=== PATIENT | female | born 1945 | race Caucasian/White ===

== ENCOUNTER 2016-06-05 18:33 | Observation (INO) ==
[2016-06-05] MEDS ORDERED: *HR* HYDROmorphone (PF) 1 MG/ML SYRINGE IVP PRN (22:10)
[2016-06-05] MEDS ORDERED: Acetaminophen 325 MG TABLET PO PRN (22:20)
[2016-06-05] MEDS ORDERED: Naloxone 0.4 MG/ML INJ IVP PRN (22:20)
[2016-06-05] MEDS ORDERED: Ondansetron 4 MG/2 ML VIAL IVP PRN (22:20)
--- NOTE | 2016-06-05 22:26 | Internal Med History&Physical ---
Date of Encounter: 06/05/16 Time of Encounter: 22:23 Assessment and Plan (1) Appendicitis Current visit: Yes Status: Acute Keep nothing by mouth, start Flagyl and ciprofloxacin IV Continue IV fluids with potassium supplementation a sodium is 125 and potassium is 3.2 Dr. Ely will see the patient on consult Dilaudid IV for pain Qualifiers: Appendicitis type: acute appendicitis Acute appendicitis type: with localized peritonitis Qualified Code(s): K35.3 - Acute appendicitis with localized peritonitis (2) Non-small cell carcinoma of left lung Current visit: Yes Status: Acute Followed by Dr. Olivo (3) A-fib Current visit: Yes Status: Acute Takes Coumadin at home Check INR Qualifiers: Atrial fibrillation type: chronic Qualified Code(s): I48.2 - Chronic atrial fibrillation (4) Pacemaker Current visit: Yes Status: Acute (5) Skin cancer Current visit: Yes Status: Acute Status post recent excision of left cheek, healing properly (6) CKD (chronic kidney disease) Current visit: No Status: Chronic Qualifiers: Chronic kidney disease stage: stage 3 (moderate) Qualified Code(s): N18.3 - Chronic kidney disease, stage 3 (moderate) (7) Cirrhosis Current visit: No Status: Chronic Qualifiers: Hepatic cirrhosis type: other cirrhosis Qualified Code(s): K74.69 - Other cirrhosis of liver (8) Hypokalemia Current visit: Yes Status: Acute Replete as needed (9) Hyponatremia Current visit: No Status: Chronic Monitor sodium Patient will be receiving Protonix iv for GI prophylaxis and sequential compression devices for DVT prophylaxis. Will be admitted as inpatient, expected to stay more than to mid thighs. Full code. Time spent on this admission 45 minutes. High risk due to comorbidities Internal Medicine - H&P: HPI Chief complaint: Right lower quadrant pain History of present illness: Ms. Brooks is a 70 year old female with a past medical history of recent diagnosis of lung cancer, COPD not oxygen dependent, CAD, atrial fibrillation on Coumadin, scleroses, pacemaker biventricular, splenic infarction/DVT of the splenic vein who was seen in [facility] for abdominal pain. The patient says that the pain started yesterday localized to the right lower quadrant. CT scan of the abdomen showed distended tubular structure of 13 mm at the tip of the cecum concerning for acute appendicitis. Dr. Ely was contacted from the surgical service who it requested admission to the hospitalist service as he is going to see the patient on consult. The patient rates the pain 8 out of 10 sharp. Sodium was 125 potassium 3.2 glucose 143 lipase 212. Patient has an allergy to morphine but was able to tolerate Dilaudid. INR has not been checked. Past Med Surg Social Fam HX - Past Medical History Medical history: atrial fibrillation (On Coumadin), CHF (Diastolic), COPD (Not oxygen dependent), hypertension, liver disease (Cirrhosis), myocardial infarction, renal disease (ckd3), other (Non-small cell carcinoma, CAD, digoxin toxicity, skin cancer status post resection/facial, PET scan with multiple mediastinal nodes, cirrhosis, gout, GERD, diastolic CHF, pulmonary hypertension , esophageal varices, GI bleed, ocular histoplasmosis, mitral stenosis) Psychiatric history: no psych history - Past Surgical History Surgical History: colectomy, pacemaker/AICD, other (Lung biopsy, aortic valve replacement/bioprosthetic, biventricular pacemaker, cholecystectomy, CABG) - Social History Smoking Status: Former smoker Smokeless Tobacco Status: No Alcohol use: occasionally Drug use: none - Additional Family History Additional family history: Father with pacemaker and CHF in mother with emphysema and pneumonia Internal Medicine - H&P: Meds Allopurinol [Zyloprim] 100 mg PO DAILY 02/04/15 [History] Ferrous Sulfate 325 mg PO DAILY 02/04/15 [History] TraMADol [Ultram] 50 mg PO QID PRN 02/04/15 [History] Warfarin [Coumadin] 5 mg PO QPM 02/04/15 [History] Zolpidem [Ambien] 10 mg PO HS PRN 02/04/15 [History] Albuterol Sulfate [Proair Hfa] 1 puff IH Q4H PRN 05/27/16 [History] Furosemide [Lasix] 80 mg PO BID 05/27/16 [History] Metolazone [Zaroxolyn] 2.5 mg PO 05/27/16 [History] Potassium Chloride [Klor-Con Sprinkle] 10 meq PO DAILY 05/27/16 [History] Omeprazole [PriLOSEC] 20 mg PO DAILY 06/03/16 [History] Spironolactone [Aldactone] 100 mg PO DAILY 06/03/16 [History] Allergies aspirin Allergy (Verified 05/27/16 17:16) Nausea calcium carbonate [From Bufferin] Allergy (Verified 05/27/16 17:16) Nausea magnesium [From Bufferin] Allergy (Verified 05/27/16 17:16) Nausea morphine Allergy (Verified 05/27/16 17:16) Hives Penicillins Allergy (Verified 05/27/16 17:16) Hives All Systems PM: A 10-system review of systems was performed and is negative for pertinent findings except as documented above in the HPI. Review of systems: Denies any nausea, no vomiting, no abdominal pain, no dysuria. Other systems out of the 10 reviewed were negative - Constitutional Vitals: Temp Pulse Resp BP Pulse Ox 98.6 F 60 15 130/65 100 06/05/16 20:40 06/05/16 20:40 06/05/16 20:40 06/05/16 20:40 06/05/16 20:40 General appearance: Present: A&O X 3 - Head Head exam: Present: atraumatic, normocephalic - Eye Eye exam: Present: PERRL, conjuntiva pink, sclera anicteric Pupils: Present: PERRL - Neck Neck exam general surgery: Present: supple, trachea midline. Absent: lymphadenopathy - Respiratory Respiratory exam: Present: CTAB. Absent: accessory muscle use, rales, rhonchi, wheezes - Cardiovascular Cardiovascular exam: Present: RRR, +S1, +S2. Absent: diastolic murmur, gallop, rubs, systolic murmur - GI/Abdominal GI/Abdominal exam: Present: distended, normal bowel sounds, soft, tenderness ( Right lower quadrant tenderness, negative rebound), no peritoneal signs. Absent : rebound - Extremities Exam Extremities exam: Present: warm, radial pulses palpable and symetrical. Absent : calf tenderness, cyanotic, pedal edema - Neurological Exam Neurological exam: Present: CN II-XII intact, oriented X3, no focal deficits. Absent: pronater drift, facial droop, speech deficit - Skin Skin exam: Present: dry. Absent: intact (Left facial cheek sutures status post excision of skin cancer) Internal Med - H&P Results - Labs Labs: Sodium 125, potassium 3.2 chloride 87 BUN 28 glucose 145 calcium 10.7 creatinine 0.94 CBC shows white blood cell count 9.2 hemoglobin 11.4 hematocrit 35.1 platelets 232
[2016-06-05] MEDS: MetroNIDAZOLE 500 MG/100 ML 500 MG/100 ML BAG IVPB SCH (22:48)
[2016-06-05 23:01] LABS: INR 1.6; Prothrombin Time 17.9 Seconds (9.4-12.1)
[2016-06-05] MEDS: Pantoprazole 40 MG VIAL IVP SCH (23:38)
[2016-06-06] MEDS: MetroNIDAZOLE 500 MG/100 ML 500 MG/100 ML BAG IVPB SCH ×4 (01:20→23:14)
[2016-06-06 03:41] LABS: Basophils % 0.2 %; Eosinophils % 0.1 %; Hematocrit 32.1 % (35.3-44.9); Hemoglobin 10.6 g/dL (11.5-15.4); Immature Granulocytes % 0.5 % (0-4); Lymphocytes # 0.8 K/mcL (0.6-4.6); Lymphocytes % 7.8 %; Mean Corpuscular Hemoglobin 30.8 pg (28.0-33.3); Mean Corpuscular Volume 93.3 fL (83.0-100.0); Mean Platelet Volume 9.1 fL (9.4-12.4); Monocytes # 0.7 K/mcL (0.0-1.3); Monocytes % 7.1 %; Neutrophils # 8.4 K/mcL (1.6-8.9); Platelet Count 191 K/mcL (140-400); Red Blood Count 3.44 M/mcL (3.82-4.97); Red Cell Distribution Width 14.8 % (11.5-14.5); Segmented Neutrophils % 84.3 %
[2016-06-06 03:55] LABS: BUN/Creatinine Ratio 27 (6-26); Blood Urea Nitrogen 26 mg/dL (7-20); Carbon Dioxide 26 mEq/L (19-29); Chloride 94 mEq/L (98-109); Glucose 127 mg/dL (70-99); Osmolality,Calculated 274 (280-300); Sodium 129 mEq/L (136-145); eGFR For African Americans > 60 (> 60); eGFR For Non-African Americans 57 (> 60)
[2016-06-06] MEDS: Pantoprazole 40 MG VIAL IVP SCH (08:50)
[2016-06-06] MEDS ORDERED: Lidocaine -MPF 4% 5 ML AMPUL ONE (12:38)
[2016-06-06] MEDS ORDERED: *HR* Rocuronium Bromide 50 MG/5 ML VIAL ONE (12:38)
[2016-06-06] MEDS ORDERED: Lidocaine -MPF 2% 2 ML VIAL ONE ×2 (12:38→12:39)
[2016-06-06] MEDS ORDERED: *HR* Succinylcholine 200 MG/10 ML VIAL IVP ONE (12:38)
[2016-06-06] MEDS ORDERED: *HR* Propofol 200 MG/20 ML VIAL IVP ONE (12:39)
[2016-06-06] MEDS ORDERED: *HR* Midazolam HCl 2 MG/2 ML VIAL ONE (12:39)
[2016-06-06] MEDS ORDERED: Neostigmine Methylsulfate 3 MG/3 ML SYRINGE ONE (12:39)
[2016-06-06] MEDS ORDERED: *HR* FentaNYL (PF) 100 MCG/2 ML VIAL ONE (12:39)
--- NOTE | 2016-06-06 12:39 | General Surgery Consult Note ---
Date of Encounter: 06/06/16 Time of Encounter: 12:37 Assessment and Plan (1) Appendicitis Current Visit: Yes Status: Acute After a 20 minute discussion she has opted for surgery rather than proceed with antibiotics. Her main goal is to resolve the right lower quadrant pain. I discussed the risks, benefits, and expected outcomes of surgery and she agrees to proceed. Qualifiers: Appendicitis type: acute appendicitis Acute appendicitis type: with localized peritonitis Qualified Code(s): K35.3 - Acute appendicitis with localized peritonitis History of Present Illness Consult date: 06/06/16 Reason for consult: abdominal pain History of present illness: This is a 70-year-old female that presents from an outlying facility with right lower quadrant abdominal pain. She underwent CT scanning and was identified to have an enlarged appendix with no periappendiceal stranding. After 24 hours antibiotics she reports she somewhat better but she is still quite tender in the right lower quadrant. She is requesting an operation in the form of diagnostic laparoscopy. Past Med Surg Social Fam HX - Past Medical History Medical history: atrial fibrillation (On Coumadin), CHF (Diastolic), COPD (Not oxygen dependent), hypertension, liver disease (Cirrhosis), myocardial infarction, renal disease (ckd3), other (Non-small cell carcinoma, CAD, digoxin toxicity, skin cancer status post resection/facial, PET scan with multiple mediastinal nodes, cirrhosis, gout, GERD, diastolic CHF, pulmonary hypertension , esophageal varices, GI bleed, ocular histoplasmosis, mitral stenosis) Psychiatric history: no psych history - Past Surgical History Surgical History: colectomy, pacemaker/AICD, other (Lung biopsy, aortic valve replacement/bioprosthetic, biventricular pacemaker, cholecystectomy, CABG) - Social History Smoking Status: Former smoker Smokeless Tobacco Status: No Alcohol use: occasionally Drug use: none Medications and Allergies Allopurinol [Zyloprim] 100 mg PO DAILY 02/04/15 [History] Ferrous Sulfate 325 mg PO DAILY 02/04/15 [History] TraMADol [Ultram] 50 mg PO QID PRN 02/04/15 [History] Warfarin [Coumadin] 5 mg PO QPM 02/04/15 [History] Zolpidem [Ambien] 10 mg PO HS PRN 02/04/15 [History] Albuterol Sulfate [Proair Hfa] 1 puff IH Q4H PRN 05/27/16 [History] Furosemide [Lasix] 80 mg PO BID 05/27/16 [History] Metolazone [Zaroxolyn] 2.5 mg PO 05/27/16 [History] Potassium Chloride [Klor-Con Sprinkle] 10 meq PO DAILY 05/27/16 [History] Omeprazole [PriLOSEC] 20 mg PO DAILY 06/03/16 [History] Spironolactone [Aldactone] 100 mg PO DAILY 06/03/16 [History] Allergies aspirin Allergy (Verified 05/27/16 17:16) Nausea calcium carbonate [From Bufferin] Allergy (Verified 05/27/16 17:16) Nausea magnesium [From Bufferin] Allergy (Verified 05/27/16 17:16) Nausea morphine Allergy (Verified 05/27/16 17:16) Hives Penicillins Allergy (Verified 05/27/16 17:16) Hives Review of Systems All systems PM: A 10-system review of systems was performed and is negative for pertinent findings except as documented above in the HPI. General Surgery Exam Initial Vital Signs Temp Pulse Resp BP Pulse Ox 98.6 F 60 15 130/65 100 06/05/16 20:40 06/05/16 20:40 06/05/16 20:40 06/05/16 20:40 06/05/16 20:40 - Eyes PERRL - Neck trachea midline - Respiratory normal respiratory effort - Cardiovascular Cardiovascular exam: Present: NR - Abdomen Abdomen general surgery: Present: tender Abdominal Tenderness: Present: RLQ - Integumentary Integumentary general surgery: Present: no abnormal pigmentation - Musculoskeletal Present: normal posture Exam Initial Vital Signs Temp Pulse Resp BP Pulse Ox 98.6 F 60 15 130/65 100 06/05/16 20:40 06/05/16 20:40 06/05/16 20:40 06/05/16 20:40 06/05/16 20:40 Results - Labs 06/06/16 02:59 06/06/16 02:59 Abnormal lab results RBC 3.44 M/mcL (3.82-4.97) L 06/06/16 02:59 Hgb 10.6 g/dL (11.5-15.4) L 06/06/16 02:59 Hct 32.1 % (35.3-44.9) L 06/06/16 02:59 RDW 14.8 % (11.5-14.5) H 06/06/16 02:59 MPV 9.1 fL (9.4-12.4) L 06/06/16 02:59 PT 17.9 Seconds (9.4-12.1) H 06/05/16 22:51 Sodium 129 mEq/L (136-145) L 06/06/16 02:59 Chloride 94 mEq/L (98-109) L 06/06/16 02:59 BUN 26 mg/dL (7-20) H 06/06/16 02:59 Est GFR (Non-Af Amer) 57 (> 60) L 06/06/16 02:59 BUN/Creatinine Ratio 27 (6-26) H 06/06/16 02:59 Glucose 127 mg/dL (70-99) H 06/06/16 02:59 POC Glucose 150 (58-89) H 06/06/16 12:10 Calculated Osmolality 274 (280-300) L 06/06/16 02:59 Diabetes panel 06/06/16 Range/Units 02:59 Sodium 129 L (136-145) mEq/L Potassium 4.0 (3.5-4.5) mEq/L Chloride 94 L (98-109) mEq/L Carbon Dioxide 26 (19-29) mEq/L BUN 26 H (7-20) mg/dL Creatinine 0.97 (0.57-1.11) mg/dL Glucose 127 H (70-99) mg/dL Calcium 10.0 (8.6-10.8) mg/dL Calcium panel 06/06/16 Range/Units 02:59 Calcium 10.0 (8.6-10.8) mg/dL Pituitary panel 06/06/16 Range/Units 02:59 Sodium 129 L (136-145) mEq/L Potassium 4.0 (3.5-4.5) mEq/L Chloride 94 L (98-109) mEq/L Carbon Dioxide 26 (19-29) mEq/L BUN 26 H (7-20) mg/dL Creatinine 0.97 (0.57-1.11) mg/dL Glucose 127 H (70-99) mg/dL Calcium 10.0 (8.6-10.8) mg/dL Adrenal panel 06/06/16 Range/Units 02:59 Sodium 129 L (136-145) mEq/L Potassium 4.0 (3.5-4.5) mEq/L Chloride 94 L (98-109) mEq/L Carbon Dioxide 26 (19-29) mEq/L BUN 26 H (7-20) mg/dL Creatinine 0.97 (0.57-1.11) mg/dL Glucose 127 H (70-99) mg/dL Calcium 10.0 (8.6-10.8) mg/dL All other labs normal. Consult Discharge Plan - Plan Referrals: Jose Jones DO [Primary Care Provider] -
[2016-06-06] MEDS ORDERED: Dexamethasone 4 MG/ML VIAL ONE (12:40)
[2016-06-06] MEDS ORDERED: Ondansetron 4 MG/2 ML VIAL ONE (12:40)
--- NOTE | 2016-06-06 13:07 | Anesthesia Evaluation PreOp ---
Date of Encounter: 06/06/16 Time of Encounter: 13:04 - Past History Planned Operation: Lap Appy Cardiac History: IN (??), CHF (Diastolic CHF - maintained on Metolazone, Spironolactone, Lasix), HTN, Arrhythmia (AFib anticoagulated on Coumadin), Cardiac Surgery (Aortic Valve replacement,), Pacemaker/ICD (Bi-V Pacemaker), Other (ECHO 02/05/2015 - LVEF 56%, mild concentric LVH, Severely dilated ROBERT, Moderate-Severe Aortic Stenosis - peak gradient 62mmHg, Severe TR, mMIld MR. Mild PulmHTN RVSP = 41-43.) Pulmonary History: Former smoker, COPD (maintained on ProAir), Other (Newly Dx Non-small cell Ca w/PET + mediastinal nodes, PulmHTN) CREDIT RISK OFFICER History: Other (Ocular Histoplasmosis, FacialSkin Ca s/p resection) Other Medical History: Hepatic (Cirrhosis), Renal (Stage 3 CKD), GERD ( maintained on Omeprazole. Hx of Esophageal Varices), Other (Skin Ca, Gout) Anesthesia History: No Prior Anesthetic Complications, Past Anesthesia (Aortic Valve replacement, Lung Bx, BiV-pacemaker, Colectomy, CABG, Samira) Alcohol Use: occasionally Drug use: none Medications and Allergies Allopurinol [Zyloprim] 100 mg PO DAILY 02/04/15 [History] Ferrous Sulfate 325 mg PO DAILY 02/04/15 [History] TraMADol [Ultram] 50 mg PO QID PRN 02/04/15 [History] Warfarin [Coumadin] 5 mg PO QPM 02/04/15 [History] Zolpidem [Ambien] 10 mg PO HS PRN 02/04/15 [History] Albuterol Sulfate [Proair Hfa] 1 puff IH Q4H PRN 05/27/16 [History] Furosemide [Lasix] 80 mg PO BID 05/27/16 [History] Metolazone [Zaroxolyn] 2.5 mg PO 05/27/16 [History] Potassium Chloride [Klor-Con Sprinkle] 10 meq PO DAILY 05/27/16 [History] Omeprazole [PriLOSEC] 20 mg PO DAILY 06/03/16 [History] Spironolactone [Aldactone] 100 mg PO DAILY 06/03/16 [History] Allergies aspirin Allergy (Verified 05/27/16 17:16) Nausea calcium carbonate [From Bufferin] Allergy (Verified 05/27/16 17:16) Nausea magnesium [From Bufferin] Allergy (Verified 05/27/16 17:16) Nausea morphine Allergy (Verified 05/27/16 17:16) Hives Penicillins Allergy (Verified 05/27/16 17:16) Hives - Meds/Allergy Pre-op Review Medications Reviewed: Yes Allergies Reviewed: Yes Beta Blockers on Current Med List: No Anesthesia Results - Labs 06/06/16 02:59 06/06/16 02:59 Laboratory Tests 05/29/16 06/05/16 06/06/16 09:30 22:51 12:10 PT 17.9 H INR 1.6 APTT 52.3 H POC Glucose 150 H - Imaging EKG: image reviewed Anesthesia Exam Vital Signs Temp Pulse Resp BP Pulse Ox 06/06/16 11:39 98.4 F 60 15 109/58 97 06/06/16 07:00 97.4 F L 60 15 115/65 98 06/06/16 03:20 98.4 F 62 14 123/56 98 06/06/16 00:58 99.5 F 60 14 144/55 99 06/05/16 20:40 98.6 F 60 15 130/65 100 Intake and Output 06/05/16 06/06/16 06/06/16 23:59 07:59 15:59 Intake Total 300 / 300 0 / 0 1005 / 1005 Output Total 500 / 500 350 / 350 400 / 400 Balance -200 / -200 -350 / -350 605 / 605 Intake: IV Fluids 300 / 300 1005 / 1005 KCl 10 MEQ In 0.9 % 1005 / 1005 Sodium Chloride 1,000 ML @ 125 mls/hr IVC .Q8H3M ALEJANDRO Rx#:[id number] Cipro 400 MG/200 ML 400 200 / 200 mg In 200 ml @ 200 mls/hr IVPB Q12HR ALEJANDRO Rx#: [id number] Flagyl 500 MG/100 ML 500 100 / 100 mg In 100 ml @ 100 mls/hr IVPB Q8HR ALEJANDRO Rx#: [id number] Oral 0 / 0 0 / 0 Output: Urine 500 / 500 350 / 350 400 / 400 Other: Meal NPO Weight 66.5 kg 66.5 kg Blood Glucose* 140 150 Patient Weight 06/06/16 23:59 Weight 66.5 kg Height: 5'2" Weight: 146# BMI = 27 NPO (# of Hours): MNoc - HEENT Pupil (Motor): Pupils equal, EOMI Mallampati: II Teeth: Edentulous Oral Opening: Greater than 3 - CREDIT RISK OFFICER LOC: Oriented CREDIT RISK OFFICER Motor: Normal RUE, Normal LUE, Normal RLE, Normal LLE, Normal Face CREDIT RISK OFFICER Sensory: Normal: RUE, LUE, RLE, LLE, Face - Cardiac Rhythm: Regular Murmur: Systolic JVD: No - Pulmonary Breath Sounds: bilateral Clear Respiratory Effort: Symmetrical Anesthesia Assess/Plan ASA Score: 4 (CHF, AFib, Pacer, Moderate-Severe Aortic Stenosis, Stage 3 CKD, Cirrhosis/Esophageal Varices, Skin Ca, Newly Dx Lung CA, COPD) Modified Homa Scale for Level of Consciousness: Cooperative, oriented, and tranquil Anesthetic Plan: General Monitoring Plan: Standard Monitors Recovery Plan: PACU Anes Supervising Prov Stmt: Pt seen/evaluated, R&B discussed, questions answered and consent obtained. Alberto Parmar MD
[2016-06-06] MEDS ORDERED: Ringers Solution, Lactated 1,000 ML IVC SCH ×2 (13:30→14:50)
[2016-06-06] MEDS ORDERED: *HR* Etomidate 40 MG/20 ML VIAL IVP ONE (13:33)
[2016-06-06] MEDS ORDERED: *HR* Phenylephrine 10 MG/ML VIAL ONE (13:46)
[2016-06-06] MEDS ORDERED: *HR* HYDROmorphone 2 MG/ML SYRINGE ONE (13:53)
--- NOTE | 2016-06-06 14:12 | Operative Note ---
Date of procedure: 06/06/16 Pre-op diagnosis: Right lower quadrant pain Post-op diagnosis: same Procedure: Laparoscopic appendectomy Anesthesia: ROSENDO Surgeon: Jean Claude Ely Estimated blood loss (cc): 50 Specimen: Appendix Condition: stable Disposition: same day Procedure in Detail: After informed consent, patient was taken to the operating room placed in supine position. After adequate sedation anesthesia the abdomen was prepped and draped. A 12 mm cannula was placed in the umbilicus. A 5 mm cannulas placed in suprapubic region and the left lower quadrant. Camera was inserted and the abdomen after a pneumoperitoneum. 2 Susana graspers were used to identify the base of the appendix. A appendiceal window was created. A GREGG endoscopic stapler was placed across the base. A vascular load was placed across the mesoappendix. Once the appendix was was placed in an Endobag and removed through the umbilicus. The right lower quadrant was suctioned dry no bleeding was identified. Remainder the pneumoperitoneum was evacuated. The umbilicus was closed with an 0 Vicryl suture in [id number] fashion. Skin was closed with 4-0 Vicryl suture and Dermabond.
[2016-06-06] MEDS ORDERED: *HR* HYDROmorphone (PF) 1 MG/ML SYRINGE ONE (14:34)
[2016-06-06] MEDS: *HR* HYDROmorphone (PF) 1 MG/ML SYRINGE IVP PRN ×4 (14:35→21:01)
[2016-06-06] MEDS ORDERED: *HR* Promethazine 25 MG/ML VIAL IVP PRN (14:36)
[2016-06-06] MEDS ORDERED: Ondansetron 4 MG/2 ML VIAL IVP PRN (14:50)
[2016-06-06] MEDS ORDERED: Naloxone 0.4 MG/ML INJ IVP PRN (14:50)
[2016-06-06] MEDS ORDERED: Acetaminophen 325 MG TABLET PO PRN (14:50)
--- NOTE | 2016-06-06 14:53 | Internal Med Progress Note ---
Date of Encounter: 06/06/16 Time of Encounter: 11:30 - Assessment and plan (1) Appendicitis Current Visit: Yes Status: Acute Assessment and plan: Patient complains of severe RLQ. She presented to [facility] ED and CT scan of the abdomen showed distended tubular structure of 13 mm at the tip of the cecum concerning for acute appendicitis. She was transferred to our hospital for surgery consultation. Continue IV fluids and IV antibiotics. Appreciate surgery input: plan for laparoscopy appendectomy today. Qualifiers: Appendicitis type: acute appendicitis Acute appendicitis type: with localized peritonitis Qualified Code(s): K35.3 - Acute appendicitis with localized peritonitis (2) Congestive heart failure Current Visit: No Status: Resolved Assessment and plan: chronic diastolic heart failure with bioprosthetic AV, moderate to severe and severe TR. not in exacerbation. 01/2015: 2D echocardiogram showed LVEF 65%, bioprosthetic AV, moderate to severe , moderate MS, severe TR, moderately dilated RV. stop IV fluids. Holding home dose of lasix, zaroxolyn and spironolactone before surgery. will resume in AM. Qualifiers: Congestive heart failure type: diastolic Congestive heart failure chronicity: chronic Qualified Code(s): I50.32 - Chronic diastolic (congestive ) heart failure (3) Hyponatremia Current Visit: No Status: Chronic Assessment and plan: chronic hyponatremia. multifactorial from valvular heart disease, diuretics and cirrhosis. close monitoring. no encephalopathy. (4) A-fib Current Visit: Yes Status: Acute Assessment and plan: heart rate is in the 50s. not on any medication at home. Qualifiers: Atrial fibrillation type: chronic Qualified Code(s): I48.2 - Chronic atrial fibrillation (5) Non-small cell carcinoma of left lung Current Visit: Yes Status: Acute (6) CKD (chronic kidney disease) Current Visit: No Status: Chronic Assessment and plan: CKD 3. at baseline. close monitoring. avoid nephrotoxic agents as possible. Qualifiers: Chronic kidney disease stage: stage 3 (moderate) Qualified Code(s): N18.3 - Chronic kidney disease, stage 3 (moderate) (7) Pacemaker Current Visit: Yes Status: Acute (8) Skin cancer Current Visit: No Status: Chronic Assessment and plan: recente excision of skin cancer at left cheek. it is healing adequately. (9) DVT (deep venous thrombosis) Current Visit: Yes Status: Acute Assessment and plan: history of splenic infarct/splenic DVT. on coumadin. INR not therapeutic. will resume after surgery. Qualifiers: DVT location: non-extremity vein Chronicity: chronic Qualified Code(s): I82.91 - Chronic embolism and thrombosis of unspecified vein - Subjective Interval history: patient reports pain in RLQ. - Constitutional Vitals: Temp Pulse Resp BP Pulse Ox 98.4 F 59 20 126/68 97 06/06/16 14:49 06/06/16 14:49 06/06/16 14:49 06/06/16 14:49 06/06/16 14:49 General appearance: Present: cooperative, A&O X 3, no acute distress, answers questions appropriately - Respiratory Respiratory exam: Present: CTAB - Cardiovascular Cardiovascular exam: Present: RRR - GI/Abdominal GI/Abdominal exam: Present: soft, tenderness (RLQ). Absent: distended - Extremities Exam Extremities exam: Absent: pedal edema - Back Exam Back exam: Absent: CVA tenderness (L), CVA tenderness (R) - Neurological Exam Neurological exam: Present: alert, oriented X3, no focal deficits, strengths equal and symetr throughout. Absent: facial droop, speech deficit - Skin Skin exam: Absent: rash Internal Medicine: Result - Labs CBC & Chem 7: 06/06/16 02:59 06/06/16 02:59 Labs: Short CBC 06/06/16 Range/Units 02:59 WBC 10.0 (4.3-11.1) K/mcL Hgb 10.6 L (11.5-15.4) g/dL Hct 32.1 L (35.3-44.9) % Plt Count 191 (140-400) K/mcL Neutrophils # 8.4 (1.6-8.9) K/mcL BMP 06/06/16 02:59 Sodium 129 L Potassium 4.0 Chloride 94 L Carbon Dioxide 26 BUN 26 H Creatinine 0.97 Glucose 127 H Calcium 10.0 - ABG Interpretation ABG results: PT/INR, D-dimer PT 17.9 Seconds (9.4-12.1) H 06/05/16 22:51 Consult Discharge Plan - Plan Referrals: Jose Jones DO [Primary Care Provider] -
--- NOTE | 2016-06-06 15:20 | Anesthesia Evaluation Post Op ---
Date of Encounter: 06/06/16 Time of Encounter: 15:19 - Vital Signs Vital Signs: Vital Signs/O2 Sat/Glucose, Most Current Temp Pulse Resp BP Pulse Ox 06/06/16 15:14 60 18 132/60 97 06/06/16 15:09 97.6 F 59 20 127/59 96 06/06/16 14:59 59 22 131/59 98 06/06/16 14:49 98.4 F 59 20 126/68 97 06/06/16 14:39 59 20 132/89 98 06/06/16 14:29 59 18 150/68 98 06/06/16 14:19 98.6 F 60 20 137/68 96 06/06/16 11:39 98.4 F 60 15 109/58 97 - Lungs Lungs: Clear Ascult./Percussion - Airway Airway: Non-obstructed - Cardiovascular Regular Rate, Baseline Rhythm - Mental Status Mental Status: Alert & Oriented, Answers Appropriately - Pain Pain Scale: 5 Pain Scale used: Numeric (1 - 10) - Nausea Vomiting Nausea Vomiting: Not Present - Hydration Hydration: Ice chips, Has not voided - Discharge PostOp Status: Discharge Patient to home Anes Supervising Prov Stmt: Pt seen/evaluated, VSS and pt has met criteria for discharge to floor. - MD Agata
[2016-06-07] MEDS: *HR* HYDROmorphone (PF) 1 MG/ML SYRINGE IVP PRN (00:39)
[2016-06-07 04:57] LABS: Hematocrit 29.9 % (35.3-44.9); Hemoglobin 9.9 g/dL (11.5-15.4); Immature Granulocytes % 0.7 % (0-4); Lymphocytes # 0.5 K/mcL (0.6-4.6); Mean Corpuscular HGB Conc 33.1 g/dL (31.6-35.5); Mean Corpuscular Hemoglobin 30.7 pg (28.0-33.3); Mean Corpuscular Volume 92.9 fL (83.0-100.0); Mean Platelet Volume 9.3 fL (9.4-12.4); Monocytes # 0.2 K/mcL (0.0-1.3); Monocytes % 4.6 %; Neutrophils # 3.8 K/mcL (1.6-8.9); Platelet Count 164 K/mcL (140-400); Red Blood Count 3.22 M/mcL (3.82-4.97); Red Cell Distribution Width 14.6 % (11.5-14.5); Segmented Neutrophils % 83.7 %
[2016-06-07 05:02] LABS: INR 1.4; Prothrombin Time 15.5 Seconds (9.4-12.1)
[2016-06-07 05:13] LABS: BUN/Creatinine Ratio 27 (6-26); Blood Urea Nitrogen 23 mg/dL (7-20); Calcium 10.2 mg/dL (8.6-10.8); Carbon Dioxide 25 mEq/L (19-29); Chloride 94 mEq/L (98-109); Glucose 142 mg/dL (70-99); Magnesium 1.6 mg/dL (1.6-2.6); Osmolality,Calculated 274 (280-300); Potassium 3.5 mEq/L (3.5-4.5); Sodium 129 mEq/L (136-145); eGFR For African Americans > 60 (> 60); eGFR For Non-African Americans > 60 (> 60)
[2016-06-07] MEDS: MetroNIDAZOLE 500 MG/100 ML 500 MG/100 ML BAG IVPB SCH (08:18)
[2016-06-07] MEDS ORDERED: Pantoprazole 40 MG VIAL IVP SCH (09:00)
[2016-06-07 11:08] VITALS: BP 108/58
[2016-06-07] MEDS ORDERED: *HR* OxyCODONE/APAP 5/325 TABLET PO PRN (14:36)
--- NOTE | 2016-06-07 14:37 | Discharge Summary ---
Date of Encounter: 06/07/16 Time of Encounter: 14:30 - Discharge Diagnosis (1) Appendicitis Priority: Primary Status: Resolved Qualifiers: Appendicitis type: acute appendicitis Acute appendicitis type: with localized peritonitis Qualified Code(s): K35.3 - Acute appendicitis with localized peritonitis - Discharge Medications Prescriptions: OxyCODONE/APAP 5/325 [Percocet 5/325 MG] 1 each PO Q6HR PRN #30 tablet PRN Reason: Pain Docusate [Colace] 100 mg PO BID #30 capsule Home Medications: Allopurinol [Zyloprim] 100 mg PO DAILY 02/04/15 [History] Ferrous Sulfate 325 mg PO DAILY 02/04/15 [History] TraMADol [Ultram] 50 mg PO QID PRN 02/04/15 [History] Warfarin [Coumadin] 5 mg PO QPM 02/04/15 [History] Zolpidem [Ambien] 10 mg PO HS PRN 02/04/15 [History] Albuterol Sulfate [Proair Hfa] 1 puff IH Q4H PRN 05/27/16 [History] Furosemide [Lasix] 80 mg PO BID 05/27/16 [History] Metolazone [Zaroxolyn] 2.5 mg PO 2XW MDD TUESDAY AND Tuesday05/27/16 [History] Potassium Chloride [Klor-Con Sprinkle] 10 meq PO DAILY 05/27/16 [History] Omeprazole [PriLOSEC] 20 mg PO DAILY 06/03/16 [History] Spironolactone [Aldactone] 100 mg PO DAILY 06/03/16 [History] Docusate [Colace] 100 mg PO BID #30 capsule 06/07/16 [Rx] OxyCODONE/APAP 5/325 [Percocet 5/325 MG] 1 each PO Q6HR PRN #30 tablet 06/07/16 [Rx] Allergies/Adverse Reactions: Allergies aspirin Allergy (Verified 05/27/16 17:16) Nausea calcium carbonate [From Bufferin] Allergy (Verified 05/27/16 17:16) Nausea magnesium [From Bufferin] Allergy (Verified 05/27/16 17:16) Nausea morphine Allergy (Verified 05/27/16 17:16) Hives Penicillins Allergy (Verified 05/27/16 17:16) Hives General Surgery Exam Initial Vital Signs Temp Pulse Resp BP Pulse Ox 98.6 F 60 15 130/65 100 06/05/16 20:40 06/05/16 20:40 06/05/16 20:40 06/05/16 20:40 06/05/16 20:40 - General physical appearance well developed, well nourished, no distress - Eyes normal ocular movement - ENT normal mucosa, atraumatic, normocephalic - Neck trachea midline - Respiratory normal respiratory effort, clear to auscultation - Cardiovascular Cardiovascular exam: Present: RRR, 15, 16 - Abdomen Abdomen general surgery: Present: bowel sounds present, soft, tender (expected post-operative tenderness) - Incision Incision: Present: clean and dry, intact - Integumentary Integumentary general surgery: Present: warm and dry - Neurologic Present: CN 2-12 grossly intact - Musculoskeletal Present: normal gait, normal posture - Psychiatric Psychiatric general surgery: Present: appropriate, oriented to person, oriented to place, oriented to time, speech is normal, memory intact Date of admission: 06/05/16 20:09 Primary care physician: Jose Jones Consults: 06/05/16 22:10 Consult to Surgery [CONS] Routine Consulting Provider: Jean Claude Ely Reason for Consult: appendicitis, called by Martin Call Completed: Yes Discharging clinician: Jean Claude Haney) Anticipated date of discharge: 06/07/16 - Patient Status Disposition: Home, Self-Care Condition: Good Functional capacity at discharge: independent ambulation Overall status at discharge: patient is progressing back to baseline - Discharge Instructions Follow Up With: Subha Haney CNP [Advanced Practice Nurse] - 06/21/16 10:00 am (surgery follow-up) Jose Jones DO [Primary Care Provider] - (1-2 weeks hospital follow-up) Additional Instructions: Surgical instructions: #1 May shower, no tub bath X 2 weeks #2 Wash incisions with soap and water and pat dry daily #3 No lifting/pushing/pulling greater than 15 lb. for a total o 2 weeks from the date of surgery #4 No driving until off narcotics for 24 hours and able to safely react in the car #5 May climb stairs - Diet and Activity Activity: other (See additional instructions above) Diet: advance to your usual diet - Hospital Course Hospital course: Ms. Todd is a 70 year old female presented to the hospital with abdominal pain and was found to have acute appendicitis. She was taken to the operating room for a laparoscopic appendectomy with Dr. Ely. On POD #1, she is tolerating liquids without nausea/vomiting. Vital signs are stable and she is afebrile. Pain is well controlled. She is voiding and ambulating without difficulty. We will begin discharge planning to home and plan for outpatient follow-up in the next 10-14 days. - Time Spent with Patient Total time spent providing and/or coordinating discharge services: Less than 30 minutes Labs on day of discharge: Labs from last 24 hours 06/07/16 06/07/16 06/07/16 10:56 04:32 04:32 WBC RBC Hgb Hct MCV MCH MCHC RDW Plt Count MPV Immature Gran % Seg Neutrophils % Lymphocytes % Monocytes % Eosinophils % Basophils % Neutrophils # Lymphocytes # Monocytes # Eosinophils # Basophils # PT 15.5 H INR 1.4 Sodium 129 L Potassium 3.5 Chloride 94 L Carbon Dioxide 25 BUN 23 H Creatinine 0.86 Est GFR ( Amer) > 60 Est GFR (Non-Af Amer) > 60 BUN/Creatinine Ratio 27 H Glucose 142 H POC Glucose 125 H Calculated Osmolality 274 L Calcium 10.2 Phosphorus 3.0 Magnesium 1.6 06/07/16 04:32 WBC 4.5 D RBC 3.22 L Hgb 9.9 L Hct 29.9 L MCV 92.9 MCH 30.7 MCHC 33.1 RDW 14.6 H Plt Count 164 MPV 9.3 L Immature Gran % 0.7 Seg Neutrophils % 83.7 Lymphocytes % 11.0 Monocytes % 4.6 Eosinophils % 0.0 Basophils % 0.0 Neutrophils # 3.8 Lymphocytes # 0.5 L Monocytes # 0.2 Eosinophils # 0.0 Basophils # 0.0 PT INR Sodium Potassium Chloride Carbon Dioxide BUN Creatinine Est GFR ( Amer) Est GFR (Non-Af Amer) BUN/Creatinine Ratio Glucose POC Glucose Calculated Osmolality Calcium Phosphorus Magnesium - Attending Attestation I examined this patient and my medical decision-making was reviewed with the SENIOR COMPLIANCE ANALYST/PA/Advanced Practice Nurse/Resident Physician. I agree with the documented findings, disposition and treatment plan as described except to the extent set forth below.
[2016-06-07] MEDS ORDERED: metroNIDAZOLE 500 MG TABLET PO SCH (15:00)
--- NOTE | 2016-06-07 15:37 | Internal Med Progress Note ---
Date of Encounter: 06/07/16 Time of Encounter: 13:00 - Assessment and plan (1) Appendicitis Current Visit: Yes Status: Resolved Assessment and plan: Patient complains of severe RLQ. She presented to [facility] ED and CT scan of the abdomen showed distended tubular structure of 13 mm at the tip of the cecum concerning for acute appendicitis. She was transferred to our hospital for surgery consultation. Appreciate surgery input: pt underwent laparoscopy appendectomy 06/06 without complications. Qualifiers: Appendicitis type: acute appendicitis Acute appendicitis type: with localized peritonitis Qualified Code(s): K35.3 - Acute appendicitis with localized peritonitis (2) Congestive heart failure Current Visit: No Status: Resolved Assessment and plan: chronic diastolic heart failure with bioprosthetic AV, moderate to severe and severe TR. not in exacerbation. 01/2015: 2D echocardiogram showed LVEF 65%, bioprosthetic AV, moderate to severe , moderate MS, severe TR, moderately dilated RV. compensated. resume home dose of lasix, zaroxolyn and spironolactone before surgery. Qualifiers: Congestive heart failure type: diastolic Congestive heart failure chronicity: chronic Qualified Code(s): I50.32 - Chronic diastolic (congestive ) heart failure (3) Hyponatremia Current Visit: No Status: Chronic Assessment and plan: chronic hyponatremia. multifactorial from valvular heart disease, diuretics and cirrhosis. close monitoring. no encephalopathy. (4) A-fib Current Visit: Yes Status: Acute Assessment and plan: HR is adequate. resume warfarin. Qualifiers: Atrial fibrillation type: chronic Qualified Code(s): I48.2 - Chronic atrial fibrillation (5) Non-small cell carcinoma of left lung Current Visit: Yes Status: Acute Assessment and plan: Patient would like to have a PET-CT scan before she has her Port placement. follow up in the oncology clinic. (6) CKD (chronic kidney disease) Current Visit: No Status: Chronic Assessment and plan: CKD 3. at baseline. close monitoring. avoid nephrotoxic agents as possible. (7) Pacemaker Current Visit: Yes Status: Acute (8) Skin cancer Current Visit: No Status: Chronic Assessment and plan: recente excision of skin cancer at left cheek. it is healing adequately. (9) DVT (deep venous thrombosis) Current Visit: Yes Status: Acute Assessment and plan: history of splenic infarct/splenic DVT. on coumadin. INR not therapeutic. resume coumadin. Qualifiers: DVT location: non-extremity vein Chronicity: chronic Qualified Code(s): I82.91 - Chronic embolism and thrombosis of unspecified vein - Subjective Interval history: patient reports her pain is controlled. no other complaints. - Constitutional Vitals: Temp Pulse Resp BP Pulse Ox 97.7 F 60 18 108/58 96 06/07/16 11:07 06/07/16 11:07 06/07/16 11:07 06/07/16 11:07 06/07/16 11:07 General appearance: Present: cooperative, A&O X 3, no acute distress, answers questions appropriately - Respiratory Respiratory exam: Present: CTAB - Cardiovascular Cardiovascular exam: Present: RRR - GI/Abdominal GI/Abdominal exam: Present: normal bowel sounds, soft, tenderness (mild diffuse tenderness. surgical wounds are intact) - Extremities Exam Extremities exam: Absent: pedal edema - Back Exam Back exam: Absent: CVA tenderness (L), CVA tenderness (R) - Neurological Exam Neurological exam: Present: alert, oriented X3, no focal deficits, strengths equal and symetr throughout. Absent: facial droop, speech deficit - Skin Skin exam: Absent: rash Internal Medicine: Result - Labs CBC & Chem 7: 06/07/16 04:32 06/07/16 04:32 Labs: Short CBC 06/07/16 Range/Units 04:32 WBC 4.5 D (4.3-11.1) K/mcL Hgb 9.9 L (11.5-15.4) g/dL Hct 29.9 L (35.3-44.9) % Plt Count 164 (140-400) K/mcL Neutrophils # 3.8 (1.6-8.9) K/mcL BMP 06/07/16 04:32 Sodium 129 L Potassium 3.5 Chloride 94 L Carbon Dioxide 25 BUN 23 H Creatinine 0.86 Glucose 142 H Calcium 10.2 - ABG Interpretation ABG results: PT/INR, D-dimer PT 15.5 Seconds (9.4-12.1) H 06/07/16 04:32 - VTE Documentation of Mechanical Device: Intermittent pneumatic compression device Consult Discharge Plan - Plan Instructions: Atrial Fibrillation (DC), Urinary Tract Infection in Women (DC) Additional Instructions: Surgical instructions: #1 May shower, no tub bath X 2 weeks #2 Wash incisions with soap and water and pat dry daily #3 No lifting/pushing/pulling greater than 15 lb. for a total o 2 weeks from the date of surgery #4 No driving until off narcotics for 24 hours and able to safely react in the car #5 May climb stairs Referrals: Subha Haney CNP [Advanced Practice Nurse] - 06/21/16 10:00 am (surgery follow-up) Jose Jones DO [Primary Care Provider] - (1-2 weeks hospital follow-up) Prescriptions: OxyCODONE/APAP 5/325 [Percocet 5/325 MG] 1 each PO Q6HR PRN #30 tablet PRN Reason: Pain Docusate [Colace] 100 mg PO BID #30 capsule
[2016-06-07] MEDS ORDERED: *HR* Warfarin 5 MG TABLET PO ONE (18:00)
[2016-06-07] MEDS ORDERED: Warfarin perPT PO PRN (18:00)
--- NOTE | 2016-06-08 06:19 | Electrocardiograph Report ---
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
== END 2016-06-07 16:10 | disposition home or self-care (01) ==
LOC: 3ANU
PROVIDERS: ADMIT Internal Medicine; ATTEND Internal Medicine

== ENCOUNTER 2016-08-12 19:37 | Inpatient (IN) ==
--- NOTE | 2016-08-12 22:19 | Emergency Department Note ---
Disposition Clinical Impression: Hyponatremia Anemia Qualifiers: Anemia type: unspecified type Qualified Code(s): D64.9 - Anemia, unspecified GI bleed Qualifiers: GI bleed type/associated pathology: unspecified gastrointestinal hemorrhage type Qualified Code(s): K92.2 - Gastrointestinal hemorrhage, unspecified Disposition: Admitted As Inpatient Condition: Good Referrals: Jose Jones DO [Primary Care Provider] - Forms: Work/School Release, ED Satisfaction Letter General Adult HPI - General Chief complaint: ED General Medical Stated complaint: "Port Check/Blood Levels/Ca Patient" Time Seen by Provider: 08/12/16 21:47 Source: patient, family Limitations: no limitations - History of Present Illness HPI Narrative: 70-year-old female history of lung cancer currently on chemotherapy who presents to the ER due to oncologist referral. Patient states that she had noticed some leaking from her port. They checked blood work and she was contacted by her oncology team to be evaluated due to labs drawn yesterday. She states she was seen at another facility but they did not do anything for her. She reports a history of anemia in the past requiring transfusion within the last 3 months. She states she has felt weak at home. She denies any change in stool, rectal bleeding, hematuria. She denies any chest pain or shortness of breath. She does report that she has felt weak. No other complaints. Pt Subjective Complaint: Have her port checked and blood draw Onset (ago): day(s) Radiation: non-radiation Pain Scale: 0 Improves with: nothing Worsens with: nothing Associated symptoms: Reports: weakness. Denies: chest pain, cough, fever/chills , nausea/vomiting, shortness of breath Treatments Prior to Arrival: none - Related Data Home Medications Medication Instructions Recorded Confirmed Allopurinol [Zyloprim] 100 mg PO DAILY 02/04/15 07/30/16 Ferrous Sulfate 325 mg PO DAILY 02/04/15 07/30/16 TraMADol [Ultram] 50 mg PO QID PRN 02/04/15 07/30/16 Warfarin [Coumadin] 5 mg PO QPM 02/04/15 07/30/16 Zolpidem [Ambien] 10 mg PO HS PRN 02/04/15 07/30/16 Albuterol Sulfate [Proair Hfa] 1 puff IH Q4H PRN 05/27/16 07/30/16 Furosemide [Lasix] 80 mg PO BID 05/27/16 07/30/16 metOLazone [Zaroxolyn] 2.5 mg PO 2XW MDD TUESDAY AND 05/27/16 07/30/16Tuesday Omeprazole [PriLOSEC] 20 mg PO DAILY 06/03/16 07/30/16 Spironolactone [Aldactone] 100 mg PO DAILY 06/03/16 07/30/16 Previous Rx's Medication Instructions Recorded Docusate [Colace] 100 mg PO BID #30 capsule 06/07/16 Loperamide [Imodium] 2 mg PO PRN PRN #60 capsule 07/07/16 Potassium Chloride [K-Tab ER] 20 meq PO DAILY #30 tablet.er 07/08/16 Megestrol Acetate [Megace] 400 mg PO DAILY #1 bottle 07/30/16 Ciprofloxacin HCl [Cipro] 250 mg PO BID #14 tab 08/06/16 Demeclocycline [Declomycin] 300 mg PO Q12HR #60 tablet 08/12/16 Allergies Allergy/AdvReac Type Severity Reaction Status Date / Time aspirin Allergy Nausea Verified 05/27/16 17:16 calcium carbonate Allergy Nausea Verified 05/27/16 17:16 [From Bufferin] Hydromorphone [From Dilaudid] Allergy Itching Verified 07/14/16 08:15 magnesium [From Bufferin] Allergy Nausea Verified 05/27/16 17:16 morphine Allergy Hives Verified 05/27/16 17:16 Penicillins Allergy Hives Verified 05/27/16 17:16 All systems ED: reviewed and negative except as stated. Constitutional: Denies: fever Cardiovascular: Denies: chest pain Respiratory: Denies: dyspnea Gastrointestinal: Denies: abdominal pain, nausea, vomiting, melena, hematochezia Genitourinary: Denies: hematuria Neurological: Reports: weakness Past Medical History - Past Medical History Attestation: Yes The following information was validated with the patient. Source: patient Medical history: Reports: atrial fibrillation, CHF, COPD, hypertension, liver disease, myocardial infarction, renal disease, other Surgical history: Reports: colectomy, pacemaker/AICD, other Psychiatric history: Reports: no psych history - Social History Smoking Status: Former smoker Smokeless Tobacco Status: No Alcohol use: Reports: occasionally Drug use: Reports: none Physical Exam - General Limitations: no limitations General appearance: alert, in no apparent distress - Head Head exam: atraumatic, normocephalic, normal inspection - Eye Eye exam: Present: normal appearance, EOMI - ENT ENT exam: normal exam - Neck Neck exam: Present: normal inspection - Chest Chest inspection: Present: normal inspection, symmetric chest wall rise - Respiratory Respiratory exam: Present: normal lung sounds bilaterally - Cardiovascular Cardiovascular exam: Present: regular rate, normal rhythm, normal heart sounds - Abdominal Exam Abdominal exam: Present: soft, Non-Tender. Absent: tenderness - Extremities Exam Extremities exam: Present: normal inspection, full ROM - Expanded Upper Extremity Exam Shoulder exam: Present: normal inspection, full ROM Arm exam: Present: normal inspection, full ROM Elbow exam: Present: normal inspection, full ROM Forearm/Wrist exam: Present: normal inspection, full ROM Hand exam: Present: normal inspection, full ROM - Expanded Lower Extremity Exam Hip/Pelvis exam: Present: normal inspection, full ROM Upper leg exam: Present: normal inspection, full ROM Knee exam: Present: normal inspection, full ROM Lower leg exam: Present: normal inspection, full ROM Ankle exam: Present: normal inspection, full ROM Foot/toe exam: Present: normal inspection, full ROM - Neurological Exam Neurological exam: Present: alert - Psychiatric Psychiatric exam: Present: normal affect, normal mood - Skin Skin exam: Present: warm, dry, intact, normal color Course Course Narrative: Patient seen and examined. Vital signs reviewed. We will check a CBC, coags and electrolytes. - Reevaluation(s) Reevaluation #1: Discussed results of labs with the patient. She is agreeable with being accepted to the hospital. Vital Signs Temperature 97.9 F 08/12/16 20:53 Pulse Rate 60 08/12/16 20:53 Respiratory Rate 18 08/12/16 20:53 Blood Pressure 115/69 08/12/16 20:53 O2 Sat by Pulse Oximetry 98 08/12/16 20:53 Temperature 97.9 F 08/12/16 20:53 Pulse Rate 60 08/12/16 20:53 Respiratory Rate 18 08/12/16 20:53 Blood Pressure 115/69 08/12/16 20:53 O2 Sat by Pulse Oximetry 98 08/12/16 20:53 Oxygen Delivery Oxygen Delivery Room Air Medical Decision Making - MDM Narrative Medical decision making narrative: 70-year-old female presents to the ER due to abnormal blood work. She was found to be anemic on her last labs. Here her hemoglobin is 8.8 and she has guaiac positive. She is on Coumadin currently for a Pig valve replacement. Her INR is within normal limits. She has felt weak at home with no other symptoms. We will admit her to the hospitalist service for serial H&H. - Lab Data Lab results reviewed: Yes I reviewed the patient's lab results. Result diagrams: 08/12/16 22:18 08/12/16 22:18 Lab Results 08/12/16 08/12/16 08/12/16 Range/Units 22:18 22:18 22:18 WBC 7.5 (4.3-11.1) K/mcL RBC 2.92 L (3.82-4.97) M/mcL Hgb 8.8 L (11.5-15.4) g/dL Hct 25.7 L (35.3-44.9) % MCV 88.0 (83.0-100.0) fL MCH 30.1 (28.0-33.3) pg MCHC 34.2 (31.6-35.5) g/dL RDW 16.9 H (11.5-14.5) % Plt Count 278 (140-400) K/mcL MPV 9.1 L (9.4-12.4) fL Immature Gran % 0.3 (0-4) % Seg Neutrophils % 75.7 % Lymphocytes % 12.6 % Monocytes % 10.4 % Eosinophils % 0.7 % Basophils % 0.3 % Neutrophils # 5.7 (1.6-8.9) K/mcL Lymphocytes # 1.0 (0.6-4.6) K/mcL Monocytes # 0.8 (0.0-1.3) K/mcL Eosinophils # 0.1 (0.0-0.6) K/mcL Basophils # 0.0 (0.0-0.2) K/mcL Immature Plt Fraction 2.0 (1.1-6.1) % PT 18.5 H (9.4-12.1) Seconds INR 1.7 Sodium 124 L (136-145) mEq/L Potassium 3.2 L (3.5-4.5) mEq/L Chloride 87 L (98-109) mEq/L Carbon Dioxide 26 (19-29) mEq/L BUN 22 H (7-20) mg/dL Creatinine 1.01 (0.57-1.11) mg/dL Est GFR ( Amer) > 60 (> 60) Est GFR (Non-Af Amer) 54 L (> 60) BUN/Creatinine Ratio 22 (6-26) Glucose 118 H (70-99) mg/dL Calculated Osmolality 262 L (280-300) Calcium 10.7 (8.6-10.8) mg/dL Stool Occult Blood (Negative) 08/12/16 Range/Units 22:35 WBC (4.3-11.1) K/mcL RBC (3.82-4.97) M/mcL Hgb (11.5-15.4) g/dL Hct (35.3-44.9) % MCV (83.0-100.0) fL MCH (28.0-33.3) pg MCHC (31.6-35.5) g/dL RDW (11.5-14.5) % Plt Count (140-400) K/mcL MPV (9.4-12.4) fL Immature Gran % (0-4) % Seg Neutrophils % % Lymphocytes % % Monocytes % % Eosinophils % % Basophils % % Neutrophils # (1.6-8.9) K/mcL Lymphocytes # (0.6-4.6) K/mcL Monocytes # (0.0-1.3) K/mcL Eosinophils # (0.0-0.6) K/mcL Basophils # (0.0-0.2) K/mcL Immature Plt Fraction (1.1-6.1) % PT (9.4-12.1) Seconds INR Sodium (136-145) mEq/L Potassium (3.5-4.5) mEq/L Chloride (98-109) mEq/L Carbon Dioxide (19-29) mEq/L BUN (7-20) mg/dL Creatinine (0.57-1.11) mg/dL Est GFR ( Amer) (> 60) Est GFR (Non-Af Amer) (> 60) BUN/Creatinine Ratio (6-26) Glucose (70-99) mg/dL Calculated Osmolality (280-300) Calcium (8.6-10.8) mg/dL Stool Occult Blood Positive A (Negative) S.Teresa - Deng Situation: Demographics, MOA Background: Presenting Complaint, Relevant PMH, Meds, & Allergies Assessment: Vital Signs, Course and respsone to treatment, Exam Concerns, Patient/Family Expectation, Pertinant Lab Results, Outstanding Labs Recommendation: Barrier(s) to disposition, Recommendation based on pending studies, treatments, or consults SVivi Report Given to: Dr. Ham Vilchis Repor Time: 22:55 Attestation Statement - Attestation Attestation: I examined this patient and my medical decision-making was reviewed with the CONTRACT ADMINISTRATOR/PA/Advanced Practice Nurse/Resident Physician. I agree with the documented findings, disposition and treatment plan as described except to the extent set forth below. Patient to ED stating she is here for a transfusion. Patient states she went to [facility] and they would not help her do anything. Review of the oncology note states they did not send her here for transfusion. Their note states she was sent here because she complained of bleeding at her port site. On examination she is in no acute distress. There is no bleeding from her port. Conjunctiva pink. Plan. Repeat labs show hemoglobin 8.8. Awaiting repeat sodium. The patient's port is not bleeding. Stool Hemoccult sent. Hemoccult-positive. Patient will be admitted. 30 minutes of critical care exclusive of separately billable procedures.
[2016-08-12 22:31] LABS: Basophils % 0.3 %; Eosinophils # 0.1 K/mcL (0.0-0.6); Eosinophils % 0.7 %; Hematocrit 25.7 % (35.3-44.9); Hemoglobin 8.8 g/dL (11.5-15.4); Immature Granulocytes % 0.3 % (0-4); Lymphocytes % 12.6 %; Mean Corpuscular HGB Conc 34.2 g/dL (31.6-35.5); Mean Corpuscular Hemoglobin 30.1 pg (28.0-33.3); Mean Platelet Volume 9.1 fL (9.4-12.4); Monocytes # 0.8 K/mcL (0.0-1.3); Monocytes % 10.4 %; Neutrophils # 5.7 K/mcL (1.6-8.9); Platelet Count 278 K/mcL (140-400); Red Blood Count 2.92 M/mcL (3.82-4.97); Red Cell Distribution Width 16.9 % (11.5-14.5); Segmented Neutrophils % 75.7 %
[2016-08-12 22:35] LABS: INR 1.7; Prothrombin Time 18.5 Seconds (9.4-12.1)
[2016-08-12 22:42] LABS: BUN/Creatinine Ratio 22 (6-26); Blood Urea Nitrogen 22 mg/dL (7-20); Calcium 10.7 mg/dL (8.6-10.8); Carbon Dioxide 26 mEq/L (19-29); Chloride 87 mEq/L (98-109); Glucose 118 mg/dL (70-99); Osmolality,Calculated 262 (280-300); Potassium 3.2 mEq/L (3.5-4.5); Sodium 124 mEq/L (136-145); eGFR For African Americans > 60 (> 60); eGFR For Non-African Americans 54 (> 60)
[2016-08-12] MEDS ORDERED: 0.9 % Sodium Chloride 1,000 ML IVC ONE (22:54)
[2016-08-13] MEDS ORDERED: Naloxone 0.4 MG/ML INJ IVP PRN (00:18)
[2016-08-13] MEDS ORDERED: Ondansetron 4 MG/2 ML VIAL IVP PRN (00:18)
[2016-08-13] MEDS ORDERED: Acetaminophen 325 MG TABLET PO PRN (00:18)
[2016-08-13] MEDS ORDERED: *HR* Dextrose 50 % in Water (Syg) 50 ML SYRINGE IVP PRN (00:27)
[2016-08-13] MEDS ORDERED: D5% in Water 1,000 ML IVC PRN (00:27)
[2016-08-13] MEDS ORDERED: Dextrose Gel 15 GM PO PRN ×2 (00:27)
[2016-08-13] MEDS ORDERED: 0.9 % Sodium Chloride 1,000 ML IVC SCH (00:30)
--- NOTE | 2016-08-13 00:56 | Internal Med History&Physical ---
Date of Encounter: 08/13/16 Time of Encounter: 00:15 Assessment and Plan (1) Anemia Current visit: Yes Status: Acute Acute on chronic - probably due to chemotherapy and due to occult GI bleed FOBT positive Monitor H&H, transfuse PRBC if needed Consult oncology Consult gastroenterology INR is 1.7, hold warfarin in view of anemia and GI bleed, pharmacy to dose warfarin Qualifiers: Anemia type: unspecified type Qualified Code(s): D64.9 - Anemia, unspecified (2) Hyponatremia Current visit: Yes Status: Chronic Chronic hyponatremia, likely at baseline continue home dose of demeclocycline (3) A-fib Current visit: No Status: Chronic Chronic atrial fibrillation, now rate controlled On warfarin for anticoagulation, INR is 1.7 will hold warfarin in view of anemia and GI bleed, resume once cleared by GI and oncology Pharmacy to dose warfarin Qualifiers: Atrial fibrillation type: chronic Qualified Code(s): I48.2 - Chronic atrial fibrillation (4) Congestive heart failure Current visit: No Status: Chronic Chronic diastolic heart failure with bioprosthetic aortic valve - not in exacerbation history of severe aortic stenosis and severe TR Echo done in 2014 LVEF 65%, bioprosthetic aortic valve, 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, moderate MS and severe TR Continue home meds of Lasix, Zaroxolyn and spironolactone Qualifiers: Congestive heart failure type: diastolic Congestive heart failure chronicity: chronic Qualified Code(s): I50.32 - Chronic diastolic (congestive ) heart failure (5) Non-small cell carcinoma of left lung Current visit: No Status: Chronic Diagnosed about 4 months ago, undergoing chemotherapy Right subclavian port present Consult oncology (6) Pacemaker Current visit: No Status: Chronic (7) CKD (chronic kidney disease) Current visit: No Status: Chronic CKD stage III, creatinine at baseline Qualifiers: Chronic kidney disease stage: stage 3 (moderate) Qualified Code(s): N18.3 - Chronic kidney disease, stage 3 (moderate) (8) DVT (deep venous thrombosis) Current visit: No Status: Acute History of splenic infarct/splenic DVT, on Coumadin INR is 1.7 Pharmacy to dose warfarin Qualifiers: DVT location: non-extremity vein Chronicity: chronic Qualified Code(s): I82.91 - Chronic embolism and thrombosis of unspecified vein Internal Medicine - H&P: HPI Chief complaint: anemia Admitted From: Emergency Dept History of present illness: Ms. Brooks is a 70 year old female with past medical history atrial fibrillation, CHF, COPD, hypertension, renal disease, pacemaker, lung cancer undergoing chemotherapy and chronic anemia. She presents to the ED after being advised by her oncologist. Patient had labs drawn about 2 days ago, and is found to have anemia. She was advised by oncology team to be evaluated. Patient does have a history of anemia requiring transfusion recently. Patient' s only complaint is some mild fatigue and generalized weakness. No change in stool, denies blood in stool no vomiting no abdominal pain no dizziness or headache. Denies chest pain or shortness of breath. No other associated symptoms or any other acute complaints. Patient does mention that her right subclavian port has been leaking. Initial workup in the ED revealed H&H of 8.8 and 25.7. INR is 1.7 and she is on Coumadin for atrial fibrillation and for mechanical heart valve. Patient does have chronic hyponatremia and takes demeclocycline daily. Her fecal Hemoccult is positive. Patient denies noticing any blood in stool. Patient will need a gastroenterology evaluation. Patient and her have been explained about her condition and planned care. They understood and agreed. No unanswered questions. Patient is being admitted for anemia and will need monitoring of her H&H. CODE STATUS full code Past Med Surg Social Fam HX - Past Medical History Medical history: atrial fibrillation, CHF, COPD, hypertension, liver disease, myocardial infarction, renal disease, other Psychiatric history: no psych history - Past Surgical History Surgical History: colectomy, pacemaker/AICD, other - Social History Smoking Status: Former smoker Smokeless Tobacco Status: No Alcohol use: occasionally Drug use: none - Family History Mother Living Status: Hx Family Cancer: Yes Father Living Status: Hx Family Cardiac Disorders: Yes Internal Medicine - H&P: Meds Allopurinol [Zyloprim] 100 mg PO DAILY 02/04/15 [History] Ferrous Sulfate 325 mg PO DAILY 02/04/15 [History] TraMADol [Ultram] 50 mg PO QID PRN 02/04/15 [History] Warfarin [Coumadin] 5 mg PO QPM 02/04/15 [History] Zolpidem [Ambien] 10 mg PO HS PRN 12/15/15 [History] Albuterol Sulfate [Proair Hfa] 1 puff IH Q4H PRN 05/27/16 [History] Furosemide [Lasix] 80 mg PO BID 05/27/16 [History] metOLazone [Zaroxolyn] 2.5 mg PO 2XW MDD TUESDAY AND Tuesday05/27/16 [History] Omeprazole [PriLOSEC] 20 mg PO DAILY 06/03/16 [History] Spironolactone [Aldactone] 100 mg PO DAILY 06/03/16 [History] Docusate [Colace] 100 mg PO BID #30 capsule 06/07/16 [Rx] Loperamide [Imodium] 2 mg PO PRN PRN #60 capsule 07/07/16 [Rx] Potassium Chloride [K-Tab ER] 20 meq PO DAILY #30 tablet.er 07/08/16 [Rx] Megestrol Acetate [Megace] 400 mg PO DAILY #1 bottle 07/30/16 [Rx] Ciprofloxacin HCl [Cipro] 250 mg PO BID #14 tab 08/06/16 [Rx] Demeclocycline [Declomycin] 300 mg PO Q12HR #60 tablet 08/12/16 [Rx] Allergies aspirin Allergy (Verified 05/27/16 17:16) Nausea calcium carbonate [From Bufferin] Allergy (Verified 05/27/16 17:16) Nausea Hydromorphone [From Dilaudid] Allergy (Verified 07/14/16 08:15) Itching magnesium [From Bufferin] Allergy (Verified 05/27/16 17:16) Nausea morphine Allergy (Verified 05/27/16 17:16) Hives Penicillins Allergy (Verified 05/27/16 17:16) Hives All Systems PM: A 10-system review of systems was performed and is negative for pertinent findings except as documented above in the HPI. - Constitutional Constitutional: as per HPI, fatigue, weakness - Cardiovascular Cardiovascular ROS IM: no chest pain, no diaphoresis, no dyspnea, no dyspnea on exertion, no lightheadedness - Respiratory Respiratory: no cough, no dyspnea, no dyspnea on exertion, no wheezing, no chest congestion - Gastrointestinal Gastrointestinal: no abdominal pain, no cramping, no diarrhea, no vomiting - Neurological Neurological ROS: no abnormal gait, no abnormal movements, no confusion, no dizziness, no focal weakness, no loss of vision - Constitutional Vitals: Temp Pulse Resp BP Pulse Ox 98.2 F 61 13 120/57 99 08/13/16 00:15 08/13/16 00:15 08/13/16 00:15 08/13/16 00:15 08/13/16 00:15 General appearance: Present: A&O X 3, no acute distress, underweight, answers questions appropriately - Head Head exam: Present: atraumatic - ENT ENT exam: Present: mucous membranes dry - Neck Neck exam general surgery: Present: supple - Respiratory Respiratory exam: Present: CTAB. Absent: rhonchi, wheezes, tachypnea - Cardiovascular Cardiovascular exam: Present: irregular rhythm, +S1, +S2, systolic murmur - GI/Abdominal GI/Abdominal exam: Present: soft. Absent: distended, firm, guarding, tenderness - Extremities Exam Extremities exam: Present: pedal edema, radial pulses palpable and symetrical. Absent: cyanotic - Neurological Exam Neurological exam: Present: alert, oriented X3, no focal deficits Internal Med - H&P Results - Labs CBC & Chem 7: 08/12/16 22:18 08/12/16 22:18
[2016-08-13] MEDS ORDERED: *HR* LORazepam 0.5 MG TABLET PO ONE (01:57)
[2016-08-13] MEDS: Chloraseptic Spray 177 ML BOTTLE MM PRN ×2 (02:18→21:38)
[2016-08-13 05:56] LABS: Basophils % 0.3 %; Eosinophils # 0.1 K/mcL (0.0-0.6); Eosinophils % 1.5 %; Hematocrit 22.4 % (35.3-44.9); Hemoglobin 7.5 g/dL (11.5-15.4); Immature Granulocytes % 0.5 % (0-4); Lymphocytes # 0.7 K/mcL (0.6-4.6); Lymphocytes % 11.7 %; Mean Corpuscular HGB Conc 33.5 g/dL (31.6-35.5); Mean Corpuscular Hemoglobin 30.2 pg (28.0-33.3); Mean Corpuscular Volume 90.3 fL (83.0-100.0); Mean Platelet Volume 9.2 fL (9.4-12.4); Monocytes # 0.7 K/mcL (0.0-1.3); Monocytes % 11.8 %; Neutrophils # 4.4 K/mcL (1.6-8.9); Platelet Count 222 K/mcL (140-400); Red Blood Count 2.48 M/mcL (3.82-4.97); Red Cell Distribution Width 16.8 % (11.5-14.5); Segmented Neutrophils % 74.2 %
[2016-08-13 05:59] LABS: INR 1.6; Prothrombin Time 17.7 Seconds (9.4-12.1)
[2016-08-13] MEDS ORDERED: Insulin LISPRO 300 UNITS/3 ML VIAL SQ SCH ×2 (06:00→21:00)
[2016-08-13 06:08] LABS: BUN/Creatinine Ratio 21 (6-26); Blood Urea Nitrogen 20 mg/dL (7-20); Calcium 9.7 mg/dL (8.6-10.8); Carbon Dioxide 26 mEq/L (19-29); Chloride 90 mEq/L (98-109); Glucose 116 mg/dL (70-99); Osmolality,Calculated 264 (280-300); Potassium 2.9 mEq/L (3.5-4.5); Sodium 125 mEq/L (136-145); eGFR For African Americans > 60 (> 60); eGFR For Non-African Americans 57 (> 60)
[2016-08-13 06:24] LABS: Bilirubin,Urine Negative (Negative); Blood,Urine Negative (Negative); Clarity,Urine Clear (Clear); Color,Urine Yellow (Yellow); Glucose,Urine (UA) Normal (Normal); Ketones,Urine Negative (Negative); Leukocyte Esterase,Urine Negative (Negative); Nitrite,Urine Negative (Negative); PH,Urine 6.5 pH Units (5.0-8.0); Protein,Urine Negative (Neg-Trace); Specific Gravity,Urine 1.013 (1.010-1.025); Urobilinogen,Urine Normal (Normal)
[2016-08-13] MEDS: Famotidine 20 MG/2 ML VIAL IVP SCH ×2 (06:35→17:39)
[2016-08-13] MEDS: Insulin LISPRO 300 UNITS/3 ML VIAL SQ SCH ×3 (08:40→18:22)
[2016-08-13 09:18] LABS: Albumin 3.3 g/dL (3.5-5.0); Bilirubin,Direct 0.4 mg/dL (0.0-0.5); Bilirubin,Indirect 0.4 mg/dL (0.0-1.2); Bilirubin,Total 0.8 mg/dL (0.2-1.2); Globulin 3.2 g/dL (2.4-3.5); Total Protein 6.5 g/dL (6.0-8.3)
[2016-08-13] MEDS: Megestrol Acetate 400 MG/10 ML UDC PO SCH (09:39)
[2016-08-13] MEDS: Furosemide 40 MG TABLET PO SCH ×2 (09:40→21:38)
--- NOTE | 2016-08-13 11:00 | Gastroenterology Consult Note ---
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 Complete HCC surveillance. Continue Lasix and Aldactone. Qualifiers: Hepatic cirrhosis type: other cirrhosis Qualified Code(s): K74.69 - Other cirrhosis of liver (2) Anemia Current Visit: Yes Status: Acute Assessment and plan: Continue to monitor CBC and transfuse PRBC as needed. We will complete EGD on Tuesday if patient is still admitted. If patient discharged over the weekend, we will will complete EGD as outpatient. Qualifiers: Anemia type: unspecified type Qualified Code(s): D64.9 - Anemia, unspecified (3) Non-small cell carcinoma of left lung Current Visit: No Status: Chronic Assessment and plan: Management per Oncology. - Time Spent With Patient Total time spent is greater than 50% in coordination of care (as documented) at patient's floor/unit and/or counseling patient: GI History of Present Illness - Data of Consult Patient: known to practice within the last 3 years Consult date: 08/13/16 Requesting Physician: Eva Rosas MD - Consult Narrative Reason for consult: Anemia History of present illness: Ms. Brooks is a 70 year old female with PMHx of Afib-on Coumadin, mechanical heart valve, CHF, cardiac induced cirrhosis, COPD, HTN, [place], lung cancer undergoing chemotherapy, chronic anemia. The patient had labs drawn 08/11 and found to be anemic with Hgb 7.9, and was sent to the ED by her oncology team. Pt complains of fatigue and weakness. She denies fever, chills, chest pain, SOB , abdominal pain, nausea, vomiting, diarrhea, melena, or hematochezia. On arrival to the ED Hgb 8.8 with INR 1.7 and FOBT positive. Procedures: Colonoscopy 04/21/2015 Dr. Abraham: Internal hemorrhoids, two tubular adenoma NSAIDs: None Anticoagulation: Coumadin Past Med Surg Social Fam HX - Past Medical History Medical history: atrial fibrillation, CHF, COPD, hypertension, liver disease, myocardial infarction, renal disease, other Psychiatric history: no psych history - Past Surgical History Surgical History: colectomy, pacemaker/AICD, other - Social History Smoking Status: Former smoker Smokeless Tobacco Status: No Alcohol use: occasionally Drug use: none - Family History Mother Living Status: Hx Family Cancer: Yes Father Living Status: Hx Family Cardiac Disorders: Yes - Gastrointestinal Gastrointestinal: Present: as per HPI - Constitutional Constitutional: as per HPI - EENT Eyes: as per HPI Ears: Present: as per HPI Nose, mouth and throat: Present: as per HPI - Cardiovascular Cardiovascular ROS: Present: as per HPI - Respiratory Respiratory IM: Present: as per HPI - Genitourinary Genitourinary: Absent: change in color, Urinary frequency - Neurological ROS Neurological GI: Present: as per HPI - Hematologic/Lymphatic Hematologic/Lymphatic pediatric: Present: as per HPI - Musculoskeletal Musculoskeletal ROS GI: Present: as per HPI - Integumentary Integumentary GI: Present: as per HPI - Psychiatric ROS Psychiatric GI: Present: as per HPI - Endocrine Endocrine IM: Present: as per HPI - Constitutional Vitals: Temp Pulse Resp BP Pulse Ox 98.0 F 68 17 114/67 99 08/13/16 08:32 08/13/16 08:32 08/13/16 08:32 08/13/16 08:32 08/13/16 08:32 General appearance: Present: cooperative, A&O X 3, no acute distress, answers questions appropriately - Head Head exam: Present: atraumatic, normocephalic - Eye Eye exam: Present: normal appearance, sclera anicteric - ENT ENT exam: Present: mucous membranes dry - Neck Neck exam general surgery: Present: normal inspection, trachea midline - Respiratory Respiratory exam: Present: CTAB. Absent: rales, rhonchi - Cardiovascular Cardiovascular exam: Present: RRR, +S1, +S2 - GI/Abdominal GI/Abdominal exam: Present: soft, no peritoneal signs. Absent: distended, firm , guarding, tenderness - Rectal Rectal exam: Present: deferred - Extremities Exam Extremities exam: Present: warm - Neurological Exam Neurological exam: Present: no focal deficits - Psychiatric Psychiatric exam: Present: normal affect, normal mood - Skin Skin exam: Present: dry, intact, normal color, warm Results - Labs CBC & Chem 7: 08/13/16 05:14 08/13/16 05:14 Labs: Last Result Calcium 9.7 mg/dL (8.6-10.8) 08/13/16 05:14 Stool Occult Blood Positive (Negative) A 08/12/16 22:35 Entire Visit Hgb 7.5 g/dL (11.5-15.4) L 08/13/16 05:14 Hct 22.4 % (35.3-44.9) L 08/13/16 05:14 PT 17.7 Seconds (9.4-12.1) H 08/13/16 05:14 Total Bilirubin 0.8 mg/dL (0.2-1.2) 08/13/16 08:45 AST 24 Units/L (5-34) 08/13/16 08:45 ALT 19 Units/L (0-55) 08/13/16 08:45 - ABG ABG results: PT/INR, D-dimer PT 17.7 Seconds (9.4-12.1) H 08/13/16 05:14 - Impressions Impressions Chest X-Ray 08/13/16 00:21 IMPRESSION: 1. Right-sided Port-A-Cath in proper position, without evidence of kink or fracture. 2. Stable mild cardiomegaly, with small bilateral pleural effusions. 3. Mild multifocal atelectasis within the mid and lower left lung zones. D/ / 08/13/2016 09:41:57 Leoncio Dumont MD / bcarter Interpreting Provider: Leoncio Dumont MD Consult Discharge Plan - Plan Referrals: Jose Jones DO [Primary Care Provider] - <Adrian Abraham - Last Filed: 08/13/16 12:06> Date of Encounter: 08/13/16 Time of Encounter: 11:45 - Time Spent With Patient Total time spent is greater than 50% in coordination of care (as documented) at patient's floor/unit and/or counseling patient: GI History of Present Illness - Data of Consult Requesting Physician: Eva Rosas MD - Consult Narrative History of present illness: Ms. Brooks is a 70 year old female - Constitutional Vitals: Temp Pulse Resp BP Pulse Ox 98.3 F 71 20 112/67 97 08/13/16 11:37 08/13/16 11:37 08/13/16 11:37 08/13/16 11:37 08/13/16 11:37 Results - Labs CBC & Chem 7: 08/13/16 05:14 08/13/16 05:14 Labs: Last Result Calcium 9.7 mg/dL (8.6-10.8) 08/13/16 05:14 Stool Occult Blood Positive (Negative) A 08/12/16 22:35 Entire Visit Hgb 7.5 g/dL (11.5-15.4) L 08/13/16 05:14 Hct 22.4 % (35.3-44.9) L 08/13/16 05:14 PT 17.7 Seconds (9.4-12.1) H 08/13/16 05:14 Total Bilirubin 0.8 mg/dL (0.2-1.2) 08/13/16 08:45 AST 24 Units/L (5-34) 08/13/16 08:45 ALT 19 Units/L (0-55) 08/13/16 08:45 - ABG ABG results: PT/INR, D-dimer PT 17.7 Seconds (9.4-12.1) H 08/13/16 05:14 - Impressions Impressions Chest X-Ray 08/13/16 00:21 IMPRESSION: 1. Right-sided Port-A-Cath in proper position, without evidence of kink or fracture. 2. Stable mild cardiomegaly, with small bilateral pleural effusions. 3. Mild multifocal atelectasis within the mid and lower left lung zones. D/ : / 08/13/2016 09:41:57 Leoncio Dumont MD / bcarter Interpreting Provider: Leoncio Dumont MD - Attending Attestation I examined this patient and my medical decision-making was reviewed with the FORGING PRESS OPERATOR/PA/Advanced Practice Nurse/Resident Physician. I agree with the documented findings, disposition and treatment plan as described except to the extent set forth below.
[2016-08-13 15:02] LABS: Hematocrit 23.4 % (35.3-44.9); Hemoglobin 7.6 g/dL (11.5-15.4)
[2016-08-13 15:24] LABS: Calcium 10.1 mg/dL (8.6-10.8); Potassium 3.5 mEq/L (3.5-4.5)
--- NOTE | 2016-08-13 18:42 | Internal Med Progress Note ---
Date of Encounter: 08/13/16 Time of Encounter: 18:39 - Assessment and plan (1) Anemia Current Visit: Yes Status: Acute Qualifiers: Anemia type: unspecified type Qualified Code(s): D64.9 - Anemia, unspecified (2) Hyponatremia Current Visit: Yes Status: Chronic (3) GI bleed Current Visit: Yes Status: Acute Qualifiers: GI bleed type/associated pathology: unspecified gastrointestinal hemorrhage type Qualified Code(s): K92.2 - Gastrointestinal hemorrhage, unspecified (4) Lung cancer Current Visit: No Status: Acute Qualifiers: Laterality: unspecified laterality Lung location: unspecified part of lung Qualified Code(s): C34.90 - Malignant neoplasm of unspecified part of unspecified bronchus or lung (5) A-fib Current Visit: No Status: Chronic Qualifiers: Atrial fibrillation type: chronic Qualified Code(s): I48.2 - Chronic atrial fibrillation (6) Hypokalemia Current Visit: No Status: Acute (7) DVT (deep venous thrombosis) Current Visit: No Status: Acute Qualifiers: DVT location: non-extremity vein Chronicity: chronic Qualified Code(s): I82.91 - Chronic embolism and thrombosis of unspecified vein (8) DVT prophylaxis Current Visit: No Status: Acute - Subjective Interval history: Ms. 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 Also according to history she has history of DVT but patient denies it. In any case she is on Coumadin though INR is only 1.7 but her Hemoccult test is positive.. She presents to the ED after being advised by her oncologist, to whom she complained that she has been having fatigue.. Patient had labs drawn about 2 days ago, and is found to have anemia. She was advised by oncology team to be evaluated. Patient is pretty asymptomatic at this point - Constitutional Vitals: Temp Pulse Resp BP Pulse Ox 97.7 F 61 18 108/69 96 08/13/16 15:10 08/13/16 15:10 08/13/16 15:10 08/13/16 15:10 08/13/16 15:10 General appearance: Present: A&O X 3, no acute distress, underweight, answers questions appropriately - Head Head exam: Present: atraumatic, normocephalic - Eye Eye exam: Present: PERRL, conjuntiva pink, sclera anicteric Pupils: Present: PERRL - Neck Neck exam general surgery: Present: supple, trachea midline. Absent: lymphadenopathy - Respiratory Respiratory exam: Present: CTAB. Absent: accessory muscle use, rales, rhonchi, wheezes - Cardiovascular Cardiovascular exam: Present: RRR, +S1, +S2. Absent: diastolic murmur, gallop, rubs, systolic murmur - GI/Abdominal GI/Abdominal exam: Present: normal bowel sounds, soft, no peritoneal signs. Absent: distended, tenderness - Extremities Exam Extremities exam: Present: warm, radial pulses palpable and symetrical. Absent : calf tenderness, cyanotic, pedal edema - Neurological Exam Neurological exam: Present: CN II-XII intact, oriented X3, no focal deficits. Absent: pronater drift, facial droop, speech deficit - Skin Skin exam: Present: dry, intact Internal Medicine: Result - Labs CBC & Chem 7: 08/13/16 14:30 08/13/16 14:30 Labs: Short CBC 08/13/16 08/13/16 Range/Units 05:14 14:30 WBC 5.9 (4.3-11.1) K/mcL Hgb 7.5 L 7.6 L (11.5-15.4) g/dL Hct 22.4 L 23.4 L (35.3-44.9) % Plt Count 222 (140-400) K/mcL Neutrophils # 4.4 (1.6-8.9) K/mcL BMP 08/13/16 08/13/16 05:14 14:30 Sodium 125 L 125 L Potassium 2.9 L 3.5 Chloride 90 L 91 L Carbon Dioxide 26 25 BUN 20 22 H Creatinine 0.97 1.12 H Glucose 116 H 127 H Calcium 9.7 10.1 Liver Function 08/13/16 Range/Units 08:45 Total Bilirubin 0.8 (0.2-1.2) mg/dL Direct Bilirubin 0.4 (0.0-0.5) mg/dL AST 24 (5-34) Units/L ALT 19 (0-55) Units/L Alkaline Phosphatase 180 H (38-126) Units/L Albumin 3.3 L (3.5-5.0) g/dL Urine 08/13/16 Range/Units 05:50 Urine Color Yellow (Yellow) Urine Clarity Clear (Clear) Urine pH 6.5 (5.0-8.0) pH Units Ur Specific [place] 1.013 (1.010-1.025) Urine Protein Negative (Neg-Trace) mg/dL Urine Glucose (UA) Normal (Normal) mg/dL - ABG Interpretation ABG results: PT/INR, D-dimer PT 17.7 Seconds (9.4-12.1) H 08/13/16 05:14 - Impressions Impressions Chest X-Ray 08/13/16 00:21 IMPRESSION: 1. Right-sided Port-A-Cath in proper position, without evidence of kink or fracture. 2. Stable mild cardiomegaly, with small bilateral pleural effusions. 3. Mild multifocal atelectasis within the mid and lower left lung zones. D/ / 08/13/2016 09:41:57 Leoncio Dumont MD / bandar Interpreting Provider: Leoncio Dumont MD Liver Ultrasound 08/13/16 17:00 IMPRESSION: Liver nodularity with cirrhosis but no focal disease. Status post cholecystectomy. No evidence of biliary disease. D/ / 08/13/2016 17:50:18 Betsy Bailey MD / bandar Interpreting Provider: Betsy Bailey MD Consult Discharge Plan - Plan Referrals: Jose Jones DO [Primary Care Provider] -
--- NOTE | 2016-08-13 19:29 | Oncology Inp Consult Note ---
Date of Encounter: 08/13/16 Time of Encounter: 19:28 - Data of Consult Patient: known to practice within the last 3 years Consult date: 08/13/16 Requesting Physician: Eva Rosas MD Primary Care Provider: Jose Jones - Consult Narrative Reason for consult: Lung cancer, hyponatremia. History of present illness: Ms. Brooks is a 70 year old female patient of the cancer center was [place] with [place] for ongoing management of recently diagnosed bilateral lung cancer. I have summarized patient's heme/onc background below based on most recent office report (07/30/16): Patient initially presented with acute respiratory symptoms and had a chest CT angiogram through the [facility] system which showed a 2 cm cavitary mass in the right upper lobe and a 1.5 cm solid mass in the left lower lobe. There is an additional concern about a 2.5 cm upper esophageal mass and evaluation with an esophagogram was recommended. She was evaluated by Dr. 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 Immunopositive for CK 5/6, P 63. Negative for TTF-1, Napsin-A. Mutation analysis: PD-L1 Lng Pembroliz IHC HIGH EXP >=50% 06/09/16 12:00 PD-L1 Tumor Prop Score 91-100% 06/09/16 12:00 ALK (D5F3) Ref Number [id number] 06/09/16 12:00 ALK (D5F3) Interpret NEGATIVE 06/09/16 12:00 EGFR Mutation Analysis NOT DETECTED 06/09/16 12:00 ROS1 Client Block ID [id number] 06/09/16 12:00 ROS1 Result (IHC) NEGATIVE 06/09/16 12:00 Block Number [id number] 06/09/16 12:00 PET/CT 05/13/16 showed: 1.6 cm left preauricular skin lesion hypermetabolic and suspicious for malignancy. Hypermetabolic 2.3 cm right apical noncalcified pulmonary nodule which is biopsy confirmed malignancy. FDG avid 1.6 cm left lower lobe nodule and a 0.8 cm right upper lobe nodule also suspicious for malignancy. Mild subcarinal and bilateral hilar uptake risk concern about malignancy. 2.8 cm nodule arising from the posterior aspect of the left thyroid inferiorly. Moderate cardiomegaly. Cirrhotic appearing liver. Noncontrast head CT 06/04/16 was negative for acute intracranial abnormality. She is unable to have a brain MRI due to implanted medical hardware. PFT 06/01/16 showed moderate obstructive ventilatory impairment. FEV1 67%. DLCO 43%. We reviewed her case in our multidisciplinary tumor conference and based on bilateral lung involvement, no role for local therapy at this time. She had a second opinion from on 07/01/16 and he was kind enough t discuss her case with me. Based on bilateral lung involvement, no role for surgery at this time. He has recommended to proceed with systemic therapy as I previously recommended. Treatment summary: 07/07/16: Started keytruda every 3 weeks. Plan is to treat to progression or intolerance. Most recent imagin06/30/16. CT soft tissue neck w con: No evidence of significant cervical lymphadenopathy. Mild thyroid goiter. CT/CT chest w con: Slight increase in size of a single bilateral upper lobe dominant mass. The smaller 9 mm right upper lobe nodule is unchanged. Subcarinal adenopathy is stable. 1.7 x 3.2 cm left thyroid nodule. CT/CT abd pelvis w iv no oral: No definite metastatic disease in abdomen or pelvis. Subtle injection of the fat at the root of mesentery, similar to prior. This is nonspecific. It may be due to the patient's cirrhosis. . Occasionally, it can be a incidental finding in patients who have had their gallbladder removed. CT/CT head/brain wo/w con: No intracranial mass identified. There is mild periventricular white matter disease, likely due to small-vessel ischemic change Chronic right maxillary sinus disease. Her last treatment was on 08/06/16. She is currently hospitalized for symptomatic anemia and severe hyponatremia. Oncology is consulted regarding underlying lung cancer. Patient seen and examined and bedside and chart reviewed for details of ongoing care by hospital team which is much appreciated. Hyponatremia is a long-standing problem predated her cancer diagnosis. 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 Etiology of her anemia is unexplained as she has had a significant decline in her hemoglobin from 11.8 on 07/30/16 to 8.8 on admission. There was concern about bleeding around her Qpybbg-[id number] site in the setting of ongoing anticoagulation for atrial fibrillation. Stool Hemoccult was positive on admission and she has been evaluated by Dr. Abraham who has recommended endoscopic evaluation given patient's underlying diagnosis of cirrhosis MELD 2, child Pittman class B. Endoscopy is planned non-urgently. She has not required a transfusion since admission and is doing quite well at time of evaluation. She is completely asymptomatic from her presenting problems. Anemia is being managed supportively. Her most recent anemia workup was unremarkable although she does have a positive SARI and elevated CCP that has been evaluated by rheumatology with no clear evidence of an underlying rheumatologic problem. Overall, patient appears to be doing fairly well and is in good spirits at time of evaluation. Rest of past medical, surgical, family, social history detailed below and verified with patient today. Review of systems: 12 point review of systems performed with patient and positive findings noted in history of present illness. All other systems are negative: Physical exam: Vital Signs Temp 97.6 F 08/13/16 19:15 Pulse 60 08/13/16 19:15 Resp 16 08/13/16 19:15 BP 111/69 08/13/16 19:15 Pulse Ox 100 08/13/16 19:15 Intake & Output 08/13/16 08/13/16 08/14/16 00:59 12:59 00:59 Intake Total 0 / 0 240 / 240 500 / 500 Output Total 0 / 0 350 / 350 650 / 650 Balance 0 / 0 -110 / -110 -150 / -150 Weight 62.414 kg 62.414 kg Intake: Oral 0 / 0 240 / 240 500 / 500 Output: Urine 0 / 0 350 / 350 650 / 650 Other: Meal Lunch Dinner Percent of Meal Consumed 0% 85% # Voids 1 Blood Glucose* 148 149 GENERAL: Alert and oriented, comfortable appearing. Mental Status: Affect appropriate for circumstances HEENT: Sclerae anicteric. No mucositis or thrush. No other oral or pharyngeal lesions or erythema. Skin: No rashes or petechiae. No evidence of skin malignancy Lymph nodes: No cervical, supraclavicular, axillary, or inguinal adenopathy. Lungs: Clear to auscultation bilaterally. Clear to percussion bilaterally. Cardiovascular: Regular rate and rhythm. No gallops, murmurs, or rubs. Abdomen: Soft, nontender; No organomegaly or masses palpable. Extremities: No edema. No calf swelling or tenderness. No joint deformity. Neurologic: Alert, normal gait; no focal weakness or sensory abnormalities. Results: Laboratory Last Values WBC 5.9 K/mcL (4.3-11.1) 08/13/16 05:14 RBC 2.48 M/mcL (3.82-4.97) L 08/13/16 05:14 Hgb 7.6 g/dL (11.5-15.4) L 08/13/16 14:30 Hct 23.4 % (35.3-44.9) L 08/13/16 14:30 MCV 90.3 fL (83.0-100.0) 08/13/16 05:14 MCH 30.2 pg (28.0-33.3) 08/13/16 05:14 MCHC 33.5 g/dL (31.6-35.5) 08/13/16 05:14 RDW 16.8 % (11.5-14.5) H 08/13/16 05:14 Plt Count 222 K/mcL (140-400) 08/13/16 05:14 MPV 9.2 fL (9.4-12.4) L 08/13/16 05:14 Immature Gran % 0.5 % (0-4) 08/13/16 05:14 Seg Neutrophils % 74.2 % 08/13/16 05:14 Lymphocytes % 11.7 % 08/13/16 05:14 Monocytes % 11.8 % 08/13/16 05:14 Eosinophils % 1.5 % 08/13/16 05:14 Basophils % 0.3 % 08/13/16 05:14 Neutrophils # 4.4 K/mcL (1.6-8.9) 08/13/16 05:14 Lymphocytes # 0.7 K/mcL (0.6-4.6) 08/13/16 05:14 Monocytes # 0.7 K/mcL (0.0-1.3) 08/13/16 05:14 Eosinophils # 0.1 K/mcL (0.0-0.6) 08/13/16 05:14 Basophils # 0.0 K/mcL (0.0-0.2) 08/13/16 05:14 Immature Plt Fraction 2.0 % (1.1-6.1) 08/12/16 22:18 PT 17.7 Seconds (9.4-12.1) H 08/13/16 05:14 INR 1.6 08/13/16 05:14 Sodium 125 mEq/L (136-145) L 08/13/16 14:30 Potassium 3.5 mEq/L (3.5-4.5) 08/13/16 14:30 Chloride 91 mEq/L (98-109) L 08/13/16 14:30 Carbon Dioxide 25 mEq/L (19-29) 08/13/16 14:30 BUN 22 mg/dL (7-20) H 08/13/16 14:30 Creatinine 1.12 mg/dL (0.57-1.11) H 08/13/16 14:30 Est GFR ( Amer) 58 (> 60) L 08/13/16 14:30 Est GFR (Non-Af Amer) 48 (> 60) L 08/13/16 14:30 BUN/Creatinine Ratio 20 (6-26) 08/13/16 14:30 Glucose 127 mg/dL (70-99) H 08/13/16 14:30 POC Glucose 149 (58-89) H 08/13/16 18:05 Calculated Osmolality 265 (280-300) L 08/13/16 14:30 Calcium 10.1 mg/dL (8.6-10.8) 08/13/16 14:30 Total Bilirubin 0.8 mg/dL (0.2-1.2) 08/13/16 08:45 Direct Bilirubin 0.4 mg/dL (0.0-0.5) 08/13/16 08:45 Indirect Bilirubin 0.4 mg/dL (0.0-1.2) 08/13/16 08:45 AST 24 Units/L (5-34) 08/13/16 08:45 ALT 19 Units/L (0-55) 08/13/16 08:45 Alkaline Phosphatase 180 Units/L (38-126) H 08/13/16 08:45 Serum Total Protein 6.5 g/dL (6.0-8.3) 08/13/16 08:45 Albumin 3.3 g/dL (3.5-5.0) L 08/13/16 08:45 Globulin 3.2 g/dL (2.4-3.5) 08/13/16 08:45 Albumin/Globulin Ratio 1.0 (1.1-2.2) L 08/13/16 08:45 Urine Color Yellow (Yellow) 08/13/16 05:50 Urine Clarity Clear (Clear) 08/13/16 05:50 Urine pH 6.5 pH Units (5.0-8.0) 08/13/16 05:50 Ur Specific [place] 1.013 (1.010-1.025) 08/13/16 05:50 Urine Protein Negative mg/dL (Neg-Trace) 08/13/16 05:50 Urine Glucose (UA) Normal mg/dL (Normal) 08/13/16 05:50 Urine Ketones Negative mg/dL (Negative) 08/13/16 05:50 Urine Blood Negative (Negative) 08/13/16 05:50 Urine Nitrite Negative (Negative) 08/13/16 05:50 Urine Bilirubin Negative (Negative) 08/13/16 05:50 Urine Urobilinogen Normal mg/dL (Normal) 08/13/16 05:50 Ur Leukocyte Esterase Negative (Negative) 08/13/16 05:50 Stool Occult Blood Positive (Negative) A 08/12/16 22:35 Blood Type A POSITIVE 08/12/16 23:27 Antibody Screen NEGATIVE 08/12/16 23:27 Radiographic studies: I personally reviewed and interpreted patient's most recent imaging studies dated 08/13/16. I discussed the findings with the patient today. Chest X-Ray 08/13/16 00:21 IMPRESSION: 1. Right-sided Port-A-Cath in proper position, without evidence of kink or fracture. 2. Stable mild cardiomegaly, with small bilateral pleural effusions. 3. Mild multifocal atelectasis within the mid and lower left lung zones. D/ / 08/13/2016 09:41:57 Leoncio Dumont MD / bcarter Interpreting Provider: Leoncio Dumont MD Liver Ultrasound 08/13/16 17:00 IMPRESSION: Liver nodularity with cirrhosis but no focal disease. Status post cholecystectomy. No evidence of biliary disease. D/ / 08/13/2016 17:50:18 Betsy Bailey MD / bandar Interpreting Provider: Betsy Bailey MD Impression/recommendations: Hyponatremia: Likely multifactorial in etiology. Sodium was as low as 119 on initial presentation. Sodium is steadily improving with hydration and she is completely asymptomatic from hyponatremia at this time. I suspect that there is an additional component of SIADH given pre-existing hyponatremia that predates lung cancer diagnosis. I agree with continuing demeclocycline as you are doing. Anemia: Etiology unclear. Chest x-ray did not show any evidence of ankle fracture of her Ounqpw-r-Rmbt and no obvious escalation for patient's noted bleeding around her [id number]-f-Xxgz site at home. Fortunately, no bleeding episodes since she has been in the hospital. Certainly not evident on my exam today. Stool Hemoccults positive is concerning for GI bleed given her diagnosis of cirrhosis. I agree with plan for endoscopy by GI. Anemia may also be due to chronic liver disease although unlikely to explain recent rapid decline in her hemoglobin. Given the rapid decline in her hemoglobin and no obvious estimation for her anemia, I recommend that we transfuse 2 units packed red cells since further decline in her hemoglobin from occult bleeding can result in symptomatic anemia. We will also recommend complete anemia workup including iron panel, ferritin, folate, B12, LDH, TSH, T4, direct [place] test, SARI, SPEP. Patient has an outpatient follow-up with oncology on 08/19/16 and if she is medically optimal for discharge, we will plan to see on an outpatient basis for continued monitoring. We'll follow the patient along side you during this hospitalization but please do not hesitate to call regarding interval hematologic questions as they arise. Thank you for your excellent ongoing care for allowing us to see her while in- house. Past Med Surg Social Fam HX - Past Medical History Medical history: atrial fibrillation, CHF, COPD, hypertension, liver disease, myocardial infarction, renal disease, other Psychiatric history: no psych history - Past Surgical History Surgical History: colectomy, pacemaker/AICD, other - Social History Smoking Status: Former smoker Smokeless Tobacco Status: No Alcohol use: occasionally Drug use: none - Family History Mother Living Status: Hx Family Cancer: Yes Father Living Status: Hx Family Cardiac Disorders: Yes Medications and Allergies Allopurinol [Zyloprim] 100 mg PO DAILY 02/04/15 [History] Ferrous Sulfate 325 mg PO DAILY 02/04/15 [History] TraMADol [Ultram] 50 mg PO Q6H 02/04/15 [History] Zolpidem [Ambien] 10 mg PO HS PRN 02/04/15 [History] Furosemide [Lasix] 80 mg PO BID 05/27/16 [History] metOLazone [Zaroxolyn] 2.5 mg PO TUFR 05/27/16 [History] Omeprazole [PriLOSEC] 20 mg PO DAILY 06/03/16 [History] Spironolactone [Aldactone] 100 mg PO DAILY 06/03/16 [History] Gabapentin [Neurontin] 300 mg PO TID 08/13/16 [History] LORazepam [Ativan] 0.5 mg PO Q6H PRN 08/13/16 [History] Ondansetron [Zofran] 8 mg PO Q8HR PRN 08/13/16 [History] Potassium Chloride [Klor-Con 10] 10 meq PO DAILY 08/13/16 [History] Prochlorperazine Maleate [Compazine] 10 mg PO Q6HR PRN 08/13/16 [History] Warfarin [Coumadin] 2.5 mg PO SUTUWETHSA 08/13/16 [History] Warfarin [Coumadin] 5 mg PO MOFR 08/13/16 [History] Allergies aspirin Allergy (Verified 08/13/16 09:59) Nausea morphine Allergy (Verified 08/13/16 09:59) Hives Penicillins Allergy (Verified 08/13/16 09:59) Hives Oncology - Exam - Constitutional Vitals: Temp Pulse Resp BP Pulse Ox 97.6 F 60 16 111/69 100 08/13/16 19:15 08/13/16 19:15 08/13/16 19:15 08/13/16 19:15 08/13/16 19:15 Oncology - Results - Labs Labs: Short CBC 08/13/16 08/13/16 Range/Units 05:14 14:30 WBC 5.9 (4.3-11.1) K/mcL Hgb 7.5 L 7.6 L (11.5-15.4) g/dL Hct 22.4 L 23.4 L (35.3-44.9) % Plt Count 222 (140-400) K/mcL Neutrophils # 4.4 (1.6-8.9) K/mcL BMP 08/13/16 08/13/16 05:14 14:30 Sodium 125 L 125 L Potassium 2.9 L 3.5 Chloride 90 L 91 L Carbon Dioxide 26 25 BUN 20 22 H Creatinine 0.97 1.12 H Glucose 116 H 127 H Calcium 9.7 10.1 Liver Function 08/13/16 Range/Units 08:45 Total Bilirubin 0.8 (0.2-1.2) mg/dL Direct Bilirubin 0.4 (0.0-0.5) mg/dL AST 24 (5-34) Units/L ALT 19 (0-55) Units/L Alkaline Phosphatase 180 H (38-126) Units/L Albumin 3.3 L (3.5-5.0) g/dL Urine 08/13/16 Range/Units 05:50 Urine Color Yellow (Yellow) Urine Clarity Clear (Clear) Urine pH 6.5 (5.0-8.0) pH Units Ur Specific [place] 1.013 (1.010-1.025) Urine Protein Negative (Neg-Trace) mg/dL Urine Glucose (UA) Normal (Normal) mg/dL Consult Discharge Plan - Plan Instructions: Heart Failure (DC) Referrals: Jose Jones DO [Primary Care Provider] -
[2016-08-13 21:54] LABS: Hematocrit 22.9 % (35.3-44.9); Hemoglobin 7.4 g/dL (11.5-15.4)
[2016-08-14 05:04] LABS: Hematocrit 22.1 % (35.3-44.9); Hemoglobin 7.3 g/dL (11.5-15.4); Mean Corpuscular Hemoglobin 29.9 pg (28.0-33.3); Mean Corpuscular Volume 90.6 fL (83.0-100.0); Mean Platelet Volume 8.4 fL (9.4-12.4); Platelet Count 208 K/mcL (140-400); Red Blood Count 2.44 M/mcL (3.82-4.97); Red Cell Distribution Width 16.7 % (11.5-14.5)
[2016-08-14 05:18] LABS: BUN/Creatinine Ratio 25 (6-26); Blood Urea Nitrogen 26 mg/dL (7-20); Calcium 9.9 mg/dL (8.6-10.8); Carbon Dioxide 25 mEq/L (19-29); Chloride 93 mEq/L (98-109); Glucose 100 mg/dL (70-99); Osmolality,Calculated 269 (280-300); Potassium 3.4 mEq/L (3.5-4.5); Sodium 127 mEq/L (136-145); eGFR For African Americans > 60 (> 60); eGFR For Non-African Americans 52 (> 60)
[2016-08-14] MEDS: Famotidine 20 MG/2 ML VIAL IVP SCH (05:44)
[2016-08-14] MEDS: Insulin LISPRO 300 UNITS/3 ML VIAL SQ SCH ×2 (07:38→12:13)
[2016-08-14] MEDS: Megestrol Acetate 400 MG/10 ML UDC PO SCH (08:37)
[2016-08-14] MEDS: Furosemide 40 MG TABLET PO SCH (08:37)
[2016-08-14] MEDS ORDERED: 0.9 % Sodium Chloride 250 ML ONE (11:31)
[2016-08-14] MEDS ORDERED: *HR* Promethazine 25 MG/ML VIAL IVP ONE (11:33)
[2016-08-14 15:40] VITALS: BP 113/54
[2016-08-14] MEDS ORDERED: Famotidine 20 MG/2 ML VIAL IVP SCH (18:00)
[2016-08-16] MEDS ORDERED: metOLazone 2.5 MG TABLET PO SCH (09:00)
--- NOTE | 2016-08-16 19:16 | Discharge Summary ---
Date of Encounter: 08/16/16 Time of Encounter: 19:14 - Discharge Diagnosis (1) Anemia Priority: Secondary Status: Acute Qualifiers: Anemia type: unspecified type Qualified Code(s): D64.9 - Anemia, unspecified (2) Hyponatremia Priority: Secondary Status: Chronic (3) GI bleed Priority: Primary Status: Acute Qualifiers: GI bleed type/associated pathology: unspecified gastrointestinal hemorrhage type Qualified Code(s): K92.2 - Gastrointestinal hemorrhage, unspecified (4) Lung cancer Priority: Secondary Status: Acute Qualifiers: Laterality: unspecified laterality Lung location: unspecified part of lung Qualified Code(s): C34.90 - Malignant neoplasm of unspecified part of unspecified bronchus or lung (5) A-fib Priority: Secondary Status: Chronic Qualifiers: Atrial fibrillation type: chronic Qualified Code(s): I48.2 - Chronic atrial fibrillation (6) Hypokalemia Priority: Secondary Status: Acute (7) DVT (deep venous thrombosis) Priority: Secondary Status: Acute Qualifiers: DVT location: non-extremity vein Chronicity: chronic Qualified Code(s): I82.91 - Chronic embolism and thrombosis of unspecified vein (8) DVT prophylaxis Priority: Secondary Status: Acute - Discharge Medications Home Medications: Allopurinol [Zyloprim] 100 mg PO DAILY 02/04/15 [History] Ferrous Sulfate 325 mg PO DAILY 02/04/15 [History] TraMADol [Ultram] 50 mg PO Q6H 02/04/15 [History] Zolpidem [Ambien] 10 mg PO HS PRN 02/04/15 [History] Furosemide [Lasix] 80 mg PO BID 05/27/16 [History] metOLazone [Zaroxolyn] 2.5 mg PO TUFR 05/27/16 [History] Omeprazole [PriLOSEC] 20 mg PO DAILY 06/03/16 [History] Spironolactone [Aldactone] 100 mg PO DAILY 06/03/16 [History] Gabapentin [Neurontin] 300 mg PO TID 08/13/16 [History] LORazepam [Ativan] 0.5 mg PO Q6H PRN 08/13/16 [History] Ondansetron [Zofran] 8 mg PO Q8HR PRN 08/13/16 [History] Potassium Chloride [Klor-Con 10] 10 meq PO DAILY 08/13/16 [History] Prochlorperazine Maleate [Compazine] 10 mg PO Q6HR PRN 08/13/16 [History] Warfarin [Coumadin] 2.5 mg PO SUTUWETHSA 08/13/16 [History] Warfarin [Coumadin] 5 mg PO MOFR 08/13/16 [History] Allergies/Adverse Reactions: Allergies aspirin Allergy (Verified 08/13/16 09:59) Nausea morphine Allergy (Verified 08/13/16 09:59) Hives Penicillins Allergy (Verified 08/13/16 09:59) Hives Date of admission: 08/13/16 00:19 Primary care physician: Jose Jones Consults: 08/13/16 00:25 Consult to Gastroenterology [CONS] Routine Consulting Provider: [facility] [place] Reason for Consult: hemoccult positive, anemia Call Completed: No Consult to Oncology [CONS] Routine Consulting Provider: [facility] [place] Reason for Consult: anemia, lung cancer Call Completed: No 08/13/16 00:55 Consult to Nutrition [CONS] Routine Comment: Consulting Provider: NUTRITION Reason for Dietary Consult: MST Score 08/13/16 08:07 Consult to Marketing Technology Specialist [CONS] Routine Reason for SW Consult: needs assistance information regarding prescription coverage and transportation Discharging clinician: Eva Rosas Anticipated date of discharge: 08/14/16 - Patient Status Disposition: Home, Self-Care Condition: Good Overall status at discharge: patient is progressing back to baseline - Discharge Instructions Instructions: Heart Failure (DC) Follow Up With: Jose Jones DO [Primary Care Provider] - - Diet and Activity Activity: increase activity as tolerated Diet: advance to your usual diet Interval History: Ms. 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 Also according to history she has history of DVT but patient denies it. In any case she is on Coumadin though INR is only 1.7 but her Hemoccult test is positive.. She presents to the ED after being advised by her oncologist, to whom she complained that she has been having fatigue.. Patient had labs drawn about 2 days ago, and is found to have anemia. She was advised by oncology team to be evaluated. Patient is pretty asymptomatic at this point. Oncology and [facility] have already seen the patient and patient will be discharged home. Hospital course: Ms. Brooks is a 70 year old female - Time Spent with Patient Total time spent providing and/or coordinating discharge services: Greater than 30 minutes - Constitutional Vitals: Temp Pulse Resp BP Pulse Ox 98.2 F 63 18 113/54 100 08/14/16 15:39 08/14/16 15:39 08/14/16 15:39 08/14/16 15:39 08/14/16 15:39 General appearance: Present: A&O X 3, no acute distress, underweight, answers questions appropriately
== END 2016-08-14 17:19 | disposition home or self-care (01) | DRG 378 ==
LOC: 3ANU 19:37 → EMEROO 19:37 → 3ANU 23:52
PROVIDERS: ADMIT Family Medicine; ATTEND Internal Medicine

== ENCOUNTER 2016-08-23 14:29 | Inpatient (IN) ==
--- NOTE | 2016-08-23 15:09 | Emergency Department Note ---
Disposition Clinical Impression: CHF exacerbation Qualifiers: Congestive heart failure type: unspecified congestive heart failure type Qualified Code(s): I50.9 - Heart failure, unspecified Disposition: Admitted As Inpatient Condition: Fair Referrals: NO,PCP [Non-Partnered Physician] - Time of Disposition: 17:42 SOB HPI - General Chief Complaint: ED Shortness of Breath/Dyspnea Stated Complaint: retaining fluids Time Seen by Provider: 08/23/16 14:39 Source: patient, family Mode of arrival: wheelchair Limitations: no limitations Nursing Notes Reviewed: Yes Vital Signs Reviewed: Yes - History of Present Illness Patient is a 70-year-old female presents bilateral lower extremity swelling with shortness of breath. Her past medical history includes COPD, CHF, [place], renal disease, A. 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 Over the past 3-4 days patient has no cervical bilateral leg swelling has been worsening. She states the leg swelling improves with elevation. She denies any fevers or chills, no chest pain, no back pain, and she has a chronic dry cough that is nonproductive, denies abdominal pain. Pt Subjective Complaint: shortness of breath Onset (ago): day(s) (3-4 days) Severity: moderate Consistency/Duration: constant Improves with: oxygen, rest, upright position, other Known history of: congestive heart failure Associated symptoms: Reports: cough, orthopnea. Denies: chest pain, fever, polydipsia, parasthesias, palpitations, hemoptysis, diaphoresis, nausea/vomiting , syncope, abdominal pain Treatment prior to arrival: diuretics Cough present: Yes Cough Description: Non-Productive Cough Frequency: Intermittent Sputum production: Yes Sputum Amount: Scant Sputum Color: Clear - Related Data Home oxygen amount: none Home Medications Medication Instructions Recorded Confirmed Allopurinol [Zyloprim] 100 mg PO DAILY 02/04/15 08/19/16 Ferrous Sulfate 325 mg PO DAILY 02/04/15 08/19/16 TraMADol [Ultram] 50 mg PO Q6H 02/04/15 08/19/16 Zolpidem [Ambien] 10 mg PO HS PRN 02/04/15 08/19/16 Furosemide [Lasix] 80 mg PO BID 05/27/16 08/19/16 metOLazone [Zaroxolyn] 2.5 mg PO TUFR 05/27/16 08/19/16 Omeprazole [PriLOSEC] 20 mg PO DAILY 06/03/16 08/19/16 Spironolactone [Aldactone] 100 mg PO DAILY 06/03/16 08/19/16 Gabapentin [Neurontin] 300 mg PO TID 08/13/16 08/19/16 LORazepam [Ativan] 0.5 mg PO Q6H PRN 08/13/16 08/19/16 Ondansetron [Zofran] 8 mg PO Q8HR PRN 08/13/16 08/19/16 Potassium Chloride [Klor-Con 10] 10 meq PO DAILY 08/13/16 08/19/16 Prochlorperazine Maleate 10 mg PO Q6HR PRN 08/13/16 08/19/16 [Compazine] Warfarin [Coumadin] 2.5 mg PO SUTUWETHSA 08/13/16 08/19/16 Warfarin [Coumadin] 5 mg PO MOFR 08/13/16 08/19/16 Megestrol Acetate [Megace] 10 ml PO DAILY 08/19/16 08/19/16 Previous Rx's Medication Instructions Recorded Demeclocycline [Declomycin] 300 mg PO Q12HR #60 tablet 08/19/16 Allergies Allergy/AdvReac Type Severity Reaction Status Date / Time aspirin Allergy Nausea Verified 08/23/16 14:34 morphine Allergy Hives Verified 08/23/16 14:34 Penicillins Allergy Hives Verified 08/23/16 14:34 All systems ED: reviewed and negative except as stated. Constitutional: Denies: fever, chills Cardiovascular: Reports: as per HPI Respiratory: Reports: as per HPI Gastrointestinal: Denies: abdominal pain, nausea, vomiting Musculoskeletal: Denies: back pain Neurological: Denies: weakness, numbness, paresthesias Past Medical History - Past Medical History Attestation: Yes The following information was validated with the patient. Source: old records reviewed Medical history: Reports: atrial fibrillation, cancer, CHF, COPD, hypertension, liver disease, myocardial infarction, renal disease, other Surgical history: Reports: colectomy, pacemaker/AICD, other Psychiatric history: Reports: anxiety - Social History Smoking Status: Former smoker Smokeless Tobacco Status: No Alcohol use: Reports: occasionally Drug use: Reports: none Physical Exam - General Limitations: no limitations General appearance: alert, in no apparent distress - Head Head exam: atraumatic, normocephalic - Eye Eye exam: Present: normal appearance - Neck Neck exam: Present: normal inspection, trachea midline. Absent: lymphadenopathy - Chest Chest inspection: Present: normal inspection, symmetric chest wall rise, other ( Patient has a port in her right upper chest no erythema or signs of infection.) - Respiratory Respiratory exam: Present: other (Course breath sounds throughout). Absent: wheezes, stridor - Cardiovascular Cardiovascular exam: Present: regular rate, normal rhythm, normal heart sounds. Absent: systolic murmur, diastolic murmur - Expanded Cardiovascular Exam Peripheral pulses: 1+: dorsalis pedis (R), dorsalis pedis (L) - Abdominal Exam Abdominal exam: Present: soft, Non-Tender, normal bowel sounds - Extremities Exam Extremities exam: Present: full ROM, tenderness, pedal edema, other (Patient has 2+ pitting edema of bilateral lower extremities.). Absent: calf tenderness - Neurological Exam Neurological exam: Present: alert - Psychiatric Psychiatric exam: Present: normal affect, normal mood - Skin Skin exam: Present: warm, intact Course Course Narrative: 70-year-old with CHF exacerbation and lung cancer, we will get a short dyspnea workup and IV diuresis. Her EKG shows no ischemic changes. - Reevaluation(s) Reevaluation #1: I reevaluated the patient and watched and observed as she was trying to ambulate , she noted about 3 or 4 steps and she was significantly dyspneic, and then spoke with the patient, she had exertional dyspnea and dyspnea midsentence, barely talk, after IV diuretics, she seems somewhat better, but still does not feel safe at home and does not have home oxygen. For this reason we will pursue admission to the hospitalist service. Troponin negative EKG within normal limits. Time: 17:43 Vital Signs Temperature 98.1 F 08/23/16 14:31 Pulse Rate 83 08/23/16 14:31 Respiratory Rate 22 08/23/16 14:31 Blood Pressure 116/67 08/23/16 14:31 O2 Sat by Pulse Oximetry 96 08/23/16 14:31 Temperature 98.1 F 08/23/16 14:33 Pulse Rate 83 08/23/16 14:33 Respiratory Rate 22 08/23/16 14:33 Blood Pressure 116/67 08/23/16 14:33 O2 Sat by Pulse Oximetry 97 08/23/16 15:51 Oxygen Delivery Oxygen Delivery Room Air Shortness of Breath/Dyspnea - MDM Narrative Medical decision making narrative: 70-year-old female with shortness of breath, exertional dyspnea increased after diuretics have been changed, we will admit to hospital service for acute CHF exacerbation - Differential Diagnosis Likely: congestive heart failure, pneumonia - Medical Records Medical records reviewed: Yes I reviewed the patient's medical records. - Lab Data Lab results reviewed: Yes I reviewed the patient's lab results. Result diagrams: 08/23/16 15:44 08/23/16 15:44 Lab Results 08/23/16 08/23/16 08/23/16 Range/Units 15:44 15:44 15:44 WBC 4.3 (4.3-11.1) K/mcL RBC 2.77 L (3.82-4.97) M/mcL Hgb 8.2 L (11.5-15.4) g/dL Hct 25.8 L (35.3-44.9) % MCV 93.1 (83.0-100.0) fL MCH 29.6 (28.0-33.3) pg MCHC 31.8 (31.6-35.5) g/dL RDW 17.7 H (11.5-14.5) % Plt Count 202 (140-400) K/mcL MPV 9.1 L (9.4-12.4) fL Immature Gran % 0.7 (0-4) % Seg Neutrophils % 76.2 % Lymphocytes % 14.0 % Monocytes % 6.5 % Eosinophils % 2.1 % Basophils % 0.5 % Neutrophils # 3.3 (1.6-8.9) K/mcL Lymphocytes # 0.6 (0.6-4.6) K/mcL Monocytes # 0.3 (0.0-1.3) K/mcL Eosinophils # 0.1 (0.0-0.6) K/mcL Basophils # 0.0 (0.0-0.2) K/mcL Sodium 128 L (136-145) mEq/L Potassium 3.8 (3.5-4.5) mEq/L Chloride 98 (98-109) mEq/L Carbon Dioxide 22 (19-29) mEq/L BUN 22 H (7-20) mg/dL Creatinine 0.95 (0.57-1.11) mg/dL Est GFR ( Amer) > 60 (> 60) Est GFR (Non-Af Amer) 58 L (> 60) BUN/Creatinine Ratio 23 (6-26) Glucose 96 (70-99) mg/dL Calculated Osmolality 269 L (280-300) Lactic Acid 0.9 (0.5-2.2) mmol/L Calcium 10.2 (8.6-10.8) mg/dL Troponin I (0-0.03) ng/mL B-Natriuretic Peptide (0-100) pg/mL 08/23/16 08/23/16 Range/Units 15:44 15:44 WBC (4.3-11.1) K/mcL RBC (3.82-4.97) M/mcL Hgb (11.5-15.4) g/dL Hct (35.3-44.9) % MCV (83.0-100.0) fL MCH (28.0-33.3) pg MCHC (31.6-35.5) g/dL RDW (11.5-14.5) % Plt Count (140-400) K/mcL MPV (9.4-12.4) fL Immature Gran % (0-4) % Seg Neutrophils % % Lymphocytes % % Monocytes % % Eosinophils % % Basophils % % Neutrophils # (1.6-8.9) K/mcL Lymphocytes # (0.6-4.6) K/mcL Monocytes # (0.0-1.3) K/mcL Eosinophils # (0.0-0.6) K/mcL Basophils # (0.0-0.2) K/mcL Sodium (136-145) mEq/L Potassium (3.5-4.5) mEq/L Chloride (98-109) mEq/L Carbon Dioxide (19-29) mEq/L BUN (7-20) mg/dL Creatinine (0.57-1.11) mg/dL Est GFR ( Amer) (> 60) Est GFR (Non-Af Amer) (> 60) BUN/Creatinine Ratio (6-26) Glucose (70-99) mg/dL Calculated Osmolality (280-300) Lactic Acid (0.5-2.2) mmol/L Calcium (8.6-10.8) mg/dL Troponin I 0.02 (0-0.03) ng/mL B-Natriuretic Peptide 278 H (0-100) pg/mL - Radiology Data Radiology results reviewed: Yes I reviewed the patient's radiology results. Chest X-Ray 08/23/16 15:18 IMPRESSION: 1. Cardiomegaly, without evidence of failure. 2. Mild left basilar atelectasis, improved from prior radiographs. D/ / Leoncio Castro MD / Leoncio Castro MD Interpreting Provider: Leoncio Castro MD - EKG Data EKG attestation: Yes I reviewed and interpreted this EKG. Rate: Reports: normal Rhythm: Reports: other (Ventricular pacemaker T-wave inversions in lead V2) T wave inversions noted in: Reports: v2 Interpretation: Reports: no acute changes, nonspecific ST-T wave changes ( Compared to previous EKG on 06/06 2016) - Core Measures AMI Core Measures Followed: No Attestation Statement - Attestation Attestation: I examined this patient and my medical decision-making was reviewed with the TINSEL MACHINE OPERATOR/PA/Advanced Practice Nurse/Resident Physician. I agree with the documented findings, disposition and treatment plan as described except to the extent set forth below.
[2016-08-23] MEDS ORDERED: Furosemide 40 MG/4 ML VIAL IVP ONE (15:21)
[2016-08-23 15:49] LABS: Basophils % 0.5 %; Eosinophils # 0.1 K/mcL (0.0-0.6); Eosinophils % 2.1 %; Hematocrit 25.8 % (35.3-44.9); Hemoglobin 8.2 g/dL (11.5-15.4); Immature Granulocytes % 0.7 % (0-4); Lymphocytes # 0.6 K/mcL (0.6-4.6); Mean Corpuscular HGB Conc 31.8 g/dL (31.6-35.5); Mean Corpuscular Hemoglobin 29.6 pg (28.0-33.3); Mean Corpuscular Volume 93.1 fL (83.0-100.0); Mean Platelet Volume 9.1 fL (9.4-12.4); Monocytes # 0.3 K/mcL (0.0-1.3); Monocytes % 6.5 %; Neutrophils # 3.3 K/mcL (1.6-8.9); Platelet Count 202 K/mcL (140-400); Red Blood Count 2.77 M/mcL (3.82-4.97); Red Cell Distribution Width 17.7 % (11.5-14.5); Segmented Neutrophils % 76.2 %
[2016-08-23 16:07] LABS: BUN/Creatinine Ratio 23 (6-26); Blood Urea Nitrogen 22 mg/dL (7-20); Calcium 10.2 mg/dL (8.6-10.8); Carbon Dioxide 22 mEq/L (19-29); Chloride 98 mEq/L (98-109); Glucose 96 mg/dL (70-99); Osmolality,Calculated 269 (280-300); Potassium 3.8 mEq/L (3.5-4.5); Sodium 128 mEq/L (136-145); eGFR For African Americans > 60 (> 60); eGFR For Non-African Americans 58 (> 60)
[2016-08-23 17:48] LABS: Bilirubin,Urine Negative (Negative); Blood,Urine Negative (Negative); Clarity,Urine Clear (Clear); Color,Urine Yellow (Yellow); Glucose,Urine (UA) Normal (Normal); Ketones,Urine Negative (Negative); Leukocyte Esterase,Urine Negative (Negative); Nitrite,Urine Negative (Negative); PH,Urine 6.5 pH Units (5.0-8.0); Protein,Urine Negative (Neg-Trace); Specific Gravity,Urine 1.011 (1.010-1.025); Urobilinogen,Urine Normal (Normal)
[2016-08-23] MEDS ORDERED: Naloxone 0.4 MG/ML INJ IVP PRN (18:45)
[2016-08-23] MEDS ORDERED: *HR* LORazepam 0.5 MG TABLET PO PRN (19:04)
[2016-08-23 19:22] LABS: INR 1.7; Prothrombin Time 18.1 Seconds (9.4-12.1)
--- NOTE | 2016-08-23 19:25 | Internal Med History&Physical ---
Date of Encounter: 08/23/16 Time of Encounter: 19:09 Assessment and Plan (1) CHF exacerbation Current visit: Yes Status: Acute 1 patient has been experiencing increasing shortness of breath or extremity and abdominal swelling as well as weight gain. She had recent changes in her diuretic. BNP was 278. We will continue with IV Lasix twice a day as well as spironolactone. 2 we will obtain a cardiac echo-last echo was completed and January 2016 EF of 60% she has a bile prosthetic AV valve with moderate to severe aortic stenosis 3 monitor intake and output daily weights 4 low sodium diet Qualifiers: Congestive heart failure type: unspecified congestive heart failure type Qualified Code(s): I50.9 - Heart failure, unspecified (2) Anemia Current visit: No Status: Acute 1 presently hemoglobin is 8.2 it was 9.1 on 08/16/2016 , she was seen GI and is to have the EGD as outpatient. She is on Coumadin at this time. We will check INR and continue with Coumadin will continue to monitor CBC 2 continue with iron supplements Qualifiers: Anemia type: unspecified type Qualified Code(s): D64.9 - Anemia, unspecified (3) CKD (chronic kidney disease) Current visit: No Status: Chronic 1 presently creatinine 0.95 which appears to be stable we will continue to monitor creatinine 2 monitor intake and output daily weights 3 avoid nephrotoxins Qualifiers: Chronic kidney disease stage: stage 3 (moderate) Qualified Code(s): N18.3 - Chronic kidney disease, stage 3 (moderate) (4) Hyponatremia Current visit: No Status: Chronic 1. To be chronic sodium today is 128 which is the highest it has been. There are no neurological symptoms We will continue to monitor sodium (5) Non-small cell carcinoma of left lung Current visit: No Status: Chronic 1 patient is receiving chemotherapy with oncology as outpatient. We will continue with outpatient treatment and consult oncology as needed (6) A-fib Current visit: No Status: Chronic 1 patient has history of chronic atrial fibrillation due to valvular disease she is moderate to severe aortic stenosis. She does have a pacemaker placed. She is on Coumadin at this time presently she is rate controlled ventricular paced. We will continue with Coumadin monitoring INR pharmacy to dose Qualifiers: Atrial fibrillation type: chronic Qualified Code(s): I48.2 - Chronic atrial fibrillation (7) DVT prophylaxis Current visit: No Status: Acute 1 patient is on Coumadin Internal Medicine - H&P: HPI Chief complaint: SOB, lower extremity swelling Admitted From: Emergency Dept Plans for Post Hospital Care: Home History of present illness: Ms. Brooks is a 70 year old female past medical history of COPD CHF due to valvular disease and atrial fibrillation CK D stage II squamous cell carcinoma of the lung bilaterally atrial fibrillation with pacemaker chronic anemia chronic hyponatremia cirrhosis of the liver with varices, GI bleed. Patient has had recent admission to this facility/ related to anemia, CHF exacerbation and she was discharged on the . She states that she followed up with her oncologist on Tuesday and we will discontinue one of her diuretics. Since that time she has been experiencing lower extremity edema as well abdominal swelling, exertional dyspnea, she is not on any supplemental oxygen at home. She denies any chest pain nausea vomiting or diarrhea fevers or chills cough. She presented to the ER with the above complaints according to ER records lab work did reveal some anemia which is chronic for this patient hemoglobin 8.2 as well as hypernatremia again this is chronic for this patient on 28 lactate 0.9 troponin 0.02 BNP was 278 which is the highest she has been. Chest x-ray did reveal cardiomegaly with mild bibasilar atelectasis. She was observed ambulating and noted to have significant dyspnea she was given IV Lasix with little improvement. She has been admitted for further workup and evaluation. Presently the patient does not appear to be in respiratory distress however it is noted she does experience some conversational dyspnea. She denies any chest pain she does admit to some anxiety. Her lung sounds are clear heart sounds are regular S1-S2 with no rubs or clicks gallops systolic murmur noted 3/6. Abdomen is soft and distended patient does admit to some weight gain she states that she was 133 last week and this week she is 146. She does have +2 pitting edema bilaterally up to her knees. Presently she is hemodynamically stable she is V paced on the monitor. I reveiwed this case with DR Mas who agrees with plan. Past Med Surg Social Fam HX - Past Medical History Medical history: atrial fibrillation, cancer, CHF, COPD, hypertension, liver disease, myocardial infarction, renal disease, other Psychiatric history: anxiety - Past Surgical History Surgical History: colectomy, pacemaker/AICD, other - Social History Smoking Status: Former smoker Smokeless Tobacco Status: No Alcohol use: occasionally Drug use: none - Family History Mother Living Status: Hx Family Cancer: Yes Father Living Status: Hx Family Cardiac Disorders: Yes Internal Medicine - H&P: Meds Allopurinol [Zyloprim] 100 mg PO DAILY 02/04/15 [History] Ferrous Sulfate 325 mg PO DAILY 02/04/15 [History] TraMADol [Ultram] 50 mg PO Q6H 02/04/15 [History] Zolpidem [Ambien] 10 mg PO HS PRN 02/04/15 [History] Furosemide [Lasix] 80 mg PO BID 05/27/16 [History] metOLazone [Zaroxolyn] 2.5 mg PO TUFR 05/27/16 [History] Omeprazole [PriLOSEC] 20 mg PO DAILY 06/03/16 [History] Spironolactone [Aldactone] 100 mg PO DAILY 06/03/16 [History] Gabapentin [Neurontin] 300 mg PO TID 08/13/16 [History] LORazepam [Ativan] 0.5 mg PO Q6H PRN 08/13/16 [History] Ondansetron [Zofran] 8 mg PO Q8HR PRN 08/13/16 [History] Potassium Chloride [Klor-Con 10] 10 meq PO DAILY 08/13/16 [History] Prochlorperazine Maleate [Compazine] 10 mg PO Q6HR PRN 08/13/16 [History] Megestrol Acetate [Megace] 10 ml PO DAILY 08/19/16 [History] Warfarin [Coumadin] 4 mg PO 1800 08/23/16 [History] Allergies aspirin Allergy (Verified 08/23/16 14:34) Nausea morphine Allergy (Verified 08/23/16 14:34) Hives Penicillins Allergy (Verified 08/23/16 14:34) Hives All Systems PM: A 10-system review of systems was performed and is negative for pertinent findings except as documented above in the HPI. - Constitutional Constitutional: weight gain, no chills, no fever(s), no night sweats - EENT Eyes: no change in vision, no discharge, no pain, no photophobia Nose, mouth and throat: dry mouth, no dysphagia, no nasal discharge, no neck pain, no sore throat - Cardiovascular Cardiovascular ROS IM: dyspnea, dyspnea on exertion, edema, no chest pain, no diaphoresis, no lightheadedness, no palpitations, no syncope - Respiratory Respiratory: cough, dyspnea, dyspnea on exertion - Gastrointestinal Gastrointestinal: bloating, no abdominal pain, no diarrhea, no hematemesis, no hematochezia, no melena, no nausea, no vomiting - Genitourinary Genitourinary: no change in urinary stream, no dysuria, no flank pain, no hematuria - Musculoskeletal Musculoskeletal ROS IM: no numbness, no tingling - Neurological Neurological ROS: no confusion, no convulsions, no focal weakness, no numbness, no tingling, no tremor(s) - Hematologic/Lymphatic Hematologic/Lymphatic: no easy bruising - Constitutional Vitals: Temp Pulse Resp BP Pulse Ox 98.1 F 60 18 122/58 96 08/23/16 14:33 08/23/16 17:41 08/23/16 18:34 08/23/16 18:34 08/23/16 17:41 General appearance: Present: A&O X 3, answers questions appropriately - Head Head exam: Present: atraumatic, normocephalic - Eye Eye exam: Present: PERRL, conjuntiva pink, sclera anicteric Pupils: Present: PERRL - Neck Neck exam general surgery: Present: supple, trachea midline. Absent: lymphadenopathy - Respiratory Respiratory exam: Present: CTAB. Absent: accessory muscle use, rales, rhonchi, wheezes - Cardiovascular Cardiovascular exam: Present: RRR, +S1, +S2, systolic murmur. Absent: diastolic murmur, gallop, rubs - GI/Abdominal GI/Abdominal exam: Present: distended, normal bowel sounds, soft, no peritoneal signs. Absent: tenderness - Extremities Exam Extremities exam: Present: pedal edema, warm, radial pulses palpable and symetrical. Absent: calf tenderness, cyanotic - Neurological Exam Neurological exam: Present: CN II-XII intact, oriented X3, no focal deficits. Absent: pronater drift, facial droop, speech deficit - Skin Skin exam: Present: dry, intact Internal Med - H&P Results - Labs CBC & Chem 7: 08/23/16 15:44 08/23/16 15:44 - EKG Data EKG comments: 08/23/16 19:31 V paced - Diagnostic Studies Venous US Additional comments: Chest X-Ray 08/23/16 15:18 IMPRESSION: 1. Cardiomegaly, without evidence of failure. 2. Mild left basilar atelectasis, improved from prior radiographs. D/ / Leoncio Castro MD / Leoncio Castro MD Interpreting Provider: Leoncio Castro MD
[2016-08-23] MEDS ORDERED: *HR* Warfarin 4 MG TABLET PO SCH (20:45)
[2016-08-23] MEDS: Furosemide 40 MG/4 ML VIAL IVP SCH (21:01)
[2016-08-23] MEDS: traMADol 50 MG TABLET PO SCH (21:01)
[2016-08-23] MEDS: Gabapentin 300 MG CAPSULE PO SCH (21:02)
[2016-08-24] MEDS: traMADol 50 MG TABLET PO SCH ×4 (01:44→21:38)
[2016-08-24 05:39] LABS: Basophils % 0.3 %; Eosinophils # 0.1 K/mcL (0.0-0.6); Eosinophils % 3.3 %; Hematocrit 23.9 % (35.3-44.9); Hemoglobin 7.6 g/dL (11.5-15.4); Immature Granulocytes % 0.3 % (0-4); Lymphocytes # 0.7 K/mcL (0.6-4.6); Lymphocytes % 16.6 %; Mean Corpuscular HGB Conc 31.8 g/dL (31.6-35.5); Mean Corpuscular Hemoglobin 29.8 pg (28.0-33.3); Mean Corpuscular Volume 93.7 fL (83.0-100.0); Mean Platelet Volume 9.1 fL (9.4-12.4); Monocytes # 0.4 K/mcL (0.0-1.3); Monocytes % 9.6 %; Neutrophils # 2.8 K/mcL (1.6-8.9); Platelet Count 181 K/mcL (140-400); Red Blood Count 2.55 M/mcL (3.82-4.97); Segmented Neutrophils % 69.9 %
[2016-08-24 05:47] LABS: INR 1.7; Prothrombin Time 18.1 Seconds (9.4-12.1)
[2016-08-24 05:50] LABS: BUN/Creatinine Ratio 24 (6-26); Blood Urea Nitrogen 22 mg/dL (7-20); Calcium 9.8 mg/dL (8.6-10.8); Carbon Dioxide 25 mEq/L (19-29); Chloride 96 mEq/L (98-109); Glucose 78 mg/dL (70-99); Osmolality,Calculated 266 (280-300); Potassium 3.6 mEq/L (3.5-4.5); Sodium 127 mEq/L (136-145); eGFR For African Americans > 60 (> 60); eGFR For Non-African Americans > 60 (> 60)
[2016-08-24] MEDS ORDERED: metOLazone 2.5 MG TABLET PO SCH (09:00)
[2016-08-24] MEDS: Megestrol Acetate 400 MG/10 ML UDC PO SCH (09:42)
[2016-08-24] MEDS: Furosemide 40 MG/4 ML VIAL IVP SCH ×2 (09:42→21:38)
[2016-08-24] MEDS: Gabapentin 300 MG CAPSULE PO SCH ×3 (09:42→21:38)
--- NOTE | 2016-08-24 10:35 | Internal Med Progress Note ---
<Shantell Edwards - Last Filed: 08/24/16 15:17> Date of Encounter: 08/24/16 Time of Encounter: 10:35 - Assessment and plan (1) CHF exacerbation Current Visit: Yes Status: Acute Assessment and plan: Patients' shortness of breath has improved. Patient has prosthetic AV and moderate to severe aortic stenosis from valvuar disease. Echocardiogram results revealed no change in ejection fraction of 60% and prosthetic aortic stenosis s simlar to the report from January 2016. Monitor intake and out daily and follow low-sodium diet. Qualifiers: Congestive heart failure type: unspecified congestive heart failure type Qualified Code(s): I50.9 - Heart failure, unspecified (2) Anemia Current Visit: No Status: Acute Assessment and plan: Presently hemoglobin is 7.6 it was 9.1 on 08/16/2016. GI will be consulted in the morning. Coumadin has been stopped and she is NPO. Folate supplements have been given. Qualifiers: Anemia type: unspecified type Qualified Code(s): D64.9 - Anemia, unspecified (3) CKD (chronic kidney disease) Current Visit: No Status: Chronic Assessment and plan: Creatinine is 0.92 and stable. We will continue to monitor. Qualifiers: Chronic kidney disease stage: stage 3 (moderate) Qualified Code(s): N18.3 - Chronic kidney disease, stage 3 (moderate) (4) Hyponatremia Current Visit: No Status: Chronic Assessment and plan: Sodium is 127 , we will continue to monitor. Treating with Lasix, spironolactone , metolazone. (5) Non-small cell carcinoma of left lung Current Visit: No Status: Chronic Assessment and plan: Patient is receiving chemotherapy with oncology outpatient. (6) A-fib Current Visit: No Status: Chronic Assessment and plan: Patient has pacemaker. Qualifiers: Atrial fibrillation type: chronic Qualified Code(s): I48.2 - Chronic atrial fibrillation - Subjective Interval history: Sitting comfortably up in bed. Has good appetite, eating breakfast. Denies shortness of breath, chest pain, light headedness. Admitted legs are tender due to edema. - Constitutional Vitals: Temp Pulse Resp BP Pulse Ox 98.3 F 60 16 107/61 95 08/24/16 07:38 08/24/16 07:38 08/24/16 07:38 08/24/16 07:38 08/24/16 07:38 General appearance: Present: A&O X 3, pleasant, no acute distress, answers questions appropriately - Head Head exam: Present: atraumatic, normocephalic - Eye Eye exam: Present: conjuntiva pink, sclera anicteric - Neck Neck exam general surgery: Present: supple, trachea midline. Absent: lymphadenopathy - Respiratory Respiratory exam: Absent: accessory muscle use, rhonchi, stridor, wheezes Additional comments: course breath sounds throughout B/L, decreased breath sounds - Cardiovascular Cardiovascular exam: Present: irregular rhythm. Absent: clicks, gallop - GI/Abdominal GI/Abdominal exam: Present: normal bowel sounds, soft. Absent: distended, tenderness - Extremities Exam Extremities exam: Present: calf tenderness, pedal edema, tenderness, warm, radial pulses palpable and symetrical. Absent: cyanotic - Neurological Exam Neurological exam: Present: oriented X3, no focal deficits. Absent: speech deficit - Skin Skin exam: Present: dry, intact Internal Medicine: Result - Labs CBC & Chem 7: 08/24/16 05:15 08/24/16 05:15 Labs: Short CBC 08/24/16 Range/Units 05:15 WBC 4.0 L (4.3-11.1) K/mcL Hgb 7.6 L (11.5-15.4) g/dL Hct 23.9 L (35.3-44.9) % Plt Count 181 (140-400) K/mcL Neutrophils # 2.8 (1.6-8.9) K/mcL BMP 08/24/16 05:15 Sodium 127 L Potassium 3.6 Chloride 96 L Carbon Dioxide 25 BUN 22 H Creatinine 0.92 Glucose 78 Calcium 9.8 Cardiac Enzymes 08/23/16 08/24/16 Range/Units 23:55 05:15 Troponin I 0.02 0.02 (0-0.03) ng/mL - ABG Interpretation ABG results: PT/INR, D-dimer PT 18.1 Seconds (9.4-12.1) H 08/24/16 05:15 Consult Discharge Plan - Plan Referrals: Jose Jones DO [Primary Care Provider] - <Chivo Jung - Last Filed: 08/24/16 16:26> Date of Encounter: 08/24/16 - Constitutional Vitals: Temp Pulse Resp BP Pulse Ox 97.8 F 71 16 108/71 95 08/24/16 15:38 08/24/16 15:38 08/24/16 15:38 08/24/16 15:38 08/24/16 15:38 Internal Medicine: Result - Labs CBC & Chem 7: 08/24/16 05:15 08/24/16 05:15 Labs: Short CBC 08/24/16 Range/Units 05:15 WBC 4.0 L (4.3-11.1) K/mcL Hgb 7.6 L (11.5-15.4) g/dL Hct 23.9 L (35.3-44.9) % Plt Count 181 (140-400) K/mcL Neutrophils # 2.8 (1.6-8.9) K/mcL BMP 08/24/16 05:15 Sodium 127 L Potassium 3.6 Chloride 96 L Carbon Dioxide 25 BUN 22 H Creatinine 0.92 Glucose 78 Calcium 9.8 Cardiac Enzymes 08/23/16 08/24/16 Range/Units 23:55 05:15 Troponin I 0.02 0.02 (0-0.03) ng/mL - ABG Interpretation ABG results: PT/INR, D-dimer PT 18.1 Seconds (9.4-12.1) H 08/24/16 05:15 - Attending Attestation I examined this patient and my medical decision-making was reviewed with the Resident Physician, Dr Edwards. I agree with the documented findings, disposition and treatment plan as described except to the extent set forth below. On exam the patient is no acute distress, awake, alert oriented. Heart exam reveals regular S1-S2. No murmurs. Plan: Stop warfarin due to concern for GI bleed. Nothing by mouth past midnight. Consult gastroenterology in the morning. Monitor hemoglobin and hematocrit.
[2016-08-24] MEDS ORDERED: Warfarin perPT PO PRN (18:00)
[2016-08-25] MEDS: traMADol 50 MG TABLET PO SCH ×2 (01:09→08:39)
[2016-08-25 04:46] LABS: Basophils % 0.6 %; Eosinophils # 0.1 K/mcL (0.0-0.6); Eosinophils % 2.7 %; Hematocrit 25.7 % (35.3-44.9); Hemoglobin 8.2 g/dL (11.5-15.4); Immature Granulocytes % 0.4 % (0-4); Lymphocytes # 0.8 K/mcL (0.6-4.6); Lymphocytes % 14.8 %; Mean Corpuscular HGB Conc 31.9 g/dL (31.6-35.5); Mean Corpuscular Hemoglobin 29.9 pg (28.0-33.3); Mean Corpuscular Volume 93.8 fL (83.0-100.0); Mean Platelet Volume 9.3 fL (9.4-12.4); Monocytes # 0.5 K/mcL (0.0-1.3); Monocytes % 9.8 %; Neutrophils # 3.8 K/mcL (1.6-8.9); Platelet Count 220 K/mcL (140-400); Red Blood Count 2.74 M/mcL (3.82-4.97); Red Cell Distribution Width 17.6 % (11.5-14.5); Segmented Neutrophils % 71.7 %
[2016-08-25 04:51] LABS: INR 1.7; Prothrombin Time 18.7 Seconds (9.4-12.1)
[2016-08-25 04:59] LABS: Albumin 3.2 g/dL (3.5-5.0); Albumin/Globulin Ratio 0.9 (1.1-2.2); Bilirubin,Total 0.5 mg/dL (0.2-1.2); Calcium 10.4 mg/dL (8.6-10.8); Globulin 3.6 g/dL (2.4-3.5); Potassium 3.8 mEq/L (3.5-4.5); Total Protein 6.8 g/dL (6.0-8.3)
[2016-08-25] MEDS: Megestrol Acetate 400 MG/10 ML UDC PO SCH (08:33)
[2016-08-25] MEDS: Gabapentin 300 MG CAPSULE PO SCH ×3 (08:39→22:21)
[2016-08-25] MEDS: Furosemide 40 MG/4 ML VIAL IVP SCH ×2 (08:42→22:22)
[2016-08-25] MEDS ORDERED: traMADol 50 MG TABLET PO PRN (09:39)
--- NOTE | 2016-08-25 10:10 | Internal Med Progress Note ---
<Shantell Edwards - Last Filed: 08/25/16 13:25> Date of Encounter: 08/25/16 Time of Encounter: 10:08 - Assessment and plan (1) CHF exacerbation Current Visit: Yes Status: Acute Assessment and plan: Patients' shortness of breath has improved. Patient has prosthetic AV and moderate to severe aortic stenosis from valvuar disease. Echocardiogram results revealed no change in ejection fraction of 60% and prosthetic aortic stenosis is simlar to the report from January 2016. Monitor intake and out daily and follow low-sodium diet. Qualifiers: Congestive heart failure type: unspecified congestive heart failure type Qualified Code(s): I50.9 - Heart failure, unspecified (2) Anemia Current Visit: No Status: Acute Assessment and plan: Presently hemoglobin is 7.6 it was 9.1 on 08/16/2016. Going to consult GI. Coumadin has been stopped and she is NPO. Folate supplements have been given. GI consulted and they don't think an EGD or colonoscopy is necessary due to patient's history chronic anemia, chronic renal disease, non- small cell carcinoma. Also no evidence of bleeding with melena, hematochezia, and hematemesis. They believe the risk of injury due to procedure out ways benefits. They suggested we can contact the patient's hem/onc physician if we would like. Reticulocyte count was also suggested. Qualifiers: Anemia type: unspecified type Qualified Code(s): D64.9 - Anemia, unspecified (3) CKD (chronic kidney disease) Current Visit: No Status: Chronic Assessment and plan: Creatinine is 1.2 and was 0.92 yesterday. We will continue to monitor. Possibly decrease lasix. Qualifiers: Chronic kidney disease stage: stage 3 (moderate) Qualified Code(s): N18.3 - Chronic kidney disease, stage 3 (moderate) (4) Hyponatremia Current Visit: No Status: Chronic Assessment and plan: Sodium is 130, improving. We will continue to monitor. Treating with Lasix, spironolactone, metolazone. (5) Non-small cell carcinoma of left lung Current Visit: No Status: Chronic Assessment and plan: Patient is receiving chemotherapy with oncology outpatient. (6) A-fib Current Visit: No Status: Chronic Assessment and plan: Patient has pacemaker. Warfarin stopped due to GI consult for possible EGD today. Qualifiers: Atrial fibrillation type: chronic Qualified Code(s): I48.2 - Chronic atrial fibrillation - Subjective Interval history: Sitting comfortably up in bed. NPO but hungry. Denies shortness of breath, chest pain, light headedness, abdominal pain. Admitted legs are tender due to edema. - Constitutional Vitals: Temp Pulse Resp BP Pulse Ox 98.4 F 60 14 110/66 94 08/25/16 06:41 08/25/16 06:41 08/25/16 06:41 08/25/16 06:41 08/25/16 06:41 General appearance: Present: A&O X 3, pleasant, no acute distress, answers questions appropriately - Head Head exam: Present: atraumatic - Eye Eye exam: Present: normal appearance, conjuntiva pink. Absent: scleral icterus - Respiratory Respiratory exam: Present: CTAB. Absent: accessory muscle use, chest wall tenderness, respiratory distress, wheezes - Cardiovascular Cardiovascular exam: Present: gallop, irregular rhythm. Absent: rubs - GI/Abdominal GI/Abdominal exam: Present: normal bowel sounds, soft. Absent: guarding, tenderness - Extremities Exam Extremities exam: Present: pedal edema, tenderness, warm, radial pulses palpable and symetrical. Absent: mottling - Neurological Exam Neurological exam: Present: alert. Absent: facial droop, speech deficit - Skin Skin exam: Present: dry, intact Internal Medicine: Result - Labs CBC & Chem 7: 08/25/16 04:30 08/25/16 04:30 Labs: Short CBC 08/25/16 Range/Units 04:30 WBC 5.2 (4.3-11.1) K/mcL Hgb 8.2 L (11.5-15.4) g/dL Hct 25.7 L (35.3-44.9) % Plt Count 220 (140-400) K/mcL Neutrophils # 3.8 (1.6-8.9) K/mcL BMP 08/25/16 04:30 Sodium 130 L Potassium 3.8 Chloride 94 L Carbon Dioxide 26 BUN 36 H D Creatinine 1.20 H Glucose 95 Calcium 10.4 Liver Function 08/25/16 Range/Units 04:30 Total Bilirubin 0.5 (0.2-1.2) mg/dL AST 22 (5-34) Units/L ALT 20 (0-55) Units/L Alkaline Phosphatase 234 H (38-126) Units/L Albumin 3.2 L (3.5-5.0) g/dL - ABG Interpretation ABG results: PT/INR, D-dimer PT 18.7 Seconds (9.4-12.1) H 08/25/16 04:30 Consult Discharge Plan - Plan Referrals: Jose Jones DO [Primary Care Provider] - 08/31/16 11:30 am (please follow up as schedule..) <Chivo Jung - Last Filed: 08/25/16 18:11> Date of Encounter: 08/25/16 - Assessment and plan (1) Acute on chronic diastolic heart failure Current Visit: Yes Status: Acute Assessment and plan: Echo EF 60%, unchanged from last year. Prosthetic aortic valve with the degree of stenosis also unchanged from last year. We will treat her with judicious IV diuresis. Strict I's and O's. Daily weights. - Constitutional Vitals: Temp Pulse Resp BP Pulse Ox 97.8 F 60 18 104/58 95 08/25/16 15:05 08/25/16 15:05 08/25/16 15:05 08/25/16 15:05 08/25/16 15:05 Internal Medicine: Result - Labs CBC & Chem 7: 08/25/16 04:30 08/25/16 04:30 Labs: Short CBC 08/25/16 Range/Units 04:30 WBC 5.2 (4.3-11.1) K/mcL Hgb 8.2 L (11.5-15.4) g/dL Hct 25.7 L (35.3-44.9) % Plt Count 220 (140-400) K/mcL Neutrophils # 3.8 (1.6-8.9) K/mcL BMP 08/25/16 04:30 Sodium 130 L Potassium 3.8 Chloride 94 L Carbon Dioxide 26 BUN 36 H D Creatinine 1.20 H Glucose 95 Calcium 10.4 Liver Function 08/25/16 Range/Units 04:30 Total Bilirubin 0.5 (0.2-1.2) mg/dL AST 22 (5-34) Units/L ALT 20 (0-55) Units/L Alkaline Phosphatase 234 H (38-126) Units/L Albumin 3.2 L (3.5-5.0) g/dL - ABG Interpretation ABG results: PT/INR, D-dimer PT 18.7 Seconds (9.4-12.1) H 08/25/16 04:30 - Attending Attestation I examined this patient and my medical decision-making was reviewed with the Resident Physician, Dr Edwards. I agree with the documented findings, disposition and treatment plan as described except to the extent set forth below. On exam the patient is in no acute distress. Heart exam reveals regular S1 and S2 with a 4/6 systolic murmur audible all over the precordium. Lungs are clear. Lower extremity exam reveals 3+ pitting edema bilaterally. Plan: Diuresis with IV Lasix. Monitor hemoglobin and hematocrit and kidney function daily. Outpatient follow-up for anemia.
--- NOTE | 2016-08-25 13:02 | Electrocardiograph Report ---
[place] [address] Test Date: 2016-08-23 Pat Name: Isabel Brooks Department: 102 Room: 2A Gender: F [employer]: [place] : 1945 Requested By: Joel Stearns Order Number: [id number] Reading MD: Alessandro Cunningham MD Measurements Intervals Holly Rate: 60 P: UT: 0 QRS: -38 QRSD: 139 T: 53 QT: 484 QTc: 484 Interpretive Statements ELECTRONIC VENTRICULAR PACEMAKER ABNORMAL RHYTHM ECG Electronically Signed On 08-25-2016 13:01:19 EDT by Alessandro Cunningham MD
[2016-08-25 20:11] LABS: Immature Reticulocyte % 24.6 % (11.0-38.0); Retculocyte # 0.19 M/mcL (0.05-0.10); Reticulocyte % 6.7 % (1.6-2.8)
[2016-08-26 05:15] LABS: INR 1.5; Prothrombin Time 16.8 Seconds (9.4-12.1)
[2016-08-26 05:16] LABS: Basophils % 0.5 %; Eosinophils # 0.1 K/mcL (0.0-0.6); Eosinophils % 2.1 %; Hematocrit 27.5 % (35.3-44.9); Hemoglobin 8.8 g/dL (11.5-15.4); Immature Granulocytes % 0.4 % (0-4); Lymphocytes # 0.9 K/mcL (0.6-4.6); Lymphocytes % 15.8 %; Mean Corpuscular Hemoglobin 29.7 pg (28.0-33.3); Mean Corpuscular Volume 92.9 fL (83.0-100.0); Mean Platelet Volume 9.1 fL (9.4-12.4); Monocytes # 0.6 K/mcL (0.0-1.3); Monocytes % 10.1 %; Platelet Count 236 K/mcL (140-400); Red Blood Count 2.96 M/mcL (3.82-4.97); Red Cell Distribution Width 17.6 % (11.5-14.5); Segmented Neutrophils % 71.1 %
[2016-08-26 05:25] LABS: Albumin 3.2 g/dL (3.5-5.0); Albumin/Globulin Ratio 0.9 (1.1-2.2); Bilirubin,Total 0.6 mg/dL (0.2-1.2); Calcium 10.9 mg/dL (8.6-10.8); Globulin 3.7 g/dL (2.4-3.5); Potassium 3.9 mEq/L (3.5-4.5); Total Protein 6.9 g/dL (6.0-8.3)
[2016-08-26] MEDS: Gabapentin 300 MG CAPSULE PO SCH ×2 (09:18→14:54)
[2016-08-26] MEDS: Megestrol Acetate 400 MG/10 ML UDC PO SCH (09:19)
--- NOTE | 2016-08-26 13:26 | Internal Med Progress Note ---
Date of Encounter: 08/26/16 - Assessment and plan (1) CHF exacerbation Current Visit: Yes Status: Acute Qualifiers: Congestive heart failure type: unspecified congestive heart failure type Qualified Code(s): I50.9 - Heart failure, unspecified (2) Anemia Current Visit: No Status: Acute Qualifiers: Anemia type: unspecified type Qualified Code(s): D64.9 - Anemia, unspecified (3) CKD (chronic kidney disease) Current Visit: No Status: Chronic Qualifiers: Chronic kidney disease stage: stage 3 (moderate) Qualified Code(s): N18.3 - Chronic kidney disease, stage 3 (moderate) (4) Hyponatremia Current Visit: No Status: Chronic (5) Non-small cell carcinoma of left lung Current Visit: No Status: Chronic (6) A-fib Current Visit: No Status: Chronic Qualifiers: Atrial fibrillation type: chronic Qualified Code(s): I48.2 - Chronic atrial fibrillation - Subjective Interval history: Sitting comfortably up in bed. NPO but hungry. Denies shortness of breath, chest pain, light headedness, abdominal pain. Admitted legs are tender due to edema. - Constitutional Vitals: Temp Pulse Resp BP Pulse Ox 97.4 F L 60 18 118/66 98 08/26/16 11:16 08/26/16 11:16 08/26/16 11:16 08/26/16 11:16 08/26/16 11:16 General appearance: Present: A&O X 3, pleasant, no acute distress, answers questions appropriately Internal Medicine: Result - Labs CBC & Chem 7: 08/26/16 04:58 08/26/16 04:58 Labs: Short CBC 08/26/16 Range/Units 04:58 WBC 5.6 (4.3-11.1) K/mcL Hgb 8.8 L (11.5-15.4) g/dL Hct 27.5 L (35.3-44.9) % Plt Count 236 (140-400) K/mcL Neutrophils # 4.0 (1.6-8.9) K/mcL BMP 08/26/16 04:58 Sodium 130 L Potassium 3.9 Chloride 93 L Carbon Dioxide 28 BUN 35 H Creatinine 1.18 H Glucose 91 Calcium 10.9 H Liver Function 08/26/16 Range/Units 04:58 Total Bilirubin 0.6 (0.2-1.2) mg/dL AST 25 (5-34) Units/L ALT 16 (0-55) Units/L Alkaline Phosphatase 244 H (38-126) Units/L Albumin 3.2 L (3.5-5.0) g/dL - ABG Interpretation ABG results: PT/INR, D-dimer PT 16.8 Seconds (9.4-12.1) H 08/26/16 04:58 Consult Discharge Plan - Plan Referrals: Jose Jones DO [Primary Care Provider] - 08/31/16 11:30 am (please follow up as schedule..)
[2016-08-26 15:55] VITALS: BP 107/46
--- NOTE | 2016-08-26 16:05 | Discharge Summary ---
Addendum entered and electronically signed by Shantell Edwards DO 08/26/16 17:08: During discharge the patient was instructed to continue to schedule her outpatient colonoscopy. She was told she could contact her physician that had originally instructed her to get the procedure. She stated she would and that she understood. Original Note: <Shantell Edwards - Last Filed: 08/26/16 16:54> Date of Encounter: 08/26/16 Time of Encounter: 16:02 - Discharge Diagnosis (1) CHF exacerbation Priority: Primary Status: Acute Comments: Patients' shortness of breath has improved and is on room air. Patient has prosthetic AV and moderate to severe aortic stenosis from valvuar disease. Echocardiogram results revealed no change in ejection fraction of 60% and prosthetic aortic stenosis is simlar to the report from January 2016. Monitor intake and out daily and follow low-sodium diet. Qualifiers: Congestive heart failure type: unspecified congestive heart failure type Qualified Code(s): I50.9 - Heart failure, unspecified (2) Anemia Priority: Secondary Status: Acute Comments: Presently hemoglobin is 8.8.Folate supplements have been given. GI was consulted and they don't think an EGD or colonoscopy is necessary due to patient's history chronic anemia, chronic renal disease, non- small cell carcinoma. Also no evidence of bleeding with melena, hematochezia, and hematemesis. They believe the risk of injury due to procedure out ways benefits. Qualifiers: Anemia type: unspecified type Qualified Code(s): D64.9 - Anemia, unspecified (3) CKD (chronic kidney disease) Priority: Secondary Status: Chronic Comments: Creatinine has improved, today is 1.18. Lasix was stopped. Qualifiers: Chronic kidney disease stage: stage 3 (moderate) Qualified Code(s): N18.3 - Chronic kidney disease, stage 3 (moderate) (4) Hyponatremia Priority: Secondary Status: Chronic Comments: Sodium is 130, improving. We will continue to monitor. Treating with spironolactone and metolazone. (5) Non-small cell carcinoma of left lung Priority: Secondary Status: Chronic Comments: Patient is receiving chemotherapy with oncology outpatient. (6) A-fib Priority: Secondary Status: Chronic Comments: Patient has pacemaker. Qualifiers: Atrial fibrillation type: chronic Qualified Code(s): I48.2 - Chronic atrial fibrillation (7) DVT prophylaxis Priority: Secondary Status: Acute Comments: compression stockings. - Discharge Medications Home Medications: Allopurinol [Zyloprim] 100 mg PO DAILY 02/04/15 [History] Ferrous Sulfate 325 mg PO DAILY 02/04/15 [History] TraMADol [Ultram] 50 mg PO Q6H 02/04/15 [History] Zolpidem [Ambien] 10 mg PO HS PRN 02/04/15 [History] Furosemide [Lasix] 80 mg PO BID 05/27/16 [History] metOLazone [Zaroxolyn] 2.5 mg PO TUFR 05/27/16 [History] Omeprazole [PriLOSEC] 20 mg PO DAILY 06/03/16 [History] Spironolactone [Aldactone] 100 mg PO DAILY 06/03/16 [History] Gabapentin [Neurontin] 300 mg PO TID 08/13/16 [History] LORazepam [Ativan] 0.5 mg PO Q6H PRN 08/13/16 [History] Ondansetron [Zofran] 8 mg PO Q8HR PRN 08/13/16 [History] Potassium Chloride [Klor-Con 10] 10 meq PO DAILY 08/13/16 [History] Prochlorperazine Maleate [Compazine] 10 mg PO Q6HR PRN 08/13/16 [History] Megestrol Acetate [Megace] 10 ml PO DAILY 08/19/16 [History] Allergies/Adverse Reactions: Allergies aspirin Allergy (Verified 08/23/16 14:34) Nausea morphine Allergy (Verified 08/23/16 14:34) Hives Penicillins Allergy (Verified 08/23/16 14:34) Hives Procedures/tests Complete & Pending: Procedures Performed prior 72 hours Category Date Time Status EV echocardiogram Routine Y 08/24/16 18:55 Completed Date of admission: 08/23/16 18:45 Primary care physician: Jose Jones Consults: 08/24/16 16:31 Consult to Gastroenterology [CONS] Routine Consulting Provider: Gastroenterology [facility] Reason for Consult: Patient is anemic and has a Hgb of 7.6 and it was 9.1 on 08/17/2015. She was supposed to see Dr. Rowell as out patient but was admitted prior to apt. Call Completed: No 08/26/16 15:06 Consult to [employer] [facility] [CONS] Routine Reason for SW Consult: possible home health - Patient Status Disposition: Home, Self-Care Condition: Good Functional capacity at discharge: independent ambulation - Discharge Instructions Instructions: Heart Failure (DC) Follow Up With: Jose Jones DO [Primary Care Provider] - 08/31/16 11:30 am (please follow up as schedule..) Forms: ED Satisfaction Letter - Diet and Activity Diet: advance to your usual diet Interval History: 70y/o female presented to the hospital with dyspnea and lower extremity. Labs revealed anemia Hgb 8.2 but is now 8.8, which is chronic for her. Chest x-ray did reveal cardiomegaly with mild bibasilar atelectasis. She was admitted for further evaluation. Echocardiogram results revealed no change in ejection fraction of 60% and prosthetic aortic stenosis is simlar to the report from January 2016. Her sodium was monitored and treated with Lasix, spironolactone, metolazone. She was given iron ferrrous sulfate and folate supplements for the anemia. GI was consulted and did not recommend an EGD or colonoscopy is necessary due to patient's history chronic anemia, chronic renal disease, non- small cell carcinoma. Also no evidence of bleeding with melena, hematochezia, and hematemesis. They believe the risk of injury due to procedure out ways benefits. Hemoglobin, sodium, and breathing continued to improve. She stated no dyspnea however did still have some edema in her legs. She was instructed to keep legs elevated at home. She is to follow up with PCP to get started back on Coumadin and come back if she worsens. She was interested in home health so social work was consulted. Hospital course: Ms. Brooks is a 70 year old female - Time Spent with Patient Total time spent providing and/or coordinating discharge services: - Constitutional Vitals: Temp Pulse Resp BP Pulse Ox 97.9 F 60 18 107/46 96 08/26/16 15:52 08/26/16 15:52 08/26/16 15:52 08/26/16 15:52 08/26/16 15:52 General appearance: Present: A&O X 3, pleasant, no acute distress, answers questions appropriately - Head Head exam: Present: atraumatic, normal inspection - Eye Eye exam: Present: normal appearance, conjuntiva pink. Absent: scleral icterus - Respiratory Respiratory exam: Present: CTAB. Absent: accessory muscle use, rales, respiratory distress, stridor, wheezes - Cardiovascular Cardiovascular exam: Present: +S1, +S2, systolic murmur - GI/Abdominal GI/Abdominal exam: Present: normal bowel sounds. Absent: guarding, tenderness, no peritoneal signs - Extremities Exam Extremities exam: Present: pedal edema, tenderness, radial pulses palpable and symetrical - Skin Skin exam: Present: dry, intact, warm <[email or web address] - Last Filed: 08/26/16 20:31> Date of Encounter: 08/26/16 - Discharge Diagnosis (1) Acute on chronic diastolic heart failure Status: Acute Procedures/tests Complete & Pending: Procedures Performed prior 72 hours Category Date Time Status EV echocardiogram Routine Y 08/24/16 18:55 Completed Date of admission: 08/23/16 18:45 Primary care physician: Jose Jones Consults: 08/24/16 16:31 Consult to Gastroenterology [CONS] Routine Consulting Provider: Gastroenterology [facility] Reason for Consult: Patient is anemic and has a Hgb of 7.6 and it was 9.1 on 08/17/2015. She was supposed to see Dr. Rowell as out patient but was admitted prior to apt. Call Completed: No 08/26/16 15:06 Consult to [employer]per [CONS] Routine Reason for SW Consult: possible home health - Patient Status Functional capacity at discharge: independent ambulation - Diet and Activity Diet: advance to your usual diet Hospital course: Ms. Brooks is a 70 year old female - Time Spent with Patient Total time spent providing and/or coordinating discharge services: - Constitutional Vitals: Temp Pulse Resp BP Pulse Ox 97.9 F 60 18 107/46 96 08/26/16 15:52 08/26/16 15:52 08/26/16 15:52 08/26/16 15:52 08/26/16 15:52 - Attending Attestation I examined this patient and my medical decision-making was reviewed with the Resident Physician, Dr Edwards. I agree with the documented findings, disposition and treatment plan as described except to the extent set forth below. Patient was admitted for treatment of CHF. She received IV Lasix. She had a good response. Her creatinine is 1.18. She was also found to be anemic. Her Coumadin was stopped. She has much higher risk of severe GI bleed secondary to Coumadin then risk of stroke due to A. fib. At this time until a full [employer] workup is completed we recommend against resuming anticoagulant.
== END 2016-08-26 19:01 | disposition home or self-care (01) | DRG 291 ==
LOC: 2ANU 14:29 → EMEROO 14:29 → SUATTDRO 18:45 → 2ANU 19:14
PROVIDERS: ADMIT Nurse Practitioner Family; ATTEND Internal Medicine

== ENCOUNTER 2017-03-15 10:03 | Inpatient (IN) ==
[2017-03-15 10:43] LABS: Basophils % 0.3 %; Eosinophils # 0.1 K/mcL (0.0-0.6); Eosinophils % 1.5 %; Hematocrit 37.8 % (35.3-44.9); Immature Granulocytes % 0.3 % (0-4); Immature Platelets 1.7 % (1.1-6.1); Lymphocytes # 0.9 K/mcL (0.6-4.6); Mean Corpuscular HGB Conc 34.4 g/dL (31.6-35.5); Mean Corpuscular Hemoglobin 30.5 pg (28.0-33.3); Mean Corpuscular Volume 88.7 fL (83.0-100.0); Mean Platelet Volume 9.2 fL (9.4-12.4); Monocytes # 0.7 K/mcL (0.0-1.3); Monocytes % 11.3 %; Neutrophils # 4.8 K/mcL (1.6-8.9); Platelet Count 276 K/mcL (140-400); Red Blood Count 4.26 M/mcL (3.82-4.97); Red Cell Distribution Width 13.7 % (11.5-14.5); Segmented Neutrophils % 73.6 %
[2017-03-15 11:00] LABS: Alanine Aminotransferase 14 Units/L (7-52); Albumin 4.2 g/dL (3.5-5.7); Albumin/Globulin Ratio 1.2 (1.1-2.2); Alkaline Phosphatase 264 Units/L (34-104); Aspartate Amino Transferase 26 Units/L (13-39); BUN/Creatinine Ratio 32 (6-26); Bilirubin,Direct 0.2 mg/dL (0.0-0.2); Bilirubin,Indirect 0.5 mg/dL (0.0-1.2); Bilirubin,Total 0.7 mg/dL (0.3-1.0); Blood Urea Nitrogen 34 mg/dL (8-23); Calcium 10.9 mg/dL (8.6-10.3); Carbon Dioxide 28 mEq/L (23-29); Chloride 84 mEq/L (98-107); Globulin 3.6 g/dL (2.4-3.5); Glucose 132 mg/dL (70-105); Osmolality,Calculated 263 (280-300); Potassium 3.5 mEq/L (3.5-5.1); Sodium 122 mEq/L (136-145); Total Protein 7.8 g/dL (6.4-8.9); eGFR For African Americans > 60 (> 60); eGFR For Non-African Americans 52 (> 60)
[2017-03-15 12:00] LABS: Bilirubin,Urine Negative (Negative); Blood,Urine Small (Negative); Clarity,Urine Cloudy (Clear); Color,Urine Yellow (Yellow); Glucose,Urine (UA) Normal (Normal); Ketones,Urine Negative (Negative); Leukocyte Esterase,Urine Large (Negative); Nitrite,Urine Positive (Negative); PH,Urine 6.5 pH Units (5.0-8.0); Protein,Urine Negative (Neg-Trace); Specific Gravity,Urine 1.008 (1.010-1.025); Urobilinogen,Urine Normal (Normal)
[2017-03-15 12:02] LABS: Bacteria,Urine Many per hpf (None-Few); Hyaline Casts,Urine None Seen per lpf (None-Few); RBC,Urine 0-3 per hpf (0-3); Squamous Epithelial Cell,Urine Many per lpf (None-Few); WBC,Urine TNTC per hpf (0-3)
--- NOTE | 2017-03-15 13:24 | Emergency Department Note ---
Disposition Clinical Impression: Hyponatremia UTI (urinary tract infection) Qualifiers: Urinary tract infection type: acute cystitis Hematuria presence: with hematuria Qualified Code(s): N30.01 - Acute cystitis with hematuria Disposition: Admitted As Inpatient Condition: Fair Time of Disposition: 13:51 Recheck wound or abnormal lab - General Chief Complaint: ED Recheck/Abnormal Lab/Rx Stated Complaint: Low Sodium Time Seen by Provider: 03/15/17 12:51 Source: patient Mode of arrival: ambulatory Limitations: no limitations Nursing Notes Reviewed: Yes Vital Signs Reviewed: Yes - History of Present Illness HPI Narrative: 71-year-old female presenting to the emergency department for an abnormal lab. She was called by her doctor yesterday to come to the emergency room as her sodium was low. They said it was 119. Patient said she did not come yesterday as she was unable to get a ride to the hospital. She came today. Patient says she has been weak and not feeling well for the last 1 week. She did have a fall approximately 3 days ago was that she remembers the event did not hit her head or did not lose consciousness she said it was all due to feeling weak. She had no other symptoms or any other complaints. Patient does have history of lung cancer is currently getting treatment. She is treatment once every 3 weeks. She has a port that they access. Patient otherwise is not having any complaints including no headaches, blurry vision, neck pain, back pain, chest pain, shortness of breath, abdominal pain, change in bowel movement, pain with urination, pain or tingling in the arms or legs or any changes in weight. - Related Data Home Medications Medication Instructions Recorded Confirmed Allopurinol [Zyloprim] 100 mg PO DAILY 02/04/15 03/15/17 Zolpidem [Ambien] 10 mg PO HS PRN 02/04/15 03/15/17 Omeprazole [PriLOSEC] 20 mg PO DAILY 06/03/16 03/15/17 Spironolactone [Aldactone] 100 mg PO DAILY 06/03/16 03/15/17 metOLazone [Zaroxolyn] 1 tab PO TUTH 03/15/17 03/15/17 Previous Rx's Medication Instructions Recorded Potassium Chloride [Klor-Con 20 meq PO BID #120 capsule.er 11/22/16 Sprinkle] Bumetanide 4 mg PO BID #120 tablet 03/04/17 Allergies Allergy/AdvReac Type Severity Reaction Status Date / Time aspirin Allergy Nausea Verified 03/15/17 10:08 morphine Allergy Hives Verified 03/15/17 10:08 Penicillins Allergy Hives Verified 03/15/17 10:08 ibuprofen [From Motrin] AdvReac Vomiting Verified 03/15/17 10:08 Review of Systems: 10 point review of systems done and negative unless otherwise stated in history of present illness. All systems ED: reviewed and negative except as stated. Review of Systems: As Per HPI Past Medical History - Past Medical History Attestation: Yes The following information was validated with the patient. Medical history: Reports: atrial fibrillation, cancer, CHF, COPD, hypertension, liver disease, myocardial infarction, renal disease, valvular heart disease Surgical history: Reports: colectomy, pacemaker/AICD, other Psychiatric history: Reports: anxiety - Social History Smoking Status: Former smoker Smokeless Tobacco Status: No Alcohol use: Reports: occasionally Drug use: Reports: none Physical Exam - General Limitations: no limitations General appearance: alert, in no apparent distress - Head Head exam: atraumatic, normocephalic, normal inspection - Eye Eye exam: Present: normal appearance, PERRL, EOMI - ENT ENT exam: normal exam, normal oropharynx, mucous membranes moist - Neck Neck exam: Present: normal inspection, full ROM, trachea midline - Chest Chest inspection: Present: normal inspection, symmetric chest wall rise - Respiratory Respiratory exam: Present: normal lung sounds bilaterally - Cardiovascular Cardiovascular exam: Present: regular rate, normal rhythm, normal heart sounds - Abdominal Exam Abdominal exam: Present: soft, Non-Tender. Absent: tenderness, distention, guarding, rebound, rigidity - Extremities Exam Extremities exam: Present: normal inspection, full ROM. Absent: tenderness, pedal edema - Expanded Lower Extremity Exam Neurovascular/Tendon exam: Present: normal capillary refill. Absent: pulse deficit, motor deficit, sensory deficit, tendon deficit - Back Exam Back exam: Present: normal inspection, full ROM. Absent: tenderness - Neurological Exam Neurological exam: Present: alert, oriented X3, CN II-XII intact. Absent: motor sensory deficit - Skin Skin exam: Present: warm, dry, intact, normal color Course Course Narrative: 71-year-old female presents the emergency department complaining of hyponatremia. Repeat labs here including CBC, BMP as well as urinalysis due to patient having weakness. No recent falls there is no need for any CT scans. Patient's okay with this plan. Most likely disposition will be admission to follows sodium. Vital Signs Temperature 98.0 F 03/15/17 10:04 Pulse Rate 69 03/15/17 10:04 Respiratory Rate 18 03/15/17 10:04 Blood Pressure 118/72 03/15/17 10:04 O2 Sat by Pulse Oximetry 91 03/15/17 10:04 Temperature 98.0 F 03/15/17 10:04 Pulse Rate 59 03/15/17 14:49 Respiratory Rate 16 03/15/17 14:49 Blood Pressure 127/70 03/15/17 14:49 O2 Sat by Pulse Oximetry 97 03/15/17 14:49 Oxygen Delivery Oxygen Delivery Room Air Recheck wound or abnormal lab - MDM Narrative Medical decision making narrative: 71-year-old female presents to the to the emergency department complaining of generalized weakness and also for an abnormal lab abnormality. She had a low sodium of 119 yesterday. We repeated it today and was 122 service at 3. from yesterday. All other labs came back normal. She did have a UTI is positive for nitrites and positive for bacteria with leukocyte esterase. Previous cultures showed Klebsiella and Escherichia coli susceptible to Rocephin so will start Rocephin here in the emergency Department. We will get blood cultures prior to starting this. Those are pending. EKG had no acute changes. She does have a trip to a paced rhythm which is normal for her. Patient's having no other complaints other than this generalized weakness. We will fluid restrict her and admit her to the hospitalist service to follow her sodium. Patient is okay with this plan. Spoke with the hospitalist Dr. Quinonez who agreed to admit the patient to their service. Patient is admitted in stable condition. - Medical Records Medical records reviewed: Yes I reviewed the patient's medical records. - Lab Data Lab results reviewed: Yes I reviewed the patient's lab results. Result diagrams: 03/15/17 10:26 03/15/17 10:26 Lab Results 03/15/17 03/15/17 03/15/17 Range/Units 10:26 10:26 10:26 WBC 6.6 (4.3-11.1) K/mcL RBC 4.26 (3.82-4.97) M/mcL Hgb 13.0 (11.5-15.4) g/dL Hct 37.8 (35.3-44.9) % MCV 88.7 (83.0-100.0) fL MCH 30.5 (28.0-33.3) pg MCHC 34.4 (31.6-35.5) g/dL RDW 13.7 (11.5-14.5) % Plt Count 276 (140-400) K/mcL MPV 9.2 L (9.4-12.4) fL Immature Gran % 0.3 (0-4) % Seg Neutrophils % 73.6 % Lymphocytes % 13.0 % Monocytes % 11.3 % Eosinophils % 1.5 % Basophils % 0.3 % Neutrophils # 4.8 (1.6-8.9) K/mcL Lymphocytes # 0.9 (0.6-4.6) K/mcL Monocytes # 0.7 (0.0-1.3) K/mcL Eosinophils # 0.1 (0.0-0.6) K/mcL Basophils # 0.0 (0.0-0.2) K/mcL Immature Plt Fraction 1.7 (1.1-6.1) % Sodium 122 L (136-145) mEq/L Potassium 3.5 (3.5-5.1) mEq/L Chloride 84 L (98-107) mEq/L Carbon Dioxide 28 (23-29) mEq/L BUN 34 H (8-23) mg/dL Creatinine 1.05 (0.60-1.20) mg/dL Est GFR ( Amer) > 60 (> 60) Est GFR (Non-Af Amer) 52 L (> 60) BUN/Creatinine Ratio 32 H (6-26) Glucose 132 H (70-105) mg/dL Calculated Osmolality 263 L (280-300) Calcium 10.9 H (8.6-10.3) mg/dL Total Bilirubin 0.7 (0.3-1.0) mg/dL Direct Bilirubin 0.2 (0.0-0.2) mg/dL Indirect Bilirubin 0.5 (0.0-1.2) mg/dL AST 26 (13-39) Units/L ALT 14 (7-52) Units/L Alkaline Phosphatase 264 H (34-104) Units/L Troponin I < 0.03 (< 0.04) ng/mL Serum Total Protein 7.8 (6.4-8.9) g/dL Albumin 4.2 (3.5-5.7) g/dL Globulin 3.6 H (2.4-3.5) g/dL Albumin/Globulin Ratio 1.2 (1.1-2.2) Urine Color (Yellow) Urine Clarity (Clear) Urine pH (5.0-8.0) pH Units Ur Specific [place] (1.010-1.025) Urine Protein (Neg-Trace) mg/dL Urine Glucose (UA) (Normal) mg/dL Urine Ketones (Negative) mg/dL Urine Blood (Negative) Urine Nitrite (Negative) Urine Bilirubin (Negative) Urine Urobilinogen (Normal) mg/dL Ur Leukocyte Esterase (Negative) Urine Microscopic RBC (0-3) per hpf Urine Microscopic WBC (0-3) per hpf Ur Squamous Epith Cells (None-Few) per lpf Urine Bacteria (None-Few) per hpf Hyaline Casts (None-Few) per lpf Ur Culture Indicated? (NO) 03/15/17 Range/Units 11:17 WBC (4.3-11.1) K/mcL RBC (3.82-4.97) M/mcL Hgb (11.5-15.4) g/dL Hct (35.3-44.9) % MCV (83.0-100.0) fL MCH (28.0-33.3) pg MCHC (31.6-35.5) g/dL RDW (11.5-14.5) % Plt Count (140-400) K/mcL MPV (9.4-12.4) fL Immature Gran % (0-4) % Seg Neutrophils % % Lymphocytes % % Monocytes % % Eosinophils % % Basophils % % Neutrophils # (1.6-8.9) K/mcL Lymphocytes # (0.6-4.6) K/mcL Monocytes # (0.0-1.3) K/mcL Eosinophils # (0.0-0.6) K/mcL Basophils # (0.0-0.2) K/mcL Immature Plt Fraction (1.1-6.1) % Sodium (136-145) mEq/L Potassium (3.5-5.1) mEq/L Chloride (98-107) mEq/L Carbon Dioxide (23-29) mEq/L BUN (8-23) mg/dL Creatinine (0.60-1.20) mg/dL Est GFR ( Amer) (> 60) Est GFR (Non-Af Amer) (> 60) BUN/Creatinine Ratio (6-26) Glucose (70-105) mg/dL Calculated Osmolality (280-300) Calcium (8.6-10.3) mg/dL Total Bilirubin (0.3-1.0) mg/dL Direct Bilirubin (0.0-0.2) mg/dL Indirect Bilirubin (0.0-1.2) mg/dL AST (13-39) Units/L ALT (7-52) Units/L Alkaline Phosphatase (34-104) Units/L Troponin I (< 0.04) ng/mL Serum Total Protein (6.4-8.9) g/dL Albumin (3.5-5.7) g/dL Globulin (2.4-3.5) g/dL Albumin/Globulin Ratio (1.1-2.2) Urine Color Yellow (Yellow) Urine Clarity Cloudy A (Clear) Urine pH 6.5 (5.0-8.0) pH Units Ur Specific [place] 1.008 L (1.010-1.025) Urine Protein Negative (Neg-Trace) mg/dL Urine Glucose (UA) Normal (Normal) mg/dL Urine Ketones Negative (Negative) mg/dL Urine Blood Small H (Negative) Urine Nitrite Positive A (Negative) Urine Bilirubin Negative (Negative) Urine Urobilinogen Normal (Normal) mg/dL Ur Leukocyte Esterase Large H (Negative) Urine Microscopic RBC 0-3 (0-3) per hpf Urine Microscopic WBC TNTC H (0-3) per hpf Ur Squamous Epith Cells Many H (None-Few) per lpf Urine Bacteria Many H (None-Few) per hpf Hyaline Casts None Seen (None-Few) per lpf Ur Culture Indicated? NO. (NO) - EKG Data EKG attestation: Yes I reviewed and interpreted this EKG. EKG results narrative: EKG done at 1017 review myself and attending shows ventricularly paced rhythm and rate is 63 QRS 168, QTC 470 5R axis no acute ST changes, no acute T-wave abnormalities no signs of ischemia. No signs of hypertrophy or heart strain or heart block. No signs of WPW Brugada syndrome. There is no old EKG to compare with at this time. Attestation Statement - Attestation Attestation: Patient has hyponatremia. Suspected lung cancer as etiology. We will start normal saline. We will start at a low corrected rate to avoid overcorrection. Additionally patient will be admitted for inpatient management. Suspect dehydration. Patient be admitted for further evaluation.
[2017-03-15] MEDS ORDERED: cefTRIAXone 1,000 MG in Water for inj. (sterile) 10 ML IVP ONE (13:50)
[2017-03-15] MEDS ORDERED: Naloxone 0.4 MG/ML INJ IVP PRN (14:15)
--- NOTE | 2017-03-15 14:20 | Internal Med History&Physical ---
Date of Encounter: 03/15/17 Time of Encounter: 14:19 Assessment and Plan (1) Hyponatremia Current visit: Yes Status: Acute Acute on chronic Multifactorial Baseline is 127. 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, liver cirrhosis and possibly exacerbated by use of diuretics Continue diuretics, fluid restriction diet Monitor Na q6h till back to baseline around 127-128 Non-emergent nephrology evaluation if no improvement (2) A-fib Current visit: Yes Status: Chronic Chronc, Rate controlled, paced, on Warfarin Per patient and pharmacy , she is on 3mg-6mg daily, check INR Continue home meds Pharmacy to dose Warfarin based on PT Qualifiers: Atrial fibrillation type: chronic Qualified Code(s): I48.2 - Chronic atrial fibrillation (3) Congestive heart failure Current visit: Yes Status: Chronic ECHO 08/2016: LVEF 60%, normal LV chamber size and function. Mild concentric left ventricular hypertrophy, indeterminate diastolic function, atypical septal motion consistent with paced rhythm, mild to moderately dilated right ventricle with normal function, severely dilated left and right atrium. Bio-prosthetic aortic valve appears well seated. The leaflets are moderately thickened and calcified. Mild valvular aortic regurgitation. Prosthetic aortic stenosis. Severe TR/Pulm HTN No pedal edema, chest is CTAB Ascites is from cirrhosis and mild on exam Continue home doses of diuretics Qualifiers: Congestive heart failure type: diastolic Congestive heart failure chronicity: chronic Qualified Code(s): I50.32 - Chronic diastolic (congestive ) heart failure (4) CKD (chronic kidney disease) Current visit: Yes Status: Chronic Chem is stable and at baseline Qualifiers: Chronic kidney disease stage: stage 3 (moderate) Qualified Code(s): N18.3 - Chronic kidney disease, stage 3 (moderate) (5) Cirrhosis Current visit: Yes Status: Chronic Alcoholic cirrhosis, with ascites, no indication for tap at this time Continue diuresis Decompensated, with hx of esophageal varices Follow up with GI as out-patient for routine surveillance Qualifiers: Hepatic cirrhosis type: alcoholic cirrhosis Ascites presence: with ascites Qualified Code(s): K70.31 - Alcoholic cirrhosis of liver with ascites (6) UTI (urinary tract infection) Current visit: Yes Status: Suspected Suspected Asymptomatic Urine specimen is not optimal Received Cef in ER, hold off on antibiotics for now Send urine culture Qualifiers: Urinary tract infection type: acute cystitis Hematuria presence: without hematuria Qualified Code(s): N30.00 - Acute cystitis without hematuria Internal Medicine - H&P: HPI Chief complaint: My doctor asked me to come Admitted From: Home Plans for Post Hospital Care: Home History of present illness: 71 F with PMH of Metastatic Lung CA on chemo, tobacco abuse, CHF, COPD, coronary artery disease, COPD, Hypertension. 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 She also reports having feeling weaker and malaise for the past 3 weeks. She is on diuretics for her cirrhosis. She denies abdominal, chest or respiratory symptoms. She reported history of fall in the past month without any sequelae. She had no symptoms, no change in bowel or urinary habits Workup in the ER revealed a sodium of 122, her baseline is around 127. Her CBC stable urinalysis is dirty positive LE and nitrite with numerous squamous cells. , contaminated. No imaging done. Past Med Surg Social Fam HX - Past Medical History Medical history: atrial fibrillation, cancer, CHF, COPD, hypertension, liver disease, myocardial infarction, renal disease, valvular heart disease Psychiatric history: anxiety - Past Surgical History Surgical History: colectomy, pacemaker/AICD, other - Social History Smoking Status: Former smoker Smokeless Tobacco Status: No Alcohol use: occasionally Drug use: none - Family History Mother Living Status: Hx Family Cancer: Yes Father Living Status: Hx Family Cardiac Disorders: Yes Internal Medicine - H&P: Meds Allopurinol [Zyloprim] 100 mg PO DAILY 02/04/15 [History] Zolpidem [Ambien] 10 mg PO HS PRN 02/04/15 [History] Omeprazole [PriLOSEC] 20 mg PO DAILY 06/03/16 [History] Spironolactone [Aldactone] 100 mg PO DAILY 06/03/16 [History] Potassium Chloride [Klor-Con Sprinkle] 20 meq PO BID #120 capsule.er 11/22/16 [ Rx] Bumetanide 4 mg PO BID #120 tablet 03/04/17 [Rx] metOLazone [Zaroxolyn] 1 tab PO TUTH 03/15/17 [History] 3 Allergy/AdvReac Type Severity Reaction Status Date / Time aspirin Allergy Nausea Verified 03/15/17 10:08 morphine Allergy Hives Verified 03/15/17 10:08 Penicillins Allergy Hives Verified 03/15/17 10:08 ibuprofen [From Motrin] AdvReac Vomiting Verified 03/15/17 10:08 All Systems PM: A 10-system review of systems was performed and is negative for pertinent findings except as documented above in the HPI. - Constitutional Constitutional: falls, lethargy, malaise - EENT Eyes: no change in vision, no discharge, no pain, no photophobia Ears: no ear discharge, no ear pain, no tinnitus Nose, mouth and throat: no dysphagia, no nasal discharge, no neck pain, no sore throat - Cardiovascular Cardiovascular ROS IM: no chest pain, no diaphoresis, no dyspnea, no lightheadedness, no palpitations, no syncope - Respiratory Respiratory: no cough, no dyspnea, no wheezing, no excessive phlegm production - Gastrointestinal Gastrointestinal: as per HPI - Genitourinary Genitourinary: as per HPI - Musculoskeletal Musculoskeletal ROS IM: no numbness, no tingling - Neurological Neurological ROS: no confusion, no convulsions, no focal weakness, no numbness, no tingling, no tremor(s) - Hematologic/Lymphatic Hematologic/Lymphatic: no easy bruising - Constitutional Vitals: Temp Pulse Resp BP Pulse Ox 98.0 F 59 14 113/69 96 03/15/17 10:04 03/15/17 13:12 03/15/17 13:12 03/15/17 13:12 03/15/17 13:13 Physical exam Vitals are stable, HR bradycardic, chronic, saturating 98% on room air. General: Alert and oriented, not in any form of distress HEENT: Sclera anicteric. No mucositis or thrush. No other oral lesions or erythema. Skin: No rashes or petechiae. Lungs: Clear to auscultation and percussion bilaterally. Left PCM/ICD pocket is clean. Right port with clean dressing, no surrounding erythema Cardiovascular: Regular rate and rhythm. No gallops, murmurs, or rubs. Abdomen: Soft, non-tender; no organomegaly or masses palpable. Distended from ascites and associated hernia Extremities: No edema. No calf swelling or tenderness. No joint deformity. Neurologic: Alert, cranial nerves II-XII intact; normal gait; no focal weakness or sensory abnormalities. Internal Med - H&P Results - Labs CBC & Chem 7: 03/15/17 10:26 03/15/17 10:26 Labs: Short CBC 03/15/17 Range/Units 10:26 WBC 6.6 (4.3-11.1) K/mcL Hgb 13.0 (11.5-15.4) g/dL Hct 37.8 (35.3-44.9) % Plt Count 276 (140-400) K/mcL Neutrophils # 4.8 (1.6-8.9) K/mcL BMP 03/15/17 10:26 Sodium 122 L Potassium 3.5 Chloride 84 L Carbon Dioxide 28 BUN 34 H Creatinine 1.05 Glucose 132 H Calcium 10.9 H Cardiac Enzymes 03/15/17 Range/Units 10:26 Troponin I < 0.03 (< 0.04) ng/mL Liver Function 03/15/17 Range/Units 10:26 Total Bilirubin 0.7 (0.3-1.0) mg/dL Direct Bilirubin 0.2 (0.0-0.2) mg/dL AST 26 (13-39) Units/L ALT 14 (7-52) Units/L Alkaline Phosphatase 264 H (34-104) Units/L Albumin 4.2 (3.5-5.7) g/dL Urine 03/15/17 Range/Units 11:17 Urine Color Yellow (Yellow) Urine Clarity Cloudy A (Clear) Urine pH 6.5 (5.0-8.0) pH Units Ur Specific [place] 1.008 L (1.010-1.025) Urine Protein Negative (Neg-Trace) mg/dL Urine Glucose (UA) Normal (Normal) mg/dL
[2017-03-15] MEDS ORDERED: Dextrose Gel 15 GM/37.5 ML TUBE PO PRN ×2 (15:05)
[2017-03-15] MEDS ORDERED: D5% in Water 1,000 ML IVC PRN (15:05)
[2017-03-15] MEDS ORDERED: *HR* Dextrose 50 % in Water (Syg) 50 ML SYRINGE IVP PRN (15:05)
[2017-03-15 15:35] LABS: INR 4.2
[2017-03-15 15:42] LABS: Prothrombin Time 46.9 Seconds (9.4-12.1)
[2017-03-15] MEDS: Bumetanide 1 MG TABLET PO SCH (16:24)
[2017-03-15] MEDS ORDERED: Warfarin perPT PO PRN (18:00)
[2017-03-15] MEDS: Insulin LISPRO 300 UNITS/3 ML VIAL SQ SCH ×2 (18:45→20:25)
[2017-03-15 21:23] LABS: Potassium 3.4 mEq/L (3.5-5.1)
[2017-03-16 02:14] LABS: Hematocrit 37.7 % (35.3-44.9); Hemoglobin 12.9 g/dL (11.5-15.4); Mean Corpuscular HGB Conc 34.2 g/dL (31.6-35.5); Mean Corpuscular Hemoglobin 30.4 pg (28.0-33.3); Mean Corpuscular Volume 88.9 fL (83.0-100.0); Mean Platelet Volume 9.1 fL (9.4-12.4); Platelet Count 238 K/mcL (140-400); Red Blood Count 4.24 M/mcL (3.82-4.97); Red Cell Distribution Width 13.5 % (11.5-14.5)
[2017-03-16 02:19] LABS: INR 4.1
[2017-03-16 02:24] LABS: Prothrombin Time 45.1 Seconds (9.4-12.1)
[2017-03-16 04:07] LABS: Calcium 10.8 mg/dL (8.6-10.3); Potassium 3.6 mEq/L (3.5-5.1)
[2017-03-16] MEDS: Insulin LISPRO 300 UNITS/3 ML VIAL SQ SCH ×4 (09:40→22:30)
[2017-03-16] MEDS: Bumetanide 1 MG TABLET PO SCH (09:52)
[2017-03-16 10:20] LABS: Calcium 10.7 mg/dL (8.6-10.3); Potassium 3.3 mEq/L (3.5-5.1)
[2017-03-16] MEDS: traMADol 50 MG TABLET PO PRN ×2 (13:15→21:31)
[2017-03-16] MEDS: 0.9 % Sodium Chloride 1,000 ML IVC SCH (13:15)
--- NOTE | 2017-03-16 14:18 | Nephrology Consult Note ---
Date of Encounter: 03/16/17 Time of Encounter: 14:17 Assessment and Plan (1) Hyponatremia Current Visit: Yes Status: Acute Na level 119 --> 122 --> 124 --> 122 hold home diuretics Bumex 4mg BID, Metolazone, and Spironolactone 100mg daily . Patient denies taking taking sodium chloride tablets. Hyponatremia likely secondary to hypovolemic hyponatremia from over diuresis/ Metolazone use Continue IV NS hydration Closely monitor, avoid over correction in 24hrs (2) Hypokalemia Current Visit: Yes Status: Acute Patient reports taking potassium supplements and Spironolcatone at home Supplement potassium Continue to monitor (3) Hypochloremia Current Visit: Yes Status: Acute Patient denies taking taking sodium chloride tablets. Continue IV NS and monitoring (4) CKD (chronic kidney disease), stage III Current Visit: Yes Status: Acute Avoid nephrotoxins Continue to monitor (5) UTI (urinary tract infection) Current Visit: Yes Status: Suspected Management pre primary team Avoid nephrotoxins Qualifiers: Urinary tract infection type: acute cystitis Hematuria presence: without hematuria Qualified Code(s): N30.00 - Acute cystitis without hematuria (6) Congestive heart failure Current Visit: Yes Status: Chronic Hold home diuretics Management per primary team Qualifiers: Congestive heart failure type: diastolic Congestive heart failure chronicity: chronic Qualified Code(s): I50.32 - Chronic diastolic (congestive ) heart failure (7) Cirrhosis Current Visit: Yes Status: Chronic Management per primary team Qualifiers: Hepatic cirrhosis type: alcoholic cirrhosis Ascites presence: with ascites Qualified Code(s): K70.31 - Alcoholic cirrhosis of liver with ascites (8) Non-small cell carcinoma of left lung Current Visit: No Status: Chronic Management per primary team History of Present Illness - Reason for Consult Consult date: 03/16/17 hyponatremia Requesting physician: Johan Quinonez - Chief Complaint My doctor asked me to come - History of Present Illness Ms. Brooks is a 71 F with PMH of Cirrhosis, metastatic lung cancer on chemo, CHF, and chronic anemia who presented to the ER due to a sodium level of 119 on outpatient labs. She reports weakness, malaise for the past 4 weeks, and reports taking Bumex 4mg BID, Metolazone, and Spironolactone 100mg daily diuretics. Patient reports drinking increased fluids secondary to constipation. She admits to taking potassium supplements but has not been taking sodium chloride tablets. Workup in the ER revealed a sodium of 122, her baseline is around 127. She denies fever, chills, CP, SOB, abd pain, N/V/D, dysuria, urinary frequency, seizures, or confusion. Past Med Surg Social Fam HX - Past Medical History Medical history: atrial fibrillation, cancer, CHF, COPD, hypertension, liver disease, myocardial infarction, renal disease, valvular heart disease Psychiatric history: anxiety - Past Surgical History Surgical History: colectomy, pacemaker/AICD, other - Social History Smoking Status: Former smoker Smokeless Tobacco Status: No Alcohol use: occasionally Drug use: none - Family History Mother Living Status: Hx Family Cancer: Yes Father Living Status: Hx Family Cardiac Disorders: Yes Medications and Allergies Allopurinol [Zyloprim] 100 mg PO DAILY 02/04/15 [History] Zolpidem [Ambien] 10 mg PO HS PRN 02/04/15 [History] Omeprazole [PriLOSEC] 20 mg PO DAILY 06/03/16 [History] Spironolactone [Aldactone] 100 mg PO DAILY 06/03/16 [History] Potassium Chloride [Klor-Con Sprinkle] 20 meq PO BID #120 capsule.er 11/22/16 [ Rx] Bumetanide 4 mg PO BID #120 tablet 03/04/17 [Rx] Tramadol HCl [Ultram] 50 mg PO QID PRN 03/15/17 [History] metOLazone [Zaroxolyn] 1 tab PO TUTH 03/15/17 [History] 3 Allergy/AdvReac Type Severity Reaction Status Date / Time aspirin Allergy Nausea Verified 03/15/17 10:08 morphine Allergy Hives Verified 03/15/17 10:08 Penicillins Allergy Hives Verified 03/15/17 10:08 ibuprofen [From Motrin] AdvReac Vomiting Verified 03/15/17 10:08 Review of Systems Constitutional: fatigue, lethargy, weakness, no chills, no fever(s) Nose, mouth and throat: no dizziness, no headache(s), no sore throat Cardiovascular: irregular heart rhythm, no dyspnea, no edema, no lightheadedness , no palpitations Respiratory: no cough, no dyspnea, no chest congestion Gastrointestinal: constipation, nausea, no abdominal pain, no diarrhea, no vomiting Genitourinary Female: no dysuria, no urinary frequency Musculoskeletal: no numbness, no tingling Integumentary: no new lesions, no skin ulcer Neurological: weakness, no confusion, no convulsions, no numbness, no paresthesias, no tingling Endocrine: no palpitations, no polydipsia, no polyuria Exam - Vital Signs Vital signs: Initial Vital Signs Temp Pulse Resp BP Pulse Ox 98.0 F 69 18 118/72 91 03/15/17 10:04 03/15/17 10:04 03/15/17 10:04 03/15/17 10:04 03/15/17 10:04 Vital Signs - Last 8 Hours Temp Pulse Resp BP Pulse Ox 03/16/17 11:11 97.6 F 60 16 114/62 93 03/16/17 07:41 97.4 F L 65 16 116/70 89 Intake and Output 03/15/17 03/16/17 03/16/17 23:59 07:59 15:59 Output Total 400 / 400 Balance -400 / -400 Output: Urine 400 / 400 Other: # Voids 1 Weight 61.292 kg Blood Glucose* 135 120 124 Patient Weight 03/16/17 23:59 Weight 61.292 kg - General Appearance General appearance: well-developed, well-nourished, appears started age EENT: ATNC, PERRL, mucous membranes dry Neck: no JVD, supple Respiratory: clear Cardiology: no edema, irregular rhythm Additional Comments: 2/6 ONEIL Gastrointestinal: normoactive bowel sounds, tenderness (diffuse), no guarding, no organomegaly Integumentary: no rash, warm and dry Additional Comments: poor skin turgor Neurologic: no focal deficit, alert and oriented x3 Musculoskeletal: no deformities, no erythema Psychiatric: mood/affect appropriate, cooperative Results - Lab Results 03/16/17 02:00 03/16/17 09:45 Most recent lab results Calcium 10.7 mg/dL (8.6-10.3) H 03/16/17 09:45 Consult Discharge Plan - Plan Referrals: Jose Jones DO [Primary Care Provider] - 03/24/17 2:00 pm (Please follow up as schedule...)
--- NOTE | 2017-03-16 17:08 | Internal Med Progress Note ---
Date of Encounter: 03/16/17 Time of Encounter: 11:00 - Assessment and plan (1) Hyponatremia Current Visit: Yes Status: Acute Assessment and plan: Acute on chronic, baseline Na around 128, now 122; has remained at 122 since admission; has been on fluid restriction and diuretics, however appears dry and dehydrated with anorexia and nausea; will hold diuretics for now and start gentle IV hydration; continue to monitor Na; d/w Nephrology, agree with management; no indication for hypertonic saline at this time; (2) Aortic valve replaced Current Visit: Yes Status: Chronic (3) CKD (chronic kidney disease), stage III Current Visit: Yes Status: Chronic Assessment and plan: serum creatinine noted to be slightly worse than baseline; continue to hold diuretics and IV hydration, as above; monitor creatinine closely; (4) Lung cancer Current Visit: Yes Status: Chronic Assessment and plan: currently on chemotherapy; follows with Oncology; Qualifiers: Laterality: unspecified laterality Lung location: unspecified part of lung Qualified Code(s): C34.90 - Malignant neoplasm of unspecified part of unspecified bronchus or lung (5) A-fib Current Visit: Yes Status: Chronic Assessment and plan: rate-controlled; continue anticoagulation with Coumadin; INR supratherapeutic. Qualifiers: Atrial fibrillation type: chronic Qualified Code(s): I48.2 - Chronic atrial fibrillation (6) Pacemaker Current Visit: Yes Status: Chronic (7) Congestive heart failure Current Visit: Yes Status: Chronic Qualifiers: Congestive heart failure type: diastolic Congestive heart failure chronicity: chronic Qualified Code(s): I50.32 - Chronic diastolic (congestive ) heart failure (8) Cirrhosis Current Visit: Yes Status: Chronic Qualifiers: Hepatic cirrhosis type: alcoholic cirrhosis Ascites presence: with ascites Qualified Code(s): K70.31 - Alcoholic cirrhosis of liver with ascites - Subjective Interval history: Reports nausea and poor appetite, not related to chemotherapy; states she tolerates it well; no diarrhea, vomiting, abdominal pain; also has some weakness and fatigue; - Constitutional Vitals: Temp Pulse Resp BP Pulse Ox 97.3 F L 60 16 116/66 94 03/16/17 15:59 03/16/17 15:59 03/16/17 15:59 03/16/17 15:59 03/16/17 15:59 General appearance: Present: A&O X 3, answers questions appropriately - Respiratory Respiratory exam: Present: CTAB. Absent: accessory muscle use, rales, rhonchi, wheezes - Cardiovascular Cardiovascular exam: Present: RRR, +S1, +S2. Absent: diastolic murmur, gallop, rubs, systolic murmur - GI/Abdominal GI/Abdominal exam: Present: normal bowel sounds, soft, no peritoneal signs. Absent: distended, tenderness - Extremities Exam Extremities exam: Present: warm, radial pulses palpable and symmetrical. Absent : calf tenderness, cyanotic, pedal edema - Neurological Exam Neurological exam: Present: CN II-XII intact, oriented X3, no focal deficits. Absent: pronater drift, facial droop, speech deficit Internal Medicine: Result - Labs CBC & Chem 7: 03/16/17 02:00 03/17/17 04:00 - ABG Interpretation ABG results: PT/INR, D-dimer PT 45.1 Seconds (9.4-12.1) H* 03/16/17 02:00 Consult Discharge Plan - Plan Referrals: Jose Jones DO [Primary Care Provider] - 03/24/17 2:00 pm (Please follow up as schedule...)
[2017-03-16] MEDS: Ondansetron 4 MG/2 ML VIAL IVP PRN (17:49)
[2017-03-17 05:20] LABS: INR 3.1; Prothrombin Time 34.6 Seconds (9.4-12.1)
[2017-03-17 05:46] LABS: Uric Acid 10.2 mg/dL (2.3-7.6)
[2017-03-17 06:04] LABS: Calcium 10.2 mg/dL (8.6-10.3); Magnesium 1.6 mg/dL (1.6-2.6); Phosphorous 2.7 mg/dL (2.7-4.5); Potassium 4.3 mEq/L (3.5-5.1)
[2017-03-17] MEDS: 0.9 % Sodium Chloride 1,000 ML IVC SCH ×2 (06:06→23:30)
--- NOTE | 2017-03-17 07:07 | Nephrology Progress Note ---
Date of Encounter: 03/17/17 Time of Encounter: 07:07 - Assessment and Plan (1) Hyponatremia Current Visit: Yes Status: Acute Na level 119 --> 122 --> 124 --> 122 --> 123 Goal PNa correction is 6-8mEq in the first 24hr. She appeared dry on exam. Continue gentle IV NS hydration Hold home diuretics Bumex 4mg BID, Metolazone, and Spironolactone 100mg daily Start sodium chloride tablets 1g TID Hyponatremia likely secondary to hypovolemic hyponatremia from over diuresis/ Metolazone use Closely monitor, avoid over correction in 24hrs (2) Hypokalemia Current Visit: Yes Status: Acute Patient reports taking potassium supplements and Spironolcatone at home Supplement potassium Continue to monitor (3) Hypochloremia Current Visit: Yes Status: Acute Improving Start sodium chloride tablets 1g TID Continue IV NS and monitoring (4) Hypomagnesemia Current Visit: Yes Status: Acute Supplement Mag Continue to monitor (5) Hypophosphatemia Current Visit: Yes Status: Acute Supplement Phos Continue to monitor (6) CKD (chronic kidney disease), stage III Current Visit: Yes Status: Acute Avoid nephrotoxins Continue to monitor (7) UTI (urinary tract infection) Current Visit: Yes Status: Suspected Management pre primary team Avoid nephrotoxins Qualifiers: Urinary tract infection type: acute cystitis Hematuria presence: without hematuria Qualified Code(s): N30.00 - Acute cystitis without hematuria (8) Congestive heart failure Current Visit: Yes Status: Chronic Patient appears dry on exam Hold home diuretics Management per primary team Qualifiers: Congestive heart failure type: diastolic Congestive heart failure chronicity: chronic Qualified Code(s): I50.32 - Chronic diastolic (congestive ) heart failure (9) Cirrhosis Current Visit: Yes Status: Chronic Management per primary team Qualifiers: Hepatic cirrhosis type: alcoholic cirrhosis Ascites presence: with ascites Qualified Code(s): K70.31 - Alcoholic cirrhosis of liver with ascites (10) Non-small cell carcinoma of left lung Current Visit: No Status: Chronic Management per primary team Subjective Principal diagnosis: Hyponatremia Interval history: Patient seen and examined today after eating breakfast. She reports improved appetite and denies nausea today. Patient remains on IVF and denies any CP, SOB , confusion, seizures, or new complaints. Objective - Vital Signs Vital signs: Vital Signs Temp Pulse Resp BP Pulse Ox 03/17/17 06:46 98.2 F 60 17 114/70 92 03/17/17 04:59 97.5 F L 60 18 108/66 93 03/16/17 23:27 97.5 F L 60 16 104/66 91 03/16/17 21:47 97.5 F L 61 18 129/72 96 03/16/17 15:59 97.3 F L 60 16 116/66 94 Intake and Output 03/16/17 03/16/17 03/17/17 15:59 23:59 07:59 Intake Total 1000 / 1000 Output Total 400 / 400 1000 / 1000 300 / 300 Balance -400 / -400 -1000 / -1000 700 / 700 Intake: IV Fluids 1000 / 1000 0.9 % Sodium Chloride 1,000 ML 1000 / 1000 @ 60 mls/hr IVC .[id number] [facility] Rx #:[id number] Output: Urine 400 / 400 1000 / 1000 300 / 300 Other: Weight 62.414 kg Blood Glucose* 118 134 Patient Weight 03/17/17 23:59 Weight 62.414 kg - General Appearance General appearance: Present: well-developed, well-nourished, appears started age EENT: Present: ATNC, PERRL, mucous membranes dry Neck: Present: no JVD, supple Respiratory: Present: clear Cardiology: Present: no edema, irregular rhythm Additional Comments: 2/6 ONEIL Gastrointestinal: Present: normoactive bowel sounds, no tenderness, no guarding , no organomegaly Integumentary: Present: no rash, warm and dry Neurologic: Present: no focal deficit, alert and oriented x3 Musculoskeletal: Present: no deformities, no erythema Psychiatric: Present: mood/affect appropriate, cooperative - Lab 03/16/17 02:00 03/17/17 04:00 Most recent lab results Calcium 10.2 mg/dL (8.6-10.3) 03/17/17 04:00 Phosphorus 2.7 mg/dL (2.7-4.5) 03/17/17 04:00 Magnesium 1.6 mg/dL (1.6-2.6) 03/17/17 04:00 - Allied health notes Allied health notes reviewed: nursing Consult Discharge Plan - Plan Referrals: Jose Jones DO [Primary Care Provider] - 03/24/17 2:00 pm (Please follow up as schedule...)
[2017-03-17] MEDS ORDERED: metOLazone 2.5 MG TABLET PO SCH (07:30)
[2017-03-17] MEDS: traMADol 50 MG TABLET PO PRN ×2 (08:03→17:32)
[2017-03-17] MEDS: Ondansetron 4 MG/2 ML VIAL IVP PRN ×2 (08:04→17:32)
[2017-03-17] MEDS: Insulin LISPRO 300 UNITS/3 ML VIAL SQ SCH ×4 (08:04→20:30)
--- NOTE | 2017-03-17 08:42 | Electrocardiograph Report ---
[facility] Test Date: 2017-03-15 Pat Name: Isabel Brooks Department: 102 Room: 2A37 Gender: F Bioanalyst: : 1945 Requested By: Kael Guy Order Number: [id number] Reading MD: Max Cifuentes MD Measurements Intervals [place] Rate: 63 P: [place]: 0 QRS: -80 QRSD: 168 T: 112 QT: 468 QTc: 475 Interpretive Statements ELECTRONIC VENTRICULAR PACEMAKER ABNORMAL RHYTHM ECG Electronically Signed On 03-17-2017 8:40:46 EST by Max Cifuentes MD
[2017-03-17] MEDS ORDERED: Magnesium Sulfate 2 GM in D5% in Water 100 ML IVPB ONE (09:07)
[2017-03-17] MEDS ORDERED: *HR* Warfarin 3 MG TABLET PO ONE (18:00)
--- NOTE | 2017-03-17 18:38 | Internal Med Progress Note ---
Date of Encounter: 03/17/17 Time of Encounter: 12:30 - Assessment and plan (1) Hyponatremia Current Visit: Yes Status: Acute Assessment and plan: Acute on chronic, baseline Na around 128. Serum sodium minimally improved to 123 today. Nephrology on board, appreciate recommendations. Hypercalcemia improving, noted to have elevated uric acid levels. Patient has been started on sodium chloride tablets. Serum creatinine noted to be improving. Continue gentle IV hydration, hold diuretics, continue to monitor Na; (2) Aortic valve replaced Current Visit: Yes Status: Chronic Assessment and plan: Continue anticoagulation with Coumadin. (3) CKD (chronic kidney disease), stage III Current Visit: Yes Status: Chronic Assessment and plan: serum creatinine noted to be improving back to baseline; continue to hold diuretics and IV hydration, as above; monitor creatinine closely; (4) Lung cancer Current Visit: Yes Status: Chronic Assessment and plan: currently on chemotherapy; follows with Oncology; Qualifiers: Laterality: unspecified laterality Lung location: unspecified part of lung Qualified Code(s): C34.90 - Malignant neoplasm of unspecified part of unspecified bronchus or lung (5) A-fib Current Visit: Yes Status: Chronic Assessment and plan: rate-controlled; continue anticoagulation with Coumadin; INR supratherapeutic. Qualifiers: Atrial fibrillation type: chronic Qualified Code(s): I48.2 - Chronic atrial fibrillation (6) Pacemaker Current Visit: Yes Status: Chronic (7) Congestive heart failure Current Visit: Yes Status: Chronic Qualifiers: Congestive heart failure type: diastolic Congestive heart failure chronicity: chronic Qualified Code(s): I50.32 - Chronic diastolic (congestive ) heart failure (8) Cirrhosis Current Visit: Yes Status: Chronic Qualifiers: Hepatic cirrhosis type: alcoholic cirrhosis Ascites presence: with ascites Qualified Code(s): K70.31 - Alcoholic cirrhosis of liver with ascites - Subjective Interval history: Reports feeling better. Improving weakness. Continues to have nausea and poor appetite. No vomiting, diarrhea, chest or abdominal pain. - Constitutional Vitals: Temp Pulse Resp BP Pulse Ox 98.2 F 62 17 110/53 95 03/17/17 16:20 03/17/17 16:20 03/17/17 16:20 03/17/17 16:20 03/17/17 16:20 General appearance: Present: A&O X 3, answers questions appropriately - Respiratory Respiratory exam: Present: CTAB. Absent: accessory muscle use, rales, rhonchi, wheezes - Cardiovascular Cardiovascular exam: Present: RRR, +S1, +S2. Absent: diastolic murmur, gallop, rubs, systolic murmur - GI/Abdominal GI/Abdominal exam: Present: normal bowel sounds, soft, no peritoneal signs. Absent: distended, tenderness - Extremities Exam Extremities exam: Present: full ROM, warm, radial pulses palpable and symmetrical. Absent: calf tenderness, cyanotic, pedal edema - Neurological Exam Neurological exam: Present: CN II-XII intact, oriented X3, no focal deficits. Absent: pronater drift, facial droop, speech deficit Internal Medicine: Result - Labs CBC & Chem 7: 03/16/17 02:00 03/19/17 03:27 Labs: BMP 03/17/17 04:00 Sodium 123 L Potassium 4.3 D Chloride 89 L Carbon Dioxide 26 BUN 37 H Creatinine 1.13 Glucose 127 H Calcium 10.2 - ABG Interpretation ABG results: PT/INR, D-dimer PT 34.6 Seconds (9.4-12.1) H 03/17/17 04:00 Consult Discharge Plan - Plan Referrals: Jose Jones DO [Primary Care Provider] - 03/24/17 2:00 pm (Please follow up as schedule...)
[2017-03-18 05:00] LABS: BUN/Creatinine Ratio 25 (6-26); Blood Urea Nitrogen 25 mg/dL (8-23); Calcium 9.7 mg/dL (8.6-10.3); Carbon Dioxide 27 mEq/L (23-29); Chloride 94 mEq/L (98-107); Glucose 113 mg/dL (70-105); Magnesium 1.8 mg/dL (1.6-2.6); Osmolality,Calculated 263 (280-300); Potassium 4.9 mEq/L (3.5-5.1); Sodium 124 mEq/L (136-145); eGFR For African Americans > 60 (> 60); eGFR For Non-African Americans 54 (> 60)
[2017-03-18 05:11] LABS: INR 2.7; Prothrombin Time 29.8 Seconds (9.4-12.1)
--- NOTE | 2017-03-18 06:58 | Nephrology Progress Note ---
<Jostin Cancino - Last Filed: 03/18/17 11:52> Date of Encounter: 03/18/17 Time of Encounter: 06:58 - Assessment and Plan (1) Hyponatremia Current Visit: Yes Status: Acute Na level 119 --> 122 --> 124 --> 122 --> 123 --> 124 Hyponatremia likely secondary to hypovolemic hyponatremia from over diuresis/ Metolazone use Continue gentle IV NS hydration Hold home diuretics Bumex 4mg BID, Metolazone, and Spironolactone 100mg daily Continue sodium chloride tablets 1g TID Goal PNa correction is 6-8mEq in the first 24hr. Closely monitor, avoid over correction in 24hrs Continue regular diet Urine osmolarity pendng (2) Hypokalemia Current Visit: Yes Status: Acute Patient reports taking potassium supplements and Spironolcatone at home Supplement potassium Continue to monitor (3) Hypochloremia Current Visit: Yes Status: Acute Improving Continue sodium chloride tablets 1g TID Continue IV NS and monitoring (4) Hypomagnesemia Current Visit: Yes Status: Acute Supplement Mag Continue to monitor (5) Hypophosphatemia Current Visit: Yes Status: Acute Supplement Phos Continue to monitor (6) CKD (chronic kidney disease), stage III Current Visit: Yes Status: Chronic Avoid nephrotoxins Continue to monitor (7) UTI (urinary tract infection) Current Visit: Yes Status: Suspected Management pre primary team Avoid nephrotoxins Qualifiers: Urinary tract infection type: acute cystitis Hematuria presence: without hematuria Qualified Code(s): N30.00 - Acute cystitis without hematuria (8) Congestive heart failure Current Visit: Yes Status: Chronic Patient appears dry on exam Hold home diuretics Management per primary team Qualifiers: Congestive heart failure type: diastolic Congestive heart failure chronicity: chronic Qualified Code(s): I50.32 - Chronic diastolic (congestive ) heart failure (9) Cirrhosis Current Visit: Yes Status: Chronic Management per primary team Qualifiers: Hepatic cirrhosis type: alcoholic cirrhosis Ascites presence: with ascites Qualified Code(s): K70.31 - Alcoholic cirrhosis of liver with ascites (10) Non-small cell carcinoma of left lung Current Visit: No Status: Chronic Management per primary team Subjective Principal diagnosis: Hyponatremia Interval history: Patient seen and examined today after eating breakfast. She reports good appetite and denies nausea. Patient remains on IVF and denies any CP, SOB, confusion, seizures, or new complaints. Objective - Vital Signs Vital signs: Vital Signs Temp Pulse Resp BP Pulse Ox 03/18/17 04:05 97.3 F L 60 18 117/69 94 03/18/17 00:53 98.1 F 58 16 102/61 93 03/17/17 20:02 97.6 F 64 18 108/65 95 03/17/17 16:20 98.2 F 62 17 110/53 95 03/17/17 11:40 98.0 F 66 17 122/74 93 Intake and Output 03/17/17 03/17/17 03/18/17 15:59 23:59 07:59 Intake Total 240 / 240 1000 / 1000 Output Total 300 / 300 Balance 240 / 240 700 / 700 Intake: IV Fluids 1000 / 1000 0.9 % Sodium Chloride 1,000 ML 1000 / 1000 @ 60 mls/hr IVC .[id number] [facility] Rx #:[id number] Oral 240 / 240 Output: Urine 300 / 300 Other: Meal Lunch Percent of Meal Consumed 5% Weight 64.41 kg Blood Glucose* 116 157 Patient Weight 03/18/17 23:59 Weight 64.41 kg - General Appearance General appearance: Present: well-developed, well-nourished, appears started age EENT: Present: ATNC, PERRL, mucous membranes moist Neck: Present: no JVD, supple Respiratory: Present: clear Cardiology: Present: no edema, irregular rhythm, normal S1, normal S2 Additional Comments: 2/6 ONEIL Gastrointestinal: Present: normoactive bowel sounds, no tenderness, no guarding , no organomegaly Integumentary: Present: no rash, warm and dry Neurologic: Present: no focal deficit, alert and oriented x3 Musculoskeletal: Present: no deformities, no erythema, no cyanosis Psychiatric: Present: mood/affect appropriate, cooperative - Lab 03/16/17 02:00 03/18/17 04:20 Most recent lab results Calcium 9.7 mg/dL (8.6-10.3) 03/18/17 04:20 Phosphorus 2.7 mg/dL (2.7-4.5) 03/17/17 04:00 Magnesium 1.8 mg/dL (1.6-2.6) 03/18/17 04:20 Consult Discharge Plan - Plan Referrals: Jose Jones DO [Primary Care Provider] - 03/24/17 2:00 pm (Please follow up as schedule...) <Faraz Acunacedrick Short - Last Filed: 03/20/17 11:49> Date of Encounter: 03/18/17 - Assessment and Plan (1) Hyponatremia Current Visit: Yes Status: Acute Objective - Vital Signs Vital signs: Vital Signs Temp Pulse Resp BP Pulse Ox 03/20/17 11:28 97.7 F 59 16 116/74 95 03/20/17 07:30 98.1 F 64 16 132/77 92 03/20/17 04:28 98.5 F 60 16 126/63 90 03/19/17 23:28 98.7 F 60 14 97/54 92 03/19/17 20:09 98.1 F 64 14 119/55 95 03/19/17 16:02 97.8 F 60 16 118/70 93 03/19/17 13:11 60 16 122/66 96 Intake and Output 03/19/17 03/20/17 03/20/17 23:59 07:59 15:59 Intake Total 500 / 500 220 / 220 Output Total 600 / 600 400 / 400 100 / 100 Balance -100 / -100 -400 / -400 120 / 120 Intake: Oral 500 / 500 220 / 220 Output: Urine 600 / 600 400 / 400 100 / 100 Other: Meal Dinner Breakfast Percent of Meal Consumed 60% 75% Stool Size Small Stool Consistency soft Stool Characteristics Normal for Patient Stool Color Brown Weight 66.2 kg Blood Glucose* 166 88 95 Patient Weight 03/20/17 23:59 Weight 66.2 kg - Lab 03/16/17 02:00 03/20/17 04:43 Most recent lab results Calcium 9.5 mg/dL (8.6-10.3) 03/20/17 04:43 Phosphorus 2.7 mg/dL (2.7-4.5) 03/17/17 04:00 Magnesium 1.7 mg/dL (1.6-2.6) 03/19/17 03:27 Urine Creatinine 44 mg/dL 03/18/17 17:57 Urine Sodium 47.5 mEq/L 03/18/17 17:57 - Attending Attestation I examined this patient and my medical decision-making was reviewed with the Resident Physician. I agree with the documented findings, disposition and treatment plan as described except to the extent set forth below. Pt seen and examined with hyponatremia likely due to diuretics. Agree with holding diuretics. Sodium improving slowly now at 124. Continue IVF with NS for now Will check urine osmolality as well
[2017-03-18] MEDS: Insulin LISPRO 300 UNITS/3 ML VIAL SQ SCH ×4 (08:16→22:15)
[2017-03-18] MEDS: 0.9 % Sodium Chloride 1,000 ML IVC SCH (13:52)
[2017-03-18] MEDS: Ondansetron 4 MG/2 ML VIAL IVP PRN (16:27)
--- NOTE | 2017-03-18 17:51 | Internal Med Progress Note ---
Date of Encounter: 03/18/17 Time of Encounter: 12:30 - Assessment and plan (1) Hyponatremia Current Visit: Yes Status: Acute Assessment and plan: Acute on chronic, baseline Na around 128. Serum sodium minimally improved to 124 today. Nephrology on board, appreciate recommendations. continue sodium chloride tablets. Serum creatinine noted to be improving. Continue gentle IV hydration, hold diuretics, continue to monitor Na; PT/OT pending; (2) Aortic valve replaced Current Visit: Yes Status: Chronic Assessment and plan: Continue anticoagulation with Coumadin. INR therapeutic; (3) CKD (chronic kidney disease), stage III Current Visit: Yes Status: Chronic (4) Lung cancer Current Visit: Yes Status: Chronic Qualifiers: Laterality: unspecified laterality Lung location: unspecified part of lung Qualified Code(s): C34.90 - Malignant neoplasm of unspecified part of unspecified bronchus or lung (5) A-fib Current Visit: Yes Status: Chronic Assessment and plan: rate-controlled; continue anticoagulation with Coumadin; INR therapeutic. Qualifiers: Atrial fibrillation type: chronic Qualified Code(s): I48.2 - Chronic atrial fibrillation (6) Pacemaker Current Visit: Yes Status: Chronic (7) Congestive heart failure Current Visit: Yes Status: Chronic Qualifiers: Congestive heart failure type: diastolic Congestive heart failure chronicity: chronic Qualified Code(s): I50.32 - Chronic diastolic (congestive ) heart failure (8) Cirrhosis Current Visit: Yes Status: Chronic Qualifiers: Hepatic cirrhosis type: alcoholic cirrhosis Ascites presence: with ascites Qualified Code(s): K70.31 - Alcoholic cirrhosis of liver with ascites - Subjective Interval history: Reports feeling well; does not like salt tablets but agreeable to continue for now; improving appetite, seen by [facility]. No vomiting, fever/chills, dyspnea; - Constitutional Vitals: Temp Pulse Resp BP Pulse Ox 97.1 F L 60 17 102/54 96 03/18/17 15:47 03/18/17 15:47 03/18/17 15:47 03/18/17 15:47 03/18/17 15:47 General appearance: Present: A&O X 3, answers questions appropriately - Respiratory Respiratory exam: Present: CTAB. Absent: accessory muscle use, rales, rhonchi, wheezes - Cardiovascular Cardiovascular exam: Present: RRR, +S1, +S2. Absent: diastolic murmur, gallop, rubs, systolic murmur - GI/Abdominal GI/Abdominal exam: Present: normal bowel sounds, soft, no peritoneal signs. Absent: distended, tenderness - Extremities Exam Extremities exam: Present: full ROM, warm, radial pulses palpable and symmetrical. Absent: calf tenderness, cyanotic, pedal edema - Neurological Exam Neurological exam: Present: CN II-XII intact, oriented X3, no focal deficits. Absent: pronater drift, facial droop, speech deficit Internal Medicine: Result - Labs CBC & Chem 7: 03/16/17 02:00 03/19/17 03:27 Labs: BMP 03/18/17 04:20 Sodium 124 L Potassium 4.9 Chloride 94 L Carbon Dioxide 27 BUN 25 H Creatinine 1.00 Glucose 113 H Calcium 9.7 - ABG Interpretation ABG results: PT/INR, D-dimer PT 29.8 Seconds (9.4-12.1) H 03/18/17 04:20 Consult Discharge Plan - Plan Referrals: Jose Jones DO [Primary Care Provider] - 03/24/17 2:00 pm (Please follow up as schedule...)
[2017-03-18] MEDS ORDERED: *HR* Warfarin 3 MG TABLET PO ONE (18:00)
[2017-03-18 19:09] LABS: Sodium, Urine 47.5 mEq/L
[2017-03-19 03:49] LABS: INR 2.7; Prothrombin Time 29.8 Seconds (9.4-12.1)
[2017-03-19 05:35] LABS: BUN/Creatinine Ratio 21 (6-26); Blood Urea Nitrogen 18 mg/dL (8-23); Calcium 9.4 mg/dL (8.6-10.3); Carbon Dioxide 25 mEq/L (23-29); Chloride 97 mEq/L (98-107); Glucose 95 mg/dL (70-105); Magnesium 1.7 mg/dL (1.6-2.6); Osmolality,Calculated 264 (280-300); Potassium 4.8 mEq/L (3.5-5.1); Sodium 126 mEq/L (136-145); eGFR For African Americans > 60 (> 60); eGFR For Non-African Americans > 60 (> 60)
[2017-03-19] MEDS: 0.9 % Sodium Chloride 1,000 ML IVC SCH (06:24)
[2017-03-19] MEDS: Insulin LISPRO 300 UNITS/3 ML VIAL SQ SCH ×4 (08:42→20:39)
--- NOTE | 2017-03-19 10:27 | Nephrology Progress Note ---
Date of Encounter: 03/19/17 Time of Encounter: 10:30 - Assessment and Plan (1) Hyponatremia Current Visit: Yes Status: Acute Sodium improving at 126. Baseline appears to be around 128-132 Continue salt tabs can stop IVF Liberalize sodium in diet for now (2) Congestive heart failure Current Visit: Yes Status: Chronic Given CHF history, can stop IVF now Strict I/Os still advised Qualifiers: Congestive heart failure type: diastolic Congestive heart failure chronicity: chronic Qualified Code(s): I50.32 - Chronic diastolic (congestive ) heart failure (3) Non-small cell carcinoma of left lung Current Visit: No Status: Chronic Subjective Principal diagnosis: Hyponatremia Interval history: Pt seen and examined with no new complaints Objective - Vital Signs Vital signs: Vital Signs Temp Pulse Resp BP Pulse Ox 03/19/17 08:02 98.2 F 66 16 114/58 90 03/19/17 04:38 97.8 F 63 16 125/71 93 03/19/17 00:08 98.7 F 60 17 112/59 91 03/18/17 20:59 97.8 F 63 16 127/66 92 03/18/17 15:47 97.1 F L 60 17 102/54 96 03/18/17 11:14 97.4 F L 59 16 144/77 94 Intake and Output 03/18/17 03/19/17 03/19/17 23:59 07:59 15:59 Intake Total 1000 / 1000 120 / 120 Output Total 400 / 400 700 / 700 400 / 400 Balance -400 / -400 300 / 300 -280 / -280 Intake: IV Fluids 1000 / 1000 0.9 % Sodium Chloride 1,000 ML 1000 / 1000 @ 60 mls/hr IVC .[id number] [facility] Rx #:[id number] Oral 120 / 120 Output: Urine 400 / 400 700 / 700 400 / 400 Other: Meal Breakfast Percent of Meal Consumed 75% # Voids 1 Weight 66.395 kg Blood Glucose* 144 131 Patient Weight 03/19/17 23:59 Weight 66.395 kg - General Appearance Exam: NAD EENT: Present: ATNC, mucous membranes moist Neck: Present: no JVD, supple Respiratory: Present: clear (ant bilat) Cardiology: Present: no edema, normal S1, normal S2 Gastrointestinal: Present: no tenderness, no guarding Integumentary: Present: warm and dry Neurologic: Present: no focal deficit Musculoskeletal: Present: no deformities Psychiatric: Present: mood/affect appropriate - Lab 03/16/17 02:00 03/20/17 04:43 Most recent lab results Calcium 9.4 mg/dL (8.6-10.3) 03/19/17 03:27 Phosphorus 2.7 mg/dL (2.7-4.5) 03/17/17 04:00 Magnesium 1.7 mg/dL (1.6-2.6) 03/19/17 03:27 Urine Creatinine 44 mg/dL 03/18/17 17:57 Urine Sodium 47.5 mEq/L 03/18/17 17:57 Consult Discharge Plan - Plan Referrals: Jose Jones DO [Primary Care Provider] - 03/24/17 2:00 pm (Please follow up as schedule...)
[2017-03-19] MEDS: Megestrol Acetate 400 MG/10 ML UDC PO SCH (13:52)
--- NOTE | 2017-03-19 17:06 | Internal Med Progress Note ---
Date of Encounter: 03/19/17 Time of Encounter: 11:10 - Assessment and plan (1) Hyponatremia Status: Acute Assessment and plan: Acute on chronic, baseline Na around 128. Serum sodium minimally improved to 126 today. Nephrology on board, appreciate recommendations. Hold IV hydration and continue sodium chloride tablets. Serum creatinine noted to be improving. Continue to hold diuretics, continue to monitor Na; PT/OT evaluation noted, recommend home health services; (2) Aortic valve replaced Status: Chronic Assessment and plan: Continue anticoagulation with Coumadin. INR therapeutic; (3) CKD (chronic kidney disease), stage III Status: Chronic Assessment and plan: serum creatinine noted to be improving back to baseline; continue to hold diuretics, as above; monitor creatinine closely; (4) Lung cancer Status: Chronic Assessment and plan: currently on chemotherapy; follows with Oncology; Qualifiers: Laterality: unspecified laterality Lung location: unspecified part of lung Qualified Code(s): C34.90 - Malignant neoplasm of unspecified part of unspecified bronchus or lung (5) A-fib Status: Chronic Assessment and plan: rate-controlled; continue anticoagulation with Coumadin; INR therapeutic. Qualifiers: Atrial fibrillation type: chronic Qualified Code(s): I48.2 - Chronic atrial fibrillation (6) Pacemaker Status: Chronic (7) Congestive heart failure Status: Chronic Qualifiers: Congestive heart failure type: diastolic Congestive heart failure chronicity: chronic Qualified Code(s): I50.32 - Chronic diastolic (congestive ) heart failure (8) Cirrhosis Status: Chronic Qualifiers: Hepatic cirrhosis type: alcoholic cirrhosis Ascites presence: with ascites Qualified Code(s): K70.31 - Alcoholic cirrhosis of liver with ascites - Subjective Interval history: Reports feeling well; no new complaints, poor appetite due to not liking hospital food. No nausea, vomiting, abdominal pain. Developing slight ankle swelling. - Constitutional Vitals: Temp Pulse Resp BP Pulse Ox 97.8 F 60 16 118/70 93 03/19/17 16:02 03/19/17 16:02 03/19/17 16:02 03/19/17 16:02 03/19/17 16:02 General appearance: Present: A&O X 3, answers questions appropriately - Respiratory Respiratory exam: Present: CTAB. Absent: accessory muscle use, rales, rhonchi, wheezes - Cardiovascular Cardiovascular exam: Present: RRR, +S1, +S2. Absent: diastolic murmur, gallop, rubs, systolic murmur - GI/Abdominal GI/Abdominal exam: Present: normal bowel sounds, soft, no peritoneal signs. Absent: distended, tenderness - Extremities Exam Extremities exam: Present: full ROM, pedal edema (Mild bilateral ankle edema), warm, radial pulses palpable and symmetrical. Absent: calf tenderness, cyanotic Internal Medicine: Result - Labs CBC & Chem 7: 03/16/17 02:00 03/20/17 04:43 Labs: BMP 03/19/17 03:27 Sodium 126 L Potassium 4.8 Chloride 97 L Carbon Dioxide 25 BUN 18 Creatinine 0.85 Glucose 95 Calcium 9.4 - ABG Interpretation ABG results: PT/INR, D-dimer PT 29.8 Seconds (9.4-12.1) H 03/19/17 03:27 Consult Discharge Plan - Plan Additional Instructions: F/up with in 2-3 weeks Referrals: Jose Jones DO [Primary Care Provider] - 03/24/17 2:00 pm (Please follow up as schedule...) Prescriptions: Megestrol Acetate [Megace] 400 mg PO DAILY 30 Days udc Sodium Chloride 1 gm PO BID #30 tablet Warfarin [Coumadin] 3 mg PO 4XW #10 tablet Warfarin [Coumadin] 4 mg PO 3XW #10 tablet
[2017-03-19] MEDS ORDERED: *HR* Warfarin 3 MG TABLET PO ONE (18:00)
[2017-03-19] MEDS: traMADol 50 MG TABLET PO PRN (19:46)
[2017-03-20 05:06] LABS: INR 2.6; Prothrombin Time 28.7 Seconds (9.4-12.1)
[2017-03-20 05:33] LABS: BUN/Creatinine Ratio 21 (6-26); Blood Urea Nitrogen 15 mg/dL (8-23); Calcium 9.5 mg/dL (8.6-10.3); Carbon Dioxide 25 mEq/L (23-29); Chloride 98 mEq/L (98-107); Glucose 90 mg/dL (70-105); Osmolality,Calculated 262 (280-300); Potassium 4.5 mEq/L (3.5-5.1); Sodium 126 mEq/L (136-145); eGFR For African Americans > 60 (> 60); eGFR For Non-African Americans > 60 (> 60)
[2017-03-20] MEDS: Insulin LISPRO 300 UNITS/3 ML VIAL SQ SCH ×2 (07:36→12:11)
[2017-03-20] MEDS: Megestrol Acetate 400 MG/10 ML UDC PO SCH (08:36)
[2017-03-20 11:44] VITALS: BP 116/74
--- NOTE | 2017-03-20 11:50 | Nephrology Progress Note ---
Date of Encounter: 03/20/17 Time of Encounter: 11:50 - Assessment and Plan (1) Hyponatremia Status: Acute Sodium stable at 126. Baseline appears to be around 128-132 Continue salt tabs can stop IVF Liberalize sodium in diet for now (2) Non-small cell carcinoma of left lung Status: Chronic (3) Congestive heart failure Status: Chronic Stable, off IVF Strict I/Os still advised Qualifiers: Qualified Code(s): I50.32 - Chronic diastolic (congestive) heart failure Subjective Principal diagnosis: Hyponatremia Interval history: Pt seen and examined with no new complaints Objective - Vital Signs Vital signs: Vital Signs Temp Pulse Resp BP Pulse Ox 03/20/17 11:28 97.7 F 59 16 116/74 95 03/20/17 07:30 98.1 F 64 16 132/77 92 03/20/17 04:28 98.5 F 60 16 126/63 90 03/19/17 23:28 98.7 F 60 14 97/54 92 03/19/17 20:09 98.1 F 64 14 119/55 95 03/19/17 16:02 97.8 F 60 16 118/70 93 03/19/17 13:11 60 16 122/66 96 Intake and Output 03/19/17 03/20/17 03/20/17 23:59 07:59 15:59 Intake Total 500 / 500 220 / 220 Output Total 600 / 600 400 / 400 100 / 100 Balance -100 / -100 -400 / -400 120 / 120 Intake: Oral 500 / 500 220 / 220 Output: Urine 600 / 600 400 / 400 100 / 100 Other: Meal Dinner Breakfast Percent of Meal Consumed 60% 75% Stool Size Small Stool Consistency soft Stool Characteristics Normal for Patient Stool Color Brown Weight 66.2 kg Blood Glucose* 166 88 95 Patient Weight 03/20/17 23:59 Weight 66.2 kg - General Appearance General appearance: Present: well-developed, well-nourished EENT: Present: mucous membranes moist Neck: Present: no JVD, supple Respiratory: Present: clear Cardiology: Present: no edema, normal S1, normal S2 Gastrointestinal: Present: no tenderness, no guarding Integumentary: Present: warm and dry Neurologic: Present: no focal deficit Musculoskeletal: Present: no deformities Psychiatric: Present: mood/affect appropriate - Lab 03/16/17 02:00 03/20/17 04:43 Most recent lab results Calcium 9.5 mg/dL (8.6-10.3) 03/20/17 04:43 Phosphorus 2.7 mg/dL (2.7-4.5) 03/17/17 04:00 Magnesium 1.7 mg/dL (1.6-2.6) 03/19/17 03:27 Urine Creatinine 44 mg/dL 03/18/17 17:57 Urine Sodium 47.5 mEq/L 03/18/17 17:57 Consult Discharge Plan - Plan Additional Instructions: F/up with in 2-3 weeks Referrals: Jose Jones DO [Primary Care Provider] - 03/24/17 2:00 pm (Please follow up as schedule...) Prescriptions: Megestrol Acetate [Megace] 400 mg PO DAILY 30 Days udc Sodium Chloride 1 gm PO BID #30 tablet Warfarin [Coumadin] 3 mg PO 4XW #10 tablet
--- NOTE | 2017-03-20 12:07 | Discharge Summary ---
Date of Encounter: 03/20/17 Time of Encounter: 12:00 - Discharge Diagnosis (1) Hyponatremia Priority: Primary Status: Acute (2) Aortic valve replaced Priority: Secondary Status: Chronic (3) CKD (chronic kidney disease), stage III Priority: Secondary Status: Chronic (4) Lung cancer Priority: Secondary Status: Chronic Qualifiers: Laterality: unspecified laterality Lung location: unspecified part of lung Qualified Code(s): C34.90 - Malignant neoplasm of unspecified part of unspecified bronchus or lung (5) A-fib Priority: Secondary Status: Chronic Qualifiers: Atrial fibrillation type: chronic Qualified Code(s): I48.2 - Chronic atrial fibrillation (6) Pacemaker Priority: Secondary Status: Chronic (7) Congestive heart failure Priority: Secondary Status: Chronic Qualifiers: Congestive heart failure type: diastolic Congestive heart failure chronicity: chronic Qualified Code(s): I50.32 - Chronic diastolic (congestive ) heart failure (8) Cirrhosis Priority: Secondary Status: Chronic Qualifiers: Hepatic cirrhosis type: alcoholic cirrhosis Ascites presence: with ascites Qualified Code(s): K70.31 - Alcoholic cirrhosis of liver with ascites - Discharge Medications Prescriptions: Megestrol Acetate [Megace] 400 mg PO DAILY 30 Days udc Sodium Chloride 1 gm PO BID #30 tablet Warfarin [Coumadin] 3 mg PO 4XW #10 tablet Warfarin [Coumadin] 4 mg PO 3XW #10 tablet Home Medications: Allopurinol [Zyloprim] 100 mg PO DAILY 02/04/15 [History] Zolpidem [Ambien] 10 mg PO HS PRN 02/04/15 [History] Omeprazole [PriLOSEC] 20 mg PO DAILY 06/03/16 [History] Spironolactone [Aldactone] 100 mg PO DAILY 06/03/16 [History] Tramadol HCl [Ultram] 50 mg PO QID PRN 03/15/17 [History] Bumetanide 2 mg PO BID #60 tablet 03/20/17 [Rx] Megestrol Acetate [Megace] 400 mg PO DAILY 30 Days udc 03/20/17 [Rx] Sodium Chloride 1 gm PO BID #30 tablet 03/20/17 [Rx] Warfarin [Coumadin] 3 mg PO 4XW #10 tablet 03/20/17 [Rx] Warfarin [Coumadin] 4 mg PO 3XW #10 tablet 03/20/17 [Rx] Allergies/Adverse Reactions: 3 Allergy/AdvReac Type Severity Reaction Status Date / Time aspirin Allergy Nausea Verified 03/15/17 10:08 morphine Allergy Hives Verified 03/15/17 10:08 Penicillins Allergy Hives Verified 03/15/17 10:08 ibuprofen [From Motrin] AdvReac Vomiting Verified 03/15/17 10:08 Date of admission: 03/16/17 11:32 Primary care physician: Jose Jones Consults: 03/16/17 12:14 Consult to Nephrology [CONS] Routine Consulting Provider: Kidney Dayana/RUBIN/RAMYA/SHENG Reason for Consult: Hyponatremia- acute on chronic Call Completed: Yes 03/17/17 18:06 Consult to Occupational Therapy [CONS] Routine Comment: Evaluate, develop and implement POC Reason for Consult: Hyponatremia, generalized weakness Consult to Physical Therapy [CONS] Routine Comment: Evaluate, develop and implement POC Reason for Consult: Hyponatremia, generalized weakness 03/18/17 13:25 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 Discharging clinician: Desi Gonzalez Anticipated date of discharge: 03/20/17 - Patient Status Disposition: Home Health Service Condition: Fair Functional capacity at discharge: independent ambulation Overall status at discharge: patient is progressing back to baseline - Ambulatory Orders Ambulatory Orders: Basic Metabolic Panel [CHEM] Time Frame: 1 Week, Facility: [facility], Location: Lab - Discharge Instructions Follow Up With: Jose Jnoes DO [Primary Care Provider] - 03/24/17 2:00 pm (Please follow up as schedule...) Additional Instructions: F/up with in 2-3 weeks - Diet and Activity Activity: as per physical therapy Diet: low fat, low cholesterol, low salt diet, other (renal diet) Hospital course: Ms. Brooks is a 71 year old female with the above medical problems, who was admitted with generLized weakness and nausea and poor appetite. She was asked to present to ER by her Pre Billing Specialist due to low sodium on routine labs. She was noted to have hyponatremia with serum Na 122. 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 But she was noted to be dehydrated and dry, and started on gentle IV hydration and diuretics were held- she was noted to be on thiazides, loop and Metolazone. Nephrology was consulted and agreed with this management and also added sodium chloride tablets. She improved slowly and her current serum Na is 126, with a baseline around 128. Weakness and nausea improved. SHe was evaluated by PT/OT and recommended [facility], referral has been completed. After d/w Nephrology, she is deemed stable for discharge on salt tablets and thiazide diuretic is being held and dose of loop diuretic is being decreased at this time. - Time Spent with Patient Total time spent providing and/or coordinating discharge services: Greater than 30 minutes (45 min) - Constitutional Vitals: Temp Pulse Resp BP Pulse Ox 97.7 F 59 16 116/74 95 03/20/17 11:28 03/20/17 11:28 03/20/17 11:28 03/20/17 11:28 03/20/17 11:28 General appearance: Present: A&O X 3, answers questions appropriately - Cardiovascular Cardiovascular exam: Present: RRR, +S1, +S2 (mechanical valve). Absent: diastolic murmur, gallop, rubs, systolic murmur
--- NOTE | 2017-03-20 12:18 | Physician Discharge Referral ---
Home Health/Hosp Referral Info Transfer to: Home Health Attending Provider: Desi Gonzalez Provider in Charge Post Discharge: PCP - Diagnosis (1) Hyponatremia Priority: Primary Status: Acute (2) Aortic valve replaced Priority: Secondary Status: Chronic (3) CKD (chronic kidney disease), stage III Priority: Secondary Status: Chronic (4) Lung cancer Priority: Secondary Status: Chronic (5) A-fib Priority: Secondary Status: Chronic (6) Pacemaker Priority: Secondary Status: Chronic (7) Congestive heart failure Priority: Secondary Status: Chronic (8) Cirrhosis Priority: Secondary Status: Chronic - Respiratory Orders Smoking Cessation: Smoking cessation has been advised. For more information, call the [place] Tobacco Quit Line at 8-414-KQMY-NOW. - Diet/Nutrition Diet/Nutrition Orders: Renal, Cardiac - Activity Activity Orders: Ambulate - Services Needed Following services are medically necessary services: Nursing, Physical Therapy, Occupational Therapy - Transfer Medications Prescriptions: Megestrol Acetate [Megace] 400 mg PO DAILY 30 Days udc Sodium Chloride 1 gm PO BID #30 tablet Warfarin [Coumadin] 3 mg PO 4XW #10 tablet Warfarin [Coumadin] 4 mg PO 3XW #10 tablet Home Medications: Allopurinol [Zyloprim] 100 mg PO DAILY 02/04/15 [History] Zolpidem [Ambien] 10 mg PO HS PRN 02/04/15 [History] Omeprazole [PriLOSEC] 20 mg PO DAILY 06/03/16 [History] Spironolactone [Aldactone] 100 mg PO DAILY 06/03/16 [History] Tramadol HCl [Ultram] 50 mg PO QID PRN 03/15/17 [History] Bumetanide 2 mg PO BID #60 tablet 03/20/17 [Rx] Megestrol Acetate [Megace] 400 mg PO DAILY 30 Days udc 03/20/17 [Rx] Sodium Chloride 1 gm PO BID #30 tablet 03/20/17 [Rx] Warfarin [Coumadin] 3 mg PO 4XW #10 tablet 03/20/17 [Rx] Warfarin [Coumadin] 4 mg PO 3XW #10 tablet 03/20/17 [Rx] Allergies/Adverse Reactions: 3 Allergy/AdvReac Type Severity Reaction Status Date / Time aspirin Allergy Nausea Verified 03/15/17 10:08 morphine Allergy Hives Verified 01/23/18 10:08 Penicillins Allergy Hives Verified 03/15/17 10:08 ibuprofen [From Motrin] AdvReac Vomiting Verified 03/15/17 10:08 Certification: Further, I certify that my clinical findings support that this patient is homebound (i.e. absences from home require considerable and taxing effort and are for medical reasons or bahai services or infrequently or short duration when for other reasons) because: Homebound Reason: Patient requires assistance of a person or device to safely leave home, Leaving home requires considerable and taxing effort due to condition Attestation: My signature below is to certify that this patient is under my care and that I, or nurse practitioner, or a physician's child nutrition assistant working with me, has a face-to -face encounter with this patient.
[2017-03-20] MEDS ORDERED: *HR* Warfarin 3 MG TABLET PO ONE (18:00)
== END 2017-03-20 14:33 | disposition home health service (06) | DRG 644 ==
LOC: EMEROO 10:03 → 2ANU 10:03 → SUATTDRO 14:48 → 2ANU 16:04
PROVIDERS: ADMIT Internal Medicine; ATTEND Internal Medicine

== ENCOUNTER 2017-04-21 09:45 | Inpatient (IN) ==
[2017-04-21] MEDS ORDERED: 0.9 % Sodium Chloride 1,000 ML IVC SCH (11:15)
[2017-04-21] MEDS ORDERED: Ondansetron 4 MG/2 ML VIAL IVP PRN (11:19)
[2017-04-21] MEDS ORDERED: *HR* Heparin 5,000 UNIT/ML VIAL IVP PRN ×2 (11:27)
[2017-04-21] MEDS ORDERED: *HR* Heparin 5,000 UNIT/ML VIAL IVP ONE (11:27)
[2017-04-21] MEDS ORDERED: traMADol 50 MG TABLET PO PRN (11:28)
[2017-04-21] MEDS ORDERED: Acetaminophen 325 MG TABLET PO PRN (11:29)
[2017-04-21] MEDS ORDERED: Heparin 25,000 UNIT/500 ML D5W 25,000 UNIT/500 ML BAG IVC SCH (11:30)
--- NOTE | 2017-04-21 11:35 | General Surg History&Physical ---
Date of Encounter: 04/21/17 Time of Encounter: 11:35 Assessment and Plan (1) Incisional hernia Current Visit: Yes Status: Acute The assessment and plan as outlined above was discussed with the patient and/or family members who expressed understanding and agreement. All questions were answered. She is scheduled for robotic incisional hernia repair on 04/22/2017. Risks and benefits have been reviewed with patient and she is agreeable to proceed. Patient has been admitted for heparin bridging before and after procedure. She has seen her electronic technologist (Dr. Ann) for pre-op cardiovascular exam on was noted to have a moderate risk for the procedure in that she is unable to achieve greater than 4 METS of activity, as detailed above, sever mitral stenosis, ASHD s/p CABG, AF, ICD/PPM. She has remote history of the left heart cath demonstrated mild ASHD and a history of CHF related to her valvular disease. A preoperative stress test was considered by her electronic technologist and it is noted to unlikely alter the risk and would be relatively contraindicated given her aortic stenosis. Clinical Research Physician further recommended bridging with Lovenox or heparin. 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 Cardiology has been consult it follow along given her significant cardiovascular history. Qualifiers: Obstruction and gangrene presence: without obstruction or gangrene Qualified Code(s): K43.2 - Incisional hernia without obstruction or gangrene; K43.91 - Incisional hernia, without obstruction or gangrene (2) Permanent atrial fibrillation Current Visit: Yes Status: Acute The assessment and plan as outlined above was discussed with the patient and/or family members who expressed understanding and agreement. All questions were answered. s/p AVN ablation. (3) Hx of atrioventricular node ablation Current Visit: Yes Status: Acute The assessment and plan as outlined above was discussed with the patient and/or family members who expressed understanding and agreement. All questions were answered. (4) S/P aortic valve replacement with bioprosthetic valve Current Visit: Yes Status: Acute The assessment and plan as outlined above was discussed with the patient and/or family members who expressed understanding and agreement. All questions were answered. (5) Aortic stenosis, moderate Current Visit: Yes Status: Acute The assessment and plan as outlined above was discussed with the patient and/or family members who expressed understanding and agreement. All questions were answered. (6) Valvular heart disease Current Visit: Yes Status: Acute The assessment and plan as outlined above was discussed with the patient and/or family members who expressed understanding and agreement. All questions were answered. (7) ASHD (arteriosclerotic heart disease) Current Visit: Yes Status: Acute The assessment and plan as outlined above was discussed with the patient and/or family members who expressed understanding and agreement. All questions were answered. (8) CKD (chronic kidney disease), stage III Current Visit: No Status: Chronic The assessment and plan as outlined above was discussed with the patient and/or family members who expressed understanding and agreement. All questions were answered. (9) Aortic valve replaced Current Visit: No Status: Chronic The assessment and plan as outlined above was discussed with the patient and/or family members who expressed understanding and agreement. All questions were answered. (10) A-fib Current Visit: No Status: Chronic The assessment and plan as outlined above was discussed with the patient and/or family members who expressed understanding and agreement. All questions were answered. Qualifiers: Atrial fibrillation type: chronic Qualified Code(s): I48.2 - Chronic atrial fibrillation (11) correction current use of anticoagulant Current Visit: No Status: Chronic The assessment and plan as outlined above was discussed with the patient and/or family members who expressed understanding and agreement. All questions were answered. History of Present Illness Chief complaint: Hernia, blood thinners HPI: Ms. Brooks is a 71 year old female who presents for elective incisional hernia repair and bridging with heparin for chronic Coumadin use. She is scheduled to undergo a robotic incisional hernia repair on 04/22/[address] Ely. She has an extensive past medical history per [facility], but pertinent PMH includes chronic anticoagulation, incisional hernia, borderline severe prosthetic aortic stenosis, [place] moderate mitral stenosis, severe tricuspid regurgitation, pulmonary hypertension, atrial fibrillation and chronic anticoagulation. She reports a 1 year history of an umbilical bulge that is worse with coughing is painful with coughing, and continues to increase in size. She has seen her electronic technologist (Dr. Ann) for pre-op cardiovascular exam on was noted to have a moderate risk for the procedure in that she is unable to achieve greater than 4 METS of activity, as detailed above, sever mitral stenosis, ASHD s/p CABG, AF, ICD/PPM. She has remote history of the left heart cath demonstrated mild ASHD and a history of CHF related to her valvular disease. A preoperative stress test was considered by her electronic technologist and it is noted to unlikely alter the risk and would be relatively contraindicated given her aortic stenosis. Clinical Research Physician further recommended bridging with Lovenox or heparin. 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 Presently she reports SOB that is slightly outside her norm and associated with activity. She denies headache, dizziness, chest pain or palpitations, lower extremity swelling, or generalized weakness. She endorses a midline bulge and discomfort associated with coughing. She denies fever or chills. Past Med Surg Social Fam HX - Past Medical History Source: patient, old records reviewed Medical history: atrial fibrillation, cancer (Right lung), cirrhosis, CHF (2/2 valvular disease), COPD, coronary artery disease (ASHD per recent [facility]), GI bleed (With esophageal varices), hyperlipidemia, hypertension, liver disease, myocardial infarction, renal disease, valvular heart disease (Moderate mitral stenosis, severe tricuspid regurgitation, pulmonary hypertension, bioprosthetic aortic valve with subsequent prosthetic valve stenosis), other (Pulmonary hypertension) Psychiatric history: anxiety - Past Surgical History Surgical History: appendectomy, cholecystectomy, colectomy, coronary bypass ( CABG) (2001), heart valve replacement (Bio prosthetic aortic valve), pacemaker/ AICD (2013), other (Port placement 2017. Colonoscopy 2014, EGD 2014) - Social History Smoking Status: Former smoker Packs per day: 43 year pack history Smokeless Tobacco Status: No Alcohol use: occasionally Drug use: none Occupational status: unemployed Current living situation: Home - Independent Activity Level: Independent ambulation Recent Out of Country Travel Within the Last 8 Weeks: No Exposure or Possible Exposure to Illness During Travel: No - Family History Mother Living Status: Hx Family Cancer: Yes Father Living Status: Hx Family Cardiac Disorders: Yes Medications and Allergies Zolpidem [Ambien] 10 mg PO HS PRN 02/04/15 [History] Omeprazole [PriLOSEC] 20 mg PO DAILY PRN 06/03/16 [History] Tramadol HCl [Ultram] 50 mg PO QID PRN 03/15/17 [History] Megestrol Acetate [Megace] 400 mg PO DAILY 30 Days udc 03/20/17 [Rx] Sodium Chloride 1 gm PO BID #30 tablet 03/20/17 [Rx] Warfarin [Coumadin] 3 mg PO 4XW #10 tablet 03/20/17 [Rx] Warfarin [Coumadin] 6 mg PO 3XW 03/25/17 [History] Bumetanide 2 mg PO BID 04/15/17 [History] 3 Allergy/AdvReac Type Severity Reaction Status Date / Time aspirin Allergy Nausea Verified 03/15/17 10:08 morphine Allergy Hives Verified 03/15/17 10:08 Penicillins Allergy Hives Verified 03/15/17 10:08 ibuprofen [From Motrin] AdvReac Vomiting Verified 03/15/17 10:08 Review of Systems All systems PM: reviewed and no additional remarkable complaints except as stated All systems PM: The remainder of the systems were reviewed and are negative General Surgery Exam Initial Vital Signs Temp Pulse Resp BP Pulse Ox 97.9 F 61 16 111/66 94 04/21/17 10:44 04/21/17 10:44 04/21/17 10:44 04/21/17 10:44 04/21/17 10:44 - General physical appearance no distress, no pain - ENT normal mucosa, atraumatic, normocephalic - Neck trachea midline, other (Paige dissension consistent with COPD) - Respiratory other (Decreased and tight) - Cardiovascular Cardiovascular exam: Present: RRR, murmurs (Diminished S2) - Abdomen Abdomen general surgery: Present: bowel sounds present, soft Hernia: Present: umbilical - Integumentary Integumentary general surgery: Present: warm and dry, no abnormal pigmentation - Neurologic Present: CN 2-12 grossly intact, normal coordination, normal sensation - Musculoskeletal Present: normal gait, normal posture - Psychiatric Psychiatric general surgery: Present: A&Ox3, appropriate, oriented to person, oriented to place, oriented to time, speech is normal, memory intact Results - Labs 04/21/17 12:20 04/21/17 12:20 All other labs normal.
[2017-04-21] MEDS ORDERED: Bumetanide 1 MG/4 ML VIAL IVP SCH (11:45)
[2017-04-21 12:38] LABS: Basophils % 0.7 %; Eosinophils % 0.7 %; Hematocrit 30.9 % (35.3-44.9); Hemoglobin 9.8 g/dL (11.5-15.4); Immature Granulocytes % 0.2 % (0-4); Lymphocytes # 0.8 K/mcL (0.6-4.6); Lymphocytes % 14.9 %; Mean Corpuscular HGB Conc 31.7 g/dL (31.6-35.5); Mean Corpuscular Hemoglobin 27.4 pg (28.0-33.3); Mean Corpuscular Volume 86.3 fL (83.0-100.0); Mean Platelet Volume 9.2 fL (9.4-12.4); Monocytes # 0.5 K/mcL (0.0-1.3); Monocytes % 9.1 %; Neutrophils # 4.2 K/mcL (1.6-8.9); Platelet Count 174 K/mcL (140-400); Red Blood Count 3.58 M/mcL (3.82-4.97); Red Cell Distribution Width 15.4 % (11.5-14.5); Segmented Neutrophils % 74.4 %
[2017-04-21 12:45] LABS: INR 1.5; Prothrombin Time 16.3 Seconds (9.4-12.1)
[2017-04-21] MEDS: Pantoprazole 40 MG VIAL IVP SCH (12:45)
[2017-04-21 12:48] LABS: Activated Partial Thrombo Time 34.7 Seconds (26.0-36.0)
[2017-04-21] MEDS: 0.9 % Sodium Chloride 1,000 ML IVC SCH ×2 (12:57→22:45)
[2017-04-21 13:03] LABS: BUN/Creatinine Ratio 15 (6-26); Blood Urea Nitrogen 12 mg/dL (8-23); Calcium 10.3 mg/dL (8.6-10.3); Carbon Dioxide 29 mEq/L (23-29); Chloride 95 mEq/L (98-107); Glucose 117 mg/dL (70-105); Osmolality,Calculated 275 (280-300); Potassium 2.7 mEq/L (3.5-5.1); Sodium 132 mEq/L (136-145); eGFR For African Americans > 60 (> 60); eGFR For Non-African Americans > 60 (> 60)
[2017-04-21] MEDS ORDERED: CeFAZolin Premix DUPLEX 2,000 MG/50 ML BAG IVPB SCH ×2 (16:00)
[2017-04-21] MEDS: Ipratropium/Albuterol Neb 3 ML IH SCH ×4 (16:12→23:58)
[2017-04-21] MEDS: Azithromycin 500 MG in D5% in Water 250 ML IVPB SCH (16:14)
--- NOTE | 2017-04-21 21:07 | Anesthesia Evaluation PreOp ---
Date of Encounter: 04/21/17 Time of Encounter: 21:05 - Past History Planned Operation: Robotic Laparoscopic Incisional Hernia Repair Cardiac History: ID, CHF, Arrhythmia (H/O A-Fib), Cardiac Surgery (S/P AVR in 2001---08/24/2016 Echo, prosthetic aortic stenosis with mean gradient 36 mmHg, moderate mitral stenosis with mean gradient 8 mmHg, severe TR and SD, mild AR, LVEF 60%), Pacemaker/ICD (medtronic pacemaker) Pulmonary History: Former smoker (quit in 2001, smoked for 40 years), COPD, Other (H/O lung CA S/P chemo) [employer] MANAGER History: Denies Any Significant HX Other Medical History: Hepatic (cirrhosis), Renal (stge 3 CKD) Anesthesia History: No Prior Anesthetic Complications, Past Anesthesia Alcohol Use: occasionally Drug use: none Medications and Allergies Zolpidem [Ambien] 10 mg PO HS PRN 02/04/15 [History] Omeprazole [PriLOSEC] 20 mg PO DAILY PRN 06/03/16 [History] Tramadol HCl [Ultram] 50 mg PO QID PRN 03/15/17 [History] Megestrol Acetate [Megace] 400 mg PO DAILY 30 Days udc 03/20/17 [Rx] Sodium Chloride 1 gm PO BID #30 tablet 03/20/17 [Rx] Warfarin [Coumadin] 3 mg PO 4XW #10 tablet 03/20/17 [Rx] Warfarin [Coumadin] 6 mg PO 3XW 03/25/17 [History] Bumetanide 2 mg PO BID 04/15/17 [History] 3 Allergy/AdvReac Type Severity Reaction Status Date / Time aspirin Allergy Nausea Verified 03/15/17 10:08 morphine Allergy Hives Verified 03/15/17 10:08 Penicillins Allergy Hives Verified 03/15/17 10:08 ibuprofen [From Motrin] AdvReac Vomiting Verified 03/15/17 10:08 - Meds/Allergy Pre-op Review Medications Reviewed: Yes Allergies Reviewed: Yes Beta Blockers on Current Med List: No Anesthesia Results - Labs 04/21/17 12:20 04/21/17 12:20 - Imaging EKG: report reviewed (03/15/2017 ELECTRONIC VENTRICULAR PACEMAKER) Additional studies: 08/24/2016 Echo Impressions: LVEF 60%. Normal LV chamber size and function. Mild concentric left ventricular hypertrophy. Indeterminate diastolic function. Atypical septal motion consistent with paced rhythm. Mild to moderately dilated right ventricle with normal function. Severely dilated left atrium. Severely dilated right atrium. Bioprosthetic aortic valve appears well seated. The leaflets are moderately thickened and calcified. Mild valvular aortic regurgitation. Prosthetic aortic stenosis. Mean gradient 36 mmHg, which is similar to prior report from 02/05/2015. Moderately thickened and calcified mitral valve leaflets. Moderate mitral stenosis. Mean gradient 8 mmHg (HR60), which is similar to prior report from 02/05/2015. Severe tricuspid regurgitation. Severe pulmonary hypertension. Estimated RVSP is 63-73 mmHg, including an estimated RA pressure of 10-20 mmHg. 12/31/2013 Echo Impressions: LVEF 60%. Mild concentric left ventricular hypertrophy. Indeterminate diastolic function. Mildly dilated right ventricle with normal systolic function. Severely biatrial enlargement. Bioprosthetic aortic valve replacement noted. It is moderately calcified with reduced mobility. Significant prosthetic aortic stenosis is suggested by a peak velocity greater than 4.0 m/s and mean gradient > 35 mmHg. Mild valvular aortic regurgitation. Moderately thickened and calcified mitral valve leaflets (rheumatic appearing) with reduced excursion. Mild mitral regurgitation. Transvalvular gradients not well obtained, but visually appears to be at least moderate mitral stenosis. Mild tricuspid regurgitation. Mild-moderate pulmonary hypertension. Estimated RVSP is 44-49 mmHg. Mild pulmonic regurgitation. A device lead was visualized in the right atrium and right ventricle. Anesthesia Exam Vital Signs/O2 Sat, Most Current Temp Pulse Resp BP Pulse Ox 98.6 F 59 16 105/58 95 04/21/17 19:00 04/21/17 19:00 04/21/17 19:00 04/21/17 19:00 04/21/17 19:00 Height: 5'4''/1.63 m Weight: 146 lbs/66.5 kg NPO (# of Hours): 8 Pain Scale: 0 Pain Scale Used: Numeric (1 - 10) - HEENT Pupil (Motor): EOMI Mallampati: II Teeth: Edentulous Oral Opening: Greater than 3 - E [employer] MANAGER LOC: Oriented [employer] MANAGER Motor: Normal RUE, Normal LUE, Normal RLE, Normal LLE, Normal Face [employer] MANAGER Sensory: Normal: RUE, LUE, RLE, LLE, Face - Cardiac Rhythm: Regular Murmur: Systolic - Pulmonary Breath Sounds: bilateral Clear Respiratory Effort: Symmetrical Anesthesia Assess/Plan ASA Score: 4 (Patient understands that she is at increased risk for perioperative complications including myocardial infarct, arrhythmias, CVA, post op vent support/ICU stay, and . Patient wishes to proceed.) Modified [place] Scale for Level of Consciousness: Cooperative, oriented, and tranquil Anesthetic Plan: General Monitoring Plan: Standard Monitors, A-Line Recovery Plan: PACU
[2017-04-21 22:22] LABS: Activated Partial Thrombo Time 126.6 Seconds (26.0-36.0)
[2017-04-21 22:26] LABS: Heparin anti-factor XA UFH 0.42 IU/mL (0.30-0.70)
[2017-04-22] MEDS: Ipratropium/Albuterol Neb 3 ML IH SCH ×6 (03:26→23:03)
[2017-04-22 04:28] LABS: Hemoglobin 8.8 g/dL (11.5-15.4); Mean Corpuscular HGB Conc 31.4 g/dL (31.6-35.5); Mean Corpuscular Hemoglobin 27.2 pg (28.0-33.3); Mean Corpuscular Volume 86.4 fL (83.0-100.0); Mean Platelet Volume 9.3 fL (9.4-12.4); Platelet Count 167 K/mcL (140-400); Red Blood Count 3.24 M/mcL (3.82-4.97); Red Cell Distribution Width 15.7 % (11.5-14.5)
[2017-04-22 04:47] LABS: BUN/Creatinine Ratio 16 (6-26); Blood Urea Nitrogen 14 mg/dL (8-23); Calcium 9.6 mg/dL (8.6-10.3); Carbon Dioxide 27 mEq/L (23-29); Chloride 97 mEq/L (98-107); Glucose 123 mg/dL (70-105); Osmolality,Calculated 276 (280-300); Potassium 2.6 mEq/L (3.5-5.1); Sodium 132 mEq/L (136-145); eGFR For African Americans > 60 (> 60); eGFR For Non-African Americans > 60 (> 60)
[2017-04-22] MEDS ORDERED: Potassium Chloride 40 MEQ, Lidocaine 1% 2 ML in D5% in Water 500 ML IVPB ONE (07:36)
[2017-04-22] MEDS: Pantoprazole 40 MG VIAL IVP SCH (09:04)
[2017-04-22] MEDS: Azithromycin 500 MG in D5% in Water 250 ML IVPB SCH (09:04)
[2017-04-22] MEDS: Ringers Solution, Lactated 1,000 ML IVC SCH (09:05)
[2017-04-22] MEDS ORDERED: Lidocaine -MPF 2% 2 ML VIAL ONE ×2 (09:34→10:35)
[2017-04-22] MEDS ORDERED: Ondansetron 4 MG/2 ML VIAL ONE (09:34)
[2017-04-22] MEDS ORDERED: Dexamethasone 4 MG/ML VIAL ONE ×2 (09:34→12:17)
[2017-04-22] MEDS ORDERED: *HR* Rocuronium Bromide 50 MG/5 ML VIAL ONE (09:34)
[2017-04-22] MEDS ORDERED: *HR* Propofol 200 MG/20 ML VIAL IVP ONE (09:35)
[2017-04-22] MEDS ORDERED: *HR* FentaNYL (PF) 100 MCG/2 ML VIAL ONE ×2 (09:35→11:49)
[2017-04-22] MEDS ORDERED: *HR* Phenylephrine 10 MG/ML VIAL ONE (09:39)
[2017-04-22] MEDS ORDERED: Heparin 1,000 UNITS/500 mL 500 ML ONE (10:01)
--- NOTE | 2017-04-22 10:12 | Cardiology Consult Note ---
<Rl Johnson - Last Filed: 04/22/17 10:02> Date of Encounter: 04/22/17 Time of Encounter: 10:02 Assessment and Plan (1) Permanent atrial fibrillation Current Visit: Yes Status: Acute Known permanent afib. Telemetry shows ventricular pacing with underlying afib. Avg HR 62 bpm over last 12 hours. Appears to be well rate controlled. INR 1.5 yesterday. Heparin IV bridge zuly-operatively. Goal INR 2.0-3.0. Recommend pharmacy to dose coumadin after surgery. Please call with concerns. (2) S/P aortic valve replacement with bioprosthetic valve Current Visit: Yes Status: Acute S/p bioprosthertic aortic valve replacement with known borderline severe prosthetic aortic stenosis. Follows with [facility] for monitoring. Caution with IV fluid. No fluid overload on exam today. Appears euvolemic. Last TTE-08/24/16: LVEF 60%, mild LVH, mild-moderately dilated RV with normal function, severely dilated LA, severely dilated RA, bioprosthetic aortic valve is well seated, prosthetic AV stenosis with mean gradient of 36 mmHg (similar to prior report), mild AR, moderate MS, severe TR, RVSP 63-73 mmHg. (3) Valvular heart disease Current Visit: Yes Status: Acute Known multivalvular heart disease. Caution with IV fluids. Currently euvolemic. Discussion w patient/family: The assessment and plan as outlined above was discussed with the patient and/or family members who expressed understanding and agreement. All questions were answered. Thank you for involving us in the care of your patient. Please call with any questions. History of Present Illness Consult date: 04/22/17 Requesting physician: Jean Claude Ely Consult reason: multiple cardiac co-morbidities. Chief complaint: abd pain History of present illness: Ms. Brooks is a 71 year old female who presents for elective hernia repair with Dr. Ely. She has a past medical history significant for VHD s/p bioprosthetic aortic valve replacement with borderline severe prosthetic aortic stenosis and moderate MR. She also has a history of afib on coumadin, ppm, chronic anemia, GI bleed, splenic infarct, cirrhosis, COPD, and lung cancer on keytruda injections. Bridging Coumadin with heparin was recommended due to history of afib with moderate MR. Cardiology consulted due to known cardiac disease and management zuly-operatively. 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 Ann, prior to scheduling surgery for a perioperative cardiovascular risk assessment. She was deemed moderate to high risk for moderate risk procedure. Today she denies chest pain or SOB. Notes dry cough overnight due to the "dry air." She is laying flat without any distress. Denies BLE edema or weight gain. Denies palpitations. C/o abdominal pain related to her hernia. Surgery is planned for today. Previous testing: [facility] 03/2011: LM nl. LAD proximal 20% stenosis. CX proximal 20% stenosis. RCA mid 20% stenosis. TTE 12/31/13: LVEF 60%, mild cLVH, mildly dilated RV with normal function, severe biatrial enlargement, bioprosthetic aortic valve is moderately calcified with significant stenosis (peak velocity > 4. m/s, mean gradient > 35 mmHg, mild AR, thickened/calcified MV with at least moderate MS, mild MR, mild TR, RVSP 44-49 mmHg. TTE at [facility] from 08/06/14: LVEF normal, borderline dilated RV, severely dilated LA, moderate-severely dilated RA, bioprosthetic AV with peak gradient 51 mmHg and mean gradient 33 mmHg, TUSHAR 0.735 cm2, mild MS, moderate MR RVSP 53 mmHg. TTE 02/05/15: LVEF 65%, mild LVH, moderately dilated RV with normal function, severely dilated LA, severely dilated RA, bioprosthetic aortic valve with moderately thickened/calcified leaflets with reduced excursion, moderate-severe (peak gradient 62 mmHg, mean gradient 34 mmHg), mild AR, moderately thickened /calcified MV leaflets with reduced excursion, moderate MS, mild MR, severe TR, RVSP 41-43. TTE 08/24/16: LVEF 60%, mild LVH, mild-moderately dilated RV with normal function , severely dilated LA, severely dilated RA, bioprosthetic aortic valve is well seated, prosthetic AV stenosis with mean gradient of 36 mmHg (similar to prior report), mild AR, moderate MS, severe TR, RVSP 63-73 mmHg. Past Med Surg Social Fam HX - Past Medical History Attestation: Yes The following information was validated with the patient. Medical history: atrial fibrillation, cancer (Right lung), cirrhosis, CHF (2/2 valvular disease), COPD, coronary artery disease (ASHD per recent [facility]), GI bleed (With esophageal varices), hyperlipidemia, hypertension, liver disease, myocardial infarction, renal disease, valvular heart disease (Moderate mitral stenosis, severe tricuspid regurgitation, pulmonary hypertension, bioprosthetic aortic valve with subsequent prosthetic valve stenosis), other (Pulmonary hypertension) Psychiatric history: anxiety - Past Surgical History Surgical History: appendectomy, cholecystectomy, colectomy, coronary bypass ( CABG) (2001), heart valve replacement (Bio prosthetic aortic valve), pacemaker/ AICD (2013), other (Port placement 2017. Colonoscopy 2014, EGD 2014) - Social History Smoking Status: Former smoker Packs per day: 43 year pack history Smokeless Tobacco Status: No Alcohol use: occasionally Drug use: none - Family History Mother Living Status: Hx Family Cancer: Yes Father Living Status: Hx Family Cardiac Disorders: Yes Medications and Allergies Zolpidem [Ambien] 10 mg PO HS PRN 02/04/15 [History] Omeprazole [PriLOSEC] 20 mg PO DAILY PRN 06/03/16 [History] Tramadol HCl [Ultram] 50 mg PO QID PRN 03/15/17 [History] Megestrol Acetate [Megace] 400 mg PO DAILY 30 Days udc 03/20/17 [Rx] Sodium Chloride 1 gm PO BID #30 tablet 03/20/17 [Rx] Bumetanide 2 mg PO BID 04/15/17 [History] Pembrolizumab [Keytruda] 100 mg IV Q3W 04/22/17 [History] Spironolactone [Aldactone] 100 mg PO DAILY 04/22/17 [History] Warfarin [Coumadin] 3 mg PO SUMOTUTHSA 04/22/17 [History] Warfarin [Coumadin] 6 mg PO WEFR 04/22/17 [History] metOLazone [Zaroxolyn] 2.5 mg PO QWEEK 04/22/17 [History] 3 Allergy/AdvReac Type Severity Reaction Status Date / Time morphine Allergy Hives Verified 03/15/17 10:08 Penicillins Allergy Hives Verified 03/15/17 10:08 aspirin AdvReac Nausea Verified 04/22/17 07:30 ibuprofen [From Motrin] AdvReac Vomiting Verified 03/15/17 10:08 All Systems Review: The remainder of the systems were reviewed and are negative Physical Examination Vital Signs Temp Pulse Resp BP Pulse Ox 04/22/17 05:00 97.6 F 64 17 117/60 96 04/21/17 23:58 18 91 04/21/17 22:45 97.3 F L 65 17 114/55 93 04/21/17 20:40 16 94 04/21/17 19:00 98.6 F 59 16 105/58 95 04/21/17 16:23 24 98 04/21/17 15:15 97.6 F 62 18 128/72 95 04/21/17 10:44 97.9 F 61 16 111/66 94 Intake and Output 04/21/17 04/22/17 04/22/17 23:59 07:59 15:59 Intake Total 1665 / 1665 118 / 118 0 / 0 Output Total 700 / 700 200 / 200 Balance 965 / 965 -82 / -82 0 / 0 Intake: IV Fluids 1425 / 1425 118 / 118 0.9 % Sodium Chloride 1,000 ML 1000 / 1000 @ 30 mls/hr IVC .Q24H [facility] Rx#: [id number] Heparin 25,000 UNIT/500 ML D5W 175 / 175 118 / 118 25,000 unit In 500 ml @ 14 UNIT /KG/HR 18.62 mls/hr IVC .Q24H [facility] Rx#:[id number] Zithromax 500 mg In Dextrose 5% 250 / 250 250 ML @ 252 mls/hr IVPB DAILY [facility] Rx#:[id number] Oral 240 / 240 0 / 0 Output: Urine 700 / 700 200 / 200 Other: Meal Dinner NPO Percent of Meal Consumed 50% 0% Stool Size Moderate Stool Consistency formed Stool Characteristics Normal for Patient Stool Color Brown # Voids 1 # Bowel Movements 1 Weight 66.5 kg Blood Glucose* 134 Patient Weight 04/22/17 23:59 Weight 66.5 kg General: Conversant, No Apparent Distress HEENT: Atraumatic, Normocephaly, Mucus Membranes Moist Neck: No JVD, Normal carotid pulses Cardiac: Reg Rate and Rhythm, Normal S1 and S2, No Murmur Lungs: Other (Respirations easy. Patient laying flat. Dry cough noted. Faint expiratory wheezes noted LML. ) Neuro: Alert and responsive, No focal deficits noted Abdomen: Soft, Non-Tender Skin: No rashes noted on visualized skin Musculoskeletal: No Chest Wall Tenderness Extremities: No Clubbing, No Cyanosis, No Edema, Normal Pulses Results 04/22/17 04:10 04/22/17 04:10 Lab Results 04/21/17 04/21/17 04/21/17 12:20 12:20 12:20 WBC 5.6 Hgb 9.8 L Hct 30.9 L Plt Count 174 INR 1.5 APTT 34.7 Sodium 132 L Potassium 2.7 L Chloride 95 L Carbon Dioxide 29 BUN 12 Creatinine 0.78 Glucose 117 H Calcium 10.3 04/21/17 04/22/17 04/22/17 18:14 04:10 04:10 WBC 4.3 Hgb 8.8 L Hct 28.0 L Plt Count 167 INR APTT 126.6 H* D Sodium 132 L Potassium 2.6 L Chloride 97 L Carbon Dioxide 27 BUN 14 Creatinine 0.87 Glucose 123 H Calcium 9.6 04/22/17 06:30 WBC Hgb Hct Plt Count INR APTT 48.6 H D Sodium Potassium Chloride Carbon Dioxide BUN Creatinine Glucose Calcium - Imaging and Cardiology Echo: report reviewed Consult Discharge Plan - Plan Referrals: Mag Chandra, GERMAN [Advanced Practice Nurse] - 05/06/17 10:20 am Jose Jones DO [Primary Care Provider] - <Edith Mccartney - Last Filed: 04/23/17 18:37> Date of Encounter: 04/23/17 - Attending Attestation 71 [address] of [address] Ann presents for hernia repair deemed moderate to high risk for cardiac events. Patient with h/o Afib and bioprosthetic AV, Moderate MS and pul HTN. Doing well after surgery denies any chest pain , orthopnea or PND. Patient to continue bridging protocol outlines prior to surgery as per recommendations. No further recommendations TTE 08/24/16: LVEF 60%, mild LVH, mild-moderately dilated RV with normal function , severely dilated LA, severely dilated RA, bioprosthetic aortic valve is well seated, prosthetic AV stenosis with mean gradient of 36 mmHg (similar to prior report), mild AR, moderate MS, severe TR, RVSP 63-73 mmHg. Assessment and Plan Discussion w patient/family: The assessment and plan as outlined above was discussed with the patient and/or family members who expressed understanding and agreement. All questions were answered. Thank you for involving us in the care of your patient. Please call with any questions. History of Present Illness History of present illness: Ms. Brooks is a 71 year old female All Systems Review: The remainder of the systems were reviewed and are negative Physical Examination Vital Signs, Last 4 Hours Temp Pulse Resp BP Pulse Ox 04/23/17 15:11 97.9 F 60 14 127/63 91 Results 04/23/17 04:00 04/23/17 04:00 Lab Results 04/23/17 04/23/17 04/23/17 04:00 04:00 08:27 WBC 6.9 Hgb 9.6 L Hct 30.2 L Plt Count 182 APTT 33.1 Sodium 128 L Potassium 3.8 D Chloride 94 L Carbon Dioxide 26 BUN 16 Creatinine 0.87 Glucose 147 H Calcium 9.8 04/23/17 17:42 WBC Hgb Hct Plt Count APTT 57.4 H D Sodium Potassium Chloride Carbon Dioxide BUN Creatinine Glucose Calcium
[2017-04-22] MEDS ORDERED: *HR* Midazolam HCl 2 MG/2 ML VIAL ONE (10:31)
[2017-04-22] MEDS ORDERED: Naloxone 0.4 MG/ML INJ IVP PRN ×2 (11:38→14:09)
[2017-04-22] MEDS ORDERED: *HR* OxyCODONE/APAP 5/325 TABLET PO PRN ×2 (11:38→14:09)
[2017-04-22] MEDS ORDERED: Ondansetron 4 MG/2 ML VIAL IVP ONE (11:38)
[2017-04-22] MEDS ORDERED: Albuterol 2.5 MG/3 ML NEBULIZER IH ONE (11:38)
[2017-04-22] MEDS ORDERED: *HR* OxyCODONE Immed Rel 5 MG TABLET PO PRN (11:38)
[2017-04-22] MEDS ORDERED: Ringers Solution, Lactated 1,000 ML IVC SCH (11:45)
[2017-04-22] MEDS ORDERED: Neostigmine Methylsulfate 3 MG/3 ML SYRINGE ONE ×2 (12:22→12:53)
[2017-04-22] MEDS: *HR* Meperidine 25 MG/ML SYRINGE IVP PRN ×2 (13:20→13:35)
[2017-04-22] MEDS ORDERED: traMADol 50 MG TABLET PO PRN (14:09)
[2017-04-22] MEDS ORDERED: Ondansetron 4 MG/2 ML VIAL IVP PRN (14:09)
[2017-04-22 14:30] LABS: Hematocrit 30.1 % (35.3-44.9); Hemoglobin 9.5 g/dL (11.5-15.4); Mean Corpuscular HGB Conc 31.6 g/dL (31.6-35.5); Mean Corpuscular Hemoglobin 27.4 pg (28.0-33.3); Mean Corpuscular Volume 86.7 fL (83.0-100.0); Mean Platelet Volume 9.8 fL (9.4-12.4); Platelet Count 179 K/mcL (140-400); Red Blood Count 3.47 M/mcL (3.82-4.97); Red Cell Distribution Width 15.9 % (11.5-14.5)
[2017-04-22] MEDS: *HR* OxyCODONE/APAP 10/325 TABLET PO PRN ×3 (14:31→23:18)
[2017-04-22] MEDS: 0.9 % Sodium Chloride 1,000 ML IVC SCH (14:31)
[2017-04-22 14:36] LABS: INR 1.4; Prothrombin Time 15.3 Seconds (9.4-12.1)
[2017-04-22 14:39] LABS: Activated Partial Thrombo Time 31.5 Seconds (26.0-36.0)
--- NOTE | 2017-04-22 15:59 | Operative Note ---
Date of procedure: 04/22/17 Pre-op diagnosis: Incisonal Hernia Post-op diagnosis: same Procedure: Robotic incisional hernia repair with 12cm mesh Anesthesia: ROSENDO Surgeon: Jean Claude Ely Was there an health assistant present: No Estimated blood loss (cc): 5 Specimen: 0 Condition: stable Disposition: same day Procedure in Detail: After informed consent, the patient was taken the operating room placed in supine position. After adequate sedation and anesthesia the patient's abdomen was prepped and draped. A proper timeout was performed. A 12 mm incision was made on the patient's left abdomen at the level of the umbilicus in the posterior axillary line. Two 8 mm cannulas were placed in the left upper quadrant and left lower quadrant. Once in place, a caduet grasper and robotic scissors were used to reduce the incarcerated tissue from the midline hernia. A 12 cm symbotex mesh was loaded into the abdomen. The robot was docked over the patient's right hip. The robotic arms were connected to the port sites. A robotic grasper and needle cdl a driver was inserted. The defect measured approximately 3 cm in size. The defect was closed with a V lock suture in running fashion. Once closed, the mesh was then situated over the defect and it was sewn to the abdominal wall with an 0 ethibond suture in running fashion. Once completed, the needles were retrieved. The abdomen was deflated and the port sites were removed the 12 mm cannula site was closed with an 0 Vicryl suture in [id number] fashion. The skin was closed with 4-0 Vicryl suture. Dermabond was placed. One half percent Marcaine 30 mL's were placed in the incision sites. The patient tolerated the procedure well. All instrument counts and needle counts were correct at the end of the case.
[2017-04-22] MEDS ORDERED: *HR* Warfarin 3 MG TABLET PO SCH (18:00)
[2017-04-22] MEDS: Bumetanide 1 MG TABLET PO SCH ×2 (21:39→23:18)
[2017-04-23] MEDS: Ipratropium/Albuterol Neb 3 ML IH SCH ×6 (03:54→23:46)
[2017-04-23] MEDS: *HR* OxyCODONE/APAP 10/325 TABLET PO PRN ×3 (05:26→21:35)
[2017-04-23 06:12] LABS: Basophils % 0.1 %; Hematocrit 30.2 % (35.3-44.9); Hemoglobin 9.6 g/dL (11.5-15.4); Immature Granulocytes % 0.6 % (0-4); Lymphocytes # 0.4 K/mcL (0.6-4.6); Lymphocytes % 6.3 %; Mean Corpuscular HGB Conc 31.8 g/dL (31.6-35.5); Mean Corpuscular Hemoglobin 27.5 pg (28.0-33.3); Mean Corpuscular Volume 86.5 fL (83.0-100.0); Mean Platelet Volume 9.6 fL (9.4-12.4); Monocytes # 0.3 K/mcL (0.0-1.3); Monocytes % 3.8 %; Neutrophils # 6.2 K/mcL (1.6-8.9); Platelet Count 182 K/mcL (140-400); Red Blood Count 3.49 M/mcL (3.82-4.97); Red Cell Distribution Width 15.8 % (11.5-14.5); Segmented Neutrophils % 89.2 %
[2017-04-23 06:31] LABS: BUN/Creatinine Ratio 18 (6-26); Blood Urea Nitrogen 16 mg/dL (8-23); Calcium 9.8 mg/dL (8.6-10.3); Carbon Dioxide 26 mEq/L (23-29); Chloride 94 mEq/L (98-107); Glucose 147 mg/dL (70-105); Osmolality,Calculated 270 (280-300); Potassium 3.8 mEq/L (3.5-5.1); Sodium 128 mEq/L (136-145); eGFR For African Americans > 60 (> 60); eGFR For Non-African Americans > 60 (> 60)
[2017-04-23] MEDS: Megestrol Acetate 400 MG/10 ML UDC PO SCH ×2 (10:23→10:29)
[2017-04-23] MEDS: Bumetanide 1 MG TABLET PO SCH ×2 (10:23→21:07)
[2017-04-23] MEDS: Heparin 25,000 UNIT/500 ML D5W 25,000 UNIT/500 ML BAG IVC SCH (11:42)
--- NOTE | 2017-04-23 11:46 | General Surgery Progress Note ---
<Samia Edwards - Last Filed: 04/23/17 11:43> Date of Encounter: 04/23/17 Time of Encounter: 11:43 - Assessment and Plan (1) Incisional hernia Current Visit: Yes Status: Acute 71-year-old female with extensive cardiac past medical history POD #1 from a robotic incisional hernia repair. -Abdominal exam distended with positive bowel sounds, however, no gas or bowel movement. -Keep patient on clear liquid diet. If nausea or vomiting develops, will make nothing by mouth and consider an NG tube. -Encourage walking with assistance 3 times a day. -Cardiology following. They recommend bridging with heparin. Heparin drip restarted this morning. Coumadin restarted yesterday evening. -We will continue to monitor clinically and for return of bowel function. Qualifiers: Obstruction and gangrene presence: without obstruction or gangrene Qualified Code(s): K43.2 - Incisional hernia without obstruction or gangrene; K43.91 - Incisional hernia, without obstruction or gangrene (2) Permanent atrial fibrillation Current Visit: Yes Status: Acute status post AVN ablation. (3) S/P aortic valve replacement with bioprosthetic valve Current Visit: Yes Status: Acute (4) Valvular heart disease Current Visit: Yes Status: Acute (5) CKD (chronic kidney disease) Current Visit: No Status: Chronic Qualifiers: Chronic kidney disease stage: stage 3 (moderate) Qualified Code(s): N18.3 - Chronic kidney disease, stage 3 (moderate) (6) DVT prophylaxis Current Visit: Yes Status: Acute Currently on a heparin drip. -Protonix daily for GI prophylaxis. Subjective Patient reports: no new complaints, still having pain, pain is less, tolerating liquids well, voiding w/o difficulty, no flatus, no bowel movement, afebrile Objective Vital Signs - Last 8 Hours Temp Pulse Resp BP Pulse Ox 04/23/17 10:28 97.5 F L 60 14 102/64 93 04/23/17 06:49 97.3 F L 62 14 110/66 94 04/23/17 03:54 18 92 Intake and Output 04/22/17 04/23/17 04/23/17 23:59 07:59 15:59 Intake Total 1000 / 1000 943 / 943 Output Total 250 / 250 200 / 200 0 / 0 Balance 750 / 750 -200 / -200 943 / 943 Intake: IV Fluids 1000 / 1000 583 / 583 0.9 % Sodium Chloride 1,000 ML 583 / 583 @ 30 mls/hr IVC .Q24H [facility] Rx#: [id number] Oral 360 / 360 Output: Urine 250 / 250 200 / 200 0 / 0 Other: Meal Clear # Voids 1 Weight 66.769 kg Patient Weight 04/23/17 23:59 Weight 66.769 kg - General physical appearance well developed, well nourished, no distress, moderate pain - Eyes normal ocular movement - Respiratory normal expansion, normal respiratory effort, other (Diminished air movement at the bilateral bases.) - Cardiovascular Cardiovascular exam: Present: RRR, no murmurs/rubs/gallops - Abdomen Abdomen: Present: bowel sounds present, soft, tympanic, distended. Absent: guarding, rebound, rigid Abdominal Tenderness: diffusely Hernia: none - Incision Incision: Present: clean and dry, intact - Integumentary no rash, no growths - Neurologic CN 2-12 grossly intact, normal coordination - Musculoskeletal normal posture - Psychiatric oriented to time, oriented to person, oriented to place, speech is normal, memory intact - Labs 04/23/17 04:00 04/23/17 04:00 Diabetes panel 04/23/17 Range/Units 04:00 Sodium 128 L (136-145) mEq/L Potassium 3.8 D (3.5-5.1) mEq/L Chloride 94 L (98-107) mEq/L Carbon Dioxide 26 (23-29) mEq/L BUN 16 (8-23) mg/dL Creatinine 0.87 (0.60-1.20) mg/dL Glucose 147 H (70-105) mg/dL Calcium 9.8 (8.6-10.3) mg/dL Calcium panel 04/23/17 Range/Units 04:00 Calcium 9.8 (8.6-10.3) mg/dL Pituitary panel 04/23/17 Range/Units 04:00 Sodium 128 L (136-145) mEq/L Potassium 3.8 D (3.5-5.1) mEq/L Chloride 94 L (98-107) mEq/L Carbon Dioxide 26 (23-29) mEq/L BUN 16 (8-23) mg/dL Creatinine 0.87 (0.60-1.20) mg/dL Glucose 147 H (70-105) mg/dL Calcium 9.8 (8.6-10.3) mg/dL Adrenal panel 04/23/17 Range/Units 04:00 Sodium 128 L (136-145) mEq/L Potassium 3.8 D (3.5-5.1) mEq/L Chloride 94 L (98-107) mEq/L Carbon Dioxide 26 (23-29) mEq/L BUN 16 (8-23) mg/dL Creatinine 0.87 (0.60-1.20) mg/dL Glucose 147 H (70-105) mg/dL Calcium 9.8 (8.6-10.3) mg/dL - VTE Documentation of Mechanical Device: Intermittent pneumatic compression device Consult Discharge Plan - Plan Referrals: Mag Chandra CNP [Advanced Practice Nurse] - 05/06/17 10:20 am Jose Jones DO [Primary Care Provider] - <Rk Garcia - Last Filed: 04/23/17 13:23> Date of Encounter: 04/23/17 Objective Vital Signs - Last 8 Hours Temp Pulse Resp BP Pulse Ox 04/23/17 10:28 97.5 F L 60 14 102/64 93 04/23/17 06:49 97.3 F L 62 14 110/66 94 Intake and Output 04/22/17 04/23/17 04/23/17 23:59 07:59 15:59 Intake Total 1000 / 1000 943 / 943 Output Total 250 / 250 200 / 200 0 / 0 Balance 750 / 750 -200 / -200 943 / 943 Intake: IV Fluids 1000 / 1000 583 / 583 0.9 % Sodium Chloride 1,000 ML 583 / 583 @ 30 mls/hr IVC .Q24H [facility] Rx#: [id number] Oral 360 / 360 Output: Urine 250 / 250 200 / 200 0 / 0 Other: Meal Clear # Voids 1 Weight 66.769 kg Patient Weight 04/23/17 23:59 Weight 66.769 kg - Labs 04/23/17 04:00 04/23/17 04:00 Diabetes panel 04/23/17 Range/Units 04:00 Sodium 128 L (136-145) mEq/L Potassium 3.8 D (3.5-5.1) mEq/L Chloride 94 L (98-107) mEq/L Carbon Dioxide 26 (23-29) mEq/L BUN 16 (8-23) mg/dL Creatinine 0.87 (0.60-1.20) mg/dL Glucose 147 H (70-105) mg/dL Calcium 9.8 (8.6-10.3) mg/dL Calcium panel 04/23/17 Range/Units 04:00 Calcium 9.8 (8.6-10.3) mg/dL Pituitary panel 04/23/17 Range/Units 04:00 Sodium 128 L (136-145) mEq/L Potassium 3.8 D (3.5-5.1) mEq/L Chloride 94 L (98-107) mEq/L Carbon Dioxide 26 (23-29) mEq/L BUN 16 (8-23) mg/dL Creatinine 0.87 (0.60-1.20) mg/dL Glucose 147 H (70-105) mg/dL Calcium 9.8 (8.6-10.3) mg/dL Adrenal panel 04/23/17 Range/Units 04:00 Sodium 128 L (136-145) mEq/L Potassium 3.8 D (3.5-5.1) mEq/L Chloride 94 L (98-107) mEq/L Carbon Dioxide 26 (23-29) mEq/L BUN 16 (8-23) mg/dL Creatinine 0.87 (0.60-1.20) mg/dL Glucose 147 H (70-105) mg/dL Calcium 9.8 (8.6-10.3) mg/dL - Attending Attestation I have personally seen and examined the patient. I have reviewed pertinent labs , imaging, progress notes, including this one. I agree with the above assessment and plan and wish to include the following... 71F with significant cardiac history POD#1 s.p robotic ventral hernia repair; patient states pain is controlled; she is tolerating liquids; abdomen is distended, even by patient's standards; concern she may be developing an ileus; will not advance diet; discussed with patient about the need to ambulate and get OOBTC; also discussed with nurse; will insert NG tube if she vomits;
[2017-04-23] MEDS: *HR* Warfarin 3 MG TABLET PO SCH (17:37)
[2017-04-23] MEDS: 0.9 % Sodium Chloride 1,000 ML IVC SCH (23:34)
[2017-04-24] MEDS: Ipratropium/Albuterol Neb 3 ML IH SCH ×5 (04:38→20:16)
[2017-04-24] MEDS: Megestrol Acetate 400 MG/10 ML UDC PO SCH ×2 (08:33→08:43)
[2017-04-24] MEDS: Bumetanide 1 MG TABLET PO SCH (08:33)
[2017-04-24 13:01] LABS: INR 1.6; Prothrombin Time 17.7 Seconds (9.4-12.1)
--- NOTE | 2017-04-24 13:17 | General Surgery Progress Note ---
<Samia Edwards Leanne - Last Filed: 04/24/17 13:15> Date of Encounter: 04/24/17 Time of Encounter: 10:20 - Assessment and Plan (1) Incisional hernia Current Visit: Yes Status: Acute 71-year-old female with extensive cardiac past medical history POD #2 from a robotic incisional hernia repair. -Abdominal exam distended with positive bowel sounds, however, no gas or bowel movement. -Keep patient on clear liquid diet. If nausea or vomiting develops, will make nothing by mouth and consider an NG tube. -Encourage walking with assistance 3 times a day. -Repletion of electrolytes (potassium greater than 3.8, mag greater than 1.9, and phos greater than 3.0). -Patient currently on a heparin drip. Oral Coumadin restarted yesterday. -We will continue to monitor clinically and for return of bowel function. Qualifiers: Obstruction and gangrene presence: without obstruction or gangrene Qualified Code(s): K43.2 - Incisional hernia without obstruction or gangrene; K43.91 - Incisional hernia, without obstruction or gangrene (2) Permanent atrial fibrillation Current Visit: Yes Status: Acute status post AVN ablation. (3) S/P aortic valve replacement with bioprosthetic valve Current Visit: Yes Status: Acute (4) Valvular heart disease Current Visit: Yes Status: Acute (5) CKD (chronic kidney disease) Current Visit: No Status: Chronic Qualifiers: Chronic kidney disease stage: stage 3 (moderate) Qualified Code(s): N18.3 - Chronic kidney disease, stage 3 (moderate) (6) DVT prophylaxis Current Visit: Yes Status: Acute Currently on a heparin drip. -Protonix daily for GI prophylaxis. Subjective Patient reports: no new complaints, feels better, pain is less, tolerating liquids well, no flatus, no bowel movement, afebrile (Patient hungry, however, no flatus or bowel movement. Positive bowel sounds, however, abdomen is distended.) Objective Vital Signs - Last 8 Hours Temp Pulse Resp BP Pulse Ox 04/24/17 11:29 18 97 04/24/17 11:22 97.8 F 60 18 143/78 94 04/24/17 07:03 97.6 F 60 15 100/58 96 Intake and Output 0304/24/17 04/24/17 23:59 07:59 15:59 Intake Total 997 / 997 100 / 100 403 / 403 Output Total 600 / 600 550 / 550 800 / 800 Balance 397 / 397 -450 / -450 -397 / -397 Intake: IV Fluids 517 / 517 403 / 403 0.9 % Sodium Chloride 1,000 ML 417 / 417 143 / 143 @ 30 mls/hr IVC .Q24H [facility] Rx#: [id number] Heparin 25,000 UNIT/500 ML D5W 100 / 100 260 / 260 25,000 unit In 500 ml @ 14 UNIT /KG/HR 18.62 mls/hr IVC .Q24H [facility] Rx#:[id number] Oral 480 / 480 100 / 100 Output: Urine 600 / 600 550 / 550 800 / 800 Other: Meal Dinner # Bowel Movements 0 Weight 66.633 kg Patient Weight 04/24/17 23:59 Weight 66.633 kg - General physical appearance well developed, no distress, moderate pain (Mild), chronically ill (Diffuse bruising) - Eyes normal ocular movement - Respiratory normal expansion, normal respiratory effort, clear to auscultation - Cardiovascular Cardiovascular exam: Present: RRR, murmurs - Abdomen Abdomen: Present: bowel sounds present, soft, distended, tender. Absent: guarding, rebound, rigid Abdominal Tenderness: diffusely (Mild) Hernia: none - Incision Incision: Present: clean and dry, intact - Integumentary no rash - Neurologic CN 2-12 grossly intact, normal coordination - Musculoskeletal normal gait, normal posture - Psychiatric oriented to time, oriented to person, oriented to place, speech is normal, memory intact - Labs 04/23/17 04:00 04/23/17 04:00 - VTE Documentation of Mechanical Device: Intermittent pneumatic compression device Consult Discharge Plan - Plan Referrals: Mag Chandra, GERMAN [Advanced Practice Nurse] - 05/06/17 10:20 am Jose Jones DO [Primary Care Provider] - <Rk Garcia - Last Filed: 04/24/17 14:29> Date of Encounter: 04/24/17 Objective Vital Signs - Last 8 Hours Temp Pulse Resp BP Pulse Ox 04/24/17 11:29 18 97 04/24/17 11:22 97.8 F 60 18 143/78 94 04/24/17 07:03 97.6 F 60 15 100/58 96 Intake and Output 04/23/17 04/24/17 04/24/17 23:59 07:59 15:59 Intake Total 997 / 997 100 / 100 643 / 643 Output Total 600 / 600 550 / 550 1100 / 1100 Balance 397 / 397 -450 / -450 -457 / -457 Intake: IV Fluids 517 / 517 403 / 403 0.9 % Sodium Chloride 1,000 ML 417 / 417 143 / 143 @ 30 mls/hr IVC .Q24H [facility] Rx#: [id number] Heparin 25,000 UNIT/500 ML D5W 100 / 100 260 / 260 25,000 unit In 500 ml @ 14 UNIT /KG/HR 18.62 mls/hr IVC .Q24H [facility] Rx#:[id number] Oral 480 / 480 100 / 100 240 / 240 Output: Urine 600 / 600 550 / 550 1100 / 1100 Other: Meal Dinner Clear # Bowel Movements 0 Weight 66.633 kg Patient Weight 04/24/17 23:59 Weight 66.633 kg - Labs 04/24/17 13:49 04/23/17 04:00 - Attending Attestation I have personally seen and examined the patient. I have reviewed pertinent labs , imaging, progress notes, including this one. I agree with the above assessment and plan and wish to include the following... 71F POD#2 s/p robotic ventral hernia repair; pain improved; tolerating liquids; abd soft, appropriately tender, still distended; awaiting return of bowel function; cont on CLD;
[2017-04-24 13:25] LABS: Activated Partial Thrombo Time 235.2 Seconds (26.0-36.0)
[2017-04-24 13:29] LABS: Heparin anti-factor XA UFH 0.43 IU/mL (0.30-0.70)
[2017-04-24 14:07] LABS: Basophils % 0.2 %; Eosinophils % 0.3 %; Hemoglobin 9.4 g/dL (11.5-15.4); Immature Granulocytes % 0.3 % (0-4); Lymphocytes # 0.8 K/mcL (0.6-4.6); Lymphocytes % 12.4 %; Mean Corpuscular HGB Conc 31.3 g/dL (31.6-35.5); Mean Corpuscular Hemoglobin 27.6 pg (28.0-33.3); Mean Platelet Volume 9.6 fL (9.4-12.4); Monocytes # 0.6 K/mcL (0.0-1.3); Monocytes % 8.6 %; Neutrophils # 5.1 K/mcL (1.6-8.9); Platelet Count 201 K/mcL (140-400); Red Blood Count 3.41 M/mcL (3.82-4.97); Red Cell Distribution Width 15.9 % (11.5-14.5); Segmented Neutrophils % 78.2 %
[2017-04-24 15:29] LABS: BUN/Creatinine Ratio 22 (6-26); Blood Urea Nitrogen 23 mg/dL (8-23); Calcium 9.8 mg/dL (8.6-10.3); Carbon Dioxide 25 mEq/L (23-29); Chloride 95 mEq/L (98-107); Glucose 135 mg/dL (70-105); Magnesium 1.7 mg/dL (1.6-2.6); Osmolality,Calculated 272 (280-300); Phosphorous 2.6 mg/dL (2.7-4.5); Potassium 2.9 mEq/L (3.5-5.1); Sodium 128 mEq/L (136-145); eGFR For African Americans > 60 (> 60); eGFR For Non-African Americans 52 (> 60)
[2017-04-24] MEDS: *HR* OxyCODONE/APAP 10/325 TABLET PO PRN (16:22)
[2017-04-24] MEDS ORDERED: Potassium Chloride 40 MEQ, Lidocaine 1% 2 ML in D5% in Water 500 ML IVPB ONE (16:36)
[2017-04-24] MEDS: *HR* Warfarin 3 MG TABLET PO SCH (17:25)
[2017-04-24] MEDS: Heparin 25,000 UNIT/500 ML D5W 25,000 UNIT/500 ML BAG IVC SCH (17:27)
[2017-04-24 21:26] LABS: Activated Partial Thrombo Time 140.2 Seconds (26.0-36.0)
[2017-04-24 21:57] LABS: Heparin anti-factor XA UFH 0.33 IU/mL (0.30-0.70)
[2017-04-25] MEDS: Ipratropium/Albuterol Neb 3 ML IH SCH ×7 (00:04→23:22)
[2017-04-25 05:33] LABS: Basophils % 0.3 %; Eosinophils # 0.1 K/mcL (0.0-0.6); Eosinophils % 1.2 %; Hematocrit 30.4 % (35.3-44.9); Hemoglobin 9.3 g/dL (11.5-15.4); Immature Granulocytes % 0.1 % (0-4); Lymphocytes # 0.8 K/mcL (0.6-4.6); Lymphocytes % 12.4 %; Mean Corpuscular HGB Conc 30.6 g/dL (31.6-35.5); Mean Corpuscular Hemoglobin 26.9 pg (28.0-33.3); Mean Corpuscular Volume 87.9 fL (83.0-100.0); Monocytes # 0.7 K/mcL (0.0-1.3); Neutrophils # 5.1 K/mcL (1.6-8.9); Platelet Count 205 K/mcL (140-400); Red Blood Count 3.46 M/mcL (3.82-4.97); Red Cell Distribution Width 16.1 % (11.5-14.5)
[2017-04-25 05:43] LABS: BUN/Creatinine Ratio 20 (6-26); Blood Urea Nitrogen 20 mg/dL (8-23); Calcium 9.6 mg/dL (8.6-10.3); Carbon Dioxide 24 mEq/L (23-29); Chloride 98 mEq/L (98-107); Glucose 120 mg/dL (70-105); Osmolality,Calculated 276 (280-300); Potassium 3.5 mEq/L (3.5-5.1); Sodium 131 mEq/L (136-145); eGFR For African Americans > 60 (> 60); eGFR For Non-African Americans 55 (> 60)
[2017-04-25 05:44] LABS: Magnesium 1.6 mg/dL (1.6-2.6); Phosphorous 2.6 mg/dL (2.7-4.5)
[2017-04-25] MEDS: Bumetanide 1 MG TABLET PO SCH ×3 (08:32→20:47)
[2017-04-25] MEDS: *HR* OxyCODONE/APAP 10/325 TABLET PO PRN ×2 (08:32→17:05)
[2017-04-25] MEDS: Megestrol Acetate 400 MG/10 ML UDC PO SCH ×2 (08:33→08:37)
--- NOTE | 2017-04-25 10:32 | General Surgery Progress Note ---
Date of Encounter: 04/25/17 Time of Encounter: 10:15 - Assessment and Plan (1) Incisional hernia Current Visit: Yes Status: Acute POD #3 Robotic incisional hernia repair with 12cm mesh with Dr. Ely Continue clear liquids while awaiting return of bowel function IV fluids Supportive care and pain control GI/DVT prophylaxis Ambulate hallways TID with assistance Add reglan AAS- mild colonic dilation Qualifiers: Obstruction and gangrene presence: without obstruction or gangrene Qualified Code(s): K43.2 - Incisional hernia without obstruction or gangrene; K43.91 - Incisional hernia, without obstruction or gangrene (2) Ileus, postoperative Current Visit: Yes Status: Acute Continue clear liquids for now Await return of bowel function Start reglan 10mg IV every 6 hours for the next 48 hours [address] hallways TID with assistance (3) Permanent atrial fibrillation Current Visit: Yes Status: Chronic Heparin gtt Coumadin restarted 04/23/17 Check INR today (4) S/P aortic valve replacement with bioprosthetic valve Current Visit: Yes Status: Chronic Continue heparin gtt Coumadin restarted 04/23/17 Check INR today (5) Valvular heart disease Current Visit: Yes Status: Chronic (6) CKD (chronic kidney disease) Current Visit: No Status: Chronic Stable Cr- 0.99 Avoid nephrotoxic medications Qualifiers: Chronic kidney disease stage: stage 3 (moderate) Qualified Code(s): N18.3 - Chronic kidney disease, stage 3 (moderate) Subjective Patient reports: no new complaints, feels better, still having pain, pain is less, tolerating liquids well, voiding w/o difficulty, flatus (last evening X 1 , none today), no bowel movement, afebrile, other (Bloated and belching; complaint of lower extremity edema) Objective Vital Signs - Last 8 Hours Temp Pulse Resp BP Pulse Ox 04/25/17 08:10 98.3 F 60 16 155/79 98 04/25/17 03:19 97.6 F 60 14 144/75 96 Intake and Output 04/24/17 04/25/17 04/25/17 23:59 07:59 15:59 Intake Total 726 / 726 120 / 120 Output Total 700 / 700 100 / 100 405 / 405 Balance -405 / -405 Intake: IV Fluids 126 / 126 Heparin 25,000 UNIT/500 ML D5W 126 / 126 25,000 unit In 500 ml @ 14 UNIT /KG/HR 18.62 mls/hr IVC .Q24H [facility] Rx#:[id number] Oral 600 / 600 120 / 120 Output: Urine 700 / 700 100 / 100 405 / 405 Other: Meal Dinner # Bowel Movements 0 Weight 66.587 kg Patient Weight 04/25/17 23:59 Weight 66.587 kg - General physical appearance well developed, well nourished, no distress - Eyes normal ocular movement - ENT normal mucosa, atraumatic, normocephalic - Neck Neck exam: trachea midline - Respiratory normal respiratory effort, clear to auscultation, other (diminished bibasilar bases) - Cardiovascular Cardiovascular exam: Present: irregular rhythm - Abdomen Abdomen: Present: soft, distended, tender (expected tenderness) - Incision Incision: Present: clean and dry, intact - Neurologic CN 2-12 grossly intact - Psychiatric oriented to time, oriented to person, oriented to place, speech is normal, memory intact - Labs 04/25/17 05:00 04/25/17 05:00 Diabetes panel 04/24/17 04/25/17 Range/Units 13:33 05:00 Sodium 128 L 131 L (136-145) mEq/L Potassium 2.9 L 3.5 (3.5-5.1) mEq/L Chloride 95 L 98 (98-107) mEq/L Carbon Dioxide 25 24 (23-29) mEq/L BUN 23 20 (8-23) mg/dL Creatinine 1.05 0.99 (0.60-1.20) mg/dL Glucose 135 H 120 H (70-105) mg/dL Calcium 9.8 9.6 (8.6-10.3) mg/dL Calcium panel 04/24/17 04/25/17 04/25/17 Range/Units 13:33 05:00 05:00 Calcium 9.8 9.6 (8.6-10.3) mg/dL Phosphorus 2.6 L 2.6 L (2.7-4.5) mg/dL Pituitary panel 04/24/17 04/25/17 Range/Units 13:33 05:00 Sodium 128 L 131 L (136-145) mEq/L Potassium 2.9 L 3.5 (3.5-5.1) mEq/L Chloride 95 L 98 (98-107) mEq/L Carbon Dioxide 25 24 (23-29) mEq/L BUN 23 20 (8-23) mg/dL Creatinine 1.05 0.99 (0.60-1.20) mg/dL Glucose 135 H 120 H (70-105) mg/dL Calcium 9.8 9.6 (8.6-10.3) mg/dL Adrenal panel 04/24/17 04/25/17 Range/Units 13:33 05:00 Sodium 128 L 131 L (136-145) mEq/L Potassium 2.9 L 3.5 (3.5-5.1) mEq/L Chloride 95 L 98 (98-107) mEq/L Carbon Dioxide 25 24 (23-29) mEq/L BUN 23 20 (8-23) mg/dL Creatinine 1.05 0.99 (0.60-1.20) mg/dL Glucose 135 H 120 H (70-105) mg/dL Calcium 9.8 9.6 (8.6-10.3) mg/dL - VTE Documentation of Mechanical Device: Intermittent pneumatic compression device Consult Discharge Plan - Plan Referrals: Mag Chandra CNP [Advanced Practice Nurse] - 05/06/17 10:20 am Jose Jones DO [Primary Care Provider] - - Attending Attestation For this encounter, I have reviewed the E MERCHANT or PA documentation, treatment plan, and medical decision making; and I have had face to face time with this patient.
[2017-04-25] MEDS: Metoclopramide 10 MG/2 ML VIAL IVP SCH ×2 (12:14→18:47)
[2017-04-25 13:10] LABS: INR 1.9; Prothrombin Time 20.2 Seconds (9.4-12.1)
[2017-04-25 13:27] LABS: Activated Partial Thrombo Time 155.2 Seconds (26.0-36.0)
--- NOTE | 2017-04-25 14:08 | Event Note ---
Date of Encounter: 04/25/17 Time of Encounter: 13:45 Bedside RN, Jasmyne, reports APTT of 155 and that per protocol she has stopped heparin gtt for 1 hour. Continue hep gtt when appropriate per protocol. Also noted INR of 1.9 with resumption of warfarin.
[2017-04-25 14:20] LABS: Heparin anti-factor XA UFH 0.29 IU/mL (0.30-0.70)
[2017-04-25] MEDS: *HR* Warfarin 3 MG TABLET PO SCH (18:47)
[2017-04-25] MEDS: Heparin 25,000 UNIT/500 ML D5W 25,000 UNIT/500 ML BAG IVC SCH (19:46)
[2017-04-25] MEDS: Ringers Solution, Lactated 1,000 ML IVC SCH (19:46)
[2017-04-25] MEDS: 0.9 % Sodium Chloride 1,000 ML IVC SCH (19:47)
[2017-04-25 21:43] LABS: Activated Partial Thrombo Time > 360.0 Seconds (26.0-36.0)
[2017-04-25 21:53] LABS: Heparin anti-factor XA UFH 0.44 IU/mL (0.30-0.70)
[2017-04-26] MEDS: Metoclopramide 10 MG/2 ML VIAL IVP SCH ×5 (00:30→23:25)
[2017-04-26] MEDS: Ipratropium/Albuterol Neb 3 ML IH SCH ×5 (04:14→19:25)
[2017-04-26 05:15] LABS: Basophils % 0.5 %; Eosinophils # 0.1 K/mcL (0.0-0.6); Eosinophils % 3.1 %; Hematocrit 29.5 % (35.3-44.9); Hemoglobin 9.1 g/dL (11.5-15.4); Immature Granulocytes % 0.2 % (0-4); Lymphocytes # 0.6 K/mcL (0.6-4.6); Lymphocytes % 15.1 %; Mean Corpuscular HGB Conc 30.8 g/dL (31.6-35.5); Mean Corpuscular Hemoglobin 26.9 pg (28.0-33.3); Mean Corpuscular Volume 87.3 fL (83.0-100.0); Monocytes # 0.5 K/mcL (0.0-1.3); Monocytes % 10.8 %; Nucleated Red Blood Cells 0.9 /100 WBC (0); Platelet Count 183 K/mcL (140-400); Red Blood Count 3.38 M/mcL (3.82-4.97); Red Cell Distribution Width 15.9 % (11.5-14.5); Segmented Neutrophils % 70.3 %
[2017-04-26 05:17] LABS: INR 2.2; Prothrombin Time 24.2 Seconds (9.4-12.1)
[2017-04-26 05:29] LABS: BUN/Creatinine Ratio 18 (6-26); Blood Urea Nitrogen 16 mg/dL (8-23); Calcium 9.5 mg/dL (8.6-10.3); Carbon Dioxide 26 mEq/L (23-29); Chloride 98 mEq/L (98-107); Glucose 109 mg/dL (70-105); Osmolality,Calculated 274 (280-300); Potassium 3.4 mEq/L (3.5-5.1); Sodium 131 mEq/L (136-145); eGFR For African Americans > 60 (> 60); eGFR For Non-African Americans > 60 (> 60)
[2017-04-26 05:55] LABS: Activated Partial Thrombo Time 138.8 Seconds (26.0-36.0)
[2017-04-26 06:04] LABS: Heparin anti-factor XA UFH 0.15 IU/mL (0.30-0.70)
[2017-04-26] MEDS ORDERED: 0.9 % Sodium Chloride 500 ML ONE (06:41)
[2017-04-26] MEDS ORDERED: Potassium Chloride 20 MEQ, Lidocaine 1% 2 ML in D5% in Water 250 ML IVPB ONE (07:58)
[2017-04-26] MEDS: Bumetanide 1 MG TABLET PO SCH ×2 (08:17→21:50)
[2017-04-26] MEDS: Megestrol Acetate 400 MG/10 ML UDC PO SCH (08:17)
[2017-04-26] MEDS: *HR* OxyCODONE/APAP 10/325 TABLET PO PRN ×3 (08:34→23:25)
--- NOTE | 2017-04-26 10:32 | General Surgery Progress Note ---
Date of Encounter: 04/26/17 Time of Encounter: 10:29 - Assessment and Plan (1) Incisional hernia Current Visit: Yes Status: Acute 71-year-old female with extensive cardiac past medical history POD #4 from a robotic incisional hernia repair. Abdominal exam distended with positive bowel sounds and flatus. Acute abdominal series on 04/25/17 mild distension of colon. Will advance diet to full liquid diet. Encourage walking with assistance 3 times a day. Reglan Heparin drip D/C'd. On coumadin. Therapeutic INR. Supportive care and pain control. We will continue to monitor clinically and for return of bowel function. Qualifiers: Obstruction and gangrene presence: without obstruction or gangrene Qualified Code(s): K43.2 - Incisional hernia without obstruction or gangrene; K43.91 - Incisional hernia, without obstruction or gangrene (2) Ileus, postoperative Current Visit: Yes Status: Acute Will advance to FLD Continue 48 hour course of reglan Ambulation in hallways TID with assistance (3) Postoperative hematoma Current Visit: Yes Status: Acute Erythema and edema in LLQ. Nonblanching Stable Qualifiers: Surgical complication system/body Area: subcutaneous tissue Procedure type : non-dermatologic Qualified Code(s): L76.32 - Postprocedural hematoma of skin and subcutaneous tissue following other procedure (4) Permanent atrial fibrillation Current Visit: Yes Status: Chronic status post AVN ablation. (5) S/P aortic valve replacement with bioprosthetic valve Current Visit: Yes Status: Chronic (6) Valvular heart disease Current Visit: Yes Status: Chronic (7) CKD (chronic kidney disease) Current Visit: No Status: Chronic avoid nephrotoxic medications. Qualifiers: Chronic kidney disease stage: stage 3 (moderate) Qualified Code(s): N18.3 - Chronic kidney disease, stage 3 (moderate) (8) DVT prophylaxis Current Visit: Yes Status: Acute INR 2.2- On coumadin. Protonix daily for GI prophylaxis. Subjective Patient reports: no new complaints, feels better, pain is less, tolerating liquids well, voiding w/o difficulty, flatus, no bowel movement, afebrile Objective Vital Signs - Last 8 Hours Temp Pulse Resp BP Pulse Ox 04/26/17 08:12 96 04/26/17 07:43 97.4 F L 60 16 139/84 96 04/26/17 03:31 98.0 F 60 15 151/79 92 Intake and Output 04/25/17 04/26/17 04/26/17 23:59 07:59 15:59 Intake Total 677.2 / 677.2 53.9 / 53.9 240 / 240 Output Total 350 / 350 900 / 900 Balance 327.2 / 327.2 -846.1 / -846.1 240 / 240 Intake: IV Fluids 77.2 / 77.2 53.9 / 53.9 Heparin 25,000 UNIT/500 ML D5W 77.2 / 77.2 53.9 / 53.9 25,000 unit In 500 ml @ 14 UNIT /KG/HR 18.62 mls/hr IVC .Q24H [facility] Rx#:[id number] Oral 600 / 600 0 / 0 240 / 240 Output: Urine 350 / 350 900 / 900 Other: Meal Clear # Voids 1 Weight 72.393 kg Patient Weight 04/26/17 23:59 Weight 72.393 kg - General physical appearance well developed, no pain, chronically ill - Eyes normal ocular movement - ENT normal mucosa, normocephalic - Respiratory normal expansion, normal respiratory effort, clear to auscultation - Cardiovascular Cardiovascular exam: Present: RRR, no murmurs/rubs/gallops - Abdomen Abdomen: Present: bowel sounds present, distended. Absent: guarding, rebound, rigid - Incision Incision: Present: clean and dry, intact (Patient with LLQ edema and erythema without blanching. No warmth, induration or fluctuance. ) - Neurologic CN 2-12 grossly intact, normal coordination - Psychiatric oriented to time, oriented to person, oriented to place, speech is normal, memory intact - Labs 04/26/17 04:50 04/26/17 04:50 Diabetes panel 04/26/17 Range/Units 04:50 Sodium 131 L (136-145) mEq/L Potassium 3.4 L (3.5-5.1) mEq/L Chloride 98 (98-107) mEq/L Carbon Dioxide 26 (23-29) mEq/L BUN 16 (8-23) mg/dL Creatinine 0.90 (0.60-1.20) mg/dL Glucose 109 H (70-105) mg/dL Calcium 9.5 (8.6-10.3) mg/dL Calcium panel 04/26/17 Range/Units 04:50 Calcium 9.5 (8.6-10.3) mg/dL Pituitary panel 04/26/17 Range/Units 04:50 Sodium 131 L (136-145) mEq/L Potassium 3.4 L (3.5-5.1) mEq/L Chloride 98 (98-107) mEq/L Carbon Dioxide 26 (23-29) mEq/L BUN 16 (8-23) mg/dL Creatinine 0.90 (0.60-1.20) mg/dL Glucose 109 H (70-105) mg/dL Calcium 9.5 (8.6-10.3) mg/dL Adrenal panel 04/26/17 Range/Units 04:50 Sodium 131 L (136-145) mEq/L Potassium 3.4 L (3.5-5.1) mEq/L Chloride 98 (98-107) mEq/L Carbon Dioxide 26 (23-29) mEq/L BUN 16 (8-23) mg/dL Creatinine 0.90 (0.60-1.20) mg/dL Glucose 109 H (70-105) mg/dL Calcium 9.5 (8.6-10.3) mg/dL - VTE Documentation of Mechanical Device: Intermittent pneumatic compression device Consult Discharge Plan - Plan Referrals: Mag Chandra CNP [Advanced Practice Nurse] - 05/06/17 10:20 am Jose Jones DO [Primary Care Provider] -
[2017-04-26] MEDS: *HR* Warfarin 3 MG TABLET PO SCH (17:35)
[2017-04-27] MEDS: Ipratropium/Albuterol Neb 3 ML IH SCH ×7 (00:02→23:20)
[2017-04-27 05:36] LABS: INR 2.4; Prothrombin Time 26.3 Seconds (9.4-12.1)
[2017-04-27 05:55] LABS: BUN/Creatinine Ratio 16 (6-26); Blood Urea Nitrogen 14 mg/dL (8-23); Calcium 9.9 mg/dL (8.6-10.3); Carbon Dioxide 26 mEq/L (23-29); Chloride 96 mEq/L (98-107); Glucose 107 mg/dL (70-105); Osmolality,Calculated 271 (280-300); Potassium 3.7 mEq/L (3.5-5.1); Sodium 130 mEq/L (136-145); eGFR For African Americans > 60 (> 60); eGFR For Non-African Americans > 60 (> 60)
[2017-04-27] MEDS: Metoclopramide 10 MG/2 ML VIAL IVP SCH ×2 (06:27→11:46)
[2017-04-27] MEDS: Bumetanide 1 MG TABLET PO SCH ×2 (08:46→20:19)
[2017-04-27] MEDS: Megestrol Acetate 400 MG/10 ML UDC PO SCH (08:47)
[2017-04-27] MEDS: *HR* OxyCODONE/APAP 10/325 TABLET PO PRN (10:16)
--- NOTE | 2017-04-27 11:54 | General Surgery Progress Note ---
Date of Encounter: 04/27/17 Time of Encounter: 11:30 - Assessment and Plan (1) Incisional hernia Current Visit: Yes Status: Acute POD #5 Robotic incisional hernia repair with 12cm mesh with Dr. Ely Advance to soft diet Supportive care and pain control GI/DVT prophylaxis Ambulate hallways TID with assistance Consult PT for recommendations for discharge (rehab vs. home health) Qualifiers: Obstruction and gangrene presence: without obstruction or gangrene Qualified Code(s): K43.2 - Incisional hernia without obstruction or gangrene; K43.91 - Incisional hernia, without obstruction or gangrene (2) Ileus, postoperative Current Visit: Yes Status: Resolved Resolved Advance to soft diet Ambulate hallways TID with assistance (3) Permanent atrial fibrillation Current Visit: Yes Status: Chronic Coumadin restarted 04/23/17 INR- 2.4 Coumadin dose decreased to 1.5mg this evening (4) S/P aortic valve replacement with bioprosthetic valve Current Visit: Yes Status: Chronic Coumadin restarted 04/23/17 INR- 2.4 Coumadin dose decreased to 1.5mg this evening (5) Valvular heart disease Current Visit: Yes Status: Chronic (6) CKD (chronic kidney disease) Current Visit: No Status: Chronic Stable Cr- 0.85 Avoid nephrotoxic medications Qualifiers: Chronic kidney disease stage: stage 3 (moderate) Qualified Code(s): N18.3 - Chronic kidney disease, stage 3 (moderate) (7) Physical deconditioning Current Visit: Yes Status: Acute Physical therapy consult for recommendations Ready for discharge from a surgical standpoint- rehab vs. home health Subjective Patient reports: no new complaints, feels better, still having pain, pain is less, tolerating liquids well (full liquids), voiding w/o difficulty, flatus, no bowel movement, afebrile Objective Vital Signs - Last 8 Hours Temp Pulse Resp BP Pulse Ox 04/27/17 11:24 16 123/77 93 04/27/17 10:52 93 04/27/17 10:39 98.2 F 63 15 114/61 91 04/27/17 07:19 97.6 F 60 15 123/77 96 04/27/17 04:25 98.2 F 62 14 138/66 93 Intake and Output 04/26/17 04/27/17 04/27/17 23:59 07:59 15:59 Intake Total 240 / 240 120 / 120 480 / 480 Output Total 700 / 700 1050 / 1050 950 / 950 Balance -460 / -460 -930 / -930 -470 / -470 Intake: Oral 240 / 240 120 / 120 480 / 480 Output: Urine 700 / 700 1050 / 1050 950 / 950 Other: Meal Breakfast Percent of Meal Consumed 75% # Voids 1 - General physical appearance well developed, well nourished, no distress - Eyes normal ocular movement - ENT normal mucosa, atraumatic, normocephalic - Neck Neck exam: trachea midline - Respiratory normal respiratory effort, clear to auscultation - Cardiovascular Cardiovascular exam: Present: irregular rhythm, murmurs - Abdomen Abdomen: Present: bowel sounds present, soft, tender (expected post-operative tenderness), wound (left flank hematoma stable) - Incision Incision: Present: clean and dry, intact - Neurologic CN 2-12 grossly intact - Musculoskeletal other (generalized weakness) - Psychiatric oriented to time, oriented to person, oriented to place, speech is normal, memory intact - Labs 04/26/17 04:50 04/27/17 05:21 Diabetes panel 04/27/17 Range/Units 05:21 Sodium 130 L (136-145) mEq/L Potassium 3.7 (3.5-5.1) mEq/L Chloride 96 L (98-107) mEq/L Carbon Dioxide 26 (23-29) mEq/L BUN 14 (8-23) mg/dL Creatinine 0.85 (0.60-1.20) mg/dL Glucose 107 H (70-105) mg/dL Calcium 9.9 (8.6-10.3) mg/dL Calcium panel 04/27/17 Range/Units 05:21 Calcium 9.9 (8.6-10.3) mg/dL Pituitary panel 04/27/17 Range/Units 05:21 Sodium 130 L (136-145) mEq/L Potassium 3.7 (3.5-5.1) mEq/L Chloride 96 L (98-107) mEq/L Carbon Dioxide 26 (23-29) mEq/L BUN 14 (8-23) mg/dL Creatinine 0.85 (0.60-1.20) mg/dL Glucose 107 H (70-105) mg/dL Calcium 9.9 (8.6-10.3) mg/dL Adrenal panel 04/27/17 Range/Units 05:21 Sodium 130 L (136-145) mEq/L Potassium 3.7 (3.5-5.1) mEq/L Chloride 96 L (98-107) mEq/L Carbon Dioxide 26 (23-29) mEq/L BUN 14 (8-23) mg/dL Creatinine 0.85 (0.60-1.20) mg/dL Glucose 107 H (70-105) mg/dL Calcium 9.9 (8.6-10.3) mg/dL - VTE Documentation of Mechanical Device: Graduated compression elastic hosiery Consult Discharge Plan - Plan Referrals: Mag Chandra CNP [Advanced Practice Nurse] - 05/06/17 10:20 am Jose Jones DO [Primary Care Provider] - - Attending Attestation For this encounter, I have reviewed the ENGINE HOSTLER or PA documentation, treatment plan, and medical decision making; and I have had face to face time with this patient.
[2017-04-27] MEDS ORDERED: *HR* HYDROcodone/Acet 5/325 mg TABLET PO PRN (14:51)
[2017-04-27] MEDS ORDERED: *HR* HYDROcodone/Acet 10/325 mg TABLET PO PRN (14:52)
[2017-04-27] MEDS ORDERED: *HR* OxyCODONE/APAP 5/325 TABLET PO PRN (14:57)
[2017-04-27] MEDS ORDERED: *HR* OxyCODONE/APAP 10/325 TABLET PO PRN (14:57)
--- NOTE | 2017-04-27 15:01 | Discharge Summary ---
<Subha Haney - Last Filed: 04/27/17 15:34> Orders not resulted at time of discharge: Pending orders 04/28/17 04:00 PT/INR [Prothrombin Time INR] [COAG] AM 0400 Date of Encounter: 04/27/17 Time of Encounter: 15:00 - Discharge Diagnosis (1) Incisional hernia Priority: Primary Status: Resolved Qualifiers: Obstruction and gangrene presence: without obstruction or gangrene Qualified Code(s): K43.2 - Incisional hernia without obstruction or gangrene; K43.91 - Incisional hernia, without obstruction or gangrene (2) Ileus, postoperative Priority: Secondary Status: Resolved (3) Permanent atrial fibrillation Priority: Secondary Status: Chronic (4) S/P aortic valve replacement with bioprosthetic valve Priority: Secondary Status: Chronic (5) Valvular heart disease Priority: Secondary Status: Chronic (6) CKD (chronic kidney disease) Priority: Secondary Status: Chronic Qualifiers: Chronic kidney disease stage: stage 3 (moderate) Qualified Code(s): N18.3 - Chronic kidney disease, stage 3 (moderate) (7) Physical deconditioning Priority: Secondary Status: Acute General Surgery Exam Initial Vital Signs Temp Pulse Resp BP Pulse Ox 97.9 F 61 16 111/66 94 04/21/17 10:44 04/21/17 10:44 04/21/17 10:44 04/21/17 10:44 04/21/17 10:44 - Hospital Course Hospital course: Ms. Brooks is a 71 year old female with a history of an incisional hernia. She was admitted to the hospital due to her significant history of valvular heart disease and atrial fibrillation. She was given a heparin bridge in preparation for surgery. A cardiology consult was complete for risk stratification prior to surgery. The patient is status post a robotic-assisted incisional hernia repair with Dr. Ely. She did experience a postoperative ileus and was treated with conservative measures. She was bridged with heparin postoperatively. Doppler when the patient's INR was over 2. Her postoperative ileus was treated with Reglan and bowel rest. With return of bowel function, the patient was started on a clear liquid diet which she tolerated without difficulty. She has slowly been advanced and is currently tolerating a soft diet. Her vital signs are stable and she is afebrile. Her postoperative pain is well-controlled. She is voiding and ambulating without difficulty. Physical therapy was consulted for recommendations for needs at discharge. They have recommended home health care for therapy and strengthening. The patient did qualify for home oxygen and we have made arrangements for her to be discharged to home with supplemental oxygen. We will begin discharge planning to home in the next 24-48 hours. The patient will follow-up in the office in the next 7-10 days. - Time Spent with Patient Total time spent providing and/or coordinating discharge services: Less than 30 minutes - Discharge Medications Prescriptions: OxyCODONE/APAP 5/325 [Percocet 5/325 MG] 1 each PO Q4HR PRN 7 Days #28 tablet PRN Reason: Moderate Pain Docusate [Colace] 100 mg PO BID #30 capsule Home Medications: Zolpidem [Ambien] 10 mg PO HS PRN 02/04/15 [History] Omeprazole [PriLOSEC] 20 mg PO DAILY PRN 06/03/16 [History] Tramadol HCl [Ultram] 50 mg PO QID PRN 03/15/17 [History] Megestrol Acetate [Megace] 400 mg PO DAILY 30 Days udc 03/20/17 [Rx] Sodium Chloride 1 gm PO BID #30 tablet 03/20/17 [Rx] Bumetanide 2 mg PO BID 04/15/17 [History] Pembrolizumab [Keytruda] 100 mg IV Q3W 04/22/17 [History] Spironolactone [Aldactone] 100 mg PO DAILY 04/22/17 [History] Warfarin [Coumadin] 3 mg PO SUMOTUTHSA 04/22/17 [History] Warfarin [Coumadin] 6 mg PO WEFR 04/22/17 [History] metOLazone [Zaroxolyn] 2.5 mg PO QWEEK 04/22/17 [History] Docusate [Colace] 100 mg PO BID #30 capsule 04/27/17 [Rx] OxyCODONE/APAP 5/325 [Percocet 5/325 MG] 1 each PO Q4HR PRN 7 Days #28 tablet [Rx] Allergies/Adverse Reactions: 3 Allergy/AdvReac Type Severity Reaction Status Date / Time morphine Allergy Hives Verified 03/15/17 10:08 Penicillins Allergy Hives Verified 03/15/17 10:08 aspirin AdvReac Nausea Verified 04/22/17 07:30 ibuprofen [From Motrin] AdvReac Vomiting Verified 03/15/17 10:08 Date of admission: 04/23/17 20:06 Primary care physician: Jose Jones Consults: 04/21/17 14:24 Consult to Cardiology [CONS] Routine Comment: Consulting Provider: Card[facility] [place] Reason for Consult: Cardiac comorbidity management; fluid status management Time Notified: 14:25 Call Completed: Yes 04/27/17 11:49 Consult to Physical Therapy [CONS] Stat Comment: Evaluate, develop and implement POC Reason for Consult: Assess for discharge recommendations; patient ready for discharge today (rehab vs. home health) Discharging clinician: Jean Claude Ely ([facility]) Anticipated date of discharge: 04/28/17 Labs on day of discharge: Labs from last 24 hours 04/27/17 04/27/17 05:21 05:21 PT 26.3 H INR 2.4 Sodium 130 L Potassium 3.7 Chloride 96 L Carbon Dioxide 26 BUN 14 Creatinine 0.85 Est GFR ( Amer) > 60 Est GFR (Non-Af Amer) > 60 BUN/Creatinine Ratio 16 Glucose 107 H Calculated Osmolality 271 L Calcium 9.9 - Impressions ITS Impressions Chest/Abdomen X-ray 04/25/17 09:01 IMPRESSION: Mild bibasilar atelectasis with small bilateral effusions. Mild distention of the colon which may represent ileus. No gross obstruction. D/ / 04/25/2017 10:02:19 Radha Shaw MD / [facility] Interpreting Provider: Radha Shaw MD - Patient Status Disposition: Home Health Service Condition: Good Functional capacity at discharge: uses cane/walker Overall status at discharge: patient is progressing back to baseline - Discharge Instructions Follow Up With: Coumadin,Clinic [Other] - 05/02/17 11:15 am Mag Chandra CNP [Advanced Practice Nurse] - 05/06/17 10:20 am Jose Jones DO [Primary Care Provider] - Additional Instructions: #1 may shower, no tub bath for 2 weeks #2 wash incisions with soap and water and pat dry daily #3 no lifting, pushing, pulling more than 15 pounds for the next 6 weeks #4 no driving until off narcotics for 24 hours and able to safely react in the car #5 may climb stairs PT/OT to evaluate and treat Supplemental oxygen 2L via nasal cannula continuous - Diet and Activity Activity: other (See additional instructions above) Diet: advance to your usual diet - Attending Attestation For this encounter, I have reviewed the COMPOSITE LAYUP WORKER or PA documentation, treatment plan, and medical decision making; and I have had face to face time with this patient. <Mag Chandra - Last Filed: 04/28/17 10:43> Date of Encounter: 04/28/17 Time of Encounter: 10:42 - Discharge Diagnosis (1) Incisional hernia Priority: Primary Status: Resolved Qualifiers: Obstruction and gangrene presence: without obstruction or gangrene Qualified Code(s): K43.2 - Incisional hernia without obstruction or gangrene; K43.91 - Incisional hernia, without obstruction or gangrene (2) Permanent atrial fibrillation Priority: Secondary Status: Chronic (3) Hx of atrioventricular node ablation Priority: Secondary Status: Acute (4) S/P aortic valve replacement with bioprosthetic valve Priority: Secondary Status: Chronic (5) Aortic stenosis, moderate Priority: Secondary Status: Acute (6) Valvular heart disease Priority: Secondary Status: Chronic (7) ASHD (arteriosclerotic heart disease) Priority: Secondary Status: Acute (8) CKD (chronic kidney disease), stage III Priority: Secondary Status: Chronic (9) Aortic valve replaced Priority: Secondary Status: Chronic (10) A-fib Priority: Secondary Status: Chronic Qualifiers: Atrial fibrillation type: chronic Qualified Code(s): I48.2 - Chronic atrial fibrillation (11) FDC current use of anticoagulant Priority: Secondary Status: Chronic General Surgery Exam Initial Vital Signs Temp Pulse Resp BP Pulse Ox 97.9 F 61 16 111/66 94 04/21/17 10:44 04/21/17 10:44 04/21/17 10:44 04/21/17 10:44 04/21/17 10:44 - General physical appearance well nourished, no distress - Eyes normal ocular movement - ENT normal mucosa, normocephalic, CN 2-12 grossly intact - Neck no venous distension - Respiratory other (Decreased but clear) - Cardiovascular Cardiovascular exam: Present: irregular rhythm - Abdomen Abdomen general surgery: Present: bowel sounds present, soft, tender (Expected postoperative tenderness), wound (Left flank hematoma) - Incision Incision: Present: clean and dry, intact - Integumentary Integumentary general surgery: Present: warm and dry, other (Multiple areas of ecchymosis noted) - Neurologic Present: CN 2-12 grossly intact, normal coordination, normal sensation - Musculoskeletal Present: normal gait, normal posture - Psychiatric Psychiatric general surgery: Present: A&Ox3, appropriate, oriented to person, oriented to place, oriented to time, speech is normal, memory intact - Hospital Course Hospital course: Ms. Brooks is a 71 year old female - Time Spent with Patient Total time spent providing and/or coordinating discharge services: Greater than 30 minutes (Coordination of medications, home health, and home oxygen therapy.) Date of admission: 04/23/17 20:06 Primary care physician: Jose Jones Consults: 04/21/17 14:24 Consult to Cardiology [CONS] Routine Comment: Consulting Provider: Cardiology [place] Reason for Consult: Cardiac comorbidity management; fluid status management Time Notified: 14:25 Call Completed: Yes Labs on day of discharge: Labs from last 24 hours 04/28/17 05:18 PT 28.2 H INR 2.6 - Impressions ITS Impressions Chest/Abdomen X-ray 04/25/17 09:01 IMPRESSION: Mild bibasilar atelectasis with small bilateral effusions. Mild distention of the colon which may represent ileus. No gross obstruction. D/ / 04/25/2017 10:02:19 Radha Shaw MD / [facility] Interpreting Provider: Radha Shaw MD - Patient Status Functional capacity at discharge: uses cane/walker Overall status at discharge: patient is progressing back to baseline - Diet and Activity Activity: wear oxygen at all times, other Diet: advance to your usual diet
--- NOTE | 2017-04-27 15:13 | Physician Discharge Referral ---
Home Health/Hosp Referral Info Transfer to: Home Health Attending Provider: Dr. Jase Ely Provider in Charge Post Discharge: Other (Dr. Jase Ely and PCP) - Diagnosis (1) Incisional hernia Priority: Primary Status: Resolved (2) Ileus, postoperative Priority: Secondary Status: Resolved (3) Permanent atrial fibrillation Priority: Secondary Status: Chronic (4) S/P aortic valve replacement with bioprosthetic valve Priority: Secondary Status: Chronic (5) Valvular heart disease Priority: Secondary Status: Chronic (6) CKD (chronic kidney disease) Priority: Secondary Status: Chronic (7) Physical deconditioning Priority: Secondary Status: Acute - Respiratory Orders Oxygen / L per min (2L per nasal cannula continuous) - Dressing/Wound Care Site: Lap incisions X 3 (left side) Type of Dressing/Treatments w/Frequency: Cleanse incisions with soap and water in the shower daily and pat dry - Diet/Nutrition Diet/Nutrition Orders: Regular - Activity Activity Orders: Walker Activity: List: #1 may shower, no tub bath for 2 weeks #2 wash incisions with soap and water and pat dry daily #3 no lifting, pushing, pulling more than 15 pounds for the next 6 weeks #4 no driving until off narcotics for 24 hours and able to safely react in the car #5 may climb stairs PT/OT to evaluate and treat - Services Needed Following services are medically necessary services: Nursing, Physical Therapy, Occupational Therapy Home Care Orders: #1 may shower, no tub bath for 2 weeks #2 wash incisions with soap and water and pat dry daily #3 no lifting, pushing, pulling more than 15 pounds for the next 6 weeks #4 no driving until off narcotics for 24 hours and able to safely react in the car #5 may climb stairs PT/OT to evaluate and treat Supplemental oxygen 2L via nasal cannula continuous - Transfer Medications Prescriptions: OxyCODONE/APAP 5/325 [Percocet 5/325 MG] 1 each PO Q4HR PRN 7 Days #28 tablet PRN Reason: Moderate Pain Docusate [Colace] 100 mg PO BID #30 capsule Home Medications: Zolpidem [Ambien] 10 mg PO HS PRN 02/04/15 [History] Omeprazole [PriLOSEC] 20 mg PO DAILY PRN 06/03/16 [History] Tramadol HCl [Ultram] 50 mg PO QID PRN 01/23/18 [History] Megestrol Acetate [Megace] 400 mg PO DAILY 30 Days udc 03/20/17 [Rx] Sodium Chloride 1 gm PO BID #30 tablet 03/20/17 [Rx] Bumetanide 2 mg PO BID 04/15/17 [History] Pembrolizumab [Keytruda] 100 mg IV Q3W 04/22/17 [History] Spironolactone [Aldactone] 100 mg PO DAILY 04/22/17 [History] Warfarin [Coumadin] 3 mg PO SUMOTUTHSA 04/22/17 [History] Warfarin [Coumadin] 6 mg PO WEFR 04/22/17 [History] metOLazone [Zaroxolyn] 2.5 mg PO QWEEK 04/22/17 [History] Docusate [Colace] 100 mg PO BID #30 capsule 04/27/17 [Rx] OxyCODONE/APAP 5/325 [Percocet 5/325 MG] 1 each PO Q4HR PRN 7 Days #28 tablet [Rx] Allergies/Adverse Reactions: 3 Allergy/AdvReac Type Severity Reaction Status Date / Time morphine Allergy Hives Verified 03/15/17 10:08 Penicillins Allergy Hives Verified 03/15/17 10:08 aspirin AdvReac Nausea Verified 04/22/17 07:30 ibuprofen [From Motrin] AdvReac Vomiting Verified 03/15/17 10:08 Certification: Further, I certify that my clinical findings support that this patient is homebound (i.e. absences from home require considerable and taxing effort and are for medical reasons or jehovah's witness services or infrequently or short duration when for other reasons) because: Homebound Reason: Patient requires assistance of a person or device to safely leave home, Leaving home requires considerable and taxing effort due to condition Attestation: My signature below is to certify that this patient is under my care and that I, or nurse practitioner, or a physician's historian research assistant working with me, has a face-to -face encounter with this patient.
[2017-04-27] MEDS ORDERED: *HR* Warfarin 3 MG TABLET PO SCH (18:00)
[2017-04-28] MEDS: Ipratropium/Albuterol Neb 3 ML IH SCH ×3 (03:52→11:35)
[2017-04-28 04:40] VITALS: BP 130/76
[2017-04-28 06:06] LABS: INR 2.6; Prothrombin Time 28.2 Seconds (9.4-12.1)
[2017-04-28] MEDS: Bumetanide 1 MG TABLET PO SCH (08:49)
[2017-04-28] MEDS: Megestrol Acetate 400 MG/10 ML UDC PO SCH (08:50)
== END 2017-04-28 13:39 | disposition home health service (06) | DRG 354 ==
LOC: 1NENUOBS 09:45 → INTOOBSV 09:45 → 3ANU 15:16
PROVIDERS: ADMIT Surgery; ATTEND Surgery

== ENCOUNTER 2017-07-03 22:42 | Inpatient (IN) ==
--- NOTE | 2017-07-03 23:51 | Emergency Department Note ---
Disposition Clinical Impression: Shortness of breath, Cough, Weakness, Non-small cell carcinoma of left lung Disposition: Admitted As Inpatient Condition: Good Referrals: Jose Jones DO [Primary Care Provider] - Time of Disposition: 02:30 Weakness HPI - General Chief complaint: ED Weakness Stated complaint: Multi Complaint Time Seen by Provider: 07/03/17 23:19 Source: patient Nursing Notes Reviewed: Yes Vital Signs Reviewed: Yes - History of Present Illness HPI Narrative: 71-year-old female smoker with known history of metastatic lung cancer presents with complaint of worsening weakness, shortness of breath, cough. She is accompanied by her son, who mentions that her appetite is decreased and weakness has been worsening. Patient states her gave her his cold. Patient is taking chemotherapy. She uses home oxygen, but is not using breathing treatments. Patient is seen by [facility]. She denies any hemoptysis, chest pain, abdominal pain, fever, bowel or bladder symptoms, headache. Pain Scale: 6 - Related Data Home Medications Medication Instructions Recorded Confirmed Zolpidem [Ambien] 10 mg PO HS PRN 02/04/15 06/17/17 Omeprazole [PriLOSEC] 20 mg PO DAILY PRN 06/03/16 06/17/17 Tramadol HCl [Ultram] 50 mg PO QID PRN 03/15/17 06/17/17 Pembrolizumab [Keytruda] 100 mg IV Q3W 04/22/17 06/17/17 Spironolactone [Aldactone] 100 mg PO DAILY 04/22/17 06/17/17 Warfarin [Coumadin] 3 mg PO SUMOTUTHSA 04/22/17 06/17/17 Warfarin [Coumadin] 6 mg PO WEFR 04/22/17 06/17/17 metOLazone [Zaroxolyn] 2.5 mg PO 2XW 04/22/17 06/17/17 Megestrol Acetate [Megace] 400 mg PO DAILY PRN 05/27/17 06/17/17 Previous Rx's Medication Instructions Recorded Sodium Chloride 1 gm PO BID #30 tablet 03/20/17 Docusate [Colace] 100 mg PO BID #30 capsule 04/27/17 OxyCODONE/APAP 5/325 [Percocet 1 each PO Q4HR PRN 7 Days #28 04/27/17 5/325 MG] tablet Bumetanide 2 mg PO BID #120 tablet 06/10/17 Allergies Allergy/AdvReac Type Severity Reaction Status Date / Time morphine Allergy Hives Verified 05/27/17 12:51 Penicillins Allergy Hives Verified 05/27/17 12:51 aspirin AdvReac Nausea Verified 05/27/17 12:51 ibuprofen [From Motrin] AdvReac Vomiting Verified 05/27/17 12:51 All systems ED: reviewed and negative except as stated. Review of Systems: As Per HPI Constitutional: Reports: as per HPI. Denies: fever, chills Eyes: Denies: vision change ENT ED: Denies: throat pain Cardiovascular: Denies: chest pain, palpitations Respiratory: Reports: as per HPI Gastrointestinal: Denies: abdominal pain, nausea, vomiting Genitourinary: Denies: dysuria Musculoskeletal: Denies: back pain, neck pain Integumentary: Denies: rash Neurological: Reports: as per HPI. Denies: headache Endocrine: Denies: fatigue Hematological/Lymphatic: Denies: easy bleeding Allergic/Immunologic: Denies: facial swelling Past Medical History - Past Medical History Medical history: Reports: atrial fibrillation, cancer, cirrhosis, CHF, COPD, coronary artery disease, GI bleed, hyperlipidemia, hypertension, liver disease, myocardial infarction, renal disease, valvular heart disease, other Surgical history: Reports: appendectomy, cholecystectomy, colectomy, coronary bypass (CABG), heart valve replacement, pacemaker/AICD, other Psychiatric history: Reports: anxiety - Social History Smoking Status: Former smoker Smokeless Tobacco Status: No Alcohol use: Reports: occasionally, heavy, recent Drug use: Reports: none Physical Exam - General Limitations: no limitations General appearance: alert, in no apparent distress - Head Head exam: atraumatic, normocephalic - Eye Eye exam: Present: EOMI - ENT ENT exam: normal oropharynx, mucous membranes moist - Neck Neck exam: Present: full ROM - Chest Chest inspection: Present: normal inspection, symmetric chest wall rise - Respiratory Respiratory exam: Absent: respiratory distress - Expanded Respiratory Exam Location: wheezes: Right, Left - Cardiovascular Cardiovascular exam: Present: regular rate, normal rhythm - Abdominal Exam Abdominal exam: Present: soft, Non-Tender - Extremities Exam Extremities exam: Present: normal inspection, full ROM - Back Exam Back exam: Present: full ROM - Neurological Exam Neurological exam: Present: alert, oriented X3 - Psychiatric Psychiatric exam: Present: normal affect, normal mood - Skin Skin exam: Present: warm, dry, intact, normal color. Absent: rash, cyanosis, diaphoresis Course Course Narrative: 71-year-old female presents with three-day worsening weakness, shortness breath , cough. 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 Past medical history also includes HF, COPD, coronary artery disease, GI bleed, cirrhosis with liver disease, valvular heart disease, with pacemaker, and pulmonary hypertension. Patient seen and examined. she is alert and oriented 3. Mild wheezing bilaterally. No abdominal tenderness, but abdomen does appear to be distended, consistent with her liver disease. Patient denies any chest pain. She does mention weakness, but is afebrile here as well as at home. Workup initiated. Duonebs ordered. - Reevaluation(s) Reevaluation #1: Patient's two-view chest x-ray shows Left basilar atelectasis or pneumonia. Patient has had recent hospitalizations. Patient's vitals within normal limits. No elevated white count. Will plan abx after urine is collected. Time: 00:26 Reevaluation #2: I was notified by nursing of critical elevated troponin of 0.05. Patient denies any chest pain area EKG ventricularly paced. Patient has known history of A. fib as well has CAD. Patient has known history of aspirin. Time: 01:02 Reevaluation #3: Patient discussed with Dr. Link who agreed to see patient, and agreed with workup, and decision place. Patient has decreased hemoglobin, decreased potassium, elevated troponin. chest x-ray findings consistent with pneumonia, generalized weakness, and shortness of breath. Abx have been ordered. Will hold off on fluids with no SIRS criteria, and h/o CHF, liver disease. Pt has refused cath, and has been unable to void. Denies any abdominal pain. Time: 01:50 Additional Reevaluation(s): Urine obtained via cath. UA pending. @02:20 patient discussed with hospitalist Dr. Manley who agreed to accept patient, and agreed no need for fluids right now, and agreed for antitussive, Robitussin. He also requested IV vancomycin, and single dose of Solu-Medrol. Vital Signs Temperature 97.8 F 07/03/17 22:43 Pulse Rate 62 07/03/17 22:43 Respiratory Rate 18 07/03/17 22:43 Blood Pressure 120/66 07/03/17 22:43 O2 Sat by Pulse Oximetry 92 07/03/17 22:43 Temperature 97.8 F 07/03/17 22:43 Pulse Rate 59 07/04/17 00:25 Respiratory Rate 18 07/04/17 00:25 Blood Pressure 106/50 07/04/17 00:25 O2 Sat by Pulse Oximetry 96 07/04/17 00:25 Oxygen Delivery Oxygen Delivery Nasal Cannula Weakness - MDM Narrative Medical decision making narrative: Chest X-Ray 07/03/17 22:50 IMPRESSION: 1. Left basilar atelectasis or pneumonia. 2. Poorly defined nodular opacities could represent infectious or inflammatory nodules or metastatic disease. D/ / Andres Boykin MD / Andres Boykin MD Interpreting Provider: Andres Boykin MD - Lab Data Result diagrams: 07/04/17 00:08 07/04/17 00:08 Lab Results 07/04/17 07/04/17 07/04/17 Range/Units 00:08 00:08 00:08 WBC 7.8 (4.3-11.1) K/mcL RBC 3.35 L (3.82-4.97) M/mcL Hgb 8.2 L (11.5-15.4) g/dL Hct 25.2 L (35.3-44.9) % MCV 75.2 L (83.0-100.0) fL MCH 24.5 L (28.0-33.3) pg MCHC 32.5 (31.6-35.5) g/dL RDW 18.2 H (11.5-14.5) % Plt Count 230 (140-400) K/mcL MPV 9.4 (9.4-12.4) fL Immature Gran % 0.5 (0-4) % Seg Neutrophils % 81.0 % Lymphocytes % 8.6 % Monocytes % 9.1 % Eosinophils % 0.5 % Basophils % 0.3 % Neutrophils # 6.3 (1.6-8.9) K/mcL Lymphocytes # 0.7 (0.6-4.6) K/mcL Monocytes # 0.7 (0.0-1.3) K/mcL Eosinophils # 0.0 (0.0-0.6) K/mcL Basophils # 0.0 (0.0-0.2) K/mcL Sodium 128 L (136-145) mEq/L Potassium 2.8 L (3.5-5.1) mEq/L Chloride 91 L (98-107) mEq/L Carbon Dioxide 26 (23-29) mEq/L BUN 29 H (8-23) mg/dL Creatinine 0.84 (0.60-1.20) mg/dL Est GFR ( Amer) > 60 (> 60) Est GFR (Non-Af Amer) > 60 (> 60) BUN/Creatinine Ratio 35 H (6-26) Glucose 104 (70-105) mg/dL Calculated Osmolality 272 L (280-300) Lactic Acid 0.9 (0.5-2.2) mmol/L Calcium 9.5 (8.6-10.3) mg/dL Total Bilirubin 1.4 H (0.3-1.0) mg/dL Direct Bilirubin 0.5 H (0.0-0.2) mg/dL Indirect Bilirubin 0.9 (0.0-1.2) mg/dL AST 18 (13-39) Units/L ALT 8 (7-52) Units/L Alkaline Phosphatase 195 H (34-104) Units/L Ammonia (16-53) mcmol/L Troponin I 0.05 H* (< 0.04) ng/mL Serum Total Protein 6.4 (6.4-8.9) g/dL Albumin 3.5 (3.5-5.7) g/dL Globulin 2.9 (2.4-3.5) g/dL Albumin/Globulin Ratio 1.2 (1.1-2.2) Lipase 32 (11-82) Units/L 07/04/17 Range/Units 00:08 WBC (4.3-11.1) K/mcL RBC (3.82-4.97) M/mcL Hgb (11.5-15.4) g/dL Hct (35.3-44.9) % MCV (83.0-100.0) fL MCH (28.0-33.3) pg MCHC (31.6-35.5) g/dL RDW (11.5-14.5) % Plt Count (140-400) K/mcL MPV (9.4-12.4) fL Immature Gran % (0-4) % Seg Neutrophils % % Lymphocytes % % Monocytes % % Eosinophils % % Basophils % % Neutrophils # (1.6-8.9) K/mcL Lymphocytes # (0.6-4.6) K/mcL Monocytes # (0.0-1.3) K/mcL Eosinophils # (0.0-0.6) K/mcL Basophils # (0.0-0.2) K/mcL Sodium (136-145) mEq/L Potassium (3.5-5.1) mEq/L Chloride (98-107) mEq/L Carbon Dioxide (23-29) mEq/L BUN (8-23) mg/dL Creatinine (0.60-1.20) mg/dL Est GFR ( Amer) (> 60) Est GFR (Non-Af Amer) (> 60) BUN/Creatinine Ratio (6-26) Glucose (70-105) mg/dL Calculated Osmolality (280-300) Lactic Acid (0.5-2.2) mmol/L Calcium (8.6-10.3) mg/dL Total Bilirubin (0.3-1.0) mg/dL Direct Bilirubin (0.0-0.2) mg/dL Indirect Bilirubin (0.0-1.2) mg/dL AST (13-39) Units/L ALT (7-52) Units/L Alkaline Phosphatase (34-104) Units/L Ammonia 56 H (16-53) mcmol/L Troponin I (< 0.04) ng/mL Serum Total Protein (6.4-8.9) g/dL Albumin (3.5-5.7) g/dL Globulin (2.4-3.5) g/dL Albumin/Globulin Ratio (1.1-2.2) Lipase (11-82) Units/L - Radiology Data Radiology results reviewed: Yes I reviewed the patient's radiology results.
[2017-07-04] MEDS ORDERED: Ipratropium/Albuterol Neb 3 ML IH ONE (00:17)
[2017-07-04] MEDS ORDERED: *HR* FentaNYL (PF) 100 MCG/2 ML VIAL IVP ONE (00:19)
[2017-07-04 00:35] LABS: Basophils % 0.3 %; Eosinophils % 0.5 %; Hematocrit 25.2 % (35.3-44.9); Hemoglobin 8.2 g/dL (11.5-15.4); Immature Granulocytes % 0.5 % (0-4); Lymphocytes # 0.7 K/mcL (0.6-4.6); Lymphocytes % 8.6 %; Mean Corpuscular HGB Conc 32.5 g/dL (31.6-35.5); Mean Corpuscular Hemoglobin 24.5 pg (28.0-33.3); Mean Corpuscular Volume 75.2 fL (83.0-100.0); Mean Platelet Volume 9.4 fL (9.4-12.4); Monocytes # 0.7 K/mcL (0.0-1.3); Monocytes % 9.1 %; Neutrophils # 6.3 K/mcL (1.6-8.9); Platelet Count 230 K/mcL (140-400); Red Blood Count 3.35 M/mcL (3.82-4.97); Red Cell Distribution Width 18.2 % (11.5-14.5)
[2017-07-04 00:58] LABS: Alanine Aminotransferase 8 Units/L (7-52); Albumin 3.5 g/dL (3.5-5.7); Albumin/Globulin Ratio 1.2 (1.1-2.2); Alkaline Phosphatase 195 Units/L (34-104); Aspartate Amino Transferase 18 Units/L (13-39); BUN/Creatinine Ratio 35 (6-26); Bilirubin,Direct 0.5 mg/dL (0.0-0.2); Bilirubin,Indirect 0.9 mg/dL (0.0-1.2); Bilirubin,Total 1.4 mg/dL (0.3-1.0); Blood Urea Nitrogen 29 mg/dL (8-23); Calcium 9.5 mg/dL (8.6-10.3); Carbon Dioxide 26 mEq/L (23-29); Chloride 91 mEq/L (98-107); Globulin 2.9 g/dL (2.4-3.5); Glucose 104 mg/dL (70-105); Lipase 32 Units/L (11-82); Osmolality,Calculated 272 (280-300); Potassium 2.8 mEq/L (3.5-5.1); Sodium 128 mEq/L (136-145); Total Protein 6.4 g/dL (6.4-8.9); eGFR For African Americans > 60 (> 60); eGFR For Non-African Americans > 60 (> 60)
[2017-07-04 01:00] LABS: Troponin I 0.05 ng/mL (< 0.04)
[2017-07-04] MEDS ORDERED: Levofloxacin 750 MG/150 ML 750 MG/150 ML BAG IVPB ONE (01:37)
[2017-07-04] MEDS ORDERED: MethylPREDNISolone 40 MG/ML VIAL IVP ONE (02:19)
--- NOTE | 2017-07-04 02:37 | Emergency Department Note ---
Disposition Clinical Impression: Shortness of breath, Cough, Weakness, Non-small cell carcinoma of left lung Disposition: Admitted As Inpatient Referrals: Jose Jones DO [Primary Care Provider] - General Adult HPI - General Chief complaint: ED Weakness Stated complaint: Multi Complaint Time Seen by Provider: 07/03/17 23:19 Source: patient Limitations: no limitations Nursing Notes Reviewed: Yes Vital Signs Reviewed: Yes - History of Present Illness Pain Scale: 6 - Related Data Home Medications Medication Instructions Recorded Confirmed Zolpidem [Ambien] 10 mg PO HS PRN 02/04/15 06/17/17 Omeprazole [PriLOSEC] 20 mg PO DAILY PRN 06/03/16 06/17/17 Tramadol HCl [Ultram] 50 mg PO QID PRN 03/15/17 06/17/17 Pembrolizumab [Keytruda] 100 mg IV Q3W 04/22/17 06/17/17 Spironolactone [Aldactone] 100 mg PO DAILY 04/22/17 06/17/17 Warfarin [Coumadin] 3 mg PO SUMOTUTHSA 04/22/17 06/17/17 Warfarin [Coumadin] 6 mg PO WEFR 04/22/17 06/17/17 metOLazone [Zaroxolyn] 2.5 mg PO 2XW 04/22/17 06/17/17 Megestrol Acetate [Megace] 400 mg PO DAILY PRN 05/27/17 06/17/17 Previous Rx's Medication Instructions Recorded Sodium Chloride 1 gm PO BID #30 tablet 03/20/17 Docusate [Colace] 100 mg PO BID #30 capsule 04/27/17 OxyCODONE/APAP 5/325 [Percocet 1 each PO Q4HR PRN 7 Days #28 04/27/17 5/325 MG] tablet Bumetanide 2 mg PO BID #120 tablet 06/10/17 Allergies Allergy/AdvReac Type Severity Reaction Status Date / Time morphine Allergy Hives Verified 05/27/17 12:51 Penicillins Allergy Hives Verified 05/27/17 12:51 aspirin AdvReac Nausea Verified 05/27/17 12:51 ibuprofen [From Motrin] AdvReac Vomiting Verified 05/27/17 12:51 Constitutional: Reports: as per HPI. Denies: fever, chills Eyes: Denies: vision change ENT ED: Denies: throat pain Cardiovascular: Denies: chest pain, palpitations Respiratory: Reports: as per HPI Gastrointestinal: Denies: abdominal pain, nausea, vomiting Genitourinary: Denies: dysuria Musculoskeletal: Denies: back pain, neck pain Integumentary: Denies: rash Neurological: Reports: as per HPI. Denies: headache Endocrine: Denies: fatigue Hematological/Lymphatic: Denies: easy bleeding Allergic/Immunologic: Denies: facial swelling Past Medical History - Past Medical History Medical history: Reports: atrial fibrillation, cancer, cirrhosis, CHF, COPD, coronary artery disease, GI bleed, hyperlipidemia, hypertension, liver disease, myocardial infarction, renal disease, valvular heart disease, other Surgical history: Reports: appendectomy, cholecystectomy, colectomy, coronary bypass (CABG), heart valve replacement, pacemaker/AICD, other Psychiatric history: Reports: anxiety - Social History Smoking Status: Former smoker Smokeless Tobacco Status: No Alcohol use: Reports: occasionally, heavy, recent Drug use: Reports: none Physical Exam - General Limitations: no limitations General appearance: alert, in no apparent distress Course Vital Signs Temperature 97.8 F 07/03/17 22:43 Pulse Rate 62 07/03/17 22:43 Respiratory Rate 18 07/03/17 22:43 Blood Pressure 120/66 07/03/17 22:43 O2 Sat by Pulse Oximetry 92 07/03/17 22:43 Temperature 97.8 F 07/03/17 22:43 Pulse Rate 59 07/04/17 00:25 Respiratory Rate 18 07/04/17 00:25 Blood Pressure 106/50 07/04/17 00:25 O2 Sat by Pulse Oximetry 96 07/04/17 00:25 Oxygen Delivery Oxygen Delivery Nasal Cannula Medical Decision Making - Lab Data Result diagrams: 07/04/17 00:08 07/04/17 00:08 Lab Results 07/04/17 07/04/17 07/04/17 Range/Units 00:08 00:08 00:08 WBC 7.8 (4.3-11.1) K/mcL RBC 3.35 L (3.82-4.97) M/mcL Hgb 8.2 L (11.5-15.4) g/dL Hct 25.2 L (35.3-44.9) % MCV 75.2 L (83.0-100.0) fL MCH 24.5 L (28.0-33.3) pg MCHC 32.5 (31.6-35.5) g/dL RDW 18.2 H (11.5-14.5) % Plt Count 230 (140-400) K/mcL MPV 9.4 (9.4-12.4) fL Immature Gran % 0.5 (0-4) % Seg Neutrophils % 81.0 % Lymphocytes % 8.6 % Monocytes % 9.1 % Eosinophils % 0.5 % Basophils % 0.3 % Neutrophils # 6.3 (1.6-8.9) K/mcL Lymphocytes # 0.7 (0.6-4.6) K/mcL Monocytes # 0.7 (0.0-1.3) K/mcL Eosinophils # 0.0 (0.0-0.6) K/mcL Basophils # 0.0 (0.0-0.2) K/mcL Sodium 128 L (136-145) mEq/L Potassium 2.8 L (3.5-5.1) mEq/L Chloride 91 L (98-107) mEq/L Carbon Dioxide 26 (23-29) mEq/L BUN 29 H (8-23) mg/dL Creatinine 0.84 (0.60-1.20) mg/dL Est GFR ( Amer) > 60 (> 60) Est GFR (Non-Af Amer) > 60 (> 60) BUN/Creatinine Ratio 35 H (6-26) Glucose 104 (70-105) mg/dL Calculated Osmolality 272 L (280-300) Lactic Acid 0.9 (0.5-2.2) mmol/L Calcium 9.5 (8.6-10.3) mg/dL Total Bilirubin 1.4 H (0.3-1.0) mg/dL Direct Bilirubin 0.5 H (0.0-0.2) mg/dL Indirect Bilirubin 0.9 (0.0-1.2) mg/dL AST 18 (13-39) Units/L ALT 8 (7-52) Units/L Alkaline Phosphatase 195 H (34-104) Units/L Ammonia (16-53) mcmol/L Troponin I 0.05 H* (< 0.04) ng/mL Serum Total Protein 6.4 (6.4-8.9) g/dL Albumin 3.5 (3.5-5.7) g/dL Globulin 2.9 (2.4-3.5) g/dL Albumin/Globulin Ratio 1.2 (1.1-2.2) Lipase 32 (11-82) Units/L / Range/Units 00:08 WBC (4.3-11.1) K/mcL RBC (3.82-4.97) M/mcL Hgb (11.5-15.4) g/dL Hct (35.3-44.9) % MCV (83.0-100.0) fL MCH (28.0-33.3) pg MCHC (31.6-35.5) g/dL RDW (11.5-14.5) % Plt Count (140-400) K/mcL MPV (9.4-12.4) fL Immature Gran % (0-4) % Seg Neutrophils % % Lymphocytes % % Monocytes % % Eosinophils % % Basophils % % Neutrophils # (1.6-8.9) K/mcL Lymphocytes # (0.6-4.6) K/mcL Monocytes # (0.0-1.3) K/mcL Eosinophils # (0.0-0.6) K/mcL Basophils # (0.0-0.2) K/mcL Sodium (136-145) mEq/L Potassium (3.5-5.1) mEq/L Chloride (98-107) mEq/L Carbon Dioxide (23-29) mEq/L BUN (8-23) mg/dL Creatinine (0.60-1.20) mg/dL Est GFR ( Amer) (> 60) Est GFR (Non-Af Amer) (> 60) BUN/Creatinine Ratio (6-26) Glucose (70-105) mg/dL Calculated Osmolality (280-300) Lactic Acid (0.5-2.2) mmol/L Calcium (8.6-10.3) mg/dL Total Bilirubin (0.3-1.0) mg/dL Direct Bilirubin (0.0-0.2) mg/dL Indirect Bilirubin (0.0-1.2) mg/dL AST (13-39) Units/L ALT (7-52) Units/L Alkaline Phosphatase (34-104) Units/L Ammonia 56 H (16-53) mcmol/L Troponin I (< 0.04) ng/mL Serum Total Protein (6.4-8.9) g/dL Albumin (3.5-5.7) g/dL Globulin (2.4-3.5) g/dL Albumin/Globulin Ratio (1.1-2.2) Lipase (11-82) Units/L Attestation Statement - Attestation Attestation: I, Delta Link MD, personally evaluated this patient and discussed their management with the midlevel provicer, PAC/HEAD OF SALES. I reviewed the midlevel provider 's note and agree with the documented findings, medical decision making, and plan of care. 71-year-old female on chemotherapy for metastatic cancer presents to the emergency department complaining of increasing generalized weakness about a week prior to arrival. Some decreased appetite. Subjective fevers and chills. Some increased cough with white sputum and occasional yellow streaks of sputum. Some mild increased shortness of breath. No vomiting or diarrhea. No chest pain. On examination patient is a well-developed well-nourished elderly female in no acute distress. She is alert and oriented 3. There is no cyanosis or diaphoresis. Breath sounds are decreased but equal bilaterally. Heart regular rate and rhythm with a 3/6 systolic murmur. Abdomen is soft and nontender with present bowel sounds. Labs reviewed. Troponin 0.05. Chest x-ray shows left basilar atelectasis or pneumonia. The hospitalist, Dr. Manley, was consulted and accepted admission of the patient.
[2017-07-04 03:00] LABS: Bilirubin,Urine Negative (Negative); Blood,Urine Negative (Negative); Clarity,Urine Clear (Clear); Color,Urine Yellow (Yellow); Glucose,Urine (UA) Normal (Normal); Ketones,Urine Negative (Negative); Leukocyte Esterase,Urine Negative (Negative); Nitrite,Urine Negative (Negative); PH,Urine 5.5 pH Units (5.0-8.0); Protein,Urine Negative (Neg-Trace); Specific Gravity,Urine 1.012 (1.010-1.025); Urobilinogen,Urine Normal (Normal)
[2017-07-04] MEDS ORDERED: D5% in 0.45% NACL 1,000 ML IVC SCH (03:00)
[2017-07-04] MEDS ORDERED: Potassium Chloride 40 MEQ, Lidocaine 1% 2 ML in D5% in Water 500 ML IVPB ONE (03:00)
[2017-07-04] MEDS ORDERED: Naloxone 0.4 MG/ML INJ IVP PRN (03:10)
[2017-07-04] MEDS ORDERED: Acetaminophen 325 MG TABLET PO PRN (03:10)
--- NOTE | 2017-07-04 03:34 | Internal Med History&Physical ---
<MyrtleMomo - Last Filed: 07/04/17 03:38> Date of Encounter: 07/04/17 Time of Encounter: 03:00 Internal Medicine - H&P: HPI Chief complaint: SOB and cough Admitted From: Emergency Dept Plans for Post Hospital Care: Home History of present illness: Ms. Brooks is a 71 year old female with PMHx of metastatic lung cancer presents with worsening weakness, SOB, and cough. She reports that her has been sick recently. The patient is on chemotherapy and uses home oxygen. She denies CP, f/c/n/v. Denies dysuria or hematuria. Admits to decrease in appetite and poor PO intake. Does admit to productive cough. No headaches or memory loss. Past Med Surg Social Fam HX - Past Medical History Medical history: atrial fibrillation, cancer, cirrhosis, CHF, COPD, coronary artery disease, GI bleed, hyperlipidemia, hypertension, liver disease, myocardial infarction, renal disease, valvular heart disease, other Psychiatric history: anxiety - Past Surgical History Surgical History: appendectomy, cholecystectomy, colectomy, coronary bypass ( CABG), heart valve replacement, pacemaker/AICD, other - Social History Smoking Status: Former smoker Smokeless Tobacco Status: No Alcohol use: occasionally, heavy, recent Drug use: none - Family History Mother Living Status: Hx Family Cancer: Yes Father Living Status: Hx Family Cardiac Disorders: Yes Internal Medicine - H&P: Meds Zolpidem [Ambien] 10 mg PO HS PRN 02/04/15 [History] Omeprazole [PriLOSEC] 20 mg PO DAILY PRN 06/03/16 [History] Tramadol HCl [Ultram] 50 mg PO QID PRN 03/15/17 [History] Sodium Chloride 1 gm PO BID #30 tablet 03/20/17 [Rx] Pembrolizumab [Keytruda] 100 mg IV Q3W 04/22/17 [History] Spironolactone [Aldactone] 100 mg PO DAILY 04/22/17 [History] Warfarin [Coumadin] 3 mg PO SUMOTUTHSA 04/22/17 [History] Warfarin [Coumadin] 6 mg PO WEFR 04/22/17 [History] metOLazone [Zaroxolyn] 2.5 mg PO 2XW 04/22/17 [History] Docusate [Colace] 100 mg PO BID #30 capsule 04/27/17 [Rx] OxyCODONE/APAP 5/325 [Percocet 5/325 MG] 1 each PO Q4HR PRN 7 Days #28 tablet [Rx] Megestrol Acetate [Megace] 400 mg PO DAILY PRN 05/27/17 [History] Bumetanide 2 mg PO BID #120 tablet 06/10/17 [Rx] 3 Allergy/AdvReac Type Severity Reaction Status Date / Time morphine Allergy Hives Verified 05/27/17 12:51 Penicillins Allergy Hives Verified 05/27/17 12:51 aspirin AdvReac Nausea Verified 05/27/17 12:51 ibuprofen [From Motrin] AdvReac Vomiting Verified 05/27/17 12:51 All Systems PM: A 10-system review of systems was performed and is negative for pertinent findings except as documented above in the HPI. - Constitutional Constitutional: weakness, no chills, no fever(s), no night sweats - EENT Eyes: no change in vision, no discharge, no pain, no photophobia Ears: no ear discharge, no ear pain, no tinnitus Nose, mouth and throat: no dysphagia, no nasal discharge, no neck pain, no sore throat - Cardiovascular Cardiovascular ROS IM: no chest pain, no diaphoresis, no dyspnea, no lightheadedness, no palpitations, no syncope - Respiratory Respiratory: cough, dyspnea, no wheezing, no excessive phlegm production - Gastrointestinal Gastrointestinal: no abdominal pain, no diarrhea, no hematemesis, no hematochezia, no melena, no nausea, no vomiting - Genitourinary Genitourinary: no change in urinary stream, no dysuria, no flank pain, no hematuria - Musculoskeletal Musculoskeletal ROS IM: no numbness, no tingling - Integumentary Integumentary IM: no rash, no unusual bruising - Neurological Neurological ROS: no confusion, no convulsions, no focal weakness, no numbness, no tingling, no tremor(s) - Hematologic/Lymphatic Hematologic/Lymphatic: no easy bruising - Constitutional Vitals: Temp Pulse Resp BP Pulse Ox 97.8 F 59 18 106/50 96 07/03/17 22:43 07/04/17 00:25 07/04/17 00:25 07/04/17 00:25 07/04/17 00:25 General appearance: Present: cachectic, A&O X 3, answers questions appropriately - Head Head exam: Present: atraumatic, normocephalic - Eye Eye exam: Present: EOMI, conjuntiva pink, sclera anicteric - Neck Neck exam general surgery: Present: supple, trachea midline. Absent: lymphadenopathy - Respiratory Respiratory exam: Present: decreased breath sounds, wheezes. Absent: accessory muscle use, rales, rhonchi - Cardiovascular Cardiovascular exam: Present: distant heart sounds, +S1, +S2. Absent: diastolic murmur, gallop, rubs, systolic murmur - GI/Abdominal GI/Abdominal exam: Present: normal bowel sounds, soft, no peritoneal signs. Absent: distended, tenderness - Extremities Exam Extremities exam: Present: warm, radial pulses palpable and symmetrical. Absent : calf tenderness, cyanotic, pedal edema - Neurological Exam Neurological exam: Present: alert, oriented X3, no focal deficits. Absent: pronater drift, facial droop, speech deficit - Skin Skin exam: Present: dry, intact Internal Med - H&P Results - Labs CBC & Chem 7: 07/04/17 00:08 07/04/17 00:08 - Assessment and plan (1) Hypokalemia Current Visit: No Status: Acute Assessment and plan: AM K+ = 2.8 Patient received dose of K+ at ED. Another 40 meq of K rider given. Monitor with AM labs. (2) Physical deconditioning Current Visit: No Status: Acute Assessment and plan: Chronic. Secondary to metastatic disease. (3) Cirrhosis Current Visit: No Status: Chronic Assessment and plan: Patient has history of cirrhosis. Avoid hepatotoxins. Qualifiers: Hepatic cirrhosis type: alcoholic cirrhosis Ascites presence: with ascites Qualified Code(s): K70.31 - Alcoholic cirrhosis of liver with ascites (4) Congestive heart failure Current Visit: No Status: Chronic Assessment and plan: Reconcile home diuretics when possible. Qualifiers: Qualified Code(s): I50.32 - Chronic diastolic (congestive) heart failure (5) Pacemaker Current Visit: No Status: Chronic Assessment and plan: (6) A-fib Current Visit: No Status: Chronic Assessment and plan: Continue with Coumadin. Qualifiers: Atrial fibrillation type: chronic Qualified Code(s): I48.2 - Chronic atrial fibrillation (7) DVT prophylaxis Current Visit: No Status: Acute Assessment and plan: Patient is on Coumadin. (8) Hospital-acquired pneumonia Current Visit: Yes Status: Acute Assessment and plan: Patient has history of metastatic lung cancer, currently on chemotherapy. Presents with cough, SOB, and weakness. CXR shows possible left basilar pneumonia Patient has multiple comorbidities. Pneumonia likely health-care acquired. She also develops hives on penicillin. Start patient on Vacomycin and Meropenem. Cardiac diet. Robitussin for cough relief. Ibuprofen prn for fever. Continue prednisone and nebulizer. Follow-up with AM labs - Time Spent With Patient Total time spent is greater than 50% in coordination of care (as documented) at patient's floor/unit and/or counseling patient: Greater than 35 minutes <Zach Patten - Last Filed: 07/04/17 04:29> Date of Encounter: 07/04/17 Internal Medicine - H&P: HPI History of present illness: Ms. Brooks is a 71 year old female All Systems PM: A 10-system review of systems was performed and is negative for pertinent findings except as documented above in the HPI. - Constitutional Vitals: Temp Pulse Resp BP Pulse Ox 97.8 F 59 18 106/50 96 07/03/17 22:43 07/04/17 00:25 07/04/17 00:25 07/04/17 00:25 07/04/17 00:25 Internal Med - H&P Results - Labs CBC & Chem 7: 07/04/17 00:08 07/04/17 00:08 - Attending Attestation I have seen and examined this patient independently. I have discussed with resident physician Dr Iraheta regarding the management plan. Agree with the documentation except below. Patient presented to ER for productive cough, subjective fever, shortness of breath, poor intake for about 1 week. Patient has lung cancer on immunotherapy. Chest x-ray shows left lower lobe pneumonia. We will consider healthcare associated pneumonia and COPD exacerbation. Will treat patient with Vanco and meropenem for HCAP. Steroid and DuoNeb for COPD exacerbation. Patient has a mild elevated troponin, probably due to pneumonia, patient denies chest pain, will continuous cardiac monitoring and tract 3 sets of troponin. - Assessment and plan (1) Congestive heart failure Current Visit: No Status: Chronic Qualifiers: Qualified Code(s): I50.32 - Chronic diastolic (congestive) heart failure (2) DVT prophylaxis Current Visit: No Status: Acute (3) Cirrhosis Current Visit: No Status: Chronic Qualifiers: Hepatic cirrhosis type: alcoholic cirrhosis Ascites presence: with ascites Qualified Code(s): K70.31 - Alcoholic cirrhosis of liver with ascites (4) A-fib Current Visit: No Status: Chronic Qualifiers: Atrial fibrillation type: chronic Qualified Code(s): I48.2 - Chronic atrial fibrillation (5) Pacemaker Current Visit: No Status: Chronic (6) Hypokalemia Current Visit: No Status: Acute (7) Physical deconditioning Current Visit: No Status: Acute (8) Hospital-acquired pneumonia Current Visit: Yes Status: Acute - Time Spent With Patient Total time spent is greater than 50% in coordination of care (as documented) at patient's floor/unit and/or counseling patient:
[2017-07-04] MEDS ORDERED: Ibuprofen 400 MG TABLET PO PRN (03:36)
[2017-07-04 03:56] LABS: INR 2.9; Prothrombin Time 32.4 Seconds (9.4-12.1)
[2017-07-04] MEDS ORDERED: Ipratropium/Albuterol Neb 3 ML IH PRN (03:57)
[2017-07-04] MEDS ORDERED: Meropenem 1,000 MG in 0.9 % Sodium Chloride Mini Bag 100 ML IVPB SCH (08:00)
[2017-07-04] MEDS ORDERED: Bumetanide 1 MG TABLET PO SCH (09:00)
[2017-07-04] MEDS: predniSONE 20 MG TABLET PO SCH (09:08)
--- NOTE | 2017-07-04 10:25 | Event Note ---
<Johan Quinonez Cuca - Last Filed: 07/04/17 15:09> Date of Encounter: 07/04/17 I examined this patient and my medical decision-making was reviewed with the Resident Physician on 07/04/17. I agree with the documented findings, disposition and treatment plan as described except to the extent set forth below. 71 F with metastatic Lung CA, chronic hyponatremia , COPD, CHF, Cirrhosis , HTN, HLD, CKD, valvular heart disease, admitted and being managed for COPDE, HCAP. Chronically ill-looking, fatigued, chest with bilateral rhonchi. Labs and Imaigng reviewed. Continue current management. Rest of details as in the resident physician's documentation <Tez Zhou - Last Filed: 07/04/17 15:52> Date of Encounter: 07/04/17 Time of Encounter: 09:50 Subjective Ms. Brooks is a 71yo woman with history of metastatic lung cancer, liver cirrhosis, chronic hyponatremia, hx of CVA, CHF and COPD who presented to the ED with shortness of breath, weakness, and decreased appetite. She was found to have LLL PNA and hyponatremia, as well as BNP 500. This morning she is seen and examined at bedside. She is very tired, and has had significant physical activity this morning. She does admit to decreased appetite, and says that food does not seem appealing to her at this moment. She has had some weight loss as a result. Otherwise, she has no acute complaints today. Objective Gen: Vitals noted. Frail and ill appearing. HEENT: PERRL/EOMI, oropharynx clear, Normocephalic, atraumatic Neck: Supple. No adenopathy. Cardiac: RRR, no murmur, +S1/S2 Pulmonary: Markedly diminished throughout with some mild wheezes on exam and b/ l rhonchi Abdomen: soft, nontender, BS noted, no guarding MSK: ROM intact, no joint swelling noted Extremities: Trace B/L LE Edema, nontender calf, no cyanosis or clubbing Neuro: A&Ox3, moves all extremities, no focal deficits Psych: Affect is flat A/P 1. COPD Exacerbation Patient appears to be in exacerbation of CHF associated with CAP Continue to titrate O2 to goal SpO2 88-92% IV Solu-medrol, Duonebs scheduled, Albuterol PRN Antibiotics as below 2. Hospital Acquired Pneumonia CAP, unknown organism CXR shows: Left basilar atelectasis or pneumonia. Poorly defined nodular opacities could represent infectious or inflammatory nodules or metastatic disease Patient appears to be clinically ill We will stop meropenem Continue Antibiotics Vancomycin Day 2 Cefipime Day 1 Levaquin Day 2 3. Cirrhotic liver disease History of cirrhosis, elevated ammonia May play a role in poor appetite and fatigue Start lactulose 4. CHF/Aortic Stenosis CHF demonstrated on prior echocardiogram 09/07 LVEF 60%. Normal LV chamber size and function. Mild concentric left ventricular hypertrophy. Indeterminate diastolic function. Atypical septal motion consistent with paced rhythm. Mild to moderately dilated right ventricle with normal function. Severely dilated left atrium. Severely dilated right atrium. Bioprosthetic aortic valve appears well seated. The leaflets are moderately thickened and calcified. Mild valvular aortic regurgitation. Prosthetic aortic stenosis. Mean gradient 36 mmHg, which is similar to prior report from 02/05/2015. Moderately thickened and calcified mitral valve leaflets. Moderate mitral stenosis. Mean gradient 8 mmHg (HR60), which is similar to prior report from 02/05/2015. Severe tricuspid regurgitation. Severe pulmonary hypertension. Estimated RVSP is 63-73 mmHg, including an estimated RA pressure of 10-20 mmHg. We will fluid restrict, give lasix as needed 5. Hypokalemia Hypokalemia on admission, appears to be chronic Received 80 mEq Potassium at time of admission Corrected, will continue daily supplementation 6. Atrial fibrillation History of atrial fibrillation, rate controlled Currently on warfarin, INR 2.9 7. Poor appetite Likely related to chronic disease Has been prescribed megace in the past, cannot tolerate We will start marinol 8. DVT Prophylaxis On Warfarin
[2017-07-04] MEDS: Ipratropium/Albuterol Neb 3 ML IH SCH ×3 (10:30→23:22)
--- NOTE | 2017-07-04 13:16 | Electrocardiograph Report ---
[address] [address] Test Date: 2017-07-03 Pat Name: Isabel Brooks Department: 102 Room: 2N0 Gender: F Staff Attorney: : 1945 Requested By: Delta Link Order Number: [id number] Reading MD: Alessandro Cunningham Measurements Intervals Snyder Rate: 60 P: LA: 0 QRS: -69 QRSD: 175 T: 110 QT: 516 QTc: 516 Interpretive Statements [employer]LECT[employer] Electronically Signed On 07-04-2017 10:28:41 EDT by Alesasndro Cunningham
[2017-07-04 14:45] LABS: BUN/Creatinine Ratio 33 (6-26); Blood Urea Nitrogen 28 mg/dL (8-23); Carbon Dioxide 22 mEq/L (23-29); Chloride 93 mEq/L (98-107); Glucose 301 mg/dL (70-105); Osmolality,Calculated 279 (280-300); Potassium 4.1 mEq/L (3.5-5.1); Sodium 126 mEq/L (136-145); eGFR For African Americans > 60 (> 60); eGFR For Non-African Americans > 60 (> 60)
[2017-07-04] MEDS: traMADol 50 MG TABLET PO PRN (15:00)
[2017-07-04] MEDS: Gabapentin 300 MG CAPSULE PO SCH ×2 (15:00→22:01)
[2017-07-04] MEDS: Cefepime HCl 2,000 MG in 0.9 % Sodium Chloride Mini Bag 100 ML IVPB SCH (16:55)
[2017-07-04] MEDS ORDERED: Warfarin perPT PO PRN (18:00)
[2017-07-04] MEDS ORDERED: *HR* Warfarin 3 MG TABLET PO ONE (18:00)
[2017-07-04] MEDS: Lactulose Oral Soln 20 GM/30 ML UDC PO SCH (22:01)
[2017-07-04] MEDS: Bumetanide 1 MG TABLET PO SCH (22:01)
[2017-07-05] MEDS: Ipratropium/Albuterol Neb 3 ML IH SCH ×4 (03:44→21:15)
[2017-07-05] MEDS: Cefepime HCl 2,000 MG in 0.9 % Sodium Chloride Mini Bag 100 ML IVPB SCH ×2 (05:08→16:48)
[2017-07-05 05:17] LABS: Hematocrit 23.6 % (35.3-44.9); Hemoglobin 7.3 g/dL (11.5-15.4); Immature Granulocytes % 0.7 % (0-4); Lymphocytes # 0.3 K/mcL (0.6-4.6); Lymphocytes % 7.6 %; Mean Corpuscular HGB Conc 30.9 g/dL (31.6-35.5); Mean Corpuscular Hemoglobin 23.8 pg (28.0-33.3); Mean Corpuscular Volume 76.9 fL (83.0-100.0); Mean Platelet Volume 9.5 fL (9.4-12.4); Monocytes # 0.2 K/mcL (0.0-1.3); Monocytes % 4.3 %; Neutrophils # 3.7 K/mcL (1.6-8.9); Platelet Count 208 K/mcL (140-400); Red Blood Count 3.07 M/mcL (3.82-4.97); Red Cell Distribution Width 18.2 % (11.5-14.5); Segmented Neutrophils % 87.4 %
[2017-07-05 05:25] LABS: BUN/Creatinine Ratio 35 (6-26); Blood Urea Nitrogen 26 mg/dL (8-23); Carbon Dioxide 22 mEq/L (23-29); Chloride 96 mEq/L (98-107); Potassium 4.4 mEq/L (3.5-5.1); Sodium 127 mEq/L (136-145); eGFR For African Americans > 60 (> 60)
[2017-07-05 05:26] LABS: Alanine Aminotransferase 8 Units/L (7-52); Albumin 3.2 g/dL (3.5-5.7); Albumin/Globulin Ratio 1.3 (1.1-2.2); Alkaline Phosphatase 164 Units/L (34-104); Aspartate Amino Transferase 16 Units/L (13-39); Bilirubin,Total 0.7 mg/dL (0.3-1.0); Calcium 9.2 mg/dL (8.6-10.3); Globulin 2.5 g/dL (2.4-3.5); Glucose 178 mg/dL (70-105); Osmolality,Calculated 273 (280-300); Total Protein 5.7 g/dL (6.4-8.9); eGFR For Non-African Americans > 60 (> 60)
[2017-07-05 05:27] LABS: Activated Partial Thrombo Time 40.9 Seconds (26.0-36.0)
[2017-07-05 05:33] LABS: INR 4.7; Prothrombin Time 52.5 Seconds (9.4-12.1)
--- NOTE | 2017-07-05 07:10 | Internal Med Progress Note ---
<Tez Zhou - Last Filed: 07/05/17 16:47> Date of Encounter: 07/05/17 Time of Encounter: 08:15 - Assessment and plan (1) Hospital-acquired pneumonia Current Visit: Yes Status: Acute Assessment and plan: CAP, unknown organism CXR shows: Left basilar atelectasis or pneumonia. Poorly defined nodular opacities could represent infectious or inflammatory nodules or metastatic disease Patient appears to be clinically ill, however has improved significantly Continue Antibiotics Vancomycin Day 3 Cefipime Day 2 Levaquin Day 3 Likely de-escalate Antibiotics pending negative cultures (2) Acute on chronic diastolic heart failure Current Visit: Yes Status: Acute Assessment and plan: CHF demonstrated on prior echocardiogram 09/07 LVEF 60%. Normal LV chamber size and function. Mild concentric left ventricular hypertrophy. Indeterminate diastolic function. Atypical septal motion consistent with paced rhythm. Mild to moderately dilated right ventricle with normal function. Severely dilated left atrium. Severely dilated right atrium. Bioprosthetic aortic valve appears well seated. The leaflets are moderately thickened and calcified. Mild valvular aortic regurgitation. Prosthetic aortic stenosis. Mean gradient 36 mmHg, which is similar to prior report from 02/05/2015. Moderately thickened and calcified mitral valve leaflets. Moderate mitral stenosis. Mean gradient 8 mmHg (HR60), which is similar to prior report from 02/05/2015. Severe tricuspid regurgitation. Severe pulmonary hypertension. Estimated RVSP is 63-73 mmHg, including an estimated RA pressure of 10-20 mmHg. We will fluid restrict, give lasix as needed (3) Cirrhosis Current Visit: Yes Status: Chronic Assessment and plan: History of cirrhosis, elevated ammonia May play a role in poor appetite and fatigue Continue lactulose Repeat ammonia in AM Qualifiers: Hepatic cirrhosis type: alcoholic cirrhosis Ascites presence: with ascites Qualified Code(s): K70.31 - Alcoholic cirrhosis of liver with ascites (4) A-fib Current Visit: Yes Status: Chronic Assessment and plan: Afib that is rate controlled On warfarin, INR 4.7 today Hold Warfarin pending therapeutic INR Qualifiers: Atrial fibrillation type: chronic Qualified Code(s): I48.2 - Chronic atrial fibrillation (5) Hypokalemia Current Visit: Yes Status: Acute Assessment and plan: Hypokalemia on admission, appears to be chronic Received 80 mEq Potassium at time of admission Corrected, will continue daily supplementation as needed (6) Physical deconditioning Current Visit: No Status: Acute Assessment and plan: Chronic. Secondary to metastatic disease. (7) DVT prophylaxis Current Visit: No Status: Acute Assessment and plan: Patient is on Coumadin. (8) COPD exacerbation Current Visit: Yes Status: Acute Assessment and plan: Patient appears to be in exacerbation of COPD associated with CAP Continue to titrate O2 to goal SpO2 88-92% IV Solu-medrol, Duonebs scheduled, Albuterol PRN Antibiotics as below - Time Spent With Patient Total time spent is greater than 50% in coordination of care (as documented) at patient's floor/unit and/or counseling patient: - Subjective Interval history: The patient is seen and examined at bedside. She is resting comfortably in bed today and she says that she is feeling significantly better than she was. She is significantly more strength, and she is breathing easier than she was. She had no acute events overnight. - Constitutional Vitals: Temp Pulse Resp BP Pulse Ox 97.4 F L 62 18 132/66 94 07/05/17 05:07 07/05/17 05:07 07/05/17 05:07 07/05/17 05:07 07/05/17 05:07 General appearance: Present: cachectic, A&O X 3, answers questions appropriately Exam: Gen: Vitals noted. Frail and ill appearing, but with more energy than previously HEENT: oropharynx clear, Normocephalic, atraumatic Neck: Supple. No adenopathy. Cardiac: RRR, 2/6 systolic murmur, +S1/S2 Pulmonary: Markedly diminished throughout with some mild wheezes on exam and b/ l rhonchi Abdomen: soft, nontender, BS noted, no guarding MSK: ROM intact, no joint swelling noted Extremities: Trace B/L LE Edema, nontender calf, no cyanosis or clubbing Neuro: A&Ox3, moves all extremities, no focal deficits Psych: Affect is flat Internal Medicine: Result - Labs CBC & Chem 7: 07/05/17 15:01 07/05/17 04:45 Labs: Short CBC 07/05/17 Range/Units 04:45 WBC 4.2 L (4.3-11.1) K/mcL Hgb 7.3 L (11.5-15.4) g/dL Hct 23.6 L (35.3-44.9) % Plt Count 208 (140-400) K/mcL Neutrophils # 3.7 (1.6-8.9) K/mcL BMP 07/04/17 07/05/17 10:00 04:45 Sodium 126 L 127 L Potassium 4.1 D 4.4 Chloride 93 L 96 L Carbon Dioxide 22 L 22 L BUN 28 H 26 H Creatinine 0.85 0.75 Glucose 301 H 178 H Calcium 9.0 9.2 Cardiac Enzymes 07/04/17 07/04/17 Range/Units 06:00 12:00 Troponin I 0.03 0.04 H* (< 0.04) ng/mL Liver Function 07/05/17 Range/Units 04:45 Total Bilirubin 0.7 (0.3-1.0) mg/dL AST 16 (13-39) Units/L ALT 8 (7-52) Units/L Alkaline Phosphatase 164 H (34-104) Units/L Albumin 3.2 L (3.5-5.7) g/dL - ABG Interpretation ABG results: PT/INR, D-dimer PT 52.5 Seconds (9.4-12.1) H* D 07/05/17 04:45 Consult Discharge Plan - Plan Referrals: Jose Jones, [Primary Care Provider] - <Giacomo Will - Last Filed: 07/05/17 18:07> Date of Encounter: 07/05/17 - Assessment and plan (1) COPD exacerbation Current Visit: Yes Status: Acute (2) Pneumonia Current Visit: Yes Status: Suspected Qualifiers: Pneumonia type: due to other aerobic Gram-negative bacteria Laterality: left Lung location: lower lobe of lung Qualified Code(s): J15.6 - Pneumonia due to other Gram-negative bacteria (3) DVT prophylaxis Current Visit: No Status: Acute (4) Cirrhosis Current Visit: Yes Status: Chronic Qualifiers: Hepatic cirrhosis type: alcoholic cirrhosis Ascites presence: with ascites Qualified Code(s): K70.31 - Alcoholic cirrhosis of liver with ascites (5) A-fib Current Visit: Yes Status: Chronic Qualifiers: Atrial fibrillation type: chronic Qualified Code(s): I48.2 - Chronic atrial fibrillation (6) Hypokalemia Current Visit: Yes Status: Acute (7) Acute on chronic diastolic heart failure Current Visit: Yes Status: Acute (8) Physical deconditioning Current Visit: No Status: Acute (9) Hospital-acquired pneumonia Current Visit: Yes Status: Acute (10) Anemia Current Visit: No Status: Chronic Qualifiers: Anemia type: other cause Other causes of anemia: chronic disease, other Qualified Code(s): D63.8 - Anemia in other chronic diseases classified elsewhere - Time Spent With Patient Total time spent is greater than 50% in coordination of care (as documented) at patient's floor/unit and/or counseling patient: - Constitutional Vitals: Temp Pulse Resp BP Pulse Ox 98.1 F 60 16 132/64 94 07/05/17 16:22 07/05/17 16:22 07/05/17 16:22 07/05/17 16:22 07/05/17 16:22 Internal Medicine: Result - Labs CBC & Chem 7: 07/05/17 15:01 07/05/17 04:45 Labs: Short CBC 07/05/17 07/05/17 Range/Units 04:45 15:01 WBC 4.2 L (4.3-11.1) K/mcL Hgb 7.3 L 8.4 L (11.5-15.4) g/dL Hct 23.6 L 27.5 L (35.3-44.9) % Plt Count 208 (140-400) K/mcL Neutrophils # 3.7 (1.6-8.9) K/mcL BMP 07/05/17 04:45 Sodium 127 L Potassium 4.4 Chloride 96 L Carbon Dioxide 22 L BUN 26 H Creatinine 0.75 Glucose 178 H Calcium 9.2 Liver Function 07/05/17 Range/Units 04:45 Total Bilirubin 0.7 (0.3-1.0) mg/dL AST 16 (13-39) Units/L ALT 8 (7-52) Units/L Alkaline Phosphatase 164 H (34-104) Units/L Albumin 3.2 L (3.5-5.7) g/dL - ABG Interpretation ABG results: PT/INR, D-dimer PT 52.5 Seconds (9.4-12.1) H* D 07/05/17 04:45 - Attending Attestation I examined this patient and my medical decision-making was reviewed with the Resident Physician on 07/05/17. I agree with the documented findings, disposition and treatment plan as described except to the extent set forth below. Ms Brooks is currently admitted for acute exac COPD and pneumonia. She remains moderate to high risk due to potential for worsening clinical and respiratory status. Ms Brooks is feeling OK. Titrating oxygen as able. No fever or chills. SOB about the same. No GI issues. Exam Alert Comfortable at this time. Mucus membranes dry Heart distant Scant end exp wheeze heard Abd soft I/P 1. COPD 2. PNA 3. CHF Further diagnoses and plan as above.
[2017-07-05] MEDS: Levofloxacin 750 MG/150 ML 750 MG/150 ML BAG IVPB SCH (08:42)
[2017-07-05] MEDS: predniSONE 20 MG TABLET PO SCH (08:46)
[2017-07-05] MEDS: Gabapentin 300 MG CAPSULE PO SCH ×3 (08:46→20:48)
[2017-07-05] MEDS: Lactulose Oral Soln 20 GM/30 ML UDC PO SCH ×2 (08:47→20:51)
[2017-07-05] MEDS: Bumetanide 1 MG TABLET PO SCH ×2 (08:47→16:47)
[2017-07-05 15:56] LABS: Hematocrit 27.5 % (35.3-44.9); Hemoglobin 8.4 g/dL (11.5-15.4)
[2017-07-06] MEDS: Ipratropium/Albuterol Neb 3 ML IH SCH ×4 (03:43→22:47)
[2017-07-06 04:31] LABS: Basophils % 0.1 %; Hematocrit 26.8 % (35.3-44.9); Hemoglobin 8.5 g/dL (11.5-15.4); Immature Granulocytes % 0.7 % (0-4); Lymphocytes # 0.5 K/mcL (0.6-4.6); Lymphocytes % 5.7 %; Mean Corpuscular HGB Conc 31.7 g/dL (31.6-35.5); Mean Corpuscular Hemoglobin 24.6 pg (28.0-33.3); Mean Corpuscular Volume 77.5 fL (83.0-100.0); Mean Platelet Volume 9.2 fL (9.4-12.4); Monocytes # 0.5 K/mcL (0.0-1.3); Monocytes % 5.6 %; Neutrophils # 7.2 K/mcL (1.6-8.9); Nucleated Red Blood Cells 0.2 /100 WBC (0); Platelet Count 226 K/mcL (140-400); Red Blood Count 3.46 M/mcL (3.82-4.97); Red Cell Distribution Width 18.3 % (11.5-14.5); Segmented Neutrophils % 87.9 %
[2017-07-06] MEDS: Cefepime HCl 2,000 MG in 0.9 % Sodium Chloride Mini Bag 100 ML IVPB SCH (04:37)
[2017-07-06 04:39] LABS: Activated Partial Thrombo Time 42.1 Seconds (26.0-36.0)
[2017-07-06 04:42] LABS: INR 5.5; Prothrombin Time 61.9 Seconds (9.4-12.1)
[2017-07-06 04:50] LABS: BUN/Creatinine Ratio 33 (6-26); Blood Urea Nitrogen 28 mg/dL (8-23); Calcium 9.3 mg/dL (8.6-10.3); Carbon Dioxide 23 mEq/L (23-29); Chloride 95 mEq/L (98-107); Glucose 188 mg/dL (70-105); Osmolality,Calculated 274 (280-300); Potassium 4.4 mEq/L (3.5-5.1); Sodium 127 mEq/L (136-145); eGFR For African Americans > 60 (> 60); eGFR For Non-African Americans > 60 (> 60)
[2017-07-06] MEDS ORDERED: Aminoglycoside Consult 1 EACH MC ONE (08:17)
--- NOTE | 2017-07-06 09:08 | Internal Med Progress Note ---
<Tez Zhou - Last Filed: 07/06/17 16:46> Date of Encounter: 07/06/17 Time of Encounter: 08:20 - Assessment and plan (1) Hospital-acquired pneumonia Current Visit: Yes Status: Acute Assessment and plan: CAP, unknown organism CXR shows: Left basilar atelectasis or pneumonia. Poorly defined nodular opacities could represent infectious or inflammatory nodules or metastatic disease Patient appears to be clinically ill, however has improved significantly Current Antibiotics Vancomycin Day 4 Cefipime Day 3 Levaquin Day 4 Update 07/06 Blood cultures remain negative at this time Appropriate to deescalate antibiotics We will stop Vancomycin and cefepime Continue Levaquin Day 4 (2) Cirrhosis Current Visit: Yes Status: Chronic Assessment and plan: History of cirrhosis, elevated ammonia May play a role in poor appetite and fatigue Continue lactulose Repeat ammonia in AM, lower this morning than before Qualifiers: Hepatic cirrhosis type: alcoholic cirrhosis Ascites presence: with ascites Qualified Code(s): K70.31 - Alcoholic cirrhosis of liver with ascites (3) Acute on chronic diastolic heart failure Current Visit: Yes Status: Acute Assessment and plan: CHF demonstrated on prior echocardiogram 09/07 LVEF 60%. Normal LV chamber size and function. Mild concentric left ventricular hypertrophy. Indeterminate diastolic function. Atypical septal motion consistent with paced rhythm. Mild to moderately dilated right ventricle with normal function. Severely dilated left atrium. Severely dilated right atrium. Bioprosthetic aortic valve appears well seated. The leaflets are moderately thickened and calcified. Mild valvular aortic regurgitation. Prosthetic aortic stenosis. Mean gradient 36 mmHg, which is similar to prior report from 02/05/2015. Moderately thickened and calcified mitral valve leaflets. Moderate mitral stenosis. Mean gradient 8 mmHg (HR60), which is similar to prior report from 02/05/2015. Severe tricuspid regurgitation. Severe pulmonary hypertension. Estimated RVSP is 63-73 mmHg, including an estimated RA pressure of 10-20 mmHg. We will fluid restrict, give lasix as needed (4) A-fib Current Visit: Yes Status: Chronic Assessment and plan: Afib that is rate controlled On warfarin, INR continued to rise to 5.5 today Although there is no active bleeding at this time, the patient is at high risk considering liver cirrhosis and nausea and vomiting I will give the patient 2.5 Vitamin K PO Recheck INR in the morning Qualifiers: Atrial fibrillation type: chronic Qualified Code(s): I48.2 - Chronic atrial fibrillation (5) Hypokalemia Current Visit: Yes Status: Resolved Assessment and plan: Hypokalemia on admission, appears to be chronic Received 80 mEq Potassium at time of admission Corrected, will continue daily supplementation as needed (6) Physical deconditioning Current Visit: Yes Status: Chronic Assessment and plan: Chronic. Secondary to metastatic disease. (7) DVT prophylaxis Current Visit: No Status: Acute Assessment and plan: Patient is supratherapeutic on Coumadin. (8) COPD exacerbation Current Visit: Yes Status: Acute Assessment and plan: Patient appears to be in exacerbation of COPD associated with CAP Continue to titrate O2 to goal SpO2 88-92% IV Solu-medrol, Duonebs scheduled, Albuterol PRN Antibiotics as above - Time Spent With Patient Total time spent is greater than 50% in coordination of care (as documented) at patient's floor/unit and/or counseling patient: - Subjective Interval history: The patient is seen and examined at bedside. She is resting comfortably in bed today and has no acute complaints - Constitutional Vitals: Temp Pulse Resp BP Pulse Ox 97.3 F L 61 16 129/73 95 07/06/17 07:23 07/06/17 07:23 07/06/17 07:23 07/06/17 07:23 07/06/17 07:23 General appearance: Present: cachectic, A&O X 3, answers questions appropriately Exam: Gen: Vitals noted. Frail and ill appearing HEENT: oropharynx clear, Normocephalic, atraumatic Neck: Supple. No adenopathy. Cardiac: RRR, 2/6 systolic murmur, +S1/S2 Pulmonary: Markedly diminished throughout with some mild wheezes on exam and b/ l rhonchi. Patient is coughing throughout examination Abdomen: soft, nontender, BS noted, no guarding MSK: ROM intact, no joint swelling noted Extremities: Trace B/L LE Edema, nontender calf, no cyanosis or clubbing Neuro: A&Ox3, moves all extremities, no focal deficits Psych: Affect is flat Internal Medicine: Result - Labs CBC & Chem 7: 07/06/17 04:00 07/06/17 04:00 Labs: Short CBC 07/05/17 07/06/17 Range/Units 15:01 04:00 WBC 8.2 D (4.3-11.1) K/mcL Hgb 8.4 L 8.5 L (11.5-15.4) g/dL Hct 27.5 L 26.8 L (35.3-44.9) % Plt Count 226 (140-400) K/mcL Neutrophils # 7.2 (1.6-8.9) K/mcL BMP 07/06/17 04:00 Sodium 127 L Potassium 4.4 Chloride 95 L Carbon Dioxide 23 BUN 28 H Creatinine 0.85 Glucose 188 H Calcium 9.3 - ABG Interpretation ABG results: PT/INR, D-dimer PT 61.9 Seconds (9.4-12.1) H* 07/06/17 04:00 Consult Discharge Plan - Plan Referrals: Jose Jones DO [Primary Care Provider] - <Giacomo Will - Last Filed: 07/06/17 17:33> Date of Encounter: 07/06/17 - Assessment and plan (1) Acute on chronic diastolic heart failure Current Visit: Yes Status: Acute (2) COPD exacerbation Current Visit: Yes Status: Acute (3) Cirrhosis Current Visit: Yes Status: Chronic Qualifiers: Hepatic cirrhosis type: alcoholic cirrhosis Ascites presence: with ascites Qualified Code(s): K70.31 - Alcoholic cirrhosis of liver with ascites (4) A-fib Current Visit: Yes Status: Chronic Qualifiers: Atrial fibrillation type: chronic Qualified Code(s): I48.2 - Chronic atrial fibrillation (5) Hypokalemia Current Visit: Yes Status: Resolved (6) Physical deconditioning Current Visit: Yes Status: Chronic (7) Hospital-acquired pneumonia Current Visit: Yes Status: Acute (8) DVT prophylaxis Current Visit: No Status: Acute - Time Spent With Patient Total time spent is greater than 50% in coordination of care (as documented) at patient's floor/unit and/or counseling patient: - Constitutional Vitals: Temp Pulse Resp BP Pulse Ox 97.6 F 63 16 135/59 97 07/06/17 15:27 07/06/17 15:27 07/06/17 16:30 07/06/17 15:27 07/06/17 16:30 Internal Medicine: Result - Labs CBC & Chem 7: 07/06/17 04:00 07/06/17 04:00 Labs: Short CBC 07/06/17 Range/Units 04:00 WBC 8.2 D (4.3-11.1) K/mcL Hgb 8.5 L (11.5-15.4) g/dL Hct 26.8 L (35.3-44.9) % Plt Count 226 (140-400) K/mcL Neutrophils # 7.2 (1.6-8.9) K/mcL BMP 07/06/17 04:00 Sodium 127 L Potassium 4.4 Chloride 95 L Carbon Dioxide 23 BUN 28 H Creatinine 0.85 Glucose 188 H Calcium 9.3 - ABG Interpretation ABG results: PT/INR, D-dimer PT 61.9 Seconds (9.4-12.1) H* 07/06/17 04:00 - Attending Attestation I examined this patient and my medical decision-making was reviewed with the Resident Physician on 07/06/17. I agree with the documented findings, disposition and treatment plan as described except to the extent set forth below. Ms. Brooks is currently admitted for resp failure due to COPD and PNA. She remains moderate to high risk due potential for worsening clinical status. Ms Brooks is still very dyspneic especially after getting up. No fever or chills. No GI symptoms. Exam alert Comfortable at this time Mucus membranes moist Heart distant Faint rales heard. Abd soft I/P 1. CHF 2. COPD Further diagnoses and plans as above.
[2017-07-06] MEDS: Bumetanide 1 MG TABLET PO SCH ×2 (09:55→17:49)
[2017-07-06] MEDS: Lactulose Oral Soln 20 GM/30 ML UDC PO SCH ×2 (09:57→21:17)
[2017-07-06] MEDS: Levofloxacin 750 MG/150 ML 750 MG/150 ML BAG IVPB SCH (09:58)
[2017-07-06] MEDS: predniSONE 20 MG TABLET PO SCH (10:01)
[2017-07-06] MEDS: Gabapentin 300 MG CAPSULE PO SCH ×3 (10:01→21:17)
[2017-07-06] MEDS ORDERED: Ondansetron 4 MG/2 ML VIAL IVP PRN (14:26)
[2017-07-06] MEDS ORDERED: *HR* Phytonadione 5 MG TABLET PO ONE (14:33)
[2017-07-06] MEDS: traMADol 50 MG TABLET PO PRN (15:53)
[2017-07-07] MEDS: Ipratropium/Albuterol Neb 3 ML IH SCH ×4 (03:08→21:49)
[2017-07-07] MEDS: traMADol 50 MG TABLET PO PRN (03:43)
[2017-07-07 04:32] LABS: BUN/Creatinine Ratio 30 (6-26); Blood Urea Nitrogen 31 mg/dL (8-23); Calcium 9.1 mg/dL (8.6-10.3); Carbon Dioxide 22 mEq/L (23-29); Chloride 94 mEq/L (98-107); Glucose 231 mg/dL (70-105); Hematocrit 26.3 % (35.3-44.9); Hemoglobin 8.2 g/dL (11.5-15.4); Immature Granulocytes % 0.9 % (0-4); Lymphocytes # 0.4 K/mcL (0.6-4.6); Lymphocytes % 6.2 %; Mean Corpuscular HGB Conc 31.2 g/dL (31.6-35.5); Mean Corpuscular Volume 77.1 fL (83.0-100.0); Mean Platelet Volume 9.7 fL (9.4-12.4); Monocytes # 0.4 K/mcL (0.0-1.3); Monocytes % 5.2 %; Neutrophils # 5.9 K/mcL (1.6-8.9); Nucleated Red Blood Cells 0.6 /100 WBC (0); Osmolality,Calculated 274 (280-300); Platelet Count 218 K/mcL (140-400); Potassium 4.1 mEq/L (3.5-5.1); Red Blood Count 3.41 M/mcL (3.82-4.97); Red Cell Distribution Width 18.5 % (11.5-14.5); Segmented Neutrophils % 87.7 %; Sodium 125 mEq/L (136-145); eGFR For African Americans > 60 (> 60); eGFR For Non-African Americans 52 (> 60)
[2017-07-07] MEDS ORDERED: metOLazone 2.5 MG TABLET PO SCH (09:00)
--- NOTE | 2017-07-07 09:02 | Internal Med Progress Note ---
<Giacomo Will - Last Filed: 07/07/17 14:34> Date of Encounter: 07/07/17 - Assessment and plan (1) Acute on chronic diastolic heart failure Current Visit: Yes Status: Acute (2) COPD exacerbation Current Visit: Yes Status: Acute (3) Cirrhosis Current Visit: Yes Status: Chronic Qualifiers: Hepatic cirrhosis type: alcoholic cirrhosis Ascites presence: with ascites Qualified Code(s): K70.31 - Alcoholic cirrhosis of liver with ascites (4) A-fib Current Visit: Yes Status: Chronic Qualifiers: Atrial fibrillation type: chronic Qualified Code(s): I48.2 - Chronic atrial fibrillation (5) Hypokalemia Current Visit: Yes Status: Resolved (6) Physical deconditioning Current Visit: Yes Status: Chronic (7) Hospital-acquired pneumonia Current Visit: Yes Status: Acute (8) DVT prophylaxis Current Visit: No Status: Acute - Time Spent With Patient Total time spent is greater than 50% in coordination of care (as documented) at patient's floor/unit and/or counseling patient: - Constitutional Vitals: Temp Pulse Resp BP Pulse Ox 97.1 F L 60 17 135/65 100 07/07/17 10:47 07/07/17 10:47 07/07/17 10:47 07/07/17 10:47 07/07/17 10:47 Internal Medicine: Result - Labs CBC & Chem 7: 07/07/17 04:00 07/07/17 04:00 Labs: Short CBC 07/07/17 Range/Units 04:00 WBC 6.8 (4.3-11.1) K/mcL Hgb 8.2 L (11.5-15.4) g/dL Hct 26.3 L (35.3-44.9) % Plt Count 218 (140-400) K/mcL Neutrophils # 5.9 (1.6-8.9) K/mcL BMP 07/07/17 04:00 Sodium 125 L Potassium 4.1 Chloride 94 L Carbon Dioxide 22 L BUN 31 H Creatinine 1.04 Glucose 231 H Calcium 9.1 - ABG Interpretation ABG results: PT/INR, D-dimer PT 61.9 Seconds (9.4-12.1) H* 07/06/17 04:00 Consult Discharge Plan - Plan Referrals: Jose Jones DO [Primary Care Provider] - - Attending Attestation I examined this patient and my medical decision-making was reviewed with the Resident Physician on 07/07/17. I agree with the documented findings, disposition and treatment plan as described except to the extent set forth below. Ms Brooks is currently admitted for COPD and PNA. He remains moderate to high risk due to potential for worsening clinical status. Ms Brooks is feeling somewhat better today. Breathing has improved some. No fever or chills. No CP. No GI issues. Exam alert Comfortable now Mucus membranes dry Heart with murmur Lungs with some rhonchi and rales Abd soft I/P 1. Exac COPD 2. PNA Further diagnoses and plan as above. <Tez Zhou - Last Filed: 07/07/17 16:03> Date of Encounter: 07/07/17 Time of Encounter: 08:20 - Assessment and plan (1) Hospital-acquired pneumonia Current Visit: Yes Status: Acute Assessment and plan: CAP, unknown organism CXR shows: Left basilar atelectasis or pneumonia. Poorly defined nodular opacities could represent infectious or inflammatory nodules or metastatic disease Patient appears to be clinically ill, however has improved significantly Current Antibiotics Levaquin Day 5 Update 07/07 Blood cultures remain negative at this time Stopped Vancomycin and cefepime previously Continue Levaquin Day 5 (2) COPD exacerbation Current Visit: Yes Status: Acute Assessment and plan: Patient appears to be in exacerbation of COPD associated with CAP Continue to titrate O2 to goal SpO2 88-92% IV Solu-medrol, Duonebs scheduled, Albuterol PRN Antibiotics as above Update 07/07 Transition to PO prednisone for initiation of taper (3) Acute on chronic diastolic heart failure Current Visit: Yes Status: Acute Assessment and plan: CHF demonstrated on prior echocardiogram 09/07 LVEF 60%. Normal LV chamber size and function. Mild concentric left ventricular hypertrophy. Indeterminate diastolic function. Atypical septal motion consistent with paced rhythm. Mild to moderately dilated right ventricle with normal function. Severely dilated left atrium. Severely dilated right atrium. Bioprosthetic aortic valve appears well seated. The leaflets are moderately thickened and calcified. Mild valvular aortic regurgitation. Prosthetic aortic stenosis. Mean gradient 36 mmHg, which is similar to prior report from 02/05/2015. Moderately thickened and calcified mitral valve leaflets. Moderate mitral stenosis. Mean gradient 8 mmHg (HR60), which is similar to prior report from 02/05/2015. Severe tricuspid regurgitation. Severe pulmonary hypertension. Estimated RVSP is 63-73 mmHg, including an estimated RA pressure of 10-20 mmHg. We will fluid restrict, give lasix as needed (4) Cirrhosis Current Visit: Yes Status: Chronic Assessment and plan: History of cirrhosis, elevated ammonia May play a role in poor appetite and fatigue Continue lactulose Repeat ammonia in AM, lower this morning than before Qualifiers: Hepatic cirrhosis type: alcoholic cirrhosis Ascites presence: with ascites Qualified Code(s): K70.31 - Alcoholic cirrhosis of liver with ascites (5) A-fib Current Visit: Yes Status: Chronic Assessment and plan: Afib that is rate controlled On warfarin, INR continued to rise to 5.5 today Although there is no active bleeding at this time, the patient is at high risk considering liver cirrhosis and nausea and vomiting I will give the patient 2.5 Vitamin K PO Recheck INR in the morning Update 07/07 INR has returned to therapeutic range of 2.9 Will hold for one more night prior to restarting Qualifiers: Atrial fibrillation type: chronic Qualified Code(s): I48.2 - Chronic atrial fibrillation (6) Hypokalemia Current Visit: Yes Status: Resolved Assessment and plan: Hypokalemia on admission, appears to be chronic Received 80 mEq Potassium at time of admission Corrected, will continue daily supplementation as needed (7) Physical deconditioning Current Visit: Yes Status: Chronic Assessment and plan: Chronic. Secondary to metastatic disease. We will have PT/OT see (8) DVT prophylaxis Current Visit: No Status: Acute Assessment and plan: Patient is therapeutic on Coumadin. - Time Spent With Patient Total time spent is greater than 50% in coordination of care (as documented) at patient's floor/unit and/or counseling patient: - Subjective Interval history: The patient is seen and examined at bedside. She is resting comfortably in bed today and has no acute complaints. - Constitutional Vitals: Temp Pulse Resp BP Pulse Ox 97.1 F L 60 17 126/61 98 07/07/17 07:13 07/07/17 07:13 07/07/17 07:13 07/07/17 07:13 07/07/17 07:13 General appearance: Present: cachectic, A&O X 3, answers questions appropriately Exam: Gen: Vitals noted. Frail and ill appearing HEENT: oropharynx clear, Normocephalic, atraumatic Neck: Supple. No adenopathy. Cardiac: RRR, 2/6 systolic murmur, +S1/S2 Pulmonary: Markedly diminished throughout with some mild wheezes on exam Abdomen: soft, nontender, BS noted, no guarding MSK: ROM intact, no joint swelling noted Extremities: Trace B/L LE Edema, nontender calf, no cyanosis or clubbing Neuro: A&Ox3, moves all extremities, no focal deficits Psych: Affect is flat Internal Medicine: Result - Labs CBC & Chem 7: 07/07/17 04:00 07/07/17 04:00 Labs: Short CBC 07/07/17 Range/Units 04:00 WBC 6.8 (4.3-11.1) K/mcL Hgb 8.2 L (11.5-15.4) g/dL Hct 26.3 L (35.3-44.9) % Plt Count 218 (140-400) K/mcL Neutrophils # 5.9 (1.6-8.9) K/mcL BMP 07/07/17 04:00 Sodium 125 L Potassium 4.1 Chloride 94 L Carbon Dioxide 22 L BUN 31 H Creatinine 1.04 Glucose 231 H Calcium 9.1 - ABG Interpretation ABG results: PT/INR, D-dimer PT 61.9 Seconds (9.4-12.1) H* 07/06/17 04:00
[2017-07-07] MEDS: Lactulose Oral Soln 20 GM/30 ML UDC PO SCH ×2 (10:05→22:03)
[2017-07-07] MEDS: Levofloxacin 750 MG/150 ML 750 MG/150 ML BAG IVPB SCH (10:05)
[2017-07-07] MEDS: Bumetanide 1 MG TABLET PO SCH ×2 (10:06→18:46)
[2017-07-07] MEDS: Gabapentin 300 MG CAPSULE PO SCH ×3 (10:07→22:03)
[2017-07-07] MEDS: predniSONE 20 MG TABLET PO SCH (10:07)
[2017-07-07 15:17] LABS: INR 2.9; Prothrombin Time 32.1 Seconds (9.4-12.1)
[2017-07-08] MEDS: Ipratropium/Albuterol Neb 3 ML IH SCH ×4 (03:51→22:16)
[2017-07-08 04:00] LABS: Basophils % 0.1 %; Hematocrit 26.5 % (35.3-44.9); Hemoglobin 8.5 g/dL (11.5-15.4); Immature Granulocytes % 1.1 % (0-4); Lymphocytes # 0.4 K/mcL (0.6-4.6); Lymphocytes % 5.5 %; Mean Corpuscular HGB Conc 32.1 g/dL (31.6-35.5); Mean Corpuscular Volume 74.9 fL (83.0-100.0); Mean Platelet Volume 9.4 fL (9.4-12.4); Monocytes # 0.6 K/mcL (0.0-1.3); Monocytes % 8.1 %; Nucleated Red Blood Cells 0.6 /100 WBC (0); Platelet Count 224 K/mcL (140-400); Red Blood Count 3.54 M/mcL (3.82-4.97); Red Cell Distribution Width 18.3 % (11.5-14.5); Segmented Neutrophils % 85.2 %
[2017-07-08 05:00] LABS: BUN/Creatinine Ratio 35 (6-26); Blood Urea Nitrogen 35 mg/dL (8-23); Calcium 9.9 mg/dL (8.6-10.3); Carbon Dioxide 27 mEq/L (23-29); Chloride 91 mEq/L (98-107); Glucose 174 mg/dL (70-105); Osmolality,Calculated 278 (280-300); Potassium 4.3 mEq/L (3.5-5.1); Sodium 128 mEq/L (136-145); eGFR For African Americans > 60 (> 60); eGFR For Non-African Americans 54 (> 60)
[2017-07-08] MEDS ORDERED: levoFLOXacin 750 MG TABLET PO SCH (09:00)
--- NOTE | 2017-07-08 09:11 | Internal Med Progress Note ---
<Tez Zhou - Last Filed: 07/08/17 09:10> Date of Encounter: 07/08/17 - Assessment and plan (1) Hospital-acquired pneumonia Current Visit: Yes Status: Acute (2) COPD exacerbation Current Visit: Yes Status: Acute (3) Acute on chronic diastolic heart failure Current Visit: Yes Status: Acute (4) Cirrhosis Current Visit: Yes Status: Chronic Qualifiers: Hepatic cirrhosis type: alcoholic cirrhosis Ascites presence: with ascites Qualified Code(s): K70.31 - Alcoholic cirrhosis of liver with ascites (5) A-fib Current Visit: Yes Status: Chronic Qualifiers: Atrial fibrillation type: chronic Qualified Code(s): I48.2 - Chronic atrial fibrillation (6) Hypokalemia Current Visit: Yes Status: Resolved (7) Physical deconditioning Current Visit: Yes Status: Chronic (8) DVT prophylaxis Current Visit: No Status: Acute - Time Spent With Patient Total time spent is greater than 50% in coordination of care (as documented) at patient's floor/unit and/or counseling patient: - Subjective Interval history: The patient is seen and examined at bedside. She is resting comfortably in bed today and has no acute complaints. - Constitutional Vitals: Temp Pulse Resp BP Pulse Ox 97.5 F L 60 15 143/63 100 07/08/17 06:59 07/08/17 06:59 07/08/17 06:59 07/08/17 06:59 07/08/17 07:12 General appearance: Present: cachectic, A&O X 3, answers questions appropriately Internal Medicine: Result - Labs CBC & Chem 7: 07/08/17 03:43 07/08/17 03:43 Labs: Short CBC 07/08/17 Range/Units 03:43 WBC 7.1 (4.3-11.1) K/mcL Hgb 8.5 L (11.5-15.4) g/dL Hct 26.5 L (35.3-44.9) % Plt Count 224 (140-400) K/mcL Neutrophils # 6.0 (1.6-8.9) K/mcL BMP 07/08/17 03:43 Sodium 128 L Potassium 4.3 Chloride 91 L Carbon Dioxide 27 BUN 35 H Creatinine 1.01 Glucose 174 H Calcium 9.9 - ABG Interpretation ABG results: PT/INR, D-dimer PT 32.1 Seconds (9.4-12.1) H 07/07/17 08:01 Consult Discharge Plan - Plan Referrals: Jose Jones DO [Primary Care Provider] - <Andrew Rodriguezregino - Last Filed: 07/08/17 15:56> Date of Encounter: 07/08/17 Time of Encounter: 15:56 - Assessment and plan (1) Hospital-acquired pneumonia Current Visit: Yes Status: Resolved Assessment and plan: Resolved Patient had 5 days of Levaquin. Her respiratory status has improved considerably. She is on her home 2 L oxygen. d/c tomorow. (2) COPD exacerbation Current Visit: Yes Status: Resolved Assessment and plan: Resolved. Patient received 5 days of antibiotics and prednisone. Continue nebulizer treatments. (3) Acute on chronic diastolic heart failure Current Visit: Yes Status: Resolved Assessment and plan: Resolved. Continue Bumex and metolazone home dose. (4) A-fib Current Visit: Yes Status: Chronic Assessment and plan: Controlled. Patient is on warfarin for anticoagulation and today her INR is therapeutic. She was given vitamin K and her INR initially was above 5. Restart warfarin. Qualifiers: Atrial fibrillation type: chronic Qualified Code(s): I48.2 - Chronic atrial fibrillation (5) Cirrhosis Current Visit: Yes Status: Chronic Assessment and plan: stable. Patient has history of cirrhosis. She is started on lactulose. She is also on spironolactone. Qualifiers: Hepatic cirrhosis type: alcoholic cirrhosis Ascites presence: with ascites Qualified Code(s): K70.31 - Alcoholic cirrhosis of liver with ascites (6) DVT prophylaxis Current Visit: Yes Status: Acute Assessment and plan: Warfarin (7) Hypokalemia Current Visit: Yes Status: Resolved (8) Physical deconditioning Current Visit: Yes Status: Chronic Assessment and plan: PT OT consult to patient and she will be set up for home health PT OT. (9) Diarrhea Current Visit: Yes Status: Acute Assessment and plan: Patient 4 bouts of diarrhea this morning. C. difficile was negative. Likely secondary to starting on lactulose as she has history of cirrhosis as well as being on antibiotics. will give 1L IVf as patient appears dehydrated. Qualifiers: Diarrhea type: unspecified type Qualified Code(s): R19.7 - Diarrhea, unspecified - Time Spent With Patient Total time spent is greater than 50% in coordination of care (as documented) at patient's floor/unit and/or counseling patient: - Subjective Interval history: Patient has no acute overnight events. She reports her shortness of breath is improved. She continues to fatigue. This morning she had 4 bouts of diarrhea. - Constitutional Vitals: Temp Pulse Resp BP Pulse Ox 97.6 F 59 16 127/63 99 07/08/17 15:36 07/08/17 15:36 07/08/17 15:36 07/08/17 15:36 07/08/17 15:36 - Other Additional findings: General: Pleasant without distress Heart: Regular rate and rhythm with no murmur Lungs: Diminished, clear Abdomen: Soft nontender, nondistended positive bowel sounds Skin: warm and dry, absent rash Extremities: Absent pedal edema, Neuro: Alert oriented 3 Vascular: Pedal and radial pulses 2 out of 4 Internal Medicine: Result - Labs CBC & Chem 7: 07/08/17 03:43 07/08/17 03:43 Labs: Short CBC 07/08/17 Range/Units 03:43 WBC 7.1 (4.3-11.1) K/mcL Hgb 8.5 L (11.5-15.4) g/dL Hct 26.5 L (35.3-44.9) % Plt Count 224 (140-400) K/mcL Neutrophils # 6.0 (1.6-8.9) K/mcL BMP 07/08/17 03:43 Sodium 128 L Potassium 4.3 Chloride 91 L Carbon Dioxide 27 BUN 35 H Creatinine 1.01 Glucose 174 H Calcium 9.9 - ABG Interpretation ABG results: PT/INR, D-dimer PT 17.5 Seconds (9.4-12.1) H 07/08/17 12:31 <Giacomo Will - Last Filed: 07/08/17 17:55> Date of Encounter: 07/08/17 - Assessment and plan (1) Diarrhea Current Visit: Yes Status: Acute Qualifiers: Diarrhea type: functional diarrhea Qualified Code(s): K59.1 - Functional diarrhea (2) Pneumonia Current Visit: Yes Status: Suspected Qualifiers: Pneumonia type: due to other aerobic Gram-negative bacteria Laterality: left Lung location: lower lobe of lung Qualified Code(s): J15.6 - Pneumonia due to other Gram-negative bacteria (3) Cirrhosis Current Visit: Yes Status: Chronic Qualifiers: Hepatic cirrhosis type: alcoholic cirrhosis Ascites presence: with ascites Qualified Code(s): K70.31 - Alcoholic cirrhosis of liver with ascites (4) A-fib Current Visit: Yes Status: Chronic Qualifiers: Atrial fibrillation type: chronic Qualified Code(s): I48.2 - Chronic atrial fibrillation (5) Hypokalemia Current Visit: Yes Status: Resolved (6) Acute on chronic diastolic heart failure Current Visit: Yes Status: Resolved (7) DVT prophylaxis Current Visit: Yes Status: Acute (8) Physical deconditioning Current Visit: Yes Status: Chronic (9) Hospital-acquired pneumonia Current Visit: Yes Status: Resolved (10) COPD exacerbation Current Visit: Yes Status: Resolved - Time Spent With Patient Total time spent is greater than 50% in coordination of care (as documented) at patient's floor/unit and/or counseling patient: - Constitutional Vitals: Temp Pulse Resp BP Pulse Ox 97.6 F 59 16 127/63 99 07/08/17 15:36 07/08/17 15:36 07/08/17 15:55 07/08/17 15:36 07/08/17 15:55 Internal Medicine: Result - Labs CBC & Chem 7: 07/08/17 03:43 07/08/17 03:43 Labs: Short CBC 07/08/17 Range/Units 03:43 WBC 7.1 (4.3-11.1) K/mcL Hgb 8.5 L (11.5-15.4) g/dL Hct 26.5 L (35.3-44.9) % Plt Count 224 (140-400) K/mcL Neutrophils # 6.0 (1.6-8.9) K/mcL BMP 07/08/17 03:43 Sodium 128 L Potassium 4.3 Chloride 91 L Carbon Dioxide 27 BUN 35 H Creatinine 1.01 Glucose 174 H Calcium 9.9 - ABG Interpretation ABG results: PT/INR, D-dimer PT 17.5 Seconds (9.4-12.1) H 07/08/17 12:31 - Attending Attestation I examined this patient and my medical decision-making was reviewed with the Resident Physician on 07/08/17. I agree with the documented findings, disposition and treatment plan as described except to the extent set forth below. Ms Brooks is currently admitted for acute resp failure and pneumonia. She remains moderate to high risk due to potential for worsening clinical status. Ms Brooks has developed diarrhea. No fever or chills. C diff negative. Has been getting lactulose for increased ammonia. No abd pain. Exam Alert Mild distress overall Mucus membranes dry Heart distant No wheeze abd nontender I/P 1. Diarrhea - ? Lactulose versus other - monitor 2. PNA Further diagnoses and plan as above.
[2017-07-08] MEDS: Bumetanide 1 MG TABLET PO SCH ×2 (09:50→16:43)
[2017-07-08] MEDS: predniSONE 20 MG TABLET PO SCH (09:50)
[2017-07-08] MEDS: Gabapentin 300 MG CAPSULE PO SCH ×3 (09:50→21:43)
[2017-07-08] MEDS: Lactulose Oral Soln 20 GM/30 ML UDC PO SCH ×2 (09:51→14:31)
[2017-07-08] MEDS: OXYCODONE Oral CONC 10 MG/0.5 ML ORAL.SYG SL PRN ×2 (09:52→17:31)
[2017-07-08] MEDS: 0.9 % Sodium Chloride 1,000 ML IVC SCH (11:55)
[2017-07-08 12:48] LABS: INR 1.6; Prothrombin Time 17.5 Seconds (9.4-12.1)
--- NOTE | 2017-07-08 12:59 | Physician Discharge Referral ---
Home Health/Hosp Referral Info Transfer to: Home Health Attending Provider: Dr. Will Provider in Charge Post Discharge: PCP - Diagnosis (1) Hospital-acquired pneumonia Priority: Primary Status: Resolved (2) Acute on chronic diastolic heart failure Priority: Secondary Status: Resolved (3) A-fib Priority: Secondary Status: Chronic (4) Cirrhosis Priority: Secondary Status: Chronic (5) COPD exacerbation Priority: Secondary Status: Resolved (6) DVT prophylaxis Priority: Secondary Status: Acute (7) Hypokalemia Priority: Secondary Status: Resolved (8) Physical deconditioning Priority: Secondary Status: Chronic - Respiratory Orders Oxygen / L per min (2L) Smoking Cessation: Smoking cessation has been advised. For more information, call the [employer] Quit Line at 2-749-MCDV-NOW. - Diet/Nutrition Diet/Nutrition Orders: Cardiac (esnure BID) - Activity Activity Orders: Ambulate (with assist), Walker - Services Needed Following services are medically necessary services: Nursing, Home Health Aide, Physical Therapy, Occupational Therapy - Transfer Medications Home Medications: Omeprazole [PriLOSEC] 20 mg PO DAILY PRN 06/03/16 [History] Tramadol HCl [Ultram] 50 mg PO QID PRN 03/15/17 [History] Sodium Chloride 1 gm PO BID #30 tablet 03/20/17 [Rx] Pembrolizumab [Keytruda] 100 mg IV Q3W 04/22/17 [History] Spironolactone [Aldactone] 100 mg PO DAILY 04/22/17 [History] Warfarin [Coumadin] 3 mg PO SUMOTUTHSA 04/22/17 [History] Warfarin [Coumadin] 6 mg PO WEFR 04/22/17 [History] metOLazone [Zaroxolyn] 2.5 mg PO 2XW 04/22/17 [History] Allopurinol [Zyloprim 100 MG] 100 mg PO DAILY 07/04/17 [History] Bumetanide [Bumetanide] 4 mg PO BID 07/04/17 [History] Gabapentin [Neurontin] 300 mg PO TID 07/04/17 [History] Potassium Chloride 20 meq PO BID 07/04/17 [History] Zolpidem [Ambien] 10 mg PO HS 07/04/17 [History] Allergies/Adverse Reactions: 3 Allergy/AdvReac Type Severity Reaction Status Date / Time morphine Allergy Hives Verified 07/04/17 09:33 Penicillins Allergy See Verified 07/05/17 15:31 Comments aspirin AdvReac Nausea Verified 07/04/17 09:33 ibuprofen [From Motrin] AdvReac Vomiting Verified 07/04/17 09:33 Certification: Further, I certify that my clinical findings support that this patient is homebound (i.e. absences from home require considerable and taxing effort and are for medical reasons or rastafari services or infrequently or short duration when for other reasons) because: Homebound Reason: Patient requires assistance of a person or device to safely leave home, Absences from home are contraindicated except to recieve medical care Attestation: My signature below is to certify that this patient is under my care and that I, or nurse practitioner, or a physician's night assistant working with me, has a face-to -face encounter with this patient.
[2017-07-08] MEDS ORDERED: Fluconazole 100 MG TABLET PO ONE (14:31)
[2017-07-08] MEDS: traMADol 50 MG TABLET PO PRN ×2 (14:59→21:48)
[2017-07-08] MEDS ORDERED: *HR* Warfarin 3 MG TABLET PO ONE (18:00)
[2017-07-09] MEDS: 0.9 % Sodium Chloride 1,000 ML IVC SCH (01:36)
[2017-07-09] MEDS: Ipratropium/Albuterol Neb 3 ML IH SCH ×2 (03:42→09:23)
[2017-07-09 05:50] LABS: INR 1.4; Prothrombin Time 15.6 Seconds (9.4-12.1)
[2017-07-09 06:07] LABS: BUN/Creatinine Ratio 39 (6-26); Blood Urea Nitrogen 40 mg/dL (8-23); Carbon Dioxide 33 mEq/L (23-29); Chloride 86 mEq/L (98-107); Glucose 148 mg/dL (70-105); Osmolality,Calculated 273 (280-300); Potassium 4.8 mEq/L (3.5-5.1); Sodium 125 mEq/L (136-145); eGFR For African Americans > 60 (> 60); eGFR For Non-African Americans 53 (> 60)
[2017-07-09] MEDS ORDERED: Lactulose Oral Soln 20 GM/30 ML UDC PO SCH (09:00)
--- NOTE | 2017-07-09 10:09 | Discharge Summary ---
<Andrew Rodriguez - Last Filed: 07/09/17 10:07> - NOTES TO OUTPATIENT PROVIDER Notes to Outpatient Provider: Patient admitted for pneumonia and COPD exacerbation.. She was treated with 5 days of antibiotics and steroids. Patient also is supratherapeutic on her INR with level above 5.5 which was reversed with vitamin K and her warfarin was restarted. Patient's INR today is 1.4. She will be given a prescription for PT/INR and that she can follow-up with the Coumadin clinic. She will be continued on her the same dose of warfarin as she received a larger dose last night before discharge. Patient was also started on a low dose of lactulose as her ammonia level was 82. Orders not resulted at time of discharge: Pending orders 07/10/17 04:00 PT/INR [Prothrombin Time INR] [COAG] AM 0400 07/11/17 04:00 PT/INR [Prothrombin Time INR] [COAG] AM 0400 Date of Encounter: 07/09/17 Time of Encounter: 10:07 - Discharge Diagnosis (1) Hospital-acquired pneumonia Priority: Primary Status: Resolved (2) Acute on chronic diastolic heart failure Priority: Secondary Status: Resolved (3) Cirrhosis Priority: Secondary Status: Chronic Qualifiers: Hepatic cirrhosis type: alcoholic cirrhosis Ascites presence: with ascites Qualified Code(s): K70.31 - Alcoholic cirrhosis of liver with ascites (4) A-fib Priority: Secondary Status: Chronic Qualifiers: Atrial fibrillation type: chronic Qualified Code(s): I48.2 - Chronic atrial fibrillation (5) Hypokalemia Priority: Secondary Status: Resolved (6) DVT prophylaxis Priority: Secondary Status: Acute (7) Physical deconditioning Priority: Secondary Status: Chronic (8) COPD exacerbation Priority: Secondary Status: Resolved (9) Pneumonia Priority: Secondary Status: Suspected Qualifiers: Pneumonia type: due to other aerobic Gram-negative bacteria Laterality: left Lung location: lower lobe of lung Qualified Code(s): J15.6 - Pneumonia due to other Gram-negative bacteria (10) Diarrhea Priority: Secondary Status: Resolved Qualifiers: Diarrhea type: functional diarrhea Qualified Code(s): K59.1 - Functional diarrhea Hospital course: Ms. Boroks is a 71 year old female presented with chief complaint of shortness of breath and cough. Patient has a history of metastatic small cell lung cancer and is on chemotherapy outpatient with palliative intent. Patient was started on IV antibiotics and steroids. Chest x-ray showed possible left basilar pneumonia. Blood cultures were ordered and were negative. She also complained of diffuse weakness. On admission patient's potassium was 2.8 and was replaced. Patient also has a history of atrial fibrillation and initially on admission her INR was at goal but on day 3 of admission increased to 5.5. Patient INR was reversed with vitamin K. Today INR is 1.4 and she is restarted on warfarin. Patient also has a history of cirrhosis without ascites. She is on spironolactone and Bumex with metolazone. Patient's ammonia level was elevated on admission and she was started on lactulose. Patient did develop diarrhea which initially was suspected to be C. difficile as she was on IV antibiotics however CT of the CR was negative. Patient's lactulose dose was decreased. Patient had PT OT consultation and recommended home health PT OT. Today patient is tolerating her diet. She can ambulate with her walker. She will be discharged home where she lives with her grandson. She will have home health set up. She will continue her home dose oxygen of 2 L. She will also be discharged with new medications of lidocaine patch for low back pain, lactulose and DuoNeb nebulizer treatments. She will follow-up with her PCP outpatient. Discharge discussed with: patient - Time Spent with Patient Total time spent providing and/or coordinating discharge services: Greater than 30 minutes - Discharge Medications Prescriptions: Ipratropium/Albuterol Neb [Duoneb] 3 ml IH [id number] #120 inhsol Guaifenesin [Mucinex] 1,200 mg PO BID #30 tab.er.12h Lactulose 10 gm PO DAILY #30 udc Lidocaine Patch [Lidoderm 5% patch] 1 each TP DAILY #30 adh..patch Home Medications: Omeprazole [PriLOSEC] 20 mg PO DAILY PRN 06/03/16 [History] Tramadol HCl [Ultram] 50 mg PO QID PRN 03/15/17 [History] Sodium Chloride 1 gm PO BID #30 tablet 03/20/17 [Rx] Pembrolizumab [Keytruda] 100 mg IV Q3W 04/22/17 [History] Spironolactone [Aldactone] 100 mg PO DAILY 04/22/17 [History] Warfarin [Coumadin] 3 mg PO SUMOTUTHSA 04/22/17 [History] Warfarin [Coumadin] 6 mg PO WEFR 04/22/17 [History] metOLazone [Zaroxolyn] 2.5 mg PO 2XW 04/22/17 [History] Allopurinol [Zyloprim 100 MG] 100 mg PO DAILY 07/04/17 [History] Bumetanide 4 mg PO BID 07/04/17 [History] Gabapentin [Neurontin] 300 mg PO TID 07/04/17 [History] Potassium Chloride 20 meq PO BID 07/04/17 [History] Zolpidem [Ambien] 10 mg PO HS 07/04/17 [History] Guaifenesin [Mucinex] 1,200 mg PO BID #30 tab.er.12h 07/09/17 [Rx] Ipratropium/Albuterol Neb [Duoneb] 3 ml IH [id number] #120 inhsol 07/09/17 [Rx] Lactulose 10 gm PO DAILY #30 udc 07/09/17 [Rx] Lidocaine Patch [Lidoderm 5% patch] 1 each TP DAILY #30 adh..patch 07/09/17 [Rx] Allergies/Adverse Reactions: 3 Allergy/AdvReac Type Severity Reaction Status Date / Time morphine Allergy Hives Verified 07/04/17 09:33 Penicillins Allergy See Verified 07/05/17 15:31 Comments aspirin AdvReac Nausea Verified 07/04/17 09:33 ibuprofen [From Motrin] AdvReac Vomiting Verified 07/04/17 09:33 Date of admission: 07/04/17 03:09 Primary care physician: Jose Jones Consults: 07/07/17 16:00 Consult to Physical Therapy [CONS] Routine Comment: Evaluate, develop and implement POC Reason for Consult: Weakness and deconditioning Does patient have active BEDREST order?: No Is patient medically & hemodynamically stable?: Yes OT [Consult to Occupational Therapy] [CONS] Routine Comment: Evaluate, develop and implement POC Reason for Consult: Weakness and deconditioning Does patient have active BEDREST order?: No Is patient medically & hemodynamically stable?: Yes Discharging clinician: Andrew Rodriguez - Constitutional Vitals: Temp Pulse Resp BP Pulse Ox 98.0 F 59 15 158/81 98 07/09/17 07:15 07/09/17 07:15 07/09/17 07:15 07/09/17 07:15 07/09/17 07:15 General appearance: Present: cachectic, A&O X 3, answers questions appropriately - Other Additional findings: General: without distress HEENT: Head atraumatic, normocephalic, EOMI, PERRL, neck nontender to palpation , absent lymphadenopathy, Moist Mucous Membranes, Heart: Regular rate and rhythm with no murmur Lungs: Clear to auscultation bilaterally Abdomen: Soft nontender, nondistended positive bowel sounds Skin: warm and dry, absent rash Extremities: Absent pedal edema, Neuro: Cranial nerves II through XII intact, UE and LE sensation equal bilaterally, UE and LEstrength 4/5, alert oriented 3, Vascular: Pedal and radial pulses 2 out of 4 - Patient Status Disposition: Home Health Service Condition: Good Functional capacity at discharge: uses cane/walker Overall status at discharge: patient is progressing back to baseline - Discharge Instructions Instructions: Pneumonia (GEN) Follow Up With: Jose Jones DO [Primary Care Provider] - (Please call doctor Tuesday for follow up appointment.) Forms: ED Satisfaction Letter - Diet and Activity Activity: as per physical therapy, increase activity as tolerated Diet: low fat, low cholesterol, other (ensure BID ) <Giacomo Will - Last Filed: 07/09/17 15:10> Date of Encounter: 07/09/17 - Discharge Diagnosis (1) COPD exacerbation Status: Resolved (2) Pneumonia Status: Suspected Qualifiers: Pneumonia type: due to other aerobic Gram-negative bacteria Laterality: left Lung location: lower lobe of lung Qualified Code(s): J15.6 - Pneumonia due to other Gram-negative bacteria (3) Cirrhosis Status: Chronic Qualifiers: Hepatic cirrhosis type: alcoholic cirrhosis Ascites presence: with ascites Qualified Code(s): K70.31 - Alcoholic cirrhosis of liver with ascites (4) A-fib Status: Chronic Qualifiers: Atrial fibrillation type: chronic Qualified Code(s): I48.2 - Chronic atrial fibrillation (5) Hypokalemia Status: Resolved (6) Acute on chronic diastolic heart failure Status: Resolved (7) DVT prophylaxis Status: Acute (8) Physical deconditioning Status: Chronic (9) Hospital-acquired pneumonia Status: Resolved (10) Diarrhea Status: Resolved Qualifiers: Diarrhea type: functional diarrhea Qualified Code(s): K59.1 - Functional diarrhea Hospital course: Ms. Brooks is a 71 year old female - Time Spent with Patient Total time spent providing and/or coordinating discharge services: 38min Date of admission: 07/04/17 03:09 Primary care physician: Jose Jones Consults: 07/07/17 16:00 Consult to Physical Therapy [CONS] Routine Comment: Evaluate, develop and implement POC Reason for Consult: Weakness and deconditioning Does patient have active BEDREST order?: No Is patient medically & hemodynamically stable?: Yes OT [Consult to Occupational Therapy] [CONS] Routine Comment: Evaluate, develop and implement POC Reason for Consult: Weakness and deconditioning Does patient have active BEDREST order?: No Is patient medically & hemodynamically stable?: Yes - Constitutional Vitals: Temp Pulse Resp BP Pulse Ox 97.3 F L 60 16 136/68 89 07/09/17 11:25 07/09/17 11:25 07/09/17 11:25 07/09/17 11:25 07/09/17 09:23 - Attending Attestation I examined this patient and my medical decision-making was reviewed with the Resident Physician on 07/09/17. I agree with the documented findings, disposition and treatment plan as described except to the extent set forth below. Ms Brooks has been admitted for respiratory failure and pneumonia. She has steadily improved with treatment. Today she is afebrile. She is still coughing but unable to move much secretions. She is currently able to be discharged home. Exam alert. Comfortable at this time Mucus membranes dry Heart distant with murmur Lungs with increased air movement. Rales R base. Plan D/C home today.
[2017-07-09] MEDS: traMADol 50 MG TABLET PO PRN (10:19)
[2017-07-09] MEDS: Gabapentin 300 MG CAPSULE PO SCH (10:19)
[2017-07-09] MEDS: Bumetanide 1 MG TABLET PO SCH (10:19)
[2017-07-09 11:27] VITALS: BP 136/68
== END 2017-07-09 12:51 | disposition home health service (06) | DRG 177 ==
LOC: EMEROO 22:42 → 2NENU 22:42 → SUATTDRO 07-04 03:09 → 2NENU 07-04 04:00
PROVIDERS: ADMIT Pediatrics; ATTEND Internal Medicine

== ENCOUNTER 2017-07-11 16:49 | Observation (INO) ==
[2017-07-11 17:59] LABS: Basophils % 0.1 %; Eosinophils # 0.1 K/mcL (0.0-0.6); Eosinophils % 0.9 %; Hematocrit 27.7 % (35.3-44.9); Hemoglobin 9.1 g/dL (11.5-15.4); Immature Granulocytes % 1.5 % (0-4); Lymphocytes # 0.8 K/mcL (0.6-4.6); Lymphocytes % 9.2 %; Mean Corpuscular HGB Conc 32.9 g/dL (31.6-35.5); Mean Corpuscular Hemoglobin 24.1 pg (28.0-33.3); Mean Corpuscular Volume 73.3 fL (83.0-100.0); Mean Platelet Volume 8.8 fL (9.4-12.4); Monocytes # 0.8 K/mcL (0.0-1.3); Monocytes % 8.7 %; Neutrophils # 7.3 K/mcL (1.6-8.9); Nucleated Red Blood Cells 0.3 /100 WBC (0); Platelet Count 227 K/mcL (140-400); Red Blood Count 3.78 M/mcL (3.82-4.97); Red Cell Distribution Width 18.3 % (11.5-14.5); Segmented Neutrophils % 79.6 %
[2017-07-11 18:05] LABS: INR 1.9
[2017-07-11 18:28] LABS: Troponin I 0.03 ng/mL (< 0.04)
[2017-07-11 18:29] LABS: Albumin 3.6 g/dL (3.5-5.7); Albumin/Globulin Ratio 1.3 (1.1-2.2); Bilirubin,Direct 0.5 mg/dL (0.0-0.2); Bilirubin,Indirect 0.6 mg/dL (0.0-1.2); Bilirubin,Total 1.1 mg/dL (0.3-1.0); Calcium 10.1 mg/dL (8.6-10.3); Globulin 2.7 g/dL (2.4-3.5); Total Protein 6.3 g/dL (6.4-8.9)
--- NOTE | 2017-07-11 18:40 | Emergency Department Note ---
Disposition Clinical Impression: CHF exacerbation Congestive heart failure Qualifiers: Heart failure type: diastolic Heart failure chronicity: acute on chronic Qualified Code(s): I50.33 - Acute on chronic diastolic (congestive) heart failure Pneumonia Qualifiers: Pneumonia type: due to unspecified organism Laterality: unspecified laterality Lung location: unspecified part of lung Qualified Code(s): J18.9 - Pneumonia, unspecified organism Disposition: Admitted As Inpatient Condition: Fair Referrals: Jose Jones DO [Primary Care Provider] - Forms: ED Satisfaction Letter Time of Disposition: 19:40 SOB HPI - General Chief Complaint: ED Shortness of Breath/Dyspnea Stated Complaint: SOB Time Seen by Provider: 07/11/17 17:07 Source: patient Mode of arrival: ambulatory Limitations: no limitations Nursing Notes Reviewed: Yes Vital Signs Reviewed: Yes - History of Present Illness Patient presents to the ED with the chief complaint of shortness of breath and fatigue. Patient was just discharged from the hospital yesterday after having hospital acquired pneumonia. States that she does not feel any better despite ABX. She continues to feel short of breath. She does have a history of CHF and has had worsening peripheral edema. States that she can barely get up and walk because her legs are so swollen and she just feels very unwell. Has continued to feel short of breath and have a productive cough. - Related Data Home Medications Medication Instructions Recorded Confirmed Omeprazole [PriLOSEC] 20 mg PO DAILY PRN 06/03/16 07/11/17 Tramadol HCl [Ultram] 50 mg PO QID PRN 03/15/17 07/11/17 Pembrolizumab [Keytruda] 100 mg IV Q3W 04/22/17 07/11/17 Spironolactone [Aldactone] 100 mg PO DAILY 04/22/17 07/11/17 Warfarin [Coumadin] 3 mg PO SUMOTUTHSA 04/22/17 07/11/17 Warfarin [Coumadin] 6 mg PO WEFR 04/22/17 07/11/17 metOLazone [Zaroxolyn] 2.5 mg PO 2XW 04/22/17 07/11/17 Allopurinol [Zyloprim 100 MG] 100 mg PO DAILY 07/04/17 07/11/17 Bumetanide 4 mg PO BID 05/14/18 05/21/18 Gabapentin [Neurontin] 300 mg PO TID 07/04/17 07/11/17 Potassium Chloride 20 meq PO BID 07/04/17 07/11/17 Zolpidem [Ambien] 10 mg PO HS 07/04/17 07/11/17 Previous Rx's Medication Instructions Recorded Sodium Chloride 1 gm PO BID #30 tablet 03/20/17 Guaifenesin [Mucinex] 1,200 mg PO BID #30 tab.er.12h 07/09/17 Ipratropium/Albuterol Neb [Duoneb] 3 ml IH [id number] #120 inhsol 07/09/17 Lactulose 10 gm PO DAILY #30 udc 07/09/17 Lidocaine Patch [Lidoderm 5% patch] 1 each TP DAILY #30 adh..patch 07/09/17 Allergies Allergy/AdvReac Type Severity Reaction Status Date / Time morphine Allergy Hives Verified 07/11/17 18:35 Penicillins Allergy See Verified 07/11/17 18:35 Comments aspirin AdvReac Nausea Verified 07/11/17 18:35 ibuprofen [From Motrin] AdvReac Vomiting Verified 07/11/17 18:35 Review of Systems: As reviewed in the HPI. All other systems reviewed are negative or normal. Past Medical History - Past Medical History Attestation: Yes The following information was validated with the patient. Source: patient, old records reviewed Medical history: Reports: atrial fibrillation, cancer, cirrhosis, CHF, COPD, coronary artery disease, GI bleed, hyperlipidemia, hypertension, liver disease, myocardial infarction, renal disease, valvular heart disease, other Surgical history: Reports: appendectomy, cholecystectomy, colectomy, coronary bypass (CABG), heart valve replacement, pacemaker/AICD, other Psychiatric history: Reports: anxiety, depression - Social History Smoking Status: Former smoker Smokeless Tobacco Status: No Alcohol use: Reports: occasionally, heavy, recent Drug use: Reports: none Physical Exam CONSTITUTIONAL: [Ill-appearing, frail, elderly] SKIN: [Warm, dry, and intact without rash] EYES: [extraocular movements are grossly intact, clear conjunctiva] HENT: [Normocephalic, atraumatic, moist mucus membranes] NECK: [no obvious swelling, normal range of motion] PULMONARY: [normal chest rise and fall, no respiratory distress or stridor, but does have Rales bilateral bases CARDIOVASCULAR: [regular rate, distal extremities are warm and well perfused with significant diffuse 3+ pitting edema] GASTROINSTESTINAL: [nondistended, non-tender] GENITOURINARY: [deferred] NEUROLOGIC: [normal speech, moves all extremities] MUSCULOSKELETAL: [no gross deformities, atraumatic] PSYCHIATRIC: [normal mood and affect] - General Limitations: no limitations General appearance: alert Course Course Narrative: Patient presenting with continued shortness of breath despite being treated for pneumonia. Clinically, she appears more CHF. She is on Bumex and state that she took that this morning. We will recheck labs and admit. Vital Signs Temperature 97.6 F 07/11/17 16:51 Pulse Rate 61 07/11/17 16:51 Respiratory Rate 22 07/11/17 16:51 Blood Pressure 108/60 07/11/17 16:51 O2 Sat by Pulse Oximetry 93 07/11/17 16:51 Temperature 97.6 F 07/11/17 16:51 Pulse Rate 59 07/11/17 18:14 Respiratory Rate 22 07/11/17 17:13 Blood Pressure 132/75 07/11/17 18:14 O2 Sat by Pulse Oximetry 97 07/11/17 18:14 Oxygen Delivery Oxygen Delivery Nasal Cannula Shortness of Breath/Dyspnea - Medical Records Medical records reviewed: Yes I reviewed the patient's medical records. - Lab Data Lab results reviewed: Yes I reviewed the patient's lab results. Result diagrams: 07/11/17 17:46 07/11/17 17:46 Lab Results 07/11/17 07/11/17 07/11/17 Range/Units 17:46 17:46 17:46 WBC 9.2 (4.3-11.1) K/mcL RBC 3.78 L (3.82-4.97) M/mcL Hgb 9.1 L (11.5-15.4) g/dL Hct 27.7 L (35.3-44.9) % MCV 73.3 L (83.0-100.0) fL MCH 24.1 L (28.0-33.3) pg MCHC 32.9 (31.6-35.5) g/dL RDW 18.3 H (11.5-14.5) % Plt Count 227 (140-400) K/mcL MPV 8.8 L (9.4-12.4) fL Immature Gran % 1.5 (0-4) % Seg Neutrophils % 79.6 % Lymphocytes % 9.2 % Monocytes % 8.7 % Eosinophils % 0.9 % Basophils % 0.1 % Neutrophils # 7.3 (1.6-8.9) K/mcL Lymphocytes # 0.8 (0.6-4.6) K/mcL Monocytes # 0.8 (0.0-1.3) K/mcL Eosinophils # 0.1 (0.0-0.6) K/mcL Basophils # 0.0 (0.0-0.2) K/mcL Nucleated RBCs/100 WBC 0.3 H (0) /100 WBC PT 21.0 H (9.4-12.1) Seconds INR 1.9 APTT 32.0 (26.0-36.0) Seconds D-Dimer (0-500) ng/mLFEU Sodium 126 L (136-145) mEq/L Potassium 4.0 (3.5-5.1) mEq/L Chloride 86 L (98-107) mEq/L Carbon Dioxide 33 H (23-29) mEq/L BUN 37 H (8-23) mg/dL Creatinine 1.10 (0.60-1.20) mg/dL Est GFR ( Amer) 59 L (> 60) Est GFR (Non-Af Amer) 49 L (> 60) BUN/Creatinine Ratio 34 H (6-26) Glucose 166 H (70-105) mg/dL Calculated Osmolality 274 L (280-300) Lactic Acid (0.5-2.2) mmol/L Calcium 10.1 (8.6-10.3) mg/dL Total Bilirubin 1.1 H (0.3-1.0) mg/dL Direct Bilirubin 0.5 H (0.0-0.2) mg/dL Indirect Bilirubin 0.6 (0.0-1.2) mg/dL AST 31 (13-39) Units/L ALT 30 (7-52) Units/L Alkaline Phosphatase 185 H (34-104) Units/L Troponin I 0.03 (< 0.04) ng/mL B-Natriuretic Peptide (Less than 100) pg/mL Serum Total Protein 6.3 L (6.4-8.9) g/dL Albumin 3.6 (3.5-5.7) g/dL Globulin 2.7 (2.4-3.5) g/dL Albumin/Globulin Ratio 1.3 (1.1-2.2) 07/11/17 07/11/17 07/11/17 Range/Units 17:46 17:46 17:46 WBC (4.3-11.1) K/mcL RBC (3.82-4.97) M/mcL Hgb (11.5-15.4) g/dL Hct (35.3-44.9) % MCV (83.0-100.0) fL MCH (28.0-33.3) pg MCHC (31.6-35.5) g/dL RDW (11.5-14.5) % Plt Count (140-400) K/mcL MPV (9.4-12.4) fL Immature Gran % (0-4) % Seg Neutrophils % % Lymphocytes % % Monocytes % % Eosinophils % % Basophils % % Neutrophils # (1.6-8.9) K/mcL Lymphocytes # (0.6-4.6) K/mcL Monocytes # (0.0-1.3) K/mcL Eosinophils # (0.0-0.6) K/mcL Basophils # (0.0-0.2) K/mcL Nucleated RBCs/100 WBC (0) /100 WBC PT (9.4-12.1) Seconds INR APTT (26.0-36.0) Seconds D-Dimer 587 H (0-500) ng/mLFEU Sodium (136-145) mEq/L Potassium (3.5-5.1) mEq/L Chloride (98-107) mEq/L Carbon Dioxide (23-29) mEq/L BUN (8-23) mg/dL Creatinine (0.60-1.20) mg/dL Est GFR ( Amer) (> 60) Est GFR (Non-Af Amer) (> 60) BUN/Creatinine Ratio (6-26) Glucose (70-105) mg/dL Calculated Osmolality (280-300) Lactic Acid 1.4 (0.5-2.2) mmol/L Calcium (8.6-10.3) mg/dL Total Bilirubin (0.3-1.0) mg/dL Direct Bilirubin (0.0-0.2) mg/dL Indirect Bilirubin (0.0-1.2) mg/dL AST (13-39) Units/L ALT (7-52) Units/L Alkaline Phosphatase (34-104) Units/L Troponin I (< 0.04) ng/mL B-Natriuretic Peptide 231 H (Less than 100) pg/mL Serum Total Protein (6.4-8.9) g/dL Albumin (3.5-5.7) g/dL Globulin (2.4-3.5) g/dL Albumin/Globulin Ratio (1.1-2.2) - Radiology Data Radiology results reviewed: Yes I reviewed the patient's radiology results. - EKG Data EKG attestation: Yes I reviewed and interpreted this EKG. EKG results narrative: Paced rhythm, rate 60, QRS 146, QTC 463, left axis deviation
--- NOTE | 2017-07-11 18:57 | Emergency Department Note ---
Disposition Clinical Impression: Congestive heart failure Qualifiers: Heart failure type: unspecified Heart failure chronicity: unspecified Qualified Code(s): I50.9 - Heart failure, unspecified Pneumonia Qualifiers: Pneumonia type: due to unspecified organism Laterality: unspecified laterality Lung location: unspecified part of lung Qualified Code(s): J18.9 - Pneumonia, unspecified organism Disposition: Admitted As Inpatient Referrals: Jose Jones DO [Primary Care Provider] - Forms: ED Satisfaction Letter General Adult HPI - General Chief complaint: ED Shortness of Breath/Dyspnea Stated complaint: SOB Time Seen by Provider: 07/11/17 17:07 Source: patient Limitations: no limitations - History of Present Illness Pain Scale: 8 - Related Data Home Medications Medication Instructions Recorded Confirmed Omeprazole [PriLOSEC] 20 mg PO DAILY PRN 06/03/16 07/11/17 Tramadol HCl [Ultram] 50 mg PO QID PRN 03/15/17 07/11/17 Pembrolizumab [Keytruda] 100 mg IV Q3W 04/22/17 07/11/17 Spironolactone [Aldactone] 100 mg PO DAILY 04/22/17 07/11/17 Warfarin [Coumadin] 3 mg PO SUMOTUTHSA 04/22/17 07/11/17 Warfarin [Coumadin] 6 mg PO WEFR 04/22/17 07/11/17 metOLazone [Zaroxolyn] 2.5 mg PO 2XW 04/22/17 07/11/17 Allopurinol [Zyloprim 100 MG] 100 mg PO DAILY 07/04/17 07/11/17 Bumetanide 4 mg PO BID 07/04/17 07/11/17 Gabapentin [Neurontin] 300 mg PO TID 07/04/17 07/11/17 Potassium Chloride 20 meq PO BID 07/04/17 07/11/17 Zolpidem [Ambien] 10 mg PO HS 07/04/17 07/11/17 Previous Rx's Medication Instructions Recorded Sodium Chloride 1 gm PO BID #30 tablet 03/20/17 Guaifenesin [Mucinex] 1,200 mg PO BID #30 tab.er.12h 07/09/17 Ipratropium/Albuterol Neb [Duoneb] 3 ml IH [id number] #120 inhsol 07/09/17 Lactulose 10 gm PO DAILY #30 udc 07/09/17 Lidocaine Patch [Lidoderm 5% patch] 1 each TP DAILY #30 adh..patch 07/09/17 Allergies Allergy/AdvReac Type Severity Reaction Status Date / Time morphine Allergy Hives Verified 07/11/17 18:35 Penicillins Allergy See Verified 07/11/17 18:35 Comments aspirin AdvReac Nausea Verified 07/11/17 18:35 ibuprofen [From Motrin] AdvReac Vomiting Verified 07/11/17 18:35 Past Medical History - Past Medical History Medical history: Reports: atrial fibrillation, cancer, cirrhosis, CHF, COPD, coronary artery disease, GI bleed, hyperlipidemia, hypertension, liver disease, myocardial infarction, renal disease, valvular heart disease, other Surgical history: Reports: appendectomy, cholecystectomy, colectomy, coronary bypass (CABG), heart valve replacement, pacemaker/AICD, other Psychiatric history: Reports: anxiety, depression - Social History Smoking Status: Former smoker Smokeless Tobacco Status: No Alcohol use: Reports: occasionally, heavy, recent Drug use: Reports: none Physical Exam - General Limitations: no limitations General appearance: alert Course Vital Signs Temperature 97.6 F 07/11/17 16:51 Pulse Rate 61 07/11/17 16:51 Respiratory Rate 22 07/11/17 16:51 Blood Pressure 108/60 07/11/17 16:51 O2 Sat by Pulse Oximetry 93 07/11/17 16:51 Temperature 97.6 F 07/11/17 16:51 Pulse Rate 59 07/11/17 18:14 Respiratory Rate 22 07/11/17 17:13 Blood Pressure 132/75 07/11/17 18:14 O2 Sat by Pulse Oximetry 97 07/11/17 18:14 Oxygen Delivery Oxygen Delivery Nasal Cannula Medical Decision Making - Lab Data Result diagrams: 07/11/17 17:46 07/11/17 17:46 Lab Results 07/11/17 07/11/17 07/11/17 Range/Units 17:46 17:46 17:46 WBC 9.2 (4.3-11.1) K/mcL RBC 3.78 L (3.82-4.97) M/mcL Hgb 9.1 L (11.5-15.4) g/dL Hct 27.7 L (35.3-44.9) % MCV 73.3 L (83.0-100.0) fL MCH 24.1 L (28.0-33.3) pg MCHC 32.9 (31.6-35.5) g/dL RDW 18.3 H (11.5-14.5) % Plt Count 227 (140-400) K/mcL MPV 8.8 L (9.4-12.4) fL Immature Gran % 1.5 (0-4) % Seg Neutrophils % 79.6 % Lymphocytes % 9.2 % Monocytes % 8.7 % Eosinophils % 0.9 % Basophils % 0.1 % Neutrophils # 7.3 (1.6-8.9) K/mcL Lymphocytes # 0.8 (0.6-4.6) K/mcL Monocytes # 0.8 (0.0-1.3) K/mcL Eosinophils # 0.1 (0.0-0.6) K/mcL Basophils # 0.0 (0.0-0.2) K/mcL Nucleated RBCs/100 WBC 0.3 H (0) /100 WBC PT 21.0 H (9.4-12.1) Seconds INR 1.9 APTT 32.0 (26.0-36.0) Seconds D-Dimer (0-500) ng/mLFEU Sodium 126 L (136-145) mEq/L Potassium 4.0 (3.5-5.1) mEq/L Chloride 86 L (98-107) mEq/L Carbon Dioxide 33 H (23-29) mEq/L BUN 37 H (8-23) mg/dL Creatinine 1.10 (0.60-1.20) mg/dL Est GFR ( Amer) 59 L (> 60) Est GFR (Non-Af Amer) 49 L (> 60) BUN/Creatinine Ratio 34 H (6-26) Glucose 166 H (70-105) mg/dL Calculated Osmolality 274 L (280-300) Lactic Acid (0.5-2.2) mmol/L Calcium 10.1 (8.6-10.3) mg/dL Total Bilirubin 1.1 H (0.3-1.0) mg/dL Direct Bilirubin 0.5 H (0.0-0.2) mg/dL Indirect Bilirubin 0.6 (0.0-1.2) mg/dL AST 31 (13-39) Units/L ALT 30 (7-52) Units/L Alkaline Phosphatase 185 H (34-104) Units/L Troponin I 0.03 (< 0.04) ng/mL B-Natriuretic Peptide (Less than 100) pg/mL Serum Total Protein 6.3 L (6.4-8.9) g/dL Albumin 3.6 (3.5-5.7) g/dL Globulin 2.7 (2.4-3.5) g/dL Albumin/Globulin Ratio 1.3 (1.1-2.2) 07/11/17 07/11/17 07/11/17 Range/Units 17:46 17:46 17:46 WBC (4.3-11.1) K/mcL RBC (3.82-4.97) M/mcL Hgb (11.5-15.4) g/dL Hct (35.3-44.9) % MCV (83.0-100.0) fL MCH (28.0-33.3) pg MCHC (31.6-35.5) g/dL RDW (11.5-14.5) % Plt Count (140-400) K/mcL MPV (9.4-12.4) fL Immature Gran % (0-4) % Seg Neutrophils % % Lymphocytes % % Monocytes % % Eosinophils % % Basophils % % Neutrophils # (1.6-8.9) K/mcL Lymphocytes # (0.6-4.6) K/mcL Monocytes # (0.0-1.3) K/mcL Eosinophils # (0.0-0.6) K/mcL Basophils # (0.0-0.2) K/mcL Nucleated RBCs/100 WBC (0) /100 WBC PT (9.4-12.1) Seconds INR APTT (26.0-36.0) Seconds D-Dimer 587 H (0-500) ng/mLFEU Sodium (136-145) mEq/L Potassium (3.5-5.1) mEq/L Chloride (98-107) mEq/L Carbon Dioxide (23-29) mEq/L BUN (8-23) mg/dL Creatinine (0.60-1.20) mg/dL Est GFR ( Amer) (> 60) Est GFR (Non-Af Amer) (> 60) BUN/Creatinine Ratio (6-26) Glucose (70-105) mg/dL Calculated Osmolality (280-300) Lactic Acid 1.4 (0.5-2.2) mmol/L Calcium (8.6-10.3) mg/dL Total Bilirubin (0.3-1.0) mg/dL Direct Bilirubin (0.0-0.2) mg/dL Indirect Bilirubin (0.0-1.2) mg/dL AST (13-39) Units/L ALT (7-52) Units/L Alkaline Phosphatase (34-104) Units/L Troponin I (< 0.04) ng/mL B-Natriuretic Peptide 231 H (Less than 100) pg/mL Serum Total Protein (6.4-8.9) g/dL Albumin (3.5-5.7) g/dL Globulin (2.4-3.5) g/dL Albumin/Globulin Ratio (1.1-2.2) Attestation Statement - Attestation Attestation: I examined this patient and my medical decision-making was reviewed with the Resident Physician. I agree with the documented findings, disposition and treatment plan as described except to the extent set forth below. 71 year old female presntes to the ED with compaints of productive green sputum and fluid overload and she just released from the [facility] for treatment of HCAP. It appears that she has decompensated again. Repeat workup is concnering for CHF excebartion and HCAP. WE have started antibitoics and lasix therapy and admitted patinet to medicine
--- NOTE | 2017-07-11 20:21 | Internal Med History&Physical ---
Date of Encounter: 07/11/17 Time of Encounter: 20:21 Internal Medicine - H&P: HPI Chief complaint: SOB History of present illness: Ms. Brooks is a 71 year old female presents to the ED with the chief complaint of shortness of breath and fatigue as well as progressive worsening of lower extremity edema. Patient was just discharged from the hospital yesterday after having hospital acquired pneumonia. the patient is stated think that she continue to feel short of breath She continues to feel short of breath. chest x-ray revealed persistent linear infiltrates at the left lung base could represent persistent pneumonia vs congestive heart failure exacerbation. I was in agreement with the ER attending and the sense that her current clinical picture is most suggestive of objective heart failure rather than pneumonia and she was not started on antibiotics, she was admitted for furth of congestive heart failure exacerbation Past Med Surg Social Fam HX - Past Medical History Medical history: atrial fibrillation, cancer, cirrhosis, CHF, COPD, coronary artery disease, GI bleed, hyperlipidemia, hypertension, liver disease, myocardial infarction, renal disease, valvular heart disease, other Psychiatric history: anxiety, depression - Past Surgical History Surgical History: appendectomy, cholecystectomy, colectomy, coronary bypass ( CABG), heart valve replacement, pacemaker/AICD, other - Social History Smoking Status: Former smoker Smokeless Tobacco Status: No Alcohol use: occasionally, heavy, recent Drug use: none - Family History Mother Living Status: Hx Family Cancer: Yes Father Living Status: Hx Family Cardiac Disorders: Yes Internal Medicine - H&P: Meds Omeprazole [PriLOSEC] 20 mg PO DAILY PRN 06/03/16 [History] Tramadol HCl [Ultram] 50 mg PO QID PRN 03/15/17 [History] Sodium Chloride 1 gm PO BID #30 tablet 03/20/17 [Rx] Pembrolizumab [Keytruda] 100 mg IV Q3W 04/22/17 [History] Spironolactone [Aldactone] 100 mg PO DAILY 04/22/17 [History] Warfarin [Coumadin] 3 mg PO SUMOTUTHSA 04/22/17 [History] Warfarin [Coumadin] 6 mg PO WEFR 04/22/17 [History] metOLazone [Zaroxolyn] 2.5 mg PO 2XW 04/22/17 [History] Allopurinol [Zyloprim 100 MG] 100 mg PO DAILY 07/04/17 [History] Bumetanide 4 mg PO BID 07/04/17 [History] Gabapentin [Neurontin] 300 mg PO TID 07/04/17 [History] Potassium Chloride 20 meq PO BID 07/04/17 [History] Zolpidem [Ambien] 10 mg PO HS 07/04/17 [History] Guaifenesin [Mucinex] 1,200 mg PO BID #30 tab.er.12h 07/09/17 [Rx] Ipratropium/Albuterol Neb [Duoneb] 3 ml IH [id number] #120 inhsol 07/09/17 [Rx] Lactulose 10 gm PO DAILY #30 udc 07/09/17 [Rx] Lidocaine Patch [Lidoderm 5% patch] 1 each TP DAILY #30 adh..patch 07/09/17 [Rx] 3 Allergy/AdvReac Type Severity Reaction Status Date / Time morphine Allergy Hives Verified 07/11/17 18:35 Penicillins Allergy See Verified 07/11/17 18:35 Comments aspirin AdvReac Nausea Verified 07/11/17 18:35 ibuprofen [From Motrin] AdvReac Vomiting Verified 07/11/17 18:35 All Systems PM: A 10-system review of systems was performed and is negative for pertinent findings except as documented above in the HPI. - Constitutional Vitals: Temp Pulse Resp BP Pulse Ox 97.6 F 59 18 117/41 97 07/11/17 16:51 07/11/17 19:35 07/11/17 19:35 07/11/17 19:35 07/11/17 19:35 Internal Med - H&P Results - Labs CBC & Chem 7: 07/13/17 10:36 07/13/17 10:36 Labs: Short CBC 07/11/17 Range/Units 17:46 WBC 9.2 (4.3-11.1) K/mcL Hgb 9.1 L (11.5-15.4) g/dL Hct 27.7 L (35.3-44.9) % Plt Count 227 (140-400) K/mcL Neutrophils # 7.3 (1.6-8.9) K/mcL BMP 07/11/17 17:46 Sodium 126 L Potassium 4.0 Chloride 86 L Carbon Dioxide 33 H BUN 37 H Creatinine 1.10 Glucose 166 H Calcium 10.1 Cardiac Enzymes 07/11/17 Range/Units 17:46 Troponin I 0.03 (< 0.04) ng/mL Liver Function 07/11/17 Range/Units 17:46 Total Bilirubin 1.1 H (0.3-1.0) mg/dL Direct Bilirubin 0.5 H (0.0-0.2) mg/dL AST 31 (13-39) Units/L ALT 30 (7-52) Units/L Alkaline Phosphatase 185 H (34-104) Units/L Albumin 3.6 (3.5-5.7) g/dL - Impressions ITS Impressions Chest X-Ray 07/11/17 16:55 IMPRESSION: 1. Persistent linear infiltrates at the left lung base could represent persistent pneumonia. 2. Otherwise, stable chest demonstrating cardiomegaly. D/ / 07/11/2017 17:40:32 Tez Conroy MD / daniel Interpreting Provider: Tez Conroy MD - Assessment and plan (1) CHF exacerbation Status: Acute Assessment and plan: ASSESSMENT: - SOB , cough and progressive worsening of lower extrem, most likely secondary to CHF exacerbation due to Noncompliance vs URTI *R/O cardiac ischemia * the patient was recently treated for Pneumonia, her current clinical picture is suggestive of congestive heart failure rather than recurrent pneumonia PLAN: - continue current diuretic regimen was converting Bumex to IV to overcome possible GI mucosal edema, being Bumex is suggestive of not responding to diuresis with Lasix in the past. she also on metolazone to optimize the diuretic effect of Bumex which we will continue for now. - CPP x 1 more, 8 hr after the 1st one - EKG in AM - ASA - O2 to keep SpO2 > 92% - Aerosols UD q 4 hr - UA - 2D Echo - CBCD, BMP in AM - Fasting lipids - Tylenol 650 mg PO q 4-6 hr PRN pain - Home meds - Heparin 5000 U SQ BID - cardiology consult Qualifiers: Heart failure type: unspecified Qualified Code(s): I50.9 - Heart failure, unspecified (2) Hyponatremia Status: Acute Assessment and plan: hypervolemic hyponatremia, we will optimize a reticulocyte regimen for volume control. (3) Anemia Status: Acute Assessment and plan: most likely due to chronic disease. 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 (5) Permanent atrial fibrillation Status: Chronic (6) S/P aortic valve replacement with bioprosthetic valve Status: Chronic (7) DVT prophylaxis Status: Acute - Time Spent With Patient Total time spent is greater than 50% in coordination of care (as documented) at patient's floor/unit and/or counseling patient:
[2017-07-11] MEDS ORDERED: Naloxone 0.4 MG/ML INJ IVP PRN (20:22)
[2017-07-11] MEDS ORDERED: *HR* Warfarin 3 MG TABLET PO SCH (20:30)
[2017-07-11] MEDS ORDERED: Pembrolizumab 100 MG/4 ML MG IV SCH (20:30)
[2017-07-11] MEDS ORDERED: Bumetanide 1 MG TABLET PO SCH (21:00)
[2017-07-11] MEDS: Gabapentin 300 MG CAPSULE PO SCH (22:15)
[2017-07-11] MEDS: Ipratropium/Albuterol Neb 3 ML IH SCH (22:20)
[2017-07-12] MEDS: Ipratropium/Albuterol Neb 3 ML IH SCH ×4 (04:21→22:13)
[2017-07-12 04:24] LABS: INR 1.8; Prothrombin Time 19.1 Seconds (9.4-12.1)
[2017-07-12 04:26] LABS: Activated Partial Thrombo Time 31.4 Seconds (26.0-36.0)
[2017-07-12 04:36] LABS: Alanine Aminotransferase 26 Units/L (7-52); Albumin 3.4 g/dL (3.5-5.7); Albumin/Globulin Ratio 1.3 (1.1-2.2); Alkaline Phosphatase 178 Units/L (34-104); Aspartate Amino Transferase 27 Units/L (13-39); BUN/Creatinine Ratio 34 (6-26); Bilirubin,Total 1.1 mg/dL (0.3-1.0); Blood Urea Nitrogen 34 mg/dL (8-23); Carbon Dioxide 32 mEq/L (23-29); Chloride 88 mEq/L (98-107); Chol/HDL Ratio 3.1 (0-4.9); Cholesterol 113 mg/dL (< 200); Globulin 2.6 g/dL (2.4-3.5); Glucose 115 mg/dL (70-105); HDL Cholesterol 37 mg/dL (40-59); LDL Cholesterol,Calculated 59 mg/dL (0-99); Magnesium 2.1 mg/dL (1.6-2.6); Osmolality,Calculated 275 (280-300); Phosphorous 3.8 mg/dL (2.7-4.5); Potassium 4.1 mEq/L (3.5-5.1); Sodium 128 mEq/L (136-145); Triglycerides 86 mg/dL (< 150); eGFR For African Americans > 60 (> 60); eGFR For Non-African Americans 54 (> 60)
[2017-07-12] MEDS ORDERED: Bumetanide 1 MG/4 ML VIAL IVP SCH (08:00)
[2017-07-12] MEDS: Gabapentin 300 MG CAPSULE PO SCH ×3 (10:18→21:42)
[2017-07-12] MEDS: Lactulose Oral Soln 20 GM/30 ML UDC PO SCH (10:19)
[2017-07-12] MEDS: traMADol 50 MG TABLET PO PRN ×2 (10:22→21:42)
--- NOTE | 2017-07-12 10:34 | Cardiology Consult Note ---
Date of Encounter: 07/12/17 Time of Encounter: 10:32 Assessment and Plan (1) CHF exacerbation Current Visit: Yes Status: Acute Suspect CHF exacerbation secondary to multivalvular disease--known borderline severe , moderate MS, severe TR, follows with Dr. Ann/[facility] for monitoring. BNP 231. Last TTE-08/24/16: LVEF 60%, mild LVH, mild-moderately dilated RV with normal function, severely dilated LA, severely dilated RA, bioprosthetic aortic valve is well seated, prosthetic AV stenosis with mean gradient of 36 mmHg (similar to prior report), mild AR, moderate MS, severe TR, RVSP 63-73 mmHg. Fluid overload on exam--reports improved with IV Bumex 4mg BID. Agree with IV diuresis. Home diuretics include PO Bumex 4mg BID, Metolazone 2.5mg on Tuesdays and Fridays, Aldactone 100mg daily. Renal function stable--monitor closely. Recommend strict I/Os, Na and fluid restriction, daily weights. Continue to follow. Repeat TTE. Qualifiers: Heart failure type: diastolic Qualified Code(s): I50.33 - Acute on chronic diastolic (congestive) heart failure (2) Permanent atrial fibrillation Current Visit: Yes Status: Chronic Known permanent A-Fib. PPM in placed. Paced rhythm on telemetry, underlying rhythm A-Fib. Rate is controlled, 12 hr AVG HR 60. Anticoagulated on Coumadin, INR 1.8. Goal INR 2.0-3.0. Dosing per pharmacy while inpt. (3) S/P aortic valve replacement with bioprosthetic valve Current Visit: Yes Status: Chronic S/p bioprosthertic aortic valve replacement with known borderline severe prosthetic aortic stenosis. Follows with [facility] for monitoring. Last TTE-08/24/16: LVEF 60%, mild LVH, mild-moderately dilated RV with normal function, severely dilated LA, severely dilated RA, bioprosthetic aortic valve is well seated, prosthetic AV stenosis with mean gradient of 36 mmHg (similar to prior report), mild AR, moderate MS, severe TR, RVSP 63-73 mmHg. Repeat TTE. (4) Valvular heart disease Current Visit: Yes Status: Chronic Multivalvular heart disease as above. Discussion w patient/family: The assessment and plan as outlined above was discussed with the patient and/or family members who expressed understanding and agreement. All questions were answered. Thank you for involving us in the care of your patient. Please call with any questions. I will discuss all the above with Dr. Cunningham and make changes as necessary. History of Present Illness Consult date: 07/12/17 Requesting physician: Leanne Mahajan Consult reason: CHF Chief complaint: dyspnea History of present illness: Ms. Brooks is a 71 year old female with a history of VHD s/p bioprosthetic AVR with known borderline severe prosthetic aortic stenosis, moderate MS and preserved LVEF, A-Fib on Coumadin, PPM, chronic anemia, GI bleed, splenic infarct, cirrhosis, COPD, and lung cancer on keytruda injections. She presented to the ED with the chief complaint of shortness of breath and fatigue as well as progressive worsening of lower extremity edema. Patient was just discharged from the hospital after being treated for HCAP, and states she continued to feel short of breath. CXR revealed persistent linear infiltrates at the left lung base could represent persistent pneumonia, but primary team feel it is CHF. Cardiology consulted for further recs. Home meds include PO Bumex 4mg BID, Metolazone 2.5mg on Tuesday and Tuesday, and Aldactone 100mg daily. Hospitalist started IV Bumex 4mg BID. Pt reports breathing and LE edema have already improved. She is unsure of weight gain, does not weight herself at home. BNP 231. Follows with Dr. Ann as outpt. Denies syncope or chest pain. Prior CV testing: [facility] 03/2011: LM nl. LAD proximal 20% stenosis. CX proximal 20% stenosis. RCA mid 20% stenosis. TTE 02/05/15: LVEF 65%, mild LVH, moderately dilated RV with normal function, severely dilated LA, severely dilated RA, bioprosthetic aortic valve with moderately thickened/calcified leaflets with reduced excursion, moderate-severe (peak gradient 62 mmHg, mean gradient 34 mmHg), mild AR, moderately thickened /calcified MV leaflets with reduced excursion, moderate MS, mild MR, severe TR, RVSP 41-43. TTE 08/24/16: LVEF 60%, mild LVH, mild-moderately dilated RV with normal function , severely dilated LA, severely dilated RA, bioprosthetic aortic valve is well seated, prosthetic AV stenosis with mean gradient of 36 mmHg (similar to prior report), mild AR, moderate MS, severe TR, RVSP 63-73 mmHg. Past Med Surg Social Fam HX - Past Medical History Medical history: atrial fibrillation, cancer, cirrhosis, CHF, COPD, coronary artery disease, GI bleed, hyperlipidemia, hypertension, liver disease, myocardial infarction, renal disease, valvular heart disease, other Psychiatric history: anxiety, depression - Past Surgical History Surgical History: appendectomy, cholecystectomy, colectomy, coronary bypass ( CABG), heart valve replacement, pacemaker/AICD, other - Social History Smoking Status: Former smoker Smokeless Tobacco Status: No Alcohol use: occasionally, heavy, recent Drug use: none - Family History Mother Living Status: Hx Family Cancer: Yes Father Living Status: Hx Family Cardiac Disorders: Yes Medications and Allergies Omeprazole [PriLOSEC] 20 mg PO DAILY PRN 06/03/16 [History] Tramadol HCl [Ultram] 50 mg PO QID PRN 03/15/17 [History] Sodium Chloride 1 gm PO BID #30 tablet 03/20/17 [Rx] Pembrolizumab [Keytruda] 100 mg IV Q3W 04/22/17 [History] Spironolactone [Aldactone] 100 mg PO DAILY 04/22/17 [History] Warfarin [Coumadin] 3 mg PO SUMOTUTHSA 04/22/17 [History] Warfarin [Coumadin] 6 mg PO WEFR 04/22/17 [History] metOLazone [Zaroxolyn] 2.5 mg PO 2XW 04/22/17 [History] Allopurinol [Zyloprim 100 MG] 100 mg PO DAILY 07/04/17 [History] Bumetanide 4 mg PO BID 07/04/17 [History] Gabapentin [Neurontin] 300 mg PO TID 07/04/17 [History] Potassium Chloride 20 meq PO BID 07/04/17 [History] Zolpidem [Ambien] 10 mg PO HS 07/04/17 [History] Guaifenesin [Mucinex] 1,200 mg PO BID #30 tab.er.12h 07/09/17 [Rx] Ipratropium/Albuterol Neb [Duoneb] 3 ml IH [id number] #120 inhsol 07/09/17 [Rx] Lactulose 10 gm PO DAILY #30 udc 07/09/17 [Rx] Lidocaine Patch [Lidoderm 5% patch] 1 each TP DAILY #30 adh..patch 07/09/17 [Rx] 3 Allergy/AdvReac Type Severity Reaction Status Date / Time morphine Allergy Hives Verified 07/11/17 18:35 Penicillins Allergy See Verified 07/11/17 18:35 Comments aspirin AdvReac Nausea Verified 07/11/17 18:35 ibuprofen [From Motrin] AdvReac Vomiting Verified 07/11/17 18:35 All Systems Review: The remainder of the systems were reviewed and are negative - Cardiovascular Cardiovascular: as per HPI, dyspnea at rest, dyspnea on exertion, leg edema - Respiratory Respiratory: cough, dyspnea Physical Examination Vital Signs, Last 4 Hours Temp Pulse Resp BP Pulse Ox 07/12/17 09:50 16 96 07/12/17 07:30 98.4 F 60 16 111/65 94 Vital Signs Temp Pulse Resp BP Pulse Ox 07/12/17 09:50 16 96 07/12/17 07:30 98.4 F 60 16 111/65 94 07/12/17 04:21 15 95 07/12/17 03:43 97.6 F 60 16 116/63 96 07/11/17 22:20 20 92 07/11/17 22:16 98.3 F 60 17 119/58 92 07/11/17 21:33 18 132/64 07/11/17 20:15 85 18 143/58 96 07/11/17 19:35 59 18 117/41 97 07/11/17 18:14 59 132/75 97 07/11/17 17:13 60 22 118/51 95 07/11/17 17:09 94 07/11/17 16:51 97.6 F 61 22 108/60 93 Intake and Output 07/11/17 07/12/17 07/12/17 23:59 07:59 15:59 Other: Weight 69.3 kg General: Conversant, No Apparent Distress HEENT: Atraumatic, Normocephaly, Mucus Membranes Moist Neck: Normal carotid pulses Cardiac: Other (irregular, 2/6 murmur) Lungs: Other (mild bibasilar crackles) Neuro: Alert and responsive, No focal deficits noted Abdomen: Soft, Non-Tender Skin: No rashes noted on visualized skin Musculoskeletal: No Chest Wall Tenderness Extremities: Other (2+ BLE edema) Results 07/11/17 17:46 07/12/17 03:51 Lab Results 07/12/17 07/12/17 07/12/17 03:51 03:51 03:51 INR 1.8 APTT 31.4 Sodium 128 L Potassium 4.1 Chloride 88 L Carbon Dioxide 32 H BUN 34 H Creatinine 1.01 Glucose 115 H Calcium 10.0 Magnesium 2.1 Total Bilirubin 1.1 H AST 27 ALT 26 Alkaline Phosphatase 178 H Troponin I 0.03 Short CBC 07/11/17 Range/Units 17:46 WBC 9.2 (4.3-11.1) K/mcL Hgb 9.1 L (11.5-15.4) g/dL Hct 27.7 L (35.3-44.9) % Plt Count 227 (140-400) K/mcL Neutrophils # 7.3 (1.6-8.9) K/mcL BMP 07/12/17 07/11/17 Range/Units 03:51 17:46 Sodium 128 L 126 L (136-145) mEq/L Potassium 4.1 4.0 (3.5-5.1) mEq/L Chloride 88 L 86 L (98-107) mEq/L Carbon Dioxide 32 H 33 H (23-29) mEq/L BUN 34 H 37 H (8-23) mg/dL Creatinine 1.01 1.10 (0.60-1.20) mg/dL Glucose 115 H 166 H (70-105) mg/dL Calcium 10.0 10.1 (8.6-10.3) mg/dL Cardiac Enzymes 07/12/17 07/11/17 07/11/17 Range/Units 03:51 21:02 17:46 Troponin I 0.03 0.03 0.03 (< 0.04) ng/mL Liver Function 07/12/17 07/11/17 Range/Units 03:51 17:46 Total Bilirubin 1.1 H 1.1 H (0.3-1.0) mg/dL Direct Bilirubin 0.5 H (0.0-0.2) mg/dL AST 27 31 (13-39) Units/L ALT 26 30 (7-52) Units/L Alkaline Phosphatase 178 H 185 H (34-104) Units/L Albumin 3.4 L 3.6 (3.5-5.7) g/dL Impressions Chest X-Ray 07/11/17 16:55 IMPRESSION: 1. Persistent linear infiltrates at the left lung base could represent persistent pneumonia. 2. Otherwise, stable chest demonstrating cardiomegaly. D/ / 07/11/2017 17:40:32 Tez Conroy MD / daniel Interpreting Provider: Tez Conroy MD Active Medications Albuterol/Ipratropium (Duoneb) 3 ml IH [id number] ALEJANDRO Stop: 01/10/18 22:01 Last Admin: 07/12/17 09:49 Dose: 3 ml Allopurinol (Zyloprim) 100 mg PO DAILY ALEJANDRO Stop: 01/11/18 09:01 Last Admin: 07/12/17 10:19 Dose: 100 mg Bumetanide (Bumex) 4 mg IVP BIDDIURETIC ALEJANDRO Stop: 07/13/17 17:01 Last Admin: 07/12/17 10:18 Dose: 4 mg Gabapentin (Neurontin) 300 mg PO TID ALEJANDRO Stop: 01/10/18 21:01 Last Admin: 07/12/17 10:18 Dose: 300 mg Guaifenesin (Mucinex) 1,200 mg PO BID ALEJANDRO Stop: 01/10/18 21:01 Last Admin: 07/12/17 10:19 Dose: 1,200 mg Lactulose (Lactulose) 10 gm PO DAILY ALEJANDRO Stop: 01/11/18 09:01 Last Admin: 07/12/17 10:19 Dose: 10 gm Lidocaine HCl (Lidoderm 5% Patch) 1 each TP DAILY ALEJANDRO Stop: 01/11/18 09:01 Last Admin: 07/12/17 10:19 Dose: 1 each Metolazone (Zaroxolyn) 2.5 mg PO 2XW ALEJANDRO Stop: 01/13/18 09:01 Naloxone HCl (Narcan) 0.4 mg IVP Q2MIN PRN PRN Reason: SEE COMMENTS Stop: 01/10/18 20:23 Omeprazole (Prilosec) 20 mg PO DAILY PRN; Protocol PRN Reason: Indigestion Stop: 01/10/18 20:20 Potassium Chloride (Potassium Chloride) 20 meq PO BIDWM [facility] Stop: 01/11/18 08:17 Last Admin: 07/12/17 10:18 Dose: 20 meq Sodium Chloride (Sodium Chloride) 1 gm PO BID [facility] Stop: 01/10/18 21:01 Last Admin: 07/12/17 10:18 Dose: 1 gm Spironolactone (Aldactone) 100 mg PO DAILY [facility] Stop: 01/11/18 09:01 Last Admin: 07/12/17 10:18 Dose: 100 mg Tramadol HCl (Ultram) 50 mg PO QID PRN PRN Reason: pain Stop: 01/10/18 20:20 Last Admin: 07/12/17 10:22 Dose: 50 mg Warfarin Sodium (Coumadin) 3 mg PO SuMoTuThSa@1800 [facility] Stop: 01/10/18 20:31 Last Admin: 07/11/17 22:15 Dose: 3 mg Warfarin Sodium (Coumadin) 6 mg PO WeFr@1800 [facility] Stop: 01/12/18 18:01 Warfarin Sodium (Coumadin Perpt) 1 each PO DAILY@1800 PRN PRN Reason: SEE COMMENTS Stop: 01/11/18 18:01 Zolpidem Tartrate (Ambien) 10 mg PO HS ALEJANDRO PRN Reason: Protocol Stop: 01/10/18 21:01 Last Admin: 07/11/17 22:15 Dose: 10 mg - Imaging and Cardiology Echo: report reviewed Cardiac cath: report reviewed - EKG Interpretation EKG results cardiology: personally reviewed (paced), other (12 hr tele AVG HR 60 , paced) Consult Discharge Plan - Plan Referrals: Jose Jones, [Primary Care Provider] -
--- NOTE | 2017-07-12 16:53 | Internal Med Progress Note ---
Date of Encounter: 07/12/17 Time of Encounter: 11:00 - Assessment and plan (1) CHF exacerbation Current Visit: Yes Status: Acute Assessment and plan: Patient fluid overloaded on exam Cardiology consulted and suspects exacerbation of heart failure secondary to multiple valvular disease with known borderline severe aortic stenosis, moderate mitral valve stenosis and severe tricuspid regurgitation Recommendations to continue IV diuresis with Bumex and addiction to repeat echocardiogram Qualifiers: Heart failure type: unspecified Qualified Code(s): I50.9 - Heart failure, unspecified (2) S/P aortic valve replacement with bioprosthetic valve Current Visit: Yes Status: Chronic Assessment and plan: S/p bioprosthertic aortic valve replacement with known borderline severe prosthetic aortic stenosis. Echocardiogram on 08/24/16: LVEF 60%, mild LVH, mild-moderately dilated RV with normal function, severely dilated LA, severely dilated RA, bioprosthetic aortic valve is well seated, prosthetic AV stenosis with mean gradient of 36 mmHg ( similar to prior report), mild AR, moderate MS, severe TR, RVSP 63-73 mmHg. Repeat echocardiogram pending per cardiology recommendations as above (3) Permanent atrial fibrillation Current Visit: Yes Status: Chronic Assessment and plan: PPM in placed with paced rhythm on telemetry. Anticoagulated on Coumadin (4) Anemia Current Visit: No Status: Acute Assessment and plan: Suspect secondary to chronic disease. Continue to monitor Qualifiers: Anemia type: unspecified type Qualified Code(s): D64.9 - Anemia, unspecified (5) CKD (chronic kidney disease), stage III Current Visit: No Status: Chronic Assessment and plan: Stable; continue to monitor (6) Hyponatremia Current Visit: No Status: Acute Assessment and plan: Suspect secondary to hypervolemic hyponatremia Sodium levels gradually improving Continue to monitor. (7) DVT prophylaxis Current Visit: No Status: Acute Assessment and plan: Continue home dose of Coumadin - Time Spent With Patient Total time spent is greater than 50% in coordination of care (as documented) at patient's floor/unit and/or counseling patient: - Subjective Interval history: Patient resting comfortably this morning but reports not much improvement in shortness of breath She is however still on her baseline O2 requirements - Constitutional Vitals: Temp Pulse Resp BP Pulse Ox 97.5 F L 60 17 114/57 93 07/12/17 16:33 07/12/17 16:33 07/12/17 16:33 07/12/17 16:33 07/12/17 16:33 General appearance: Present: A&O X 3, no acute distress - Respiratory Respiratory exam: Present: CTAB. Absent: accessory muscle use, rales, rhonchi, wheezes - Cardiovascular Cardiovascular exam: Present: RRR, +S1, +S2. Absent: diastolic murmur, gallop, rubs, systolic murmur - Expanded Lower Extremities Exam Ankle exam: Present: swelling (+1 pitting edema bilaterally) Internal Medicine: Result - Labs CBC & Chem 7: 07/11/17 17:46 07/12/17 03:51 Labs: BMP 07/12/17 03:51 Sodium 128 L Potassium 4.1 Chloride 88 L Carbon Dioxide 32 H BUN 34 H Creatinine 1.01 Glucose 115 H Calcium 10.0 Cardiac Enzymes 07/12/17 07/12/17 Range/Units 03:51 10:04 Troponin I 0.03 < 0.03 (< 0.04) ng/mL Liver Function 07/12/17 Range/Units 03:51 Total Bilirubin 1.1 H (0.3-1.0) mg/dL AST 27 (13-39) Units/L ALT 26 (7-52) Units/L Alkaline Phosphatase 178 H (34-104) Units/L Albumin 3.4 L (3.5-5.7) g/dL - ABG Interpretation ABG results: PT/INR, D-dimer PT 19.1 Seconds (9.4-12.1) H 07/12/17 03:51 D-Dimer 587 ng/mLFEU (0-500) H 07/11/17 17:46 Consult Discharge Plan - Plan Referrals: Jose Jones DO [Primary Care Provider] -
--- NOTE | 2017-07-12 17:04 | Electrocardiograph Report ---
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
[2017-07-12] MEDS: Bumetanide 1 MG/4 ML VIAL IVP SCH (17:49)
[2017-07-12] MEDS ORDERED: *HR* Warfarin 4 MG TABLET PO ONE (18:00)
[2017-07-12] MEDS ORDERED: Warfarin perPT PO PRN (18:00)
--- NOTE | 2017-07-12 19:31 | Electrocardiograph Report ---
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
[2017-07-12 21:02] LABS: Basophils % 0.1 %; Eosinophils # 0.1 K/mcL (0.0-0.6); Eosinophils % 1.1 %; Hematocrit 28.2 % (35.3-44.9); Hemoglobin 9.1 g/dL (11.5-15.4); Lymphocytes # 0.9 K/mcL (0.6-4.6); Lymphocytes % 10.1 %; Mean Corpuscular HGB Conc 32.3 g/dL (31.6-35.5); Mean Corpuscular Volume 74.4 fL (83.0-100.0); Mean Platelet Volume 8.7 fL (9.4-12.4); Monocytes # 0.9 K/mcL (0.0-1.3); Monocytes % 10.7 %; Neutrophils # 6.8 K/mcL (1.6-8.9); Platelet Count 196 K/mcL (140-400); Red Blood Count 3.79 M/mcL (3.82-4.97); Red Cell Distribution Width 18.8 % (11.5-14.5)
[2017-07-12 22:25] LABS: Bilirubin,Urine Negative (Negative); Blood,Urine Negative (Negative); Clarity,Urine Clear (Clear); Color,Urine Yellow (Yellow); Glucose,Urine (UA) Normal (Normal); Ketones,Urine Negative (Negative); Leukocyte Esterase,Urine Negative (Negative); Nitrite,Urine Negative (Negative); Protein,Urine Negative (Neg-Trace); Urobilinogen,Urine Normal (Normal)
[2017-07-13] MEDS: Ipratropium/Albuterol Neb 3 ML IH SCH ×4 (03:36→21:29)
[2017-07-13 07:18] LABS: Prothrombin Time 22.1 Seconds (9.4-12.1)
[2017-07-13] MEDS: Gabapentin 300 MG CAPSULE PO SCH ×3 (09:40→21:02)
[2017-07-13] MEDS: Lactulose Oral Soln 20 GM/30 ML UDC PO SCH (09:40)
[2017-07-13] MEDS: Bumetanide 1 MG/4 ML VIAL IVP SCH ×2 (09:41→18:27)
[2017-07-13 11:08] LABS: Basophils % 0.1 %; Eosinophils # 0.1 K/mcL (0.0-0.6); Eosinophils % 1.5 %; Hematocrit 29.4 % (35.3-44.9); Immature Granulocytes % 0.6 % (0-4); Lymphocytes # 0.8 K/mcL (0.6-4.6); Lymphocytes % 9.8 %; Mean Corpuscular HGB Conc 30.6 g/dL (31.6-35.5); Mean Corpuscular Hemoglobin 22.8 pg (28.0-33.3); Mean Corpuscular Volume 74.6 fL (83.0-100.0); Monocytes % 11.8 %; Neutrophils # 6.3 K/mcL (1.6-8.9); Platelet Count 216 K/mcL (140-400); Red Blood Count 3.94 M/mcL (3.82-4.97); Segmented Neutrophils % 76.2 %
[2017-07-13 11:27] LABS: Calcium 9.9 mg/dL (8.6-10.3); Potassium 4.5 mEq/L (3.5-5.1)
--- NOTE | 2017-07-13 13:41 | Cardiology Progress Note ---
Date of Encounter: 07/13/17 Time of Encounter: 13:39 Assessment and Plan (1) CHF exacerbation Current Visit: Yes Status: Acute Suspect CHF exacerbation secondary to multivalvular disease. BNP 231. Echo resulted. Progressive valvular disease--previously moderate MS is now severe. Severe prosthetic , severe TR. LVEF 60-65%. Normal LV chamber size and function. Mild cLVH. Atypical septal motion consistent with paced rhythm. Normal RV structure and function. Severely dilated LA and RA. Prosthetic aortic valve appears well seated. Leaflets are moderately calcified. Severe prosthetic aortic stenosis. Mean gradient 48 mmHg. Peak velocity 4.57 m/s. Moderately calcified mitral valve leaflets with reduced mobility. Severe mitral stenosis. Mean gradient 10 mmHg (HR 60 bpm). Severe tricuspid regurgitation. Severe pulmonary hypertension. Recommend outpt evaluation at tertiary facility to discuss options for valve replacements/repair and percutaneous vs open approach. Fluid overload on exam seems to be improving--LE edema improved. On IV Bumex 4mg BID. Agree with continued IV diuresis. Home diuretics include PO Bumex 4mg BID, Metolazone 2.5mg on Tuesdays and Fridays, Aldactone 100mg daily. Renal function mildly worsened today--creatinine 1.34. Monitor closely. Cumulative I/O -1795mL. Recommend strict I/Os, Na and fluid restriction, daily weights. Recommend minimum of 24 hours of IV diuresis. Transition to PO prior to d/c. Cardiology signing off. Reconsult PRN. Qualifiers: Heart failure type: unspecified Qualified Code(s): I50.9 - Heart failure, unspecified (2) Permanent atrial fibrillation Current Visit: Yes Status: Chronic Known permanent A-Fib. PPM in placed. Paced rhythm on telemetry, underlying rhythm A-Fib. Rate is controlled, 12 hr AVG HR 60. Anticoagulated on Coumadin, INR 2.0. Dosing per pharmacy while inpt. (3) S/P aortic valve replacement with bioprosthetic valve Current Visit: Yes Status: Chronic S/p bioprosthertic aortic valve replacement with known severe prosthetic aortic stenosis. Mean gradient 48 mmHg. Peak velocity 4.57 m/s. Moderately calcified mitral valve leaflets with reduced mobility. Severe mitral stenosis. Mean gradient 10 mmHg (HR 60 bpm). Severe tricuspid regurgitation. Severe pulmonary hypertension. Recommend outpt evaluation at tertiary facility to discuss valve replacement options. Pt agrees to at least be seen for a consult. Will coordinate through our office. (4) Valvular heart disease Current Visit: Yes Status: Chronic Multivalvular heart disease as above. Outpt follow-up to discuss replacement/ repair options. Discussion w patient/family: The assessment and plan as outlined above was discussed with the patient and/or family members who expressed understanding and agreement. All questions were answered. Thank you for involving us in the care of your patient. Please call with any questions. I will discuss all the above with Dr. Cunningham and make changes as necessary. Subjective Principal diagnosis: CHF Interval history: Pt unsure if dyspnea is improved. LE edema seems to have improved. Echo resulted. LVEF 60-65%. Normal LV chamber size and function. Mild concentric left ventricular hypertrophy. Indeterminate diastolic function. Atypical septal motion consistent with paced rhythm. Normal right ventricular structure and function. Severely dilated left atrium. Severely dilated right atrium. Prosthetic aortic valve appears well seated. Leaflets are moderately calcified. Severe prosthetic aortic stenosis. Mean gradient 48 mmHg. Peak velocity 4.57 m/s. Moderately calcified mitral valve leaflets with reduced mobility. Severe mitral stenosis. Mean gradient 10 mmHg (HR 60 bpm). Severe tricuspid regurgitation. Severe pulmonary hypertension. Objective Vital Signs, Last 4 Hours Temp Pulse Resp BP Pulse Ox 07/13/17 11:29 97.7 F 60 19 116/73 100 07/13/17 11:13 16 96 Vital Signs Temp Pulse Resp BP Pulse Ox 07/13/17 11:29 97.7 F 60 19 116/73 100 07/13/17 11:13 16 96 07/13/17 07:32 97.9 F 60 17 103/55 98 07/13/17 04:39 98.6 F 65 18 115/63 94 07/13/17 03:36 18 93 07/12/17 23:52 98.1 F 60 17 111/55 98 07/12/17 22:13 18 97 07/12/17 19:42 98.0 F 61 17 132/66 98 07/12/17 16:33 97.5 F L 60 17 114/57 93 07/12/17 15:38 17 93 Intake and Output 07/12/17 07/13/17 07/13/17 23:59 07:59 15:59 Intake Total 420 / 420 720 / 720 Output Total 1850 / 1850 1250 / 1250 Balance -1430 / -1430 -530 / -530 Intake: Oral 420 / 420 720 / 720 Output: Urine 1850 / 1850 1250 / 1250 Other: Meal Dinner Lunch Percent of Meal Consumed 100% 90% Stool Size Small Stool Consistency loose # Voids 1 1 # Bowel Movements 1 Weight 65.317 kg Patient Weight 07/13/17 23:59 Weight 65.317 kg General: Conversant, No Apparent Distress HEENT: Atraumatic, Normocephaly, Mucus Membranes Moist Neck: Normal carotid pulses Cardiac: Reg Rate and Rhythm, Other (2/6 murmur noted.) Lungs: Other (diminished) Neuro: Alert and responsive, No focal deficits noted Abdomen: Soft, Non-Tender Skin: No rashes noted on visualized skin Musculoskeletal: No Chest Wall Tenderness Extremities: Other (mild LE edema) Results 07/13/17 10:36 07/13/17 10:36 Lab Results 07/12/17 07/13/17 07/13/17 20:52 06:46 10:36 WBC 8.8 8.2 Hgb 9.1 L 9.0 L Hct 28.2 L 29.4 L Plt Count 196 216 INR 2.0 Sodium Potassium Chloride Carbon Dioxide BUN Creatinine Glucose Calcium 07/13/17 10:36 WBC Hgb Hct Plt Count INR Sodium 125 L Potassium 4.5 Chloride 85 L Carbon Dioxide 32 H BUN 29 H Creatinine 1.34 H Glucose 131 H Calcium 9.9 Short CBC 07/13/17 07/12/17 Range/Units 10:36 20:52 WBC 8.2 8.8 (4.3-11.1) K/mcL Hgb 9.0 L 9.1 L (11.5-15.4) g/dL Hct 29.4 L 28.2 L (35.3-44.9) % Plt Count 216 196 (140-400) K/mcL Neutrophils # 6.3 6.8 (1.6-8.9) K/mcL BMP 07/13/17 Range/Units 10:36 Sodium 125 L (136-145) mEq/L Potassium 4.5 (3.5-5.1) mEq/L Chloride 85 L (98-107) mEq/L Carbon Dioxide 32 H (23-29) mEq/L BUN 29 H (8-23) mg/dL Creatinine 1.34 H (0.60-1.20) mg/dL Glucose 131 H (70-105) mg/dL Calcium 9.9 (8.6-10.3) mg/dL Urine 07/12/17 Range/Units 22:00 Urine Color Yellow (Yellow) Urine Clarity Clear (Clear) Urine pH 7.0 (5.0-8.0) pH Units Ur Specific [place] 1.010 (1.010-1.025) Urine Protein Negative (Neg-Trace) mg/dL Urine Glucose (UA) Normal (Normal) mg/dL Impressions Echocardiogram 07/12/17 10:55 Impressions: LVEF 60-65%. Normal LV chamber size and function. Mild concentric left ventricular hypertrophy. Indeterminate diastolic function. Atypical septal motion consistent with paced rhythm. Normal right ventricular structure and function. Severely dilated left atrium. Severely dilated right atrium. Prosthetic aortic valve appears well seated. Leaflets are moderately calcified. Severe prosthetic aortic stenosis. Mean gradient 48 mmHg. Peak velocity 4.57 m/s. Moderately calcified mitral valve leaflets with reduced mobility. Severe mitral stenosis. Mean gradient 10 mmHg (HR 60 bpm). Severe tricuspid regurgitation. Severe pulmonary hypertension. Left Ventricular Wall Motion: Rest Echo Findings All wall segments showed normal motion. Findings: Study Quality * Technically adequate exam. ECG Findings * Paced rhythm. Left Ventricle * LVEF 60-65%. * Normal LV chamber size and function. * Mild concentric left ventricular hypertrophy. * Indeterminate diastolic function. * Atypical septal motion consistent with paced rhythm. Right Ventricle * Normal right ventricular structure and function. Left Atrium * Severely dilated left atrium. Right Atrium * Severely dilated right atrium. Aortic Valve * Prosthetic aortic valve appears well seated. Leaflets are moderately calcified. * Trace aortic regurgitation. * Severe prosthetic aortic stenosis. Mean gradient 48 mmHg. Peak velocity 4.57 m/s. Mitral Valve * Mild mitral annular calcification * Moderately calcified mitral valve leaflets with reduced mobility. * Trace mitral regurgitation. * Severe mitral stenosis. Mean gradient 10 mmHg (HR 60 bpm). Tricuspid Valve * Normal tricuspid valve structure. * Severe tricuspid regurgitation. * Severe pulmonary hypertension. Pulmonic Valve * Normal pulmonic valve structure. * Mild pulmonic regurgitation. Aorta * Normally sized aortic root. Pericardium * The pericardium appears normal. IVC * Normal IVC dimensions and inspiratory collapse. Device lead * A device lead was visualized in the right atrium and right ventricle. Pulmonary Artery * Normal visualized portions of the main pulmonary artery. Active Medications Albuterol/Ipratropium (Duoneb) 3 ml IH [id number] ALEJANDRO Stop: 01/10/18 22:01 Last Admin: 07/13/17 11:13 Dose: 3 ml Allopurinol (Zyloprim) 100 mg PO DAILY ALEJANDRO Stop: 01/11/18 09:01 Last Admin: 07/13/17 09:40 Dose: 100 mg Bumetanide (Bumex) 4 mg IVP BIDDIURETIC ALEJANDRO Stop: 01/11/18 17:01 Last Admin: 07/13/17 09:41 Dose: 4 mg Gabapentin (Neurontin) 300 mg PO TID ALEJANDRO Stop: 01/10/18 21:01 Last Admin: 07/13/17 09:40 Dose: 300 mg Guaifenesin (Mucinex) 1,200 mg PO BID ALEJANDRO Stop: 01/10/18 21:01 Last Admin: 07/13/17 09:40 Dose: 1,200 mg Lactulose (Lactulose) 10 gm PO DAILY ALEJANDRO Stop: 01/11/18 09:01 Last Admin: 07/13/17 09:40 Dose: 10 gm Lidocaine HCl (Lidoderm 5% Patch) 1 each TP DAILY ALEJANDRO Stop: 01/11/18 09:01 Last Admin: 07/13/17 09:42 Dose: 1 each Metolazone (Zaroxolyn) 2.5 mg PO 2XW ALEJANDRO Stop: 01/13/18 09:01 Naloxone HCl (Narcan) 0.4 mg IVP Q2MIN PRN PRN Reason: SEE COMMENTS Stop: 01/10/18 20:23 Omeprazole (Prilosec) 20 mg PO DAILY PRN; Protocol PRN Reason: Indigestion Stop: 01/10/18 20:20 Potassium Chloride (Potassium Chloride) 20 meq PO BIDWM ALEJANDRO Stop: 01/11/18 08:17 Last Admin: 07/13/17 09:40 Dose: 20 meq Sodium Chloride (Sodium Chloride) 1 gm PO BID ALEJANDRO Stop: 01/10/18 21:01 Last Admin: 07/13/17 09:40 Dose: 1 gm Spironolactone (Aldactone) 100 mg PO DAILY ALEJANDRO Stop: 01/11/18 09:01 Last Admin: 07/13/17 09:40 Dose: 100 mg Tramadol HCl (Ultram) 50 mg PO QID PRN PRN Reason: pain Stop: 01/10/18 20:20 Last Admin: 07/12/17 21:42 Dose: 50 mg Warfarin Sodium (Coumadin Perpt) 1 each PO DAILY@1800 PRN PRN Reason: SEE COMMENTS Stop: 01/11/18 18:01 Warfarin Sodium (Coumadin) 3 mg PO ONCE ONE Stop: 07/13/17 18:01 Zolpidem Tartrate (Ambien) 10 mg PO HS ALEJANDRO PRN Reason: Protocol Stop: 01/10/18 21:01 Last Admin: 07/12/17 21:42 Dose: 10 mg - Imaging and Cardiology Echo: report reviewed Consult Discharge Plan - Plan Referrals: Jose Jones DO [Primary Care Provider] -
[2017-07-13] MEDS ORDERED: *HR* Warfarin 3 MG TABLET PO ONE (18:00)
[2017-07-13] MEDS ORDERED: *HR* Warfarin 3 MG TABLET PO SCH (18:00)
[2017-07-13] MEDS: traMADol 50 MG TABLET PO PRN (18:27)
--- NOTE | 2017-07-13 18:36 | Internal Med Progress Note ---
Date of Encounter: 07/13/17 Time of Encounter: 11:00 - Assessment and plan (1) CHF exacerbation Current Visit: Yes Status: Acute Assessment and plan: Patient no longer appears by overloaded on exam and shortness of breath has improved Cardiology consulted and suspects exacerbation of heart failure secondary to multiple valvular disease with known borderline severe aortic stenosis, moderate mitral valve stenosis and severe tricuspid regurgitation We will continue an additional 24 hours IV diuresis with Bumex Recommend outpt evaluation at tertiary facility to discuss options for valve replacements/repair and percutaneous vs open approach. Qualifiers: Heart failure type: unspecified Qualified Code(s): I50.9 - Heart failure, unspecified (2) S/P aortic valve replacement with bioprosthetic valve Current Visit: Yes Status: Chronic Assessment and plan: S/p bioprosthertic aortic valve replacement with known borderline severe prosthetic aortic stenosis. Echocardiogram on 08/24/16: LVEF 60%, mild LVH, mild-moderately dilated RV with normal function, severely dilated LA, severely dilated RA, bioprosthetic aortic valve is well seated, prosthetic AV stenosis with mean gradient of 36 mmHg ( similar to prior report), mild AR, moderate MS, severe TR, RVSP 63-73 mmHg. Recommend outpt evaluation at tertiary facility to discuss options for valve replacements/repair and percutaneous vs open approach. (3) Permanent atrial fibrillation Current Visit: Yes Status: Chronic Assessment and plan: PPM in placed with paced rhythm on telemetry. Anticoagulated on Coumadin (4) Anemia Current Visit: No Status: Acute Assessment and plan: Suspect secondary to chronic disease. Continue to monitor Qualifiers: Anemia type: unspecified type Qualified Code(s): D64.9 - Anemia, unspecified (5) CKD (chronic kidney disease), stage III Current Visit: No Status: Chronic Assessment and plan: Creatinine has increased due to IV diuresis Continue to monitor (6) Hyponatremia Current Visit: No Status: Acute Assessment and plan: Suspect secondary to hypervolemic hyponatremia Sodium levels gradually improving Continue to monitor. (7) DVT prophylaxis Current Visit: No Status: Acute Assessment and plan: Continue home dose of Coumadin - Time Spent With Patient Total time spent is greater than 50% in coordination of care (as documented) at patient's floor/unit and/or counseling patient: - Subjective Interval history: She reports that her shortness of breath has improved. Patient is about at her baseline O2 requirement with IV diuresis for heart failure exacerbation - Constitutional Vitals: Temp Pulse Resp BP Pulse Ox 99.0 F 60 20 123/58 99 07/13/17 15:46 07/13/17 15:46 07/13/17 15:46 07/13/17 15:46 07/13/17 15:46 General appearance: Present: A&O X 3, no acute distress - Respiratory Respiratory exam: Present: CTAB. Absent: accessory muscle use, rales, rhonchi, wheezes - Cardiovascular Cardiovascular exam: Present: RRR, +S1, +S2. Absent: diastolic murmur, gallop, rubs, systolic murmur Internal Medicine: Result - Labs CBC & Chem 7: 07/13/17 10:36 07/13/17 10:36 Labs: Short CBC 07/12/17 07/13/17 Range/Units 20:52 10:36 WBC 8.8 8.2 (4.3-11.1) K/mcL Hgb 9.1 L 9.0 L (11.5-15.4) g/dL Hct 28.2 L 29.4 L (35.3-44.9) % Plt Count 196 216 (140-400) K/mcL Neutrophils # 6.8 6.3 (1.6-8.9) K/mcL BMP 07/13/17 10:36 Sodium 125 L Potassium 4.5 Chloride 85 L Carbon Dioxide 32 H BUN 29 H Creatinine 1.34 H Glucose 131 H Calcium 9.9 Urine 07/12/17 Range/Units 22:00 Urine Color Yellow (Yellow) Urine Clarity Clear (Clear) Urine pH 7.0 (5.0-8.0) pH Units Ur Specific [place] 1.010 (1.010-1.025) Urine Protein Negative (Neg-Trace) mg/dL Urine Glucose (UA) Normal (Normal) mg/dL - ABG Interpretation ABG results: PT/INR, D-dimer PT 22.1 Seconds (9.4-12.1) H 07/13/17 06:46 D-Dimer 587 ng/mLFEU (0-500) H 07/11/17 17:46 - Impressions Impressions Echocardiogram 07/12/17 10:55 Impressions: LVEF 60-65%. Normal LV chamber size and function. Mild concentric left ventricular hypertrophy. Indeterminate diastolic function. Atypical septal motion consistent with paced rhythm. Normal right ventricular structure and function. Severely dilated left atrium. Severely dilated right atrium. Prosthetic aortic valve appears well seated. Leaflets are moderately calcified. Severe prosthetic aortic stenosis. Mean gradient 48 mmHg. Peak velocity 4.57 m/s. Moderately calcified mitral valve leaflets with reduced mobility. Severe mitral stenosis. Mean gradient 10 mmHg (HR 60 bpm). Severe tricuspid regurgitation. Severe pulmonary hypertension. Left Ventricular Wall Motion: Rest Echo Findings All wall segments showed normal motion. Findings: Study Quality * Technically adequate exam. ECG Findings * Paced rhythm. Left Ventricle * LVEF 60-65%. * Normal LV chamber size and function. * Mild concentric left ventricular hypertrophy. * Indeterminate diastolic function. * Atypical septal motion consistent with paced rhythm. Right Ventricle * Normal right ventricular structure and function. Left Atrium * Severely dilated left atrium. Right Atrium * Severely dilated right atrium. Aortic Valve * Prosthetic aortic valve appears well seated. Leaflets are moderately calcified. * Trace aortic regurgitation. * Severe prosthetic aortic stenosis. Mean gradient 48 mmHg. Peak velocity 4.57 m/s. Mitral Valve * Mild mitral annular calcification * Moderately calcified mitral valve leaflets with reduced mobility. * Trace mitral regurgitation. * Severe mitral stenosis. Mean gradient 10 mmHg (HR 60 bpm). Tricuspid Valve * Normal tricuspid valve structure. * Severe tricuspid regurgitation. * Severe pulmonary hypertension. Pulmonic Valve * Normal pulmonic valve structure. * Mild pulmonic regurgitation. Aorta * Normally sized aortic root. Pericardium * The pericardium appears normal. IVC * Normal IVC dimensions and inspiratory collapse. Device lead * A device lead was visualized in the right atrium and right ventricle. Pulmonary Artery * Normal visualized portions of the main pulmonary artery. Consult Discharge Plan - Plan Referrals: Jose Jones DO [Primary Care Provider] -
[2017-07-14] MEDS: Ipratropium/Albuterol Neb 3 ML IH SCH ×3 (03:21→15:58)
[2017-07-14 06:53] LABS: INR 2.2; Prothrombin Time 23.8 Seconds (9.4-12.1)
[2017-07-14] MEDS ORDERED: metOLazone 2.5 MG TABLET PO SCH (09:00)
[2017-07-14] MEDS: Lactulose Oral Soln 20 GM/30 ML UDC PO SCH (09:30)
[2017-07-14] MEDS: Gabapentin 300 MG CAPSULE PO SCH (09:31)
[2017-07-14] MEDS: Bumetanide 1 MG/4 ML VIAL IVP SCH (09:32)
--- NOTE | 2017-07-14 10:07 | Discharge Summary ---
- NOTES TO OUTPATIENT PROVIDER Notes to Outpatient Provider: Recommendations to up as outpatient at tertiary facility to discuss options for valve replacement/repair and percutaneous versus open approach. 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 Patient was just discharged from the hospital yesterday after having hospital acquired pneumonia. The patient is stated think that she continue to feel short of breath. Chest x-ray revealed persistent linear infiltrates at the left lung base could represent persistent pneumonia vs congestive heart failure exacerbation. Patient was admitted to medical surgical floor for CHF exacerbation. During patients hospital stay cardiology was consulted with recommendations for IV diuresis due to volume overloaded on exam. She was also noted to have severe aortic stenosis with recommendations to up as outpatient at tertiary facility to discuss options for valve replacement/repair and percutaneous versus open approach. - Time Spent with Patient Total time spent providing and/or coordinating discharge services: - Discharge Medications Home Medications: Omeprazole [PriLOSEC] 20 mg PO DAILY PRN 06/03/16 [History] Tramadol HCl [Ultram] 50 mg PO QID PRN 03/15/17 [History] Sodium Chloride 1 gm PO BID #30 tablet 03/20/17 [Rx] Pembrolizumab [Keytruda] 100 mg IV Q3W 04/22/17 [History] Spironolactone [Aldactone] 100 mg PO DAILY 04/22/17 [History] Warfarin [Coumadin] 3 mg PO SUMOTUTHSA 04/22/17 [History] Warfarin [Coumadin] 6 mg PO WEFR 04/22/17 [History] metOLazone [Zaroxolyn] 2.5 mg PO 2XW 04/22/17 [History] Allopurinol [Zyloprim 100 MG] 100 mg PO DAILY 07/04/17 [History] Bumetanide 4 mg PO BID 07/04/17 [History] Gabapentin [Neurontin] 300 mg PO TID 07/04/17 [History] Potassium Chloride 20 meq PO BID 07/04/17 [History] Zolpidem [Ambien] 10 mg PO HS 07/04/17 [History] Guaifenesin [Mucinex] 1,200 mg PO BID #30 tab.er.12h 07/09/17 [Rx] Ipratropium/Albuterol Neb [Duoneb] 3 ml IH [id number] #120 inhsol 07/09/17 [Rx] Lactulose 10 gm PO DAILY #30 udc 07/09/17 [Rx] Lidocaine Patch [Lidoderm 5% patch] 1 each TP DAILY #30 adh..patch 07/09/17 [Rx] Allergies/Adverse Reactions: 3 Allergy/AdvReac Type Severity Reaction Status Date / Time morphine Allergy Hives Verified 07/11/17 18:35 Penicillins Allergy See Verified 07/11/17 18:35 Comments aspirin AdvReac Nausea Verified 07/11/17 18:35 ibuprofen [From Motrin] AdvReac Vomiting Verified 07/11/17 18:35 Date of admission: 07/11/17 21:17 Primary care physician: Jose Jones - Constitutional Vitals: Temp Pulse Resp BP Pulse Ox 98 F 60 16 109/52 97 07/14/17 07:20 07/14/17 07:20 07/14/17 07:20 07/14/17 07:20 07/14/17 07:20 General appearance: Present: A&O X 3, no acute distress - Respiratory Respiratory exam: Present: CTAB. Absent: accessory muscle use, rales, rhonchi, wheezes - Cardiovascular Cardiovascular exam: Present: RRR, +S1, +S2. Absent: diastolic murmur, gallop, rubs, systolic murmur - Patient Status Disposition: Home, Self-Care Condition: Fair - Discharge Instructions Instructions: Heart Failure (DC), Pneumonia (DC) Follow Up With: Jose Jones DO [Primary Care Provider] -
[2017-07-14 11:29] VITALS: BP 106/65
--- NOTE | 2017-07-14 14:12 | Physician Discharge Referral ---
Home Health/Hosp Referral Info Transfer to: Home Health - Diagnosis (1) CHF exacerbation Status: Acute (2) S/P aortic valve replacement with bioprosthetic valve Status: Chronic (3) Permanent atrial fibrillation Status: Chronic (4) Anemia Status: Acute (5) CKD (chronic kidney disease), stage III Status: Chronic (6) Hyponatremia Status: Acute (7) DVT prophylaxis Status: Acute - Respiratory Orders Smoking Cessation: Smoking cessation has been advised. For more information, call the [place] Tobacco Quit Line at 7-707-DYAD-NOW. - Services Needed Following services are medically necessary services: Nursing, Physical Therapy - Transfer Medications Home Medications: Omeprazole [PriLOSEC] 20 mg PO DAILY PRN 06/03/16 [History] Tramadol HCl [Ultram] 50 mg PO QID PRN 03/15/17 [History] Sodium Chloride 1 gm PO BID #30 tablet 03/20/17 [Rx] Pembrolizumab [Keytruda] 100 mg IV Q3W 04/22/17 [History] Spironolactone [Aldactone] 100 mg PO DAILY 04/22/17 [History] Warfarin [Coumadin] 3 mg PO SUMOTUTHSA 04/22/17 [History] Warfarin [Coumadin] 6 mg PO WEFR 04/22/17 [History] metOLazone [Zaroxolyn] 2.5 mg PO 2XW 04/22/17 [History] Allopurinol [Zyloprim 100 MG] 100 mg PO DAILY 07/04/17 [History] Bumetanide 4 mg PO BID 07/04/17 [History] Gabapentin [Neurontin] 300 mg PO TID 07/04/17 [History] Potassium Chloride 20 meq PO BID 07/04/17 [History] Zolpidem [Ambien] 10 mg PO HS 07/04/17 [History] Guaifenesin [Mucinex] 1,200 mg PO BID #30 tab.er.12h 07/09/17 [Rx] Ipratropium/Albuterol Neb [Duoneb] 3 ml IH [id number] #120 inhsol 07/09/17 [Rx] Lactulose 10 gm PO DAILY #30 udc 07/09/17 [Rx] Lidocaine Patch [Lidoderm 5% patch] 1 each TP DAILY #30 adh..patch 07/09/17 [Rx] Allergies/Adverse Reactions: 3 Allergy/AdvReac Type Severity Reaction Status Date / Time morphine Allergy Hives Verified 07/11/17 18:35 Penicillins Allergy See Verified 07/11/17 18:35 Comments aspirin AdvReac Nausea Verified 07/11/17 18:35 ibuprofen [From Motrin] AdvReac Vomiting Verified 07/11/17 18:35 Certification: Further, I certify that my clinical findings support that this patient is homebound (i.e. absences from home require considerable and taxing effort and are for medical reasons or anabaptism services or infrequently or short duration when for other reasons) because: Homebound Reason: Patient requires assistance of a person or device to safely leave home Attestation: My signature below is to certify that this patient is under my care and that I, or nurse practitioner, or a physician's lens assistant working with me, has a face-to -face encounter with this patient.
[2017-07-14] MEDS ORDERED: *HR* Warfarin 3 MG TABLET PO ONE (18:00)
== END 2017-07-14 16:01 | disposition home or self-care (01) | DRG 291 ==
LOC: EMEROO 16:49 → 2ANU 16:49 → SUATTDRO 21:17 → 2ANU 21:50
PROVIDERS: ADMIT Family Medicine; ATTEND Hospitalist

== ENCOUNTER 2017-10-14 12:28 | Inpatient (IN) ==
--- NOTE | 2017-10-14 13:08 | Emergency Department Note ---
Disposition Clinical Impression: Hyponatremia, Non-small cell carcinoma of left lung, Hypochloremia, Aortic valve replaced, Weakness A-fib Qualifiers: Atrial fibrillation type: unspecified Qualified Code(s): I48.91 - Unspecified atrial fibrillation UTI (urinary tract infection) Qualifiers: Urinary tract infection type: site unspecified Hematuria presence: without hematuria Qualified Code(s): N39.0 - Urinary tract infection, site not specified Disposition: Admitted As Inpatient Condition: Fair Referrals: Jose Jones DO [Primary Care Provider] - Forms: ED Satisfaction Letter Time of Disposition: 18:46 Recheck wound or abnormal lab - General Chief Complaint: ED Recheck/Abnormal Lab/Rx Stated Complaint: Low potassum Time Seen by Provider: 10/14/17 12:37 - Related Data Home Medications Medication Instructions Recorded Confirmed Omeprazole [PriLOSEC] 20 mg PO DAILY PRN 06/03/16 10/14/17 Pembrolizumab [Keytruda] 100 mg IV Q3W 04/22/17 10/14/17 Spironolactone [Aldactone] 100 mg PO DAILY 04/22/17 10/14/17 Warfarin [Coumadin] 3 mg PO SUMOWETHSA 04/22/17 10/14/17 Warfarin [Coumadin] 6 mg PO TUFR 04/22/17 10/14/17 Allopurinol [Zyloprim 100 MG] 100 mg PO DAILY 07/04/17 10/14/17 Bumetanide 2 mg PO BID 07/04/17 10/14/17 Potassium Chloride 20 meq PO BID 07/04/17 10/14/17 Albuterol Sulfate [Albuterol 2 puff IH Q4HR 09/09/17 10/14/17 Inhaler] Ascorbic Acid [Vitamin C] 250 mg PO DAILY 09/09/17 10/14/17 Ergocalciferol (VITAMIN D2) 50,000 unit PO QWEEK 09/09/17 10/14/17 [Vitamin D2] Ferrous Sulfate [Iron] 325 mg PO DAILY 09/09/17 10/14/17 Melatonin 5 mg PO HS 09/09/17 10/14/17 Milk Thistle 150 mg PO DAILY 09/09/17 10/14/17 Sennosides [Senokot] 8.6 mg PO DAILY 09/09/17 10/14/17 Tamsulosin [Flomax] 0.4 mg PO DAILY 09/09/17 10/14/17 Gabapentin [Neurontin] 300 mg PO TID 10/14/17 10/14/17 Zolpidem [Ambien] 10 mg PO HS 10/14/17 10/14/17 metOLazone [Zaroxolyn] 2.5 mg PO TUFR 10/14/17 10/14/17 Previous Rx's Medication Instructions Recorded Sodium Chloride [Sodium Chloride 1 gm PO BID #30 tablet 03/20/17 Tab] Lidocaine/Prilocaine [Emla] 1 appl TP DAILY #30 gm 07/29/17 Tramadol HCl [Ultram] 50 mg PO QID PRN 30 Days #120 07/29/17 tablet Allergies Allergy/AdvReac Type Severity Reaction Status Date / Time morphine Allergy Hives Verified 07/11/17 18:35 Penicillins Allergy See Verified 07/11/17 18:35 Comments aspirin AdvReac Nausea Verified 07/11/17 18:35 ibuprofen [From Motrin] AdvReac Vomiting Verified 07/11/17 18:35 Past Medical History - Past Medical History Medical history: Reports: atrial fibrillation, cancer, cirrhosis, CHF, COPD, coronary artery disease, GI bleed, hyperlipidemia, hypertension, liver disease, myocardial infarction, renal disease, valvular heart disease, other Surgical history: Reports: appendectomy, cholecystectomy, colectomy, coronary bypass (CABG), heart valve replacement, pacemaker/AICD, other Psychiatric history: Reports: anxiety, depression - Social History Smoking Status: Former smoker Smokeless Tobacco Status: No Alcohol use: Reports: occasionally, heavy, recent Drug use: Reports: none Course Course Narrative: I have personally seen and evaluated the patient along with the Medical Student. I have reviewed and confirmed the history of present illness, review of systems, family, medical, and surgical history and agree with the documentation except as documented below. HPI/ROS: Briefly, patient presenting with weakness, mild headaches. Had recent lab work that showed a hyponatremia which is not new, but is worse than usual. States she just feels rundown and tired. 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 Physical exam: CONSTITUTIONAL: [Chronically ill appearing in no acute distress] SKIN: [Warm, dry, and intact without rash] EYES: [extraocular movements are grossly intact, clear , but pale conjunctiva] HENT: [Normocephalic, atraumatic, moist mucus membranes] NECK: [no obvious swelling, normal range of motion] PULMONARY: [normal chest rise and fall, no respiratory distress or stridor CARDIOVASCULAR: [regular rate, distal extremities are warm and well perfused] GASTROINSTESTINAL: [nondistended, non-tender] GENITOURINARY: [deferred] NEUROLOGIC: [normal speech, moves all extremities] MUSCULOSKELETAL: [no gross deformities, atraumatic, previous hip replacement with some pain but states baseline] PSYCHIATRIC: [Somewhat flat affect, slightly depressed] Plan get labs, head CT, IV fluids and reevaluate. Likely admission. There has been over a 4 hour delay in obtaining these patient's labs. Lab work was canceled by someone, although we did not canceled these. They were reordered under Dr. sandoval name. Questioned multiple times why these labs were delayed and this is delaying the patient's care. Labs are back. Patient's sodium remains 118. She is also hypochloremic. Uric acid is elevated. No renal insufficiency. Incidentally has urinary tract infection, given a dose of Rocephin. We avoided penicillins. Due to her allergy and she is on Coumadin, so wanted to avoid a quinolone. Vital Signs Temperature 97.5 F L 10/14/17 12:39 Pulse Rate 60 10/14/17 12:39 Respiratory Rate 16 10/14/17 12:39 Blood Pressure 127/66 10/14/17 12:39 O2 Sat by Pulse Oximetry 100 10/14/17 12:39 Temperature 97.5 F L 10/14/17 14:38 Pulse Rate 61 10/14/17 18:30 Respiratory Rate 16 10/14/17 18:30 Blood Pressure 107/53 10/14/17 18:30 O2 Sat by Pulse Oximetry 97 10/14/17 18:30 Oxygen Delivery Oxygen Delivery Room Air Recheck wound or abnormal lab - Medical Records Medical records reviewed: Yes I reviewed the patient's medical records. - Lab Data Lab results reviewed: Yes I reviewed the patient's lab results. Result diagrams: 10/14/17 15:25 10/14/17 17:03 Lab Results 10/14/17 10/14/17 10/14/17 Range/Units 14:59 14:59 14:59 WBC (4.3-11.1) K/mcL RBC (3.82-4.97) M/mcL Hgb (11.5-15.4) g/dL Hct (35.3-44.9) % MCV (83.0-100.0) fL MCH (28.0-33.3) pg MCHC (31.6-35.5) g/dL RDW (11.5-14.5) % Plt Count (140-400) K/mcL MPV (9.4-12.4) fL Immature Gran % (0-4) % Seg Neutrophils % % Lymphocytes % % Monocytes % % Eosinophils % % Basophils % % Neutrophils # (1.6-8.9) K/mcL Lymphocytes # (0.6-4.6) K/mcL Monocytes # (0.0-1.3) K/mcL Eosinophils # (0.0-0.6) K/mcL Basophils # (0.0-0.2) K/mcL Anisocytosis (Not Present) PT (9.4-12.1) Seconds INR Sodium Potassium Chloride Carbon Dioxide BUN Creatinine Est GFR ( Amer) Est GFR (Non-Af Amer) BUN/Creatinine Ratio Glucose Calculated Osmolality Lactic Acid (0.5-2.2) mmol/L Uric Acid Calcium Venous Ioniz Calcium (1.15-1.35) mmol/L Phosphorus Magnesium Total Bilirubin AST ALT Alkaline Phosphatase Creatine Kinase Troponin I (< 0.04) ng/mL Serum Total Protein Albumin Globulin Albumin/Globulin Ratio TSH Urine Color Yellow (Yellow) Urine Clarity Cloudy A (Clear) Urine pH 7.0 (5.0-8.0) pH Units Ur Specific Jamul 1.012 (1.010-1.025) Urine Protein Negative (Neg-Trace) mg/dL Urine Glucose (UA) Normal (Normal) mg/dL Urine Ketones Negative (Negative) mg/dL Urine Blood Negative (Negative) Urine Nitrite Positive A (Negative) Urine Bilirubin Negative (Negative) Urine Urobilinogen Normal (Normal) mg/dL Ur Leukocyte Esterase Large H (Negative) Urine Microscopic RBC 0-3 (0-3) per hpf Urine Microscopic WBC TNTC H (0-3) per hpf Ur Squamous Epith Cells Many H (None-Few) per lpf Urine Bacteria Many H (None-Few) per hpf Hyaline Casts None Seen (None-Few) per lpf Ur Culture Indicated? NO. A (NO) Urine Creatinine 32 mg/dL Urine Sodium 60.7 mEq/L Ur Uric Acid 22 mg/dL Urine Urea Nitrogen 287 mg/dL Specimen Rejected 10/14/17 10/14/17 10/14/17 Range/Units 15:25 15:25 15:25 WBC 5.5 (4.3-11.1) K/mcL RBC 3.41 L (3.82-4.97) M/mcL Hgb 9.6 L (11.5-15.4) g/dL Hct 29.2 L (35.3-44.9) % MCV 85.6 (83.0-100.0) fL MCH 28.2 (28.0-33.3) pg MCHC 32.9 (31.6-35.5) g/dL RDW 23.3 H (11.5-14.5) % Plt Count 163 (140-400) K/mcL MPV 8.2 L (9.4-12.4) fL Immature Gran % 0.5 (0-4) % Seg Neutrophils % 70.0 % Lymphocytes % 20.7 % Monocytes % 8.0 % Eosinophils % 0.4 % Basophils % 0.4 % Neutrophils # 3.9 (1.6-8.9) K/mcL Lymphocytes # 1.1 (0.6-4.6) K/mcL Monocytes # 0.4 (0.0-1.3) K/mcL Eosinophils # 0.0 (0.0-0.6) K/mcL Basophils # 0.0 (0.0-0.2) K/mcL Anisocytosis 2+ A (Not Present) PT 22.3 H (9.4-12.1) Seconds INR 2.0 Sodium Cancelled Potassium Cancelled Chloride Cancelled Carbon Dioxide Cancelled BUN Cancelled Creatinine Cancelled Est GFR ( Amer) Cancelled Est GFR (Non-Af Amer) Cancelled BUN/Creatinine Ratio Cancelled Glucose Cancelled Calculated Osmolality Cancelled Lactic Acid (0.5-2.2) mmol/L Uric Acid Cancelled Calcium Cancelled Venous Ioniz Calcium (1.15-1.35) mmol/L Phosphorus Cancelled Magnesium Cancelled Total Bilirubin Cancelled AST Cancelled ALT Cancelled Alkaline Phosphatase Cancelled Creatine Kinase Cancelled Troponin I < 0.03 (< 0.04) ng/mL Serum Total Protein Cancelled Albumin Cancelled Globulin Cancelled Albumin/Globulin Ratio Cancelled TSH Cancelled Urine Color (Yellow) Urine Clarity (Clear) Urine pH (5.0-8.0) pH Units Ur Specific Jamul (1.010-1.025) Urine Protein (Neg-Trace) mg/dL Urine Glucose (UA) (Normal) mg/dL Urine Ketones (Negative) mg/dL Urine Blood (Negative) Urine Nitrite (Negative) Urine Bilirubin (Negative) Urine Urobilinogen (Normal) mg/dL Ur Leukocyte Esterase (Negative) Urine Microscopic RBC (0-3) per hpf Urine Microscopic WBC (0-3) per hpf Ur Squamous Epith Cells (None-Few) per lpf Urine Bacteria (None-Few) per hpf Hyaline Casts (None-Few) per lpf Ur Culture Indicated? (NO) Urine Creatinine mg/dL Urine Sodium mEq/L Ur Uric Acid mg/dL Urine Urea Nitrogen mg/dL Specimen Rejected 10/14/17 10/14/17 10/14/17 Range/Units 15:25 15:25 15:40 WBC (4.3-11.1) K/mcL RBC (3.82-4.97) M/mcL Hgb (11.5-15.4) g/dL Hct (35.3-44.9) % MCV (83.0-100.0) fL MCH (28.0-33.3) pg MCHC (31.6-35.5) g/dL RDW (11.5-14.5) % Plt Count (140-400) K/mcL MPV (9.4-12.4) fL Immature Gran % (0-4) % Seg Neutrophils % % Lymphocytes % % Monocytes % % Eosinophils % % Basophils % % Neutrophils # (1.6-8.9) K/mcL Lymphocytes # (0.6-4.6) K/mcL Monocytes # (0.0-1.3) K/mcL Eosinophils # (0.0-0.6) K/mcL Basophils # (0.0-0.2) K/mcL Anisocytosis (Not Present) PT (9.4-12.1) Seconds INR Sodium Potassium Chloride Carbon Dioxide BUN Creatinine Est GFR ( Amer) Est GFR (Non-Af Amer) BUN/Creatinine Ratio Glucose Calculated Osmolality Lactic Acid 0.8 (0.5-2.2) mmol/L Uric Acid Calcium Venous Ioniz Calcium 1.21 (1.15-1.35) mmol/L Phosphorus Magnesium Total Bilirubin AST ALT Alkaline Phosphatase Creatine Kinase Troponin I (< 0.04) ng/mL Serum Total Protein Albumin Globulin Albumin/Globulin Ratio TSH Urine Color (Yellow) Urine Clarity (Clear) Urine pH (5.0-8.0) pH Units Ur Specific Jamul (1.010-1.025) Urine Protein (Neg-Trace) mg/dL Urine Glucose (UA) (Normal) mg/dL Urine Ketones (Negative) mg/dL Urine Blood (Negative) Urine Nitrite (Negative) Urine Bilirubin (Negative) Urine Urobilinogen (Normal) mg/dL Ur Leukocyte Esterase (Negative) Urine Microscopic RBC (0-3) per hpf Urine Microscopic WBC (0-3) per hpf Ur Squamous Epith Cells (None-Few) per lpf Urine Bacteria (None-Few) per hpf Hyaline Casts (None-Few) per lpf Ur Culture Indicated? (NO) Urine Creatinine mg/dL Urine Sodium mEq/L Ur Uric Acid mg/dL Urine Urea Nitrogen mg/dL Specimen Rejected Hemolyzed 10/14/17 Range/Units 17:03 WBC (4.3-11.1) K/mcL RBC (3.82-4.97) M/mcL Hgb (11.5-15.4) g/dL Hct (35.3-44.9) % MCV (83.0-100.0) fL MCH (28.0-33.3) pg MCHC (31.6-35.5) g/dL RDW (11.5-14.5) % Plt Count (140-400) K/mcL MPV (9.4-12.4) fL Immature Gran % (0-4) % Seg Neutrophils % % Lymphocytes % % Monocytes % % Eosinophils % % Basophils % % Neutrophils # (1.6-8.9) K/mcL Lymphocytes # (0.6-4.6) K/mcL Monocytes # (0.0-1.3) K/mcL Eosinophils # (0.0-0.6) K/mcL Basophils # (0.0-0.2) K/mcL Anisocytosis (Not Present) PT (9.4-12.1) Seconds INR Sodium 118 L* Potassium 4.0 Chloride 83 L Carbon Dioxide 26 BUN 26 H Creatinine 1.17 Est GFR ( Amer) 55 L Est GFR (Non-Af Amer) 45 L BUN/Creatinine Ratio 22 Glucose 152 H Calculated Osmolality 254 L Lactic Acid (0.5-2.2) mmol/L Uric Acid 12.2 H Calcium 10.2 Venous Ioniz Calcium (1.15-1.35) mmol/L Phosphorus 3.2 Magnesium 1.8 Total Bilirubin 0.7 AST 33 ALT 21 Alkaline Phosphatase 295 H Creatine Kinase 10 L Troponin I (< 0.04) ng/mL Serum Total Protein 6.9 Albumin 3.9 Globulin 3.0 Albumin/Globulin Ratio 1.3 TSH 0.967 Urine Color (Yellow) Urine Clarity (Clear) Urine pH (5.0-8.0) pH Units Ur Specific Jamul (1.010-1.025) Urine Protein (Neg-Trace) mg/dL Urine Glucose (UA) (Normal) mg/dL Urine Ketones (Negative) mg/dL Urine Blood (Negative) Urine Nitrite (Negative) Urine Bilirubin (Negative) Urine Urobilinogen (Normal) mg/dL Ur Leukocyte Esterase (Negative) Urine Microscopic RBC (0-3) per hpf Urine Microscopic WBC (0-3) per hpf Ur Squamous Epith Cells (None-Few) per lpf Urine Bacteria (None-Few) per hpf Hyaline Casts (None-Few) per lpf Ur Culture Indicated? (NO) Urine Creatinine mg/dL Urine Sodium mEq/L Ur Uric Acid mg/dL Urine Urea Nitrogen mg/dL Specimen Rejected - Radiology Data Radiology results reviewed: Yes I reviewed the patient's radiology results. - EKG Data EKG attestation: Yes I reviewed and interpreted this EKG. EKG results narrative: A. fib, rate 60, left axis deviation, no acute ischemic changes
--- NOTE | 2017-10-14 13:09 | Emergency Department Note ---
Disposition Clinical Impression: Hyponatremia, Non-small cell carcinoma of left lung, Hypochloremia, Aortic valve replaced, Weakness A-fib Qualifiers: Atrial fibrillation type: unspecified Qualified Code(s): I48.91 - Unspecified atrial fibrillation UTI (urinary tract infection) Qualifiers: Urinary tract infection type: site unspecified Hematuria presence: without hematuria Qualified Code(s): N39.0 - Urinary tract infection, site not specified Disposition: Admitted As Inpatient Condition: Fair General Adult HPI - General Chief complaint: ED Recheck/Abnormal Lab/Rx Stated complaint: Low potassum Time Seen by Provider: 10/14/17 12:37 Source: patient, family Limitations: no limitations - History of Present Illness HPI Narrative: Ms. Brooks is a 71 year old female with past medical history significant for CHF, cirrhosis, lung cancer currently on chemotherapy, hyponatremia that presents to the hospital with hyponatremia. Pt states that since yesterday, she has been feeling weak, tired, nauseous, and slightly confused. She had routine labs drawn this morning which revealed a sodium of 118. She was sent to ED by her PCP. Pt states that she has been hyponatremic in the past, most recent hospitilization being in July for a hip fracture when she fell. Her sodium at that time was 123. Pt currently denies any chest pain, shortness of breath, vomiting, dysuria, fever, chills, cough. She states that her past episodes of hyponatremia were attributed to diuretic use. Pain Scale: 0 - Related Data Home Medications Medication Instructions Recorded Confirmed Omeprazole [PriLOSEC] 20 mg PO DAILY PRN 06/03/16 10/14/17 Pembrolizumab [Keytruda] 100 mg IV Q3W 04/22/17 10/14/17 Spironolactone [Aldactone] 100 mg PO DAILY 04/22/17 10/14/17 Warfarin [Coumadin] 3 mg PO SUMOWETHSA 04/22/17 10/14/17 Warfarin [Coumadin] 6 mg PO TUFR 04/22/17 10/14/17 Allopurinol [Zyloprim 100 MG] 100 mg PO DAILY 07/04/17 10/14/17 Bumetanide 2 mg PO BID 07/04/17 10/14/17 Potassium Chloride 20 meq PO BID 07/04/17 10/14/17 Albuterol Sulfate [Albuterol 2 puff IH Q4HR 09/09/17 10/14/17 Inhaler] Ascorbic Acid [Vitamin C] 250 mg PO DAILY 09/09/17 10/14/17 Ergocalciferol (VITAMIN D2) 50,000 unit PO QWEEK 09/09/17 10/14/17 [Vitamin D2] Ferrous Sulfate [Iron] 325 mg PO DAILY 09/09/17 10/14/17 Melatonin 5 mg PO HS 09/09/17 10/14/17 Milk Thistle 150 mg PO DAILY 09/09/17 10/14/17 Sennosides [Senokot] 8.6 mg PO DAILY 09/09/17 10/14/17 Tamsulosin [Flomax] 0.4 mg PO DAILY 09/09/17 10/14/17 Gabapentin [Neurontin] 300 mg PO TID 10/14/17 10/14/17 Zolpidem [Ambien] 10 mg PO HS 10/14/17 10/14/17 metOLazone [Zaroxolyn] 2.5 mg PO TUFR 10/14/17 10/14/17 Previous Rx's Medication Instructions Recorded Sodium Chloride [Sodium Chloride 1 gm PO BID #30 tablet 03/20/17 Tab] Lidocaine/Prilocaine [Emla] 1 appl TP DAILY #30 gm 07/29/17 Tramadol HCl [Ultram] 50 mg PO QID PRN 30 Days #120 07/29/17 tablet Allergies Allergy/AdvReac Type Severity Reaction Status Date / Time morphine Allergy Hives Verified 07/11/17 18:35 Penicillins Allergy See Verified 07/11/17 18:35 Comments aspirin AdvReac Nausea Verified 07/11/17 18:35 ibuprofen [From Motrin] AdvReac Vomiting Verified 07/11/17 18:35 All systems ED: reviewed and negative except as stated. Constitutional: Reports: weakness. Denies: fever, chills Cardiovascular: Denies: chest pain, palpitations Respiratory: Denies: cough, dyspnea, wheezes Gastrointestinal: Reports: nausea. Denies: abdominal pain, vomiting Genitourinary: Denies: urgency, dysuria, frequency Past Medical History - Past Medical History Medical history: Reports: atrial fibrillation, cancer, cirrhosis, CHF, COPD, coronary artery disease, GI bleed, hyperlipidemia, hypertension, liver disease, myocardial infarction, renal disease, valvular heart disease, other Surgical history: Reports: appendectomy, cholecystectomy, colectomy, coronary bypass (CABG), heart valve replacement, pacemaker/AICD, other Psychiatric history: Reports: anxiety, depression - Social History Smoking Status: Former smoker Smokeless Tobacco Status: No Alcohol use: Reports: occasionally, heavy, recent Drug use: Reports: none Physical Exam - General Limitations: no limitations General appearance: alert, in no apparent distress - Head Head exam: atraumatic, normocephalic - Eye Eye exam: Present: PERRL, EOMI - Chest Chest inspection: Present: normal inspection, symmetric chest wall rise - Respiratory Respiratory exam: Present: normal lung sounds bilaterally. Absent: respiratory distress, wheezes - Cardiovascular Cardiovascular exam: Present: regular rate - Abdominal Exam Abdominal exam: Present: soft, Non-Tender, distention. Absent: guarding, rebound - Extremities Exam Extremities exam: Present: normal inspection. Absent: tenderness, pedal edema - Neurological Exam Neurological exam: Present: alert, oriented X3 - Psychiatric Psychiatric exam: Present: normal affect, normal mood - Skin Skin exam: Present: warm, dry, intact Course Vital Signs Temperature 97.5 F L 10/14/17 12:39 Pulse Rate 60 10/14/17 12:39 Respiratory Rate 16 10/14/17 12:39 Blood Pressure 127/66 10/14/17 12:39 O2 Sat by Pulse Oximetry 100 10/14/17 12:39 Temperature 97.5 F L 10/14/17 14:38 Pulse Rate 60 10/14/17 19:30 Respiratory Rate 14 10/14/17 19:30 Blood Pressure 104/39 10/14/17 19:30 O2 Sat by Pulse Oximetry 100 10/14/17 19:30 Oxygen Delivery Oxygen Delivery Room Air Medical Decision Making - Lab Data Result diagrams: 10/14/17 15:25 10/14/17 17:03 Lab Results 10/14/17 10/14/17 10/14/17 Range/Units 14:59 14:59 14:59 WBC (4.3-11.1) K/mcL RBC (3.82-4.97) M/mcL Hgb (11.5-15.4) g/dL Hct (35.3-44.9) % MCV (83.0-100.0) fL MCH (28.0-33.3) pg MCHC (31.6-35.5) g/dL RDW (11.5-14.5) % Plt Count (140-400) K/mcL MPV (9.4-12.4) fL Immature Gran % (0-4) % Seg Neutrophils % % Lymphocytes % % Monocytes % % Eosinophils % % Basophils % % Neutrophils # (1.6-8.9) K/mcL Lymphocytes # (0.6-4.6) K/mcL Monocytes # (0.0-1.3) K/mcL Eosinophils # (0.0-0.6) K/mcL Basophils # (0.0-0.2) K/mcL Anisocytosis (Not Present) PT (9.4-12.1) Seconds INR Sodium Potassium Chloride Carbon Dioxide BUN Creatinine Est GFR ( Amer) Est GFR (Non-Af Amer) BUN/Creatinine Ratio Glucose Calculated Osmolality Lactic Acid (0.5-2.2) mmol/L Uric Acid Calcium Venous Ioniz Calcium (1.15-1.35) mmol/L Phosphorus Magnesium Total Bilirubin AST ALT Alkaline Phosphatase Creatine Kinase Troponin I (< 0.04) ng/mL Serum Total Protein Albumin Globulin Albumin/Globulin Ratio TSH Urine Color Yellow (Yellow) Urine Clarity Cloudy A (Clear) Urine pH 7.0 (5.0-8.0) pH Units Ur Specific [place] 1.012 (1.010-1.025) Urine Protein Negative (Neg-Trace) mg/dL Urine Glucose (UA) Normal (Normal) mg/dL Urine Ketones Negative (Negative) mg/dL Urine Blood Negative (Negative) Urine Nitrite Positive A (Negative) Urine Bilirubin Negative (Negative) Urine Urobilinogen Normal (Normal) mg/dL Ur Leukocyte Esterase Large H (Negative) Urine Microscopic RBC 0-3 (0-3) per hpf Urine Microscopic WBC TNTC H (0-3) per hpf Ur Squamous Epith Cells Many H (None-Few) per lpf Urine Bacteria Many H (None-Few) per hpf Hyaline Casts None Seen (None-Few) per lpf Ur Culture Indicated? NO. A (NO) Urine Creatinine 32 mg/dL Urine Sodium 60.7 mEq/L Ur Uric Acid 22 mg/dL Urine Urea Nitrogen 287 mg/dL Specimen Rejected 08/24/18 08/24/18 08/24/18 Range/Units 15:25 15:25 15:25 WBC 5.5 (4.3-11.1) K/mcL RBC 3.41 L (3.82-4.97) M/mcL Hgb 9.6 L (11.5-15.4) g/dL Hct 29.2 L (35.3-44.9) % MCV 85.6 (83.0-100.0) fL MCH 28.2 (28.0-33.3) pg MCHC 32.9 (31.6-35.5) g/dL RDW 23.3 H (11.5-14.5) % Plt Count 163 (140-400) K/mcL MPV 8.2 L (9.4-12.4) fL Immature Gran % 0.5 (0-4) % Seg Neutrophils % 70.0 % Lymphocytes % 20.7 % Monocytes % 8.0 % Eosinophils % 0.4 % Basophils % 0.4 % Neutrophils # 3.9 (1.6-8.9) K/mcL Lymphocytes # 1.1 (0.6-4.6) K/mcL Monocytes # 0.4 (0.0-1.3) K/mcL Eosinophils # 0.0 (0.0-0.6) K/mcL Basophils # 0.0 (0.0-0.2) K/mcL Anisocytosis 2+ A (Not Present) PT 22.3 H (9.4-12.1) Seconds INR 2.0 Sodium Cancelled Potassium Cancelled Chloride Cancelled Carbon Dioxide Cancelled BUN Cancelled Creatinine Cancelled Est GFR ( Amer) Cancelled Est GFR (Non-Af Amer) Cancelled BUN/Creatinine Ratio Cancelled Glucose Cancelled Calculated Osmolality Cancelled Lactic Acid (0.5-2.2) mmol/L Uric Acid Cancelled Calcium Cancelled Venous Ioniz Calcium (1.15-1.35) mmol/L Phosphorus Cancelled Magnesium Cancelled Total Bilirubin Cancelled AST Cancelled ALT Cancelled Alkaline Phosphatase Cancelled Creatine Kinase Cancelled Troponin I < 0.03 (< 0.04) ng/mL Serum Total Protein Cancelled Albumin Cancelled Globulin Cancelled Albumin/Globulin Ratio Cancelled TSH Cancelled Urine Color (Yellow) Urine Clarity (Clear) Urine pH (5.0-8.0) pH Units Ur Specific [place] (1.010-1.025) Urine Protein (Neg-Trace) mg/dL Urine Glucose (UA) (Normal) mg/dL Urine Ketones (Negative) mg/dL Urine Blood (Negative) Urine Nitrite (Negative) Urine Bilirubin (Negative) Urine Urobilinogen (Normal) mg/dL Ur Leukocyte Esterase (Negative) Urine Microscopic RBC (0-3) per hpf Urine Microscopic WBC (0-3) per hpf Ur Squamous Epith Cells (None-Few) per lpf Urine Bacteria (None-Few) per hpf Hyaline Casts (None-Few) per lpf Ur Culture Indicated? (NO) Urine Creatinine mg/dL Urine Sodium mEq/L Ur Uric Acid mg/dL Urine Urea Nitrogen mg/dL Specimen Rejected 10/14/17 10/14/17 10/14/17 Range/Units 15:25 15:25 15:40 WBC (4.3-11.1) K/mcL RBC (3.82-4.97) M/mcL Hgb (11.5-15.4) g/dL Hct (35.3-44.9) % MCV (83.0-100.0) fL MCH (28.0-33.3) pg MCHC (31.6-35.5) g/dL RDW (11.5-14.5) % Plt Count (140-400) K/mcL MPV (9.4-12.4) fL Immature Gran % (0-4) % Seg Neutrophils % % Lymphocytes % % Monocytes % % Eosinophils % % Basophils % % Neutrophils # (1.6-8.9) K/mcL Lymphocytes # (0.6-4.6) K/mcL Monocytes # (0.0-1.3) K/mcL Eosinophils # (0.0-0.6) K/mcL Basophils # (0.0-0.2) K/mcL Anisocytosis (Not Present) PT (9.4-12.1) Seconds INR Sodium Potassium Chloride Carbon Dioxide BUN Creatinine Est GFR ( Amer) Est GFR (Non-Af Amer) BUN/Creatinine Ratio Glucose Calculated Osmolality Lactic Acid 0.8 (0.5-2.2) mmol/L Uric Acid Calcium Venous Ioniz Calcium 1.21 (1.15-1.35) mmol/L Phosphorus Magnesium Total Bilirubin AST ALT Alkaline Phosphatase Creatine Kinase Troponin I (< 0.04) ng/mL Serum Total Protein Albumin Globulin Albumin/Globulin Ratio TSH Urine Color (Yellow) Urine Clarity (Clear) Urine pH (5.0-8.0) pH Units Ur Specific [place] (1.010-1.025) Urine Protein (Neg-Trace) mg/dL Urine Glucose (UA) (Normal) mg/dL Urine Ketones (Negative) mg/dL Urine Blood (Negative) Urine Nitrite (Negative) Urine Bilirubin (Negative) Urine Urobilinogen (Normal) mg/dL Ur Leukocyte Esterase (Negative) Urine Microscopic RBC (0-3) per hpf Urine Microscopic WBC (0-3) per hpf Ur Squamous Epith Cells (None-Few) per lpf Urine Bacteria (None-Few) per hpf Hyaline Casts (None-Few) per lpf Ur Culture Indicated? (NO) Urine Creatinine mg/dL Urine Sodium mEq/L Ur Uric Acid mg/dL Urine Urea Nitrogen mg/dL Specimen Rejected Hemolyzed 10/14/17 Range/Units 17:03 WBC (4.3-11.1) K/mcL RBC (3.82-4.97) M/mcL Hgb (11.5-15.4) g/dL Hct (35.3-44.9) % MCV (83.0-100.0) fL MCH (28.0-33.3) pg MCHC (31.6-35.5) g/dL RDW (11.5-14.5) % Plt Count (140-400) K/mcL MPV (9.4-12.4) fL Immature Gran % (0-4) % Seg Neutrophils % % Lymphocytes % % Monocytes % % Eosinophils % % Basophils % % Neutrophils # (1.6-8.9) K/mcL Lymphocytes # (0.6-4.6) K/mcL Monocytes # (0.0-1.3) K/mcL Eosinophils # (0.0-0.6) K/mcL Basophils # (0.0-0.2) K/mcL Anisocytosis (Not Present) PT (9.4-12.1) Seconds INR Sodium 118 L* Potassium 4.0 Chloride 83 L Carbon Dioxide 26 BUN 26 H Creatinine 1.17 Est GFR ( Amer) 55 L Est GFR (Non-Af Amer) 45 L BUN/Creatinine Ratio 22 Glucose 152 H Calculated Osmolality 254 L Lactic Acid (0.5-2.2) mmol/L Uric Acid 12.2 H Calcium 10.2 Venous Ioniz Calcium (1.15-1.35) mmol/L Phosphorus 3.2 Magnesium 1.8 Total Bilirubin 0.7 AST 33 ALT 21 Alkaline Phosphatase 295 H Creatine Kinase 10 L Troponin I (< 0.04) ng/mL Serum Total Protein 6.9 Albumin 3.9 Globulin 3.0 Albumin/Globulin Ratio 1.3 TSH 0.967 Urine Color (Yellow) Urine Clarity (Clear) Urine pH (5.0-8.0) pH Units Ur Specific [place] (1.010-1.025) Urine Protein (Neg-Trace) mg/dL Urine Glucose (UA) (Normal) mg/dL Urine Ketones (Negative) mg/dL Urine Blood (Negative) Urine Nitrite (Negative) Urine Bilirubin (Negative) Urine Urobilinogen (Normal) mg/dL Ur Leukocyte Esterase (Negative) Urine Microscopic RBC (0-3) per hpf Urine Microscopic WBC (0-3) per hpf Ur Squamous Epith Cells (None-Few) per lpf Urine Bacteria (None-Few) per hpf Hyaline Casts (None-Few) per lpf Ur Culture Indicated? (NO) Urine Creatinine mg/dL Urine Sodium mEq/L Ur Uric Acid mg/dL Urine Urea Nitrogen mg/dL Specimen Rejected
--- NOTE | 2017-10-14 14:35 | Emergency Department Note ---
Disposition Clinical Impression: Hyponatremia, Non-small cell carcinoma of left lung, Hypochloremia, Aortic valve replaced, Weakness A-fib Qualifiers: Atrial fibrillation type: unspecified Qualified Code(s): I48.91 - Unspecified atrial fibrillation UTI (urinary tract infection) Qualifiers: Urinary tract infection type: site unspecified Hematuria presence: without hematuria Qualified Code(s): N39.0 - Urinary tract infection, site not specified Disposition: Admitted As Inpatient Condition: Fair General Adult HPI - General Chief complaint: ED Recheck/Abnormal Lab/Rx Stated complaint: Low potassum Time Seen by Provider: 10/14/17 12:37 Source: patient, family Limitations: no limitations - History of Present Illness Pain Scale: 0 - Related Data Home Medications Medication Instructions Recorded Confirmed Omeprazole [PriLOSEC] 20 mg PO DAILY PRN 06/03/16 10/14/17 Pembrolizumab [Keytruda] 100 mg IV Q3W 04/22/17 10/14/17 Spironolactone [Aldactone] 100 mg PO DAILY 04/22/17 10/14/17 Warfarin [Coumadin] 3 mg PO SUMOWETHSA 04/22/17 10/14/17 Warfarin [Coumadin] 6 mg PO TUFR 04/22/17 10/14/17 Allopurinol [Zyloprim 100 MG] 100 mg PO DAILY 07/04/17 10/14/17 Bumetanide 2 mg PO BID 07/04/17 10/14/17 Potassium Chloride 20 meq PO BID 07/04/17 10/14/17 Albuterol Sulfate [Albuterol 2 puff IH Q4HR 09/09/17 10/14/17 Inhaler] Ascorbic Acid [Vitamin C] 250 mg PO DAILY 09/09/17 10/14/17 Ergocalciferol (VITAMIN D2) 50,000 unit PO QWEEK 09/09/17 10/14/17 [Vitamin D2] Ferrous Sulfate [Iron] 325 mg PO DAILY 09/09/17 10/14/17 Melatonin 5 mg PO HS 09/09/17 10/14/17 Milk Thistle 150 mg PO DAILY 09/09/17 10/14/17 Sennosides [Senokot] 8.6 mg PO DAILY 09/09/17 10/14/17 Tamsulosin [Flomax] 0.4 mg PO DAILY 09/09/17 10/14/17 Gabapentin [Neurontin] 300 mg PO TID 10/14/17 10/14/17 Zolpidem [Ambien] 10 mg PO HS 10/14/17 10/14/17 metOLazone [Zaroxolyn] 2.5 mg PO TUFR 10/14/17 10/14/17 Previous Rx's Medication Instructions Recorded Sodium Chloride [Sodium Chloride 1 gm PO BID #30 tablet 03/20/17 Tab] Lidocaine/Prilocaine [Emla] 1 appl TP DAILY #30 gm 07/29/17 Tramadol HCl [Ultram] 50 mg PO QID PRN 30 Days #120 07/29/17 tablet Allergies Allergy/AdvReac Type Severity Reaction Status Date / Time morphine Allergy Hives Verified 07/11/17 18:35 Penicillins Allergy See Verified 07/11/17 18:35 Comments aspirin AdvReac Nausea Verified 07/11/17 18:35 ibuprofen [From Motrin] AdvReac Vomiting Verified 07/11/17 18:35 Constitutional: Reports: weakness. Denies: fever, chills Cardiovascular: Denies: chest pain, palpitations Respiratory: Denies: cough, dyspnea, wheezes Gastrointestinal: Reports: nausea. Denies: abdominal pain, vomiting Genitourinary: Denies: urgency, dysuria, frequency Past Medical History - Past Medical History Medical history: Reports: atrial fibrillation, cancer, cirrhosis, CHF, COPD, coronary artery disease, GI bleed, hyperlipidemia, hypertension, liver disease, myocardial infarction, renal disease, valvular heart disease, other Surgical history: Reports: appendectomy, cholecystectomy, colectomy, coronary bypass (CABG), heart valve replacement, pacemaker/AICD, other Psychiatric history: Reports: anxiety, depression - Social History Smoking Status: Former smoker Smokeless Tobacco Status: No Alcohol use: Reports: occasionally, heavy, recent Drug use: Reports: none Physical Exam - General Limitations: no limitations General appearance: alert, in no apparent distress Course Vital Signs Temperature 97.5 F L 10/14/17 12:39 Pulse Rate 60 10/14/17 12:39 Respiratory Rate 16 10/14/17 12:39 Blood Pressure 127/66 10/14/17 12:39 O2 Sat by Pulse Oximetry 100 10/14/17 12:39 Temperature 97.5 F L 10/14/17 14:38 Pulse Rate 60 10/14/17 19:30 Respiratory Rate 14 10/14/17 19:30 Blood Pressure 104/39 10/14/17 19:30 O2 Sat by Pulse Oximetry 100 10/14/17 19:30 Oxygen Delivery Oxygen Delivery Room Air Medical Decision Making - Lab Data Result diagrams: 10/14/17 15:25 10/14/17 17:03 Lab Results 10/14/17 10/14/17 10/14/17 Range/Units 14:59 14:59 14:59 WBC (4.3-11.1) K/mcL RBC (3.82-4.97) M/mcL Hgb (11.5-15.4) g/dL Hct (35.3-44.9) % MCV (83.0-100.0) fL MCH (28.0-33.3) pg MCHC (31.6-35.5) g/dL RDW (11.5-14.5) % Plt Count (140-400) K/mcL MPV (9.4-12.4) fL Immature Gran % (0-4) % Seg Neutrophils % % Lymphocytes % % Monocytes % % Eosinophils % % Basophils % % Neutrophils # (1.6-8.9) K/mcL Lymphocytes # (0.6-4.6) K/mcL Monocytes # (0.0-1.3) K/mcL Eosinophils # (0.0-0.6) K/mcL Basophils # (0.0-0.2) K/mcL Anisocytosis (Not Present) PT (9.4-12.1) Seconds INR Sodium Potassium Chloride Carbon Dioxide BUN Creatinine Est GFR ( Amer) Est GFR (Non-Af Amer) BUN/Creatinine Ratio Glucose Calculated Osmolality Lactic Acid (0.5-2.2) mmol/L Uric Acid Calcium Venous Ioniz Calcium (1.15-1.35) mmol/L Phosphorus Magnesium Total Bilirubin AST ALT Alkaline Phosphatase Creatine Kinase Troponin I (< 0.04) ng/mL Serum Total Protein Albumin Globulin Albumin/Globulin Ratio TSH Urine Color Yellow (Yellow) Urine Clarity Cloudy A (Clear) Urine pH 7.0 (5.0-8.0) pH Units Ur Specific [place] 1.012 (1.010-1.025) Urine Protein Negative (Neg-Trace) mg/dL Urine Glucose (UA) Normal (Normal) mg/dL Urine Ketones Negative (Negative) mg/dL Urine Blood Negative (Negative) Urine Nitrite Positive A (Negative) Urine Bilirubin Negative (Negative) Urine Urobilinogen Normal (Normal) mg/dL Ur Leukocyte Esterase Large H (Negative) Urine Microscopic RBC 0-3 (0-3) per hpf Urine Microscopic WBC TNTC H (0-3) per hpf Ur Squamous Epith Cells Many H (None-Few) per lpf Urine Bacteria Many H (None-Few) per hpf Hyaline Casts None Seen (None-Few) per lpf Ur Culture Indicated? NO. A (NO) Urine Creatinine 32 mg/dL Urine Sodium 60.7 mEq/L Ur Uric Acid 22 mg/dL Urine Urea Nitrogen 287 mg/dL Specimen Rejected 10/14/17 10/14/17 10/14/17 Range/Units 15:25 15:25 15:25 WBC 5.5 (4.3-11.1) K/mcL RBC 3.41 L (3.82-4.97) M/mcL Hgb 9.6 L (11.5-15.4) g/dL Hct 29.2 L (35.3-44.9) % MCV 85.6 (83.0-100.0) fL MCH 28.2 (28.0-33.3) pg MCHC 32.9 (31.6-35.5) g/dL RDW 23.3 H (11.5-14.5) % Plt Count 163 (140-400) K/mcL MPV 8.2 L (9.4-12.4) fL Immature Gran % 0.5 (0-4) % Seg Neutrophils % 70.0 % Lymphocytes % 20.7 % Monocytes % 8.0 % Eosinophils % 0.4 % Basophils % 0.4 % Neutrophils # 3.9 (1.6-8.9) K/mcL Lymphocytes # 1.1 (0.6-4.6) K/mcL Monocytes # 0.4 (0.0-1.3) K/mcL Eosinophils # 0.0 (0.0-0.6) K/mcL Basophils # 0.0 (0.0-0.2) K/mcL Anisocytosis 2+ A (Not Present) PT 22.3 H (9.4-12.1) Seconds INR 2.0 Sodium Cancelled Potassium Cancelled Chloride Cancelled Carbon Dioxide Cancelled BUN Cancelled Creatinine Cancelled Est GFR ( Amer) Cancelled Est GFR (Non-Af Amer) Cancelled BUN/Creatinine Ratio Cancelled Glucose Cancelled Calculated Osmolality Cancelled Lactic Acid (0.5-2.2) mmol/L Uric Acid Cancelled Calcium Cancelled Venous Ioniz Calcium (1.15-1.35) mmol/L Phosphorus Cancelled Magnesium Cancelled Total Bilirubin Cancelled AST Cancelled ALT Cancelled Alkaline Phosphatase Cancelled Creatine Kinase Cancelled Troponin I < 0.03 (< 0.04) ng/mL Serum Total Protein Cancelled Albumin Cancelled Globulin Cancelled Albumin/Globulin Ratio Cancelled TSH Cancelled Urine Color (Yellow) Urine Clarity (Clear) Urine pH (5.0-8.0) pH Units Ur Specific [place] (1.010-1.025) Urine Protein (Neg-Trace) mg/dL Urine Glucose (UA) (Normal) mg/dL Urine Ketones (Negative) mg/dL Urine Blood (Negative) Urine Nitrite (Negative) Urine Bilirubin (Negative) Urine Urobilinogen (Normal) mg/dL Ur Leukocyte Esterase (Negative) Urine Microscopic RBC (0-3) per hpf Urine Microscopic WBC (0-3) per hpf Ur Squamous Epith Cells (None-Few) per lpf Urine Bacteria (None-Few) per hpf Hyaline Casts (None-Few) per lpf Ur Culture Indicated? (NO) Urine Creatinine mg/dL Urine Sodium mEq/L Ur Uric Acid mg/dL Urine Urea Nitrogen mg/dL Specimen Rejected 10/14/17 10/14/17 10/14/17 Range/Units 15:25 15:25 15:40 WBC (4.3-11.1) K/mcL RBC (3.82-4.97) M/mcL Hgb (11.5-15.4) g/dL Hct (35.3-44.9) % MCV (83.0-100.0) fL MCH (28.0-33.3) pg MCHC (31.6-35.5) g/dL RDW (11.5-14.5) % Plt Count (140-400) K/mcL MPV (9.4-12.4) fL Immature Gran % (0-4) % Seg Neutrophils % % Lymphocytes % % Monocytes % % Eosinophils % % Basophils % % Neutrophils # (1.6-8.9) K/mcL Lymphocytes # (0.6-4.6) K/mcL Monocytes # (0.0-1.3) K/mcL Eosinophils # (0.0-0.6) K/mcL Basophils # (0.0-0.2) K/mcL Anisocytosis (Not Present) PT (9.4-12.1) Seconds INR Sodium Potassium Chloride Carbon Dioxide BUN Creatinine Est GFR ( Amer) Est GFR (Non-Af Amer) BUN/Creatinine Ratio Glucose Calculated Osmolality Lactic Acid 0.8 (0.5-2.2) mmol/L Uric Acid Calcium Venous Ioniz Calcium 1.21 (1.15-1.35) mmol/L Phosphorus Magnesium Total Bilirubin AST ALT Alkaline Phosphatase Creatine Kinase Troponin I (< 0.04) ng/mL Serum Total Protein Albumin Globulin Albumin/Globulin Ratio TSH Urine Color (Yellow) Urine Clarity (Clear) Urine pH (5.0-8.0) pH Units Ur Specific [place] (1.010-1.025) Urine Protein (Neg-Trace) mg/dL Urine Glucose (UA) (Normal) mg/dL Urine Ketones (Negative) mg/dL Urine Blood (Negative) Urine Nitrite (Negative) Urine Bilirubin (Negative) Urine Urobilinogen (Normal) mg/dL Ur Leukocyte Esterase (Negative) Urine Microscopic RBC (0-3) per hpf Urine Microscopic WBC (0-3) per hpf Ur Squamous Epith Cells (None-Few) per lpf Urine Bacteria (None-Few) per hpf Hyaline Casts (None-Few) per lpf Ur Culture Indicated? (NO) Urine Creatinine mg/dL Urine Sodium mEq/L Ur Uric Acid mg/dL Urine Urea Nitrogen mg/dL Specimen Rejected Hemolyzed 10/14/17 Range/Units 17:03 WBC (4.3-11.1) K/mcL RBC (3.82-4.97) M/mcL Hgb (11.5-15.4) g/dL Hct (35.3-44.9) % MCV (83.0-100.0) fL MCH (28.0-33.3) pg MCHC (31.6-35.5) g/dL RDW (11.5-14.5) % Plt Count (140-400) K/mcL MPV (9.4-12.4) fL Immature Gran % (0-4) % Seg Neutrophils % % Lymphocytes % % Monocytes % % Eosinophils % % Basophils % % Neutrophils # (1.6-8.9) K/mcL Lymphocytes # (0.6-4.6) K/mcL Monocytes # (0.0-1.3) K/mcL Eosinophils # (0.0-0.6) K/mcL Basophils # (0.0-0.2) K/mcL Anisocytosis (Not Present) PT (9.4-12.1) Seconds INR Sodium 118 L* Potassium 4.0 Chloride 83 L Carbon Dioxide 26 BUN 26 H Creatinine 1.17 Est GFR ( Amer) 55 L Est GFR (Non-Af Amer) 45 L BUN/Creatinine Ratio 22 Glucose 152 H Calculated Osmolality 254 L Lactic Acid (0.5-2.2) mmol/L Uric Acid 12.2 H Calcium 10.2 Venous Ioniz Calcium (1.15-1.35) mmol/L Phosphorus 3.2 Magnesium 1.8 Total Bilirubin 0.7 AST 33 ALT 21 Alkaline Phosphatase 295 H Creatine Kinase 10 L Troponin I (< 0.04) ng/mL Serum Total Protein 6.9 Albumin 3.9 Globulin 3.0 Albumin/Globulin Ratio 1.3 TSH 0.967 Urine Color (Yellow) Urine Clarity (Clear) Urine pH (5.0-8.0) pH Units Ur Specific [place] (1.010-1.025) Urine Protein (Neg-Trace) mg/dL Urine Glucose (UA) (Normal) mg/dL Urine Ketones (Negative) mg/dL Urine Blood (Negative) Urine Nitrite (Negative) Urine Bilirubin (Negative) Urine Urobilinogen (Normal) mg/dL Ur Leukocyte Esterase (Negative) Urine Microscopic RBC (0-3) per hpf Urine Microscopic WBC (0-3) per hpf Ur Squamous Epith Cells (None-Few) per lpf Urine Bacteria (None-Few) per hpf Hyaline Casts (None-Few) per lpf Ur Culture Indicated? (NO) Urine Creatinine mg/dL Urine Sodium mEq/L Ur Uric Acid mg/dL Urine Urea Nitrogen mg/dL Specimen Rejected Attestation Statement - Attestation Attestation: I examined this patient and my medical decision-making was reviewed with the Resident Physician. I agree with the documented findings, disposition and treatment plan as described except to the extent set forth below. Patient presents to the ED with a chief complaint of a low sodium. Patient had outpatient lab studies that showed a low sodium. Patient is in no acute distress on examination. She is noted to have a heart murmur. Plan. Repeat labs. Likely admission. Patient with hyponatremia and UTI. IV antibiotic and admit.
[2017-10-14 15:13] LABS: Bilirubin,Urine Negative (Negative); Blood,Urine Negative (Negative); Clarity,Urine Cloudy (Clear); Color,Urine Yellow (Yellow); Glucose,Urine (UA) Normal (Normal); Ketones,Urine Negative (Negative); Leukocyte Esterase,Urine Large (Negative); Nitrite,Urine Positive (Negative); Protein,Urine Negative (Neg-Trace); Specific Gravity,Urine 1.012 (1.010-1.025); Urobilinogen,Urine Normal (Normal)
[2017-10-14 15:15] LABS: Bacteria,Urine Many per hpf (None-Few); Hyaline Casts,Urine None Seen per lpf (None-Few); RBC,Urine 0-3 per hpf (0-3); Squamous Epithelial Cell,Urine Many per lpf (None-Few); WBC,Urine TNTC per hpf (0-3)
[2017-10-14 15:23] LABS: Sodium, Urine 60.7 mEq/L
[2017-10-14 15:41] LABS: Basophils % 0.4 %; Eosinophils % 0.4 %; Hematocrit 29.2 % (35.3-44.9); Hemoglobin 9.6 g/dL (11.5-15.4); Immature Granulocytes % 0.5 % (0-4); Lymphocytes # 1.1 K/mcL (0.6-4.6); Lymphocytes % 20.7 %; Mean Corpuscular HGB Conc 32.9 g/dL (31.6-35.5); Mean Corpuscular Hemoglobin 28.2 pg (28.0-33.3); Mean Corpuscular Volume 85.6 fL (83.0-100.0); Mean Platelet Volume 8.2 fL (9.4-12.4); Monocytes # 0.4 K/mcL (0.0-1.3); Neutrophils # 3.9 K/mcL (1.6-8.9); Platelet Count 163 K/mcL (140-400); Red Blood Count 3.41 M/mcL (3.82-4.97); Red Cell Distribution Width 23.3 % (11.5-14.5)
[2017-10-14 15:45] LABS: VBG Ionized Calcium 1.21 mmol/L (1.15-1.35)
[2017-10-14 15:48] LABS: Prothrombin Time 22.3 Seconds (9.4-12.1)
[2017-10-14] MEDS ORDERED: cefTRIAXone 1,000 MG in Water for inj. (sterile) 20 ML 10 ML IVPB ONE (15:58)
[2017-10-14 16:12] LABS: Anisocytosis 2+ (Not Present)
[2017-10-14 17:51] LABS: Albumin 3.9 g/dL (3.5-5.7); Albumin/Globulin Ratio 1.3 (1.1-2.2); Bilirubin,Total 0.7 mg/dL (0.3-1.0); Calcium 10.2 mg/dL (8.6-10.3); Magnesium 1.8 mg/dL (1.6-2.6); Phosphorous 3.2 mg/dL (2.7-4.5); Total Protein 6.9 g/dL (6.4-8.9); Uric Acid 12.2 mg/dL (2.3-7.6)
[2017-10-14 18:02] LABS: Thyroid Stimulating Hormone 0.967 mcIU/mL (0.340-5.600)
[2017-10-14] MEDS ORDERED: 0.9 % Sodium Chloride 1,000 ML IVC ONE (18:08)
[2017-10-14] MEDS ORDERED: Naloxone 0.4 MG/ML INJ IVP PRN (21:44)
[2017-10-14] MEDS ORDERED: traMADol 50 MG TABLET PO PRN (21:50)
[2017-10-14] MEDS ORDERED: Pembrolizumab 100 MG/4 ML MG IV SCH (22:00)
[2017-10-14] MEDS ORDERED: *HR* Warfarin 3 MG TABLET PO ONE (22:15)
[2017-10-14] MEDS: Melatonin 3 MG TABLET PO SCH (22:16)
--- NOTE | 2017-10-14 23:41 | Internal Med History&Physical ---
Date of Encounter: 10/14/17 Time of Encounter: 20:30 Internal Medicine - H&P: HPI Chief complaint: low sodium; weak; fatigued Admitted From: Emergency Dept Plans for Post Hospital Care: Home History of present illness: Ms. Brooks is a 71 year old female who presents to the ER today for abnormally low sodium. She had labs drawn today, and her PCP recommended she go to the ER for evaluation and admission. She had complained of a several week history of weakness and fatigue. Workup in ER was negative except for UTI based upon urinalysis. Additionally, she had hyponatremia with a sodium level 118. She is chronically hyponatremic and runs in the low 120s. Because of the above symptoms and worsening hyponatremia, she was admitted to the hospitalist service. Upon my assessment of the patient, she denies any complaints at this time. She does confirm complaining of weakness and fatigue for the last several weeks. She is being treated currently for lung cancer by her oncologist. She denies any vomiting, diarrhea, excessive water intake, or any change in medication recently. Her appetite has been diminished somewhat lately. She does complain of increasing weakness and fatigue. She denies any fevers, chills, or night sweats. She denies any change in urine status or dysuria. Of note, I reviewed her medications and note that she is on 3 different diuretics. 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 However, this may be a mixed picture and compounded by the fact that she is on 3 different diuretics. Past Med Surg Social Fam HX - Past Medical History Attestation: Yes The following information was validated with the patient. Source: patient, old records reviewed Medical history: atrial fibrillation, cancer, cirrhosis, CHF, COPD, coronary artery disease, GI bleed, hyperlipidemia, hypertension, liver disease, myocardial infarction, renal disease, valvular heart disease Additional medical history: Lung cancer Psychiatric history: anxiety, depression - Past Surgical History Surgical History: appendectomy, cholecystectomy, colectomy, coronary bypass ( CABG), heart valve replacement (bioprosthetic AVR), pacemaker/AICD, other Additional surgical history: Port, pig valve - Social History Smoking Status: Former smoker Smokeless Tobacco Status: No Alcohol use: occasionally, recent Drug use: none Current living situation: Home Activity Level: Independent ambulation Recent Out of Country Travel Within the Last 8 Weeks: No - Family History Mother Living Status: Age at : 50 Cause of : pne Hx Family Cardiac Disorders: No Hx Family Respiratory Disorders: Yes Hx Family Cancer: No Hx Family GI Disorders: No Hx Family Genitourinary Disorders: No Hx Family Endocrine Disorder: No Hx Family Musculoskeletal Disorders: No Hx Family Neuromuscular Disorders: No Hx Family Neurologic Disorders: No Hx Family HEENT Disorders: No Hx Family Autoimmune Disorders: No Hx Family Reproductive Disorders: No Hx Family Psychosocial Disorders: No Hx Family Medical Disorders: No Father Living Status: Age at : 70 Cause of : heart attack Hx Family Cardiac Disorders: Yes Hx Family Respiratory Disorders: No Hx Family Cancer: No Hx Family GI Disorders: No Hx Family Genitourinary Disorders: No Hx Family Endocrine Disorder: No Hx Family Musculoskeletal Disorders: No Hx Family Neuromuscular Disorders: No Hx Family Neurologic Disorders: No Hx Family HEENT Disorders: No Hx Family Autoimmune Disorders: No Hx Family Reproductive Disorders: No Hx Family Psychosocial Disorders: No Hx Family Medical Disorders: No Internal Medicine - H&P: Meds Omeprazole [PriLOSEC] 20 mg PO DAILY PRN 06/03/16 [History] Sodium Chloride [Sodium Chloride Tab] 1 gm PO BID #30 tablet 03/20/17 [Rx] Pembrolizumab [Keytruda] 100 mg IV Q3W 04/22/17 [History] Spironolactone [Aldactone] 100 mg PO DAILY 04/22/17 [History] Warfarin [Coumadin] 3 mg PO SUMOWETHSA 04/22/17 [History] Warfarin [Coumadin] 6 mg PO TUFR 04/22/17 [History] Allopurinol [Zyloprim 100 MG] 100 mg PO DAILY 07/04/17 [History] Bumetanide 2 mg PO BID 07/04/17 [History] Potassium Chloride 20 meq PO BID 07/04/17 [History] Lidocaine/Prilocaine [Emla] 1 appl TP DAILY #30 gm 07/29/17 [Rx] Tramadol HCl [Ultram] 50 mg PO QID PRN 30 Days #120 tablet 07/29/17 [Rx] Albuterol Sulfate [Albuterol Inhaler] 2 puff IH Q4HR 09/09/17 [History] Ascorbic Acid [Vitamin C] 250 mg PO DAILY 09/09/17 [History] Ergocalciferol (VITAMIN D2) [Vitamin D2] 50,000 unit PO QWEEK 09/09/17 [History] Ferrous Sulfate [Iron] 325 mg PO DAILY 09/09/17 [History] Melatonin 5 mg PO HS 09/09/17 [History] Milk Thistle 150 mg PO DAILY 09/09/17 [History] Sennosides [Senokot] 8.6 mg PO DAILY 09/09/17 [History] Tamsulosin [Flomax] 0.4 mg PO DAILY 09/09/17 [History] Gabapentin [Neurontin] 300 mg PO TID 10/14/17 [History] Zolpidem [Ambien] 10 mg PO HS 10/14/17 [History] metOLazone [Zaroxolyn] 2.5 mg PO TUFR 10/14/17 [History] 3 Allergy/AdvReac Type Severity Reaction Status Date / Time morphine Allergy Hives Verified 07/11/17 18:35 Penicillins Allergy See Verified 07/11/17 18:35 Comments aspirin AdvReac Nausea Verified 07/11/17 18:35 ibuprofen [From Motrin] AdvReac Vomiting Verified 07/11/17 18:35 - Constitutional Constitutional: fatigue, malaise, weakness, no chills, no fever(s), no night sweats - EENT Eyes: no blurry vision, no change in vision Ears: no ear pain, no tinnitus Nose, mouth and throat: no nasal congestion, no sinus pressure, no sore throat - Cardiovascular Cardiovascular ROS IM: no chest pain, no dyspnea, no dyspnea on exertion, no orthopnea - Respiratory Respiratory: no cough, no hemoptysis, no chest congestion, no excessive phlegm production, no change in phlegm color - Gastrointestinal Gastrointestinal: early satiety, nausea, no abdominal pain, no diarrhea, no hematemesis, no hematochezia, no melena, no vomiting - Genitourinary Genitourinary: no dysuria, no flank pain, no hematuria - Musculoskeletal Musculoskeletal ROS IM: no arthralgias, no back pain, no myalgias - Integumentary Integumentary IM: no rash, no jaundice - Neurological Neurological ROS: no dizziness, no focal weakness, no frequent falls, no headache(s) - Psychiatric Psychiatric: no anxiety, no depression - Endocrine Endocrine IM: no cold intolerance, no heat intolerance, no polydipsia, no polyphagia, no polyuria - Allergic/Immunologic Allergic/Immunologic: no GI upset with certain foods - Constitutional Vitals: Temp Pulse Resp BP Pulse Ox 98.6 F 60 16 103/49 98 10/14/17 21:44 10/14/17 21:44 10/14/17 23:08 10/14/17 21:44 10/14/17 23:08 General appearance: Present: cooperative, A&O X 3, pleasant, no acute distress, answers questions appropriately Exam: see below - Head Head exam: Present: normal inspection - Eye Eye exam: Present: EOMI, PERRL. Absent: scleral icterus Pupils: Present: normal accommodation - ENT ENT exam: Present: mucous membranes moist, normal exam, normal oropharynx - Neck Neck exam general surgery: Present: full ROM, supple. Absent: lymphadenopathy, tenderness, nuchal rigidity, thyromegaly - Respiratory Respiratory exam: Present: CTAB. Absent: chest wall tenderness, rales, respiratory distress, rhonchi, wheezes - Cardiovascular Cardiovascular exam: Present: irregular rhythm, +S1, +S2, systolic murmur ( grade 3). Absent: diastolic murmur - GI/Abdominal GI/Abdominal exam: Present: normal bowel sounds, soft. Absent: guarding, hepatomegaly, mass, rebound, splenomegaly, tenderness - Extremities Exam Extremities exam: Present: normal capillary refill, warm, radial pulses palpable and symmetrical. Absent: calf tenderness, joint swelling, pedal edema , tenderness - Back Exam Back exam: Absent: CVA tenderness (L), CVA tenderness (R) - Neurological Exam Neurological exam: Present: alert, CN II-XII intact, oriented X3, no focal deficits - Psychiatric Psychiatric exam: Present: flat affect - Skin Skin exam: Present: dry, intact, warm Internal Med - H&P Results - Labs CBC & Chem 7: 10/14/17 15:25 10/14/17 17:03 - Diagnostic Studies Chest x-ray Status: image reviewed by me (negative) - Assessment and plan (1) Hyponatremia Current Visit: Yes Status: Acute Assessment and plan: 1. Will fluid restrict patient and monitor serial sodium levels. 2. Her baseline sodium level is around 124. 3. Will hold diuretics for 24-48 hours while monitoring sodium levels. 4. 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 5. May need to consult nephrology tomorrow if sodium levels do not respond to above measures. 6. Continue home salt abs as prescribed. (2) UTI (urinary tract infection) Current Visit: Yes Status: Acute Assessment and plan: 1. Patient not symptomatic. 2. Will order urine culture as this was not done in ER. 3. Will treat with Rocephin and follow clinically while awaiting urine culture results. 4. May be etiology of functional decline. Qualifiers: Urinary tract infection type: acute cystitis Hematuria presence: without hematuria Qualified Code(s): N30.00 - Acute cystitis without hematuria (3) Weakness Current Visit: Yes Status: Acute Assessment and plan: 1. Multi-factorial etiology -- UTI, hyponatremia; chronic disease (lung cancer) . 2. Monitor for symptom improvement with treatment of UTI and sodium level improvement. 3. May need PT/OT consults. (4) A-fib Current Visit: Yes Status: Chronic Assessment and plan: 1. Rate controlled. Continue home medicine as appropriate. 2. Coumadin dosing per pharmacy. 3. Monitor on telemetry. 4. Will order baseline EKG. Qualifiers: Atrial fibrillation type: chronic Qualified Code(s): I48.91 - Unspecified atrial fibrillation (5) Non-small cell carcinoma of left lung Current Visit: Yes Status: Chronic Assessment and plan: 1. Chemotherapy per oncology. 2. Outpatient follow up. (6) DVT prophylaxis Current Visit: Yes Status: Acute Assessment and plan: 1. Continue Coumadin -- therapeutic. - VTE Reasons for not Prescribing Prophylaxis: Not indicated-Anticoagulated or INR therapeutic
[2017-10-15 00:37] LABS: BUN/Creatinine Ratio 20 (6-26); Blood Urea Nitrogen 22 mg/dL (8-23); Calcium 9.1 mg/dL (8.6-10.3); Carbon Dioxide 23 mEq/L (23-29); Chloride 87 mEq/L (98-107); Glucose 167 mg/dL (70-105); Magnesium 1.7 mg/dL (1.6-2.6); Osmolality,Calculated 251 (280-300); Potassium 4.4 mEq/L (3.5-5.1); Sodium 117 mEq/L (136-145); eGFR For Non-African Americans 50 (> 60)
[2017-10-15 04:10] LABS: Basophils % 0.4 %; Eosinophils # 0.1 K/mcL (0.0-0.6); Eosinophils % 0.9 %; Hematocrit 25.1 % (35.3-44.9); Hemoglobin 8.1 g/dL (11.5-15.4); Immature Granulocytes % 0.4 % (0-4); Lymphocytes % 17.9 %; Mean Corpuscular HGB Conc 32.3 g/dL (31.6-35.5); Mean Corpuscular Hemoglobin 27.6 pg (28.0-33.3); Mean Corpuscular Volume 85.4 fL (83.0-100.0); Mean Platelet Volume 8.4 fL (9.4-12.4); Monocytes # 0.6 K/mcL (0.0-1.3); Monocytes % 10.6 %; Neutrophils # 3.8 K/mcL (1.6-8.9); Platelet Count 133 K/mcL (140-400); Red Blood Count 2.94 M/mcL (3.82-4.97); Red Cell Distribution Width 23.2 % (11.5-14.5); Segmented Neutrophils % 69.8 %
[2017-10-15 04:14] LABS: INR 1.8; Prothrombin Time 20.3 Seconds (9.4-12.1)
[2017-10-15 04:34] LABS: Alanine Aminotransferase 17 Units/L (7-52); Albumin 3.3 g/dL (3.5-5.7); Albumin/Globulin Ratio 1.3 (1.1-2.2); Alkaline Phosphatase 231 Units/L (34-104); Aspartate Amino Transferase 27 Units/L (13-39); BUN/Creatinine Ratio 22 (6-26); Bilirubin,Total 0.5 mg/dL (0.3-1.0); Blood Urea Nitrogen 23 mg/dL (8-23); Calcium 9.5 mg/dL (8.6-10.3); Carbon Dioxide 24 mEq/L (23-29); Chloride 87 mEq/L (98-107); Globulin 2.5 g/dL (2.4-3.5); Glucose 110 mg/dL (70-105); Magnesium 1.7 mg/dL (1.6-2.6); Osmolality,Calculated 248 (280-300); Potassium 4.5 mEq/L (3.5-5.1); Sodium 117 mEq/L (136-145); Total Protein 5.8 g/dL (6.4-8.9); eGFR For Non-African Americans 52 (> 60)
[2017-10-15 04:52] LABS: Anisocytosis 1+ (Not Present); Hypochromasia Present (Not Present); Platelet Estimate Normal (Normal)
[2017-10-15] MEDS: Ascorbic Acid 500 MG TABLET PO SCH (07:22)
[2017-10-15] MEDS: Sennosides 8.6 MG TABLET PO SCH (07:22)
[2017-10-15] MEDS: cefTRIAXone 1,000 MG in Water for inj. (sterile) 20 ML 10 ML IVP SCH (07:22)
[2017-10-15] MEDS: Gabapentin 300 MG CAPSULE PO SCH ×3 (07:22→20:30)
[2017-10-15] MEDS ORDERED: Ondansetron 4 MG/2 ML VIAL IVP PRN (08:43)
--- NOTE | 2017-10-15 12:06 | Nephrology Consult Note ---
Date of Encounter: 10/15/17 Time of Encounter: 12:05 Assessment and Plan (1) Hyponatremia Current Visit: Yes Status: Acute Patient with acute on chronic hyponatremia. I suspect decreased oral intake with ongoing hypotonic fluid ingestion and nausea with the subsequent release of ADH have all contributed to the acute worsening of her hyponatremia. I suspect her serum sodium will respond to gentle saline. Monitor rate of rise of her sodium closely. Attempt to get back to her baseline sodium level. I recommend changing the carrier fluids for any IV medications to 0.9. (2) CKD (chronic kidney disease), stage III Current Visit: Yes Status: Chronic History of Present Illness - Reason for Consult Consult date: 10/15/17 - Chief Complaint hyponatremia - History of Present Illness Ms. Brooks is a 71-year-old woman with a history of hyponatremia since with malaise and nausea and worsening hyponatremia. At the time my evaluation the patient reports she is having nausea but without vomiting and she denies diarrhea. She does have generalized malaise that is worsened normal. She has decreased appetite but has been able to drink water. Past Med Surg Social Fam HX - Past Medical History Medical history: atrial fibrillation, cancer, cirrhosis, CHF, COPD, coronary artery disease, GI bleed, hyperlipidemia, hypertension, liver disease, myocardial infarction, renal disease, valvular heart disease Additional medical history: Lung cancer Psychiatric history: anxiety, depression - Past Surgical History Surgical History: appendectomy, cholecystectomy, colectomy, coronary bypass ( CABG), heart valve replacement (bioprosthetic AVR), pacemaker/AICD, other Additional surgical history: Port, pig valve - Social History Smoking Status: Former smoker Smokeless Tobacco Status: No Alcohol use: occasionally, recent Drug use: none - Family History Mother Living Status: Age at : 50 Cause of : pne Hx Family Cardiac Disorders: No Hx Family Respiratory Disorders: Yes Hx Family Cancer: No Hx Family GI Disorders: No Hx Family Genitourinary Disorders: No Hx Family Endocrine Disorder: No Hx Family Musculoskeletal Disorders: No Hx Family Neuromuscular Disorders: No Hx Family Neurologic Disorders: No Hx Family HEENT Disorders: No Hx Family Autoimmune Disorders: No Hx Family Reproductive Disorders: No Hx Family Psychosocial Disorders: No Hx Family Medical Disorders: No Father Living Status: Age at : 70 Cause of : heart attack Hx Family Cardiac Disorders: Yes Hx Family Respiratory Disorders: No Hx Family Cancer: No Hx Family GI Disorders: No Hx Family Genitourinary Disorders: No Hx Family Endocrine Disorder: No Hx Family Musculoskeletal Disorders: No Hx Family Neuromuscular Disorders: No Hx Family Neurologic Disorders: No Hx Family HEENT Disorders: No Hx Family Autoimmune Disorders: No Hx Family Reproductive Disorders: No Hx Family Psychosocial Disorders: No Hx Family Medical Disorders: No Medications and Allergies Omeprazole [PriLOSEC] 20 mg PO DAILY PRN 06/03/16 [History] Sodium Chloride [Sodium Chloride Tab] 1 gm PO BID #30 tablet 03/20/17 [Rx] Pembrolizumab [Keytruda] 100 mg IV Q3W 04/22/17 [History] Spironolactone [Aldactone] 100 mg PO DAILY 04/22/17 [History] Warfarin [Coumadin] 3 mg PO SUMOWETHSA 04/22/17 [History] Warfarin [Coumadin] 6 mg PO TUFR 04/22/17 [History] Allopurinol [Zyloprim 100 MG] 100 mg PO DAILY 07/04/17 [History] Bumetanide 2 mg PO BID 07/04/17 [History] Potassium Chloride 20 meq PO BID 07/04/17 [History] Lidocaine/Prilocaine [Emla] 1 appl TP DAILY #30 gm 07/29/17 [Rx] Tramadol HCl [Ultram] 50 mg PO QID PRN 30 Days #120 tablet 07/29/17 [Rx] Albuterol Sulfate [Albuterol Inhaler] 2 puff IH Q4HR 09/09/17 [History] Ascorbic Acid [Vitamin C] 250 mg PO DAILY 09/09/17 [History] Ergocalciferol (VITAMIN D2) [Vitamin D2] 50,000 unit PO QWEEK 09/09/17 [History] Ferrous Sulfate [Iron] 325 mg PO DAILY 09/09/17 [History] Melatonin 5 mg PO HS 09/09/17 [History] Milk Thistle 150 mg PO DAILY 09/09/17 [History] Sennosides [Senokot] 8.6 mg PO DAILY 09/09/17 [History] Tamsulosin [Flomax] 0.4 mg PO DAILY 09/09/17 [History] Gabapentin [Neurontin] 300 mg PO TID 10/14/17 [History] Zolpidem [Ambien] 10 mg PO HS 10/14/17 [History] metOLazone [Zaroxolyn] 2.5 mg PO TUFR 10/14/17 [History] 3 Allergy/AdvReac Type Severity Reaction Status Date / Time morphine Allergy Hives Verified 07/11/17 18:35 Penicillins Allergy See Verified 07/11/17 18:35 Comments aspirin AdvReac Nausea Verified 07/11/17 18:35 ibuprofen [From Motrin] AdvReac Vomiting Verified 07/11/17 18:35 Review of Systems All Systems: reviewed and no additional remarkable complaints except as stated ( as per hpi) Exam - Vital Signs Vital signs: Initial Vital Signs Temp Pulse Resp BP Pulse Ox 97.5 F L 60 16 127/66 100 10/14/17 12:39 10/14/17 12:39 10/14/17 12:39 10/14/17 12:39 10/14/17 12:39 Vital Signs - Last 8 Hours Temp Pulse Resp BP Pulse Ox 10/15/17 11:35 18 97 10/15/17 11:03 98.4 F 60 17 105/58 98 10/15/17 07:40 18 97 10/15/17 07:34 97 10/15/17 07:11 97.6 F 61 17 108/57 97 10/15/17 04:42 97.8 F 60 17 103/53 97 Intake and Output 10/14/17 10/15/17 10/15/17 23:59 07:59 15:59 Intake Total 120 / 120 Output Total 200 / 200 Balance -200 / -200 120 / 120 Intake: Oral 120 / 120 Output: Urine 200 / 200 Other: Meal Breakfast Percent of Meal Consumed 0% Weight 62.9 kg 62.9 kg Patient Weight 10/15/17 23:59 Weight 62.9 kg - General Appearance General appearance: well-developed, well-nourished EENT: ATNC Neck: supple Respiratory: clear Cardiology: no edema, regular rate Integumentary: warm and dry Neurologic: alert and oriented x3 Musculoskeletal: no cyanosis Psychiatric: mood/affect appropriate Results - Lab Results 10/15/17 03:49 10/15/17 15:03 Most recent lab results Calcium 9.5 mg/dL (8.6-10.3) 10/15/17 03:49 Phosphorus 3.2 mg/dL (2.7-4.5) 10/14/17 17:03 Magnesium 1.7 mg/dL (1.6-2.6) 10/15/17 03:49 Urine Creatinine 32 mg/dL 10/14/17 14:59 Urine Sodium 60.7 mEq/L 10/14/17 14:59 Consult Discharge Plan - Plan Referrals: Jose Jones DO [Primary Care Provider] -
--- NOTE | 2017-10-15 14:54 | Internal Med Progress Note ---
Hospitalist Progress Note - Encounter Date of Encounter: 10/15/17 Time of Encounter: 09:15 - Subjective Interval History: Patient reports generalized weakness, fatigue and low energy levels. She also had significant nausea and GI discomfort with no vomiting or diarrhea. No fever , chills, cough, shortness of breath. She reports compliance to salt tablets at home. - Exam Vitals: Temp Pulse Resp BP Pulse Ox 98.4 F 60 18 105/58 97 10/15/17 11:03 10/15/17 11:03 10/15/17 11:35 10/15/17 11:03 10/15/17 11:35 Exam: General: Well-developed female lying in bed in mild distress due to nausea Chest: Normal thoracic expansion. Normal breath sounds. Clear to auscultation. Heart: Normal S1 & S2; rhythmic. Systolic murmur+ Abdomen: Non-distended, soft and nontender Extremities: No clubbing, cyanosis or edema. Normal ROM; No calf tenderness. Normal distal pulses. Neurological: Awake, alert and oriented to person, place and time. No focal deficits. Psych: Affect appropriate. - Assessment and Plan (1) Hyponatremia Current Visit: Yes Status: Acute Assessment and Plan: Hypoosmolar hyponatremia. SIADH vs dehydration with underlying lung cancer/CHF/ cirrhosis. Acute on chronic hyponatremia. Baseline serum sodium noted to be in mid 120s. Follow-up urine osmolality, may need IV hydration if low. Follow-up nephrology consult. Monitor BMP Q6hrly. (2) Non-small cell carcinoma of left lung Current Visit: Yes Status: Chronic Assessment and Plan: Follows with oncology as outpatient. Per oncology- Pembrolizumab initiated 07/07. Is currently on hold, to be resumed in 2-3 weeks. (3) A-fib Current Visit: Yes Status: Chronic Assessment and Plan: Currently rate controlled. Continue long-term anticoagulation with Coumadin. Monitor INR, continue telemetry monitoring. (4) UTI (urinary tract infection) Current Visit: Yes Status: Suspected Assessment and Plan: Urinalysis shows positive nitrite, large leukocyte esterase, pyuria with many bacteria. Follow-up urine culture, continue IV Rocephin. (5) DVT prophylaxis Current Visit: Yes Status: Acute Assessment and Plan: On Coumadin. (6) COPD (chronic obstructive pulmonary disease) Current Visit: Yes Status: Chronic (7) CAD (coronary artery disease) Current Visit: Yes Status: Chronic (8) Essential hypertension Current Visit: Yes Status: Chronic Assessment and Plan: BP low-normal; npt on antihypertensives at home; (9) Anxiety and depression Current Visit: Yes Status: Chronic (10) CKD (chronic kidney disease), stage III Current Visit: Yes Status: Chronic Assessment and Plan: stable creatinine; continue to monitor; held diuretics for now; (11) Cirrhosis Current Visit: Yes Status: Chronic (12) Congestive heart failure Current Visit: Yes Status: Chronic Assessment and Plan: Echocardiogram from June 2017 shows preserved EF, severe biatrial dilation, severe prosthetic aortic stenosis, severe mitral stenosis/tricuspid regurgitation/pulmonary hypertension. Patient has declined TAVR in the past, despite multivalvular heart disease. Has been on 3 diuretics at home-Bumex, spironolactone, Zaroxolyn, all of which are currently on hold due to hyponatremia. Continue telemetry monitoring and supportive care. - Time Spent with Patient Total time spent is greater than 50% in coordination of care (as documented) at patient's floor/unit and/or counseling patient: Plan of Care Discussed with: patient Internal Medicine: Result - Labs CBC & Chem 7: 10/15/17 03:49 10/15/17 03:49 Labs: Short CBC 10/15/17 Range/Units 03:49 WBC 5.5 (4.3-11.1) K/mcL Hgb 8.1 L D (11.5-15.4) g/dL Hct 25.1 L (35.3-44.9) % Plt Count 133 L (140-400) K/mcL Neutrophils # 3.8 (1.6-8.9) K/mcL BMP 10/15/17 03:49 Sodium 117 L* Potassium 4.5 Chloride 87 L Carbon Dioxide 24 BUN 23 Creatinine 1.04 Glucose 110 H Calcium 9.5 Liver Function 10/15/17 Range/Units 03:49 Total Bilirubin 0.5 (0.3-1.0) mg/dL AST 27 (13-39) Units/L ALT 17 (7-52) Units/L Alkaline Phosphatase 231 H (34-104) Units/L Albumin 3.3 L (3.5-5.7) g/dL - ABG Interpretation ABG results: PT/INR, D-dimer PT 20.3 Seconds (9.4-12.1) H 10/15/17 03:49 - VTE Reasons for not Prescribing Prophylaxis: Not indicated-Anticoagulated or INR therapeutic Consult Discharge Plan - Plan Referrals: Jose Jones, [Primary Care Provider] - (3) A-fib Qualifiers: Atrial fibrillation type: chronic Qualified Code(s): I48.91 - Unspecified atrial fibrillation (4) UTI (urinary tract infection) Qualifiers: Urinary tract infection type: acute cystitis Hematuria presence: without hematuria Qualified Code(s): N30.00 - Acute cystitis without hematuria (6) COPD (chronic obstructive pulmonary disease) Qualifiers: COPD type: unspecified COPD Qualified Code(s): J44.9 - Chronic obstructive pulmonary disease, unspecified (7) CAD (coronary artery disease) Qualifiers: Coronary Disease-Associated Artery/Lesion type: unspecified vessel or lesion type [place] vs. transplanted heart: [place] heart Associated angina: without angina Qualified Code(s): I25.10 - Atherosclerotic heart disease of [place] coronary artery without angina pectoris (11) Cirrhosis Qualifiers: Hepatic cirrhosis type: alcoholic cirrhosis Ascites presence: with ascites Qualified Code(s): K70.31 - Alcoholic cirrhosis of liver with ascites (12) Congestive heart failure Qualifiers: Heart failure type: diastolic Heart failure chronicity: acute on chronic Qualified Code(s): I50.33 - Acute on chronic diastolic (congestive) heart failure
[2017-10-15 16:43] LABS: BUN/Creatinine Ratio 18 (6-26); Blood Urea Nitrogen 18 mg/dL (8-23); Calcium 9.7 mg/dL (8.6-10.3); Carbon Dioxide 22 mEq/L (23-29); Chloride 89 mEq/L (98-107); Glucose 169 mg/dL (70-105); Osmolality,Calculated 254 (280-300); Potassium 4.4 mEq/L (3.5-5.1); Sodium 119 mEq/L (136-145); eGFR For Non-African Americans 54 (> 60)
[2017-10-15] MEDS ORDERED: Warfarin perPT PO PRN (18:00)
[2017-10-15] MEDS ORDERED: *HR* Warfarin 3 MG TABLET PO ONE (18:00)
[2017-10-15] MEDS: Melatonin 3 MG TABLET PO SCH (20:30)
[2017-10-15] MEDS ORDERED: 0.9 % Sodium Chloride 1,000 ML IVC SCH (22:30)
[2017-10-16 00:03] LABS: Calcium 9.7 mg/dL (8.6-10.3)
[2017-10-16 03:10] LABS: Basophils % 0.4 %; Eosinophils % 0.7 %; Hematocrit 26.1 % (35.3-44.9); Hemoglobin 8.3 g/dL (11.5-15.4); Immature Granulocytes % 0.4 % (0-4); Lymphocytes # 0.8 K/mcL (0.6-4.6); Lymphocytes % 16.8 %; Mean Corpuscular HGB Conc 31.8 g/dL (31.6-35.5); Mean Corpuscular Hemoglobin 28.1 pg (28.0-33.3); Mean Corpuscular Volume 88.5 fL (83.0-100.0); Mean Platelet Volume 8.7 fL (9.4-12.4); Monocytes # 0.4 K/mcL (0.0-1.3); Monocytes % 9.2 %; Neutrophils # 3.3 K/mcL (1.6-8.9); Platelet Count 123 K/mcL (140-400); Red Blood Count 2.95 M/mcL (3.82-4.97); Segmented Neutrophils % 72.5 %
[2017-10-16 03:18] LABS: Prothrombin Time 22.9 Seconds (9.4-12.1)
[2017-10-16 03:33] LABS: BUN/Creatinine Ratio 19 (6-26); Blood Urea Nitrogen 20 mg/dL (8-23); Calcium 9.8 mg/dL (8.6-10.3); Carbon Dioxide 24 mEq/L (23-29); Chloride 90 mEq/L (98-107); Glucose 112 mg/dL (70-105); Osmolality,Calculated 253 (280-300); Potassium 4.9 mEq/L (3.5-5.1); Sodium 120 mEq/L (136-145); eGFR For Non-African Americans 50 (> 60)
[2017-10-16 06:27] LABS: BUN/Creatinine Ratio 19 (6-26); Blood Urea Nitrogen 20 mg/dL (8-23); Calcium 9.8 mg/dL (8.6-10.3); Carbon Dioxide 22 mEq/L (23-29); Chloride 90 mEq/L (98-107); Glucose 115 mg/dL (70-105); Osmolality,Calculated 252 (280-300); Potassium 4.9 mEq/L (3.5-5.1); Sodium 119 mEq/L (136-145); eGFR For Non-African Americans 52 (> 60)
[2017-10-16] MEDS: Gabapentin 300 MG CAPSULE PO SCH ×3 (08:24→21:15)
[2017-10-16] MEDS: cefTRIAXone 1,000 MG in Water for inj. (sterile) 20 ML 10 ML IVP SCH (08:24)
[2017-10-16] MEDS: Sennosides 8.6 MG TABLET PO SCH (08:25)
[2017-10-16] MEDS: Ascorbic Acid 500 MG TABLET PO SCH (08:25)
--- NOTE | 2017-10-16 08:50 | Nephrology Progress Note ---
Date of Encounter: 10/16/17 Time of Encounter: 08:50 - Assessment and Plan (1) Hyponatremia Current Visit: Yes Status: Acute Patient with acute on chronic hyponatremia. I suspect decreased oral intake with ongoing hypotonic fluid ingestion and nausea with the subsequent release of ADH have all contributed to the acute worsening of her hyponatremia. Will give 0.9 with sodium bicarbonate and follow serum sodium level. Patient on salt tablets as well. Monitor rate of rise of her sodium closely. Attempt to get back to her baseline sodium level. I recommend changing the carrier fluids for any IV medications to 0.9. (2) CKD (chronic kidney disease), stage III Current Visit: Yes Status: Chronic eGFR is greater than 60. Subjective Principal diagnosis: hyponatremia Interval history: Patient seen. She is asleep. No new reports. Objective - Vital Signs Vital signs: Vital Signs Temp Pulse Resp BP Pulse Ox 10/16/17 07:48 20 95 10/16/17 07:18 98.8 F 54 16 113/67 97 10/16/17 04:20 99.2 F 59 17 97/59 95 10/16/17 03:21 17 96 10/15/17 23:36 98.2 F 70 17 106/52 96 10/15/17 23:30 14 96 10/15/17 22:00 96 10/15/17 19:38 14 96 10/15/17 16:35 16 96 10/15/17 15:35 97.4 F L 60 17 103/54 99 10/15/17 11:35 18 97 10/15/17 11:03 98.4 F 60 17 105/58 98 Intake and Output 10/15/17 10/16/17 10/16/17 23:59 07:59 15:59 Output Total 300 / 300 0 / 0 Balance -300 / -300 0 / 0 Output: Urine 300 / 300 0 / 0 Other: # Bowel Movements 0 Weight 61.1 kg - General Appearance General appearance: Present: well-developed, well-nourished EENT: Present: ATNC Neck: Present: supple Cardiology: Present: regular rate - Lab 10/16/17 02:05 10/16/17 05:45 Most recent lab results Calcium 9.8 mg/dL (8.6-10.3) 10/16/17 05:45 Phosphorus 3.2 mg/dL (2.7-4.5) 10/14/17 17:03 Magnesium 1.7 mg/dL (1.6-2.6) 10/15/17 03:49 Urine Creatinine 32 mg/dL 10/14/17 14:59 Urine Sodium 60.7 mEq/L 10/14/17 14:59 - VTE Reasons for not Prescribing Prophylaxis: Not indicated-Anticoagulated or INR therapeutic Consult Discharge Plan - Plan Referrals: Jose Jones DO [Primary Care Provider] -
--- NOTE | 2017-10-16 13:27 | Internal Med Progress Note ---
Hospitalist Progress Note - Encounter Date of Encounter: 10/16/17 Time of Encounter: 09:10 - Subjective Interval History: Reports feeling better today. Improved nausea. Tolerates oral diet. Improving fatigue and generalized weakness. No fever, chills, cough. - Exam Vitals: Temp Pulse Resp BP Pulse Ox 98.3 F 59 20 101/60 93 10/16/17 10:14 10/16/17 10:14 10/16/17 11:18 10/16/17 10:14 10/16/17 11:18 Exam: General: Well-developed female lying in bed in no acute distress Chest: Normal thoracic expansion. Normal breath sounds. Clear to auscultation. Heart: Normal S1 & S2; rhythmic. Systolic murmur+ Abdomen: Non-distended, soft and nontender Extremities: No clubbing, cyanosis or edema. Normal ROM; No calf tenderness. Normal distal pulses. Neurological: Awake, alert and oriented to person, place and time. No focal deficits. Psych: Affect appropriate. - Assessment and Plan (1) Hyponatremia Current Visit: Yes Status: Acute Assessment and Plan: Hypoosmolar hyponatremia. SIADH along with dehydration with underlying lung cancer/CHF/cirrhosis. Acute on chronic hyponatremia. Baseline serum sodium noted to be in mid 120s. Urine sodium currently stable around 120. Urine osmolality noted to be low at 240. Nephrology consult appreciated, started on maintenance IV hydration. Continue salt tablets. Hold diuretics for now. (2) Non-small cell carcinoma of left lung Current Visit: Yes Status: Chronic Assessment and Plan: Follows with oncology as outpatient. Per oncology- Pembrolizumab initiated 07/07. Is currently on hold, to be resumed in 2-3 weeks. (3) A-fib Current Visit: Yes Status: Chronic Assessment and Plan: Currently rate controlled. Continue long-term anticoagulation with Coumadin. Monitor INR, continue telemetry monitoring. (4) UTI (urinary tract infection) Current Visit: Yes Status: Suspected Assessment and Plan: Urinalysis shows positive nitrite, large leukocyte esterase, pyuria with many bacteria. Preliminary urine culture grows gram-negative rods, continue IV Rocephin. (5) DVT prophylaxis Current Visit: Yes Status: Acute (6) COPD (chronic obstructive pulmonary disease) Current Visit: Yes Status: Chronic (7) CAD (coronary artery disease) Current Visit: Yes Status: Chronic (8) Essential hypertension Current Visit: Yes Status: Chronic (9) Anxiety and depression Current Visit: Yes Status: Chronic (10) CKD (chronic kidney disease), stage III Current Visit: Yes Status: Chronic Assessment and Plan: stable creatinine; continue to monitor; held diuretics for now; (11) Cirrhosis Current Visit: Yes Status: Chronic (12) Congestive heart failure Current Visit: Yes Status: Chronic Assessment and Plan: Echocardiogram from June 2017 shows preserved EF, severe biatrial dilation, severe prosthetic aortic stenosis, severe mitral stenosis/tricuspid regurgitation/pulmonary hypertension. Patient has declined TAVR in the past, despite multivalvular heart disease. Has been on 3 diuretics at home-Bumex, spironolactone, Zaroxolyn, all of which are currently on hold due to hyponatremia. Continue telemetry monitoring and supportive care. - Time Spent with Patient Total time spent is greater than 50% in coordination of care (as documented) at patient's floor/unit and/or counseling patient: Plan of Care Discussed with: patient Internal Medicine: Result - Labs CBC & Chem 7: 10/16/17 02:05 10/16/17 05:45 Labs: Short CBC 10/16/17 Range/Units 02:05 WBC 4.6 (4.3-11.1) K/mcL Hgb 8.3 L (11.5-15.4) g/dL Hct 26.1 L (35.3-44.9) % Plt Count 123 L (140-400) K/mcL Neutrophils # 3.3 (1.6-8.9) K/mcL BMP 10/15/17 10/15/17 10/16/17 15:03 23:28 02:05 Sodium 119 L* 118 L* 120 L* Potassium 4.4 5.0 4.9 Chloride 89 L 89 L 90 L Carbon Dioxide 22 L 23 24 BUN 18 21 20 Creatinine 1.00 1.10 1.07 Glucose 169 H 130 H 112 H Calcium 9.7 9.7 9.8 10/16/17 05:45 Sodium 119 L* Potassium 4.9 Chloride 90 L Carbon Dioxide 22 L BUN 20 Creatinine 1.05 Glucose 115 H Calcium 9.8 - ABG Interpretation ABG results: PT/INR, D-dimer PT 22.9 Seconds (9.4-12.1) H 10/16/17 02:05 - VTE Reasons for not Prescribing Prophylaxis: Not indicated-Anticoagulated or INR therapeutic Consult Discharge Plan - Plan Referrals: Jose Jones, [Primary Care Provider] - (3) A-fib Qualifiers: Atrial fibrillation type: chronic Qualified Code(s): I48.91 - Unspecified atrial fibrillation (4) UTI (urinary tract infection) Qualifiers: Urinary tract infection type: acute cystitis Hematuria presence: without hematuria Qualified Code(s): N30.00 - Acute cystitis without hematuria (6) COPD (chronic obstructive pulmonary disease) Qualifiers: COPD type: unspecified COPD Qualified Code(s): J44.9 - Chronic obstructive pulmonary disease, unspecified (7) CAD (coronary artery disease) Qualifiers: Coronary Disease-Associated Artery/Lesion type: unspecified vessel or lesion type [place] vs. transplanted heart: [place] heart Associated angina: without angina Qualified Code(s): I25.10 - Atherosclerotic heart disease of [place] coronary artery without angina pectoris (11) Cirrhosis Qualifiers: Hepatic cirrhosis type: alcoholic cirrhosis Ascites presence: with ascites Qualified Code(s): K70.31 - Alcoholic cirrhosis of liver with ascites (12) Congestive heart failure Qualifiers: Heart failure type: diastolic Heart failure chronicity: acute on chronic Qualified Code(s): I50.33 - Acute on chronic diastolic (congestive) heart failure
[2017-10-16] MEDS ORDERED: *HR* Warfarin 3 MG TABLET PO ONE (18:00)
[2017-10-16] MEDS ORDERED: SODIUM CHLORIDE 0.9% IVC SCH (19:45)
[2017-10-16] MEDS ORDERED: SODIUM BICARBONATE IVC SCH (19:45)
[2017-10-16] MEDS: Melatonin 3 MG TABLET PO SCH (21:15)
[2017-10-17] MEDS ORDERED: Lidocaine 4% CREAM (LMX) 5 GM TP ONE (00:28)
[2017-10-17 01:49] LABS: INR 2.6; Prothrombin Time 29.5 Seconds (9.4-12.1)
[2017-10-17 02:08] LABS: BUN/Creatinine Ratio 22 (6-26); Blood Urea Nitrogen 21 mg/dL (8-23); Calcium 9.2 mg/dL (8.6-10.3); Carbon Dioxide 22 mEq/L (23-29); Chloride 90 mEq/L (98-107); Glucose 127 mg/dL (70-105); Osmolality,Calculated 249 (280-300); Potassium 4.8 mEq/L (3.5-5.1); Sodium 117 mEq/L (136-145); eGFR For Non-African Americans 58 (> 60)
[2017-10-17] MEDS: Sennosides 8.6 MG TABLET PO SCH (08:40)
[2017-10-17] MEDS: cefTRIAXone 1,000 MG in Water for inj. (sterile) 20 ML 10 ML IVP SCH (08:40)
[2017-10-17] MEDS: Ascorbic Acid 500 MG TABLET PO SCH (08:40)
[2017-10-17] MEDS: Gabapentin 300 MG CAPSULE PO SCH ×3 (08:42→20:06)
--- NOTE | 2017-10-17 10:00 | Nephrology Progress Note ---
Date of Encounter: 10/17/17 Time of Encounter: 10:00 - Assessment and Plan (1) Hyponatremia Current Visit: Yes Status: Acute Patient with acute on chronic hyponatremia. Sodium is 117 down from 119. I suspect decreased oral intake with ongoing hypotonic fluid ingestion and nausea with the subsequent release of ADH have all contributed to the acute worsening of her hyponatremia. Noted to be on Bumex and Spironolactone at home. Currently on Sodium Bicarb infusion at 50/hr. Continue salt tablets. I recommend changing the carrier fluids for any IV medications to 0.9. Will order one time dose of Tolvaptan. (2) CKD (chronic kidney disease), stage III Current Visit: Yes Status: Chronic eGFR is greater than 60. (3) Non-small cell carcinoma of left lung Current Visit: Yes Status: Chronic Is currently getting tx outpatient with oncology. Subjective Principal diagnosis: hyponatremia Interval history: Pt seen and examined, doing well. No CP or SOB. Objective - Vital Signs Vital signs: Vital Signs Temp Pulse Resp BP Pulse Ox 10/17/17 07:25 16 96 10/17/17 07:00 98.5 F 60 16 117/66 96 10/17/17 04:40 12 96 10/17/17 03:45 97.9 F 60 16 101/62 95 10/17/17 00:24 14 98 10/16/17 23:49 99.0 F 60 16 96/54 98 10/16/17 20:49 12 99 10/16/17 19:54 97.6 F 60 16 104/66 99 10/16/17 15:32 18 96 10/16/17 14:29 98.2 F 59 18 101/63 96 10/16/17 11:18 20 93 10/16/17 10:14 98.3 F 59 12 101/60 99 Intake and Output 10/16/17 10/17/17 10/17/17 23:59 07:59 15:59 Intake Total 240 / 240 Output Total 250 / 250 Balance 240 / 240 -250 / -250 Intake: Oral 240 / 240 Output: Urine 250 / 250 Other: Meal Dinner Percent of Meal Consumed 80% Stool Size Moderate Stool Consistency formed Stool Color Brown Weight 62.3 kg - General Appearance General appearance: Present: well-developed, well-nourished EENT: Present: ATNC, hearing intact, vision intact Neck: Present: supple Respiratory: Present: clear Cardiology: Present: normal S1, normal S2 Gastrointestinal: Present: normoactive bowel sounds, no tenderness, no guarding Integumentary: Present: no rash, warm and dry Neurologic: Present: alert and oriented x3 Psychiatric: Present: mood/affect appropriate, cooperative - Lab 10/16/17 02:05 10/17/17 01:20 Most recent lab results Calcium 9.2 mg/dL (8.6-10.3) 10/17/17 01:20 Phosphorus 3.2 mg/dL (2.7-4.5) 10/14/17 17:03 Magnesium 1.7 mg/dL (1.6-2.6) 10/15/17 03:49 Urine Creatinine 32 mg/dL 10/14/17 14:59 Urine Sodium 60.7 mEq/L 10/14/17 14:59 - VTE Reasons for not Prescribing Prophylaxis: Not indicated-Anticoagulated or INR therapeutic Consult Discharge Plan - Plan Referrals: Jose Jones DO [Primary Care Provider] -
[2017-10-17] MEDS ORDERED: Tolvaptan 15 MG TABLET PO ONE (10:15)
[2017-10-17 11:45] LABS: BUN/Creatinine Ratio 22 (6-26); Blood Urea Nitrogen 20 mg/dL (8-23); Calcium 9.6 mg/dL (8.6-10.3); Carbon Dioxide 23 mEq/L (23-29); Chloride 91 mEq/L (98-107); Glucose 113 mg/dL (70-105); Osmolality,Calculated 251 (280-300); Potassium 4.9 mEq/L (3.5-5.1); Sodium 119 mEq/L (136-145); eGFR For Non-African Americans 59 (> 60)
--- NOTE | 2017-10-17 13:24 | Internal Med Progress Note ---
Hospitalist Progress Note - Encounter Date of Encounter: 10/17/17 Time of Encounter: 08:55 - Subjective Interval History: Denies new complaints. Resolved nausea and emesis. Denies chest pain, shortness of breath, leg swelling. Improved fatigue and generalized weakness. - Exam Vitals: Temp Pulse Resp BP Pulse Ox 97.6 F 61 16 102/48 99 10/17/17 10:51 10/17/17 10:51 10/17/17 10:51 10/17/17 10:51 10/17/17 10:51 Exam: General: Well-developed female lying in bed in no acute distress Chest: Normal thoracic expansion. Normal breath sounds. Clear to auscultation. Heart: Normal S1 & S2; rhythmic. Systolic murmur+ Abdomen: Non-distended, soft and nontender Extremities: No clubbing, cyanosis or edema. Normal ROM; No calf tenderness. Normal distal pulses. Neurological: Awake, alert and oriented to person, place and time. No focal deficits. Psych: Affect appropriate. - Assessment and Plan (1) Hyponatremia Current Visit: Yes Status: Acute Assessment and Plan: Hypoosmolar hyponatremia. SIADH along with dehydration with underlying lung cancer/CHF/cirrhosis. Acute on chronic hyponatremia. Baseline serum sodium noted to be in mid 120s. Serum sodium continues to be around 119. Urine osmolality noted to be low at 240. Nephrology on board- started on bicarbonate drip with 25mEq sodium bicarbonate, also ordered Tolvaptan today. Continue salt tablets. Hold diuretics for now. (2) Non-small cell carcinoma of left lung Current Visit: Yes Status: Chronic Assessment and Plan: Follows with oncology as outpatient. Per oncology- Pembrolizumab initiated 07/07. Is currently on hold, to be resumed in 2-3 weeks. (3) A-fib Current Visit: Yes Status: Chronic Assessment and Plan: Currently rate controlled. Continue long-term anticoagulation with Coumadin. Monitor INR, continue telemetry monitoring. (4) UTI (urinary tract infection) Current Visit: Yes Status: Suspected Assessment and Plan: Urinalysis shows positive nitrite, large leukocyte esterase, pyuria with many bacteria. Urine culture grows Escherichia coli, sensitive to cephalosporins, continue IV Rocephin- day 4. (5) DVT prophylaxis Current Visit: Yes Status: Acute (6) COPD (chronic obstructive pulmonary disease) Current Visit: Yes Status: Chronic (7) CAD (coronary artery disease) Current Visit: Yes Status: Chronic (8) Essential hypertension Current Visit: Yes Status: Chronic Assessment and Plan: BP low-normal; not on antihypertensives at home; (9) Anxiety and depression Current Visit: Yes Status: Chronic (10) CKD (chronic kidney disease), stage III Current Visit: Yes Status: Chronic Assessment and Plan: stable creatinine; continue to monitor; held diuretics for now; (11) Cirrhosis Current Visit: Yes Status: Chronic (12) Congestive heart failure Current Visit: Yes Status: Chronic Assessment and Plan: Echocardiogram from June 2017 shows preserved EF, severe biatrial dilation, severe prosthetic aortic stenosis, severe mitral stenosis/tricuspid regurgitation/pulmonary hypertension. Patient has declined TAVR in the past, despite multivalvular heart disease. Has been on 3 diuretics at home-Bumex, spironolactone, Zaroxolyn, all of which are currently on hold due to hyponatremia. Continue telemetry monitoring and supportive care. - Time Spent with Patient Total time spent is greater than 50% in coordination of care (as documented) at patient's floor/unit and/or counseling patient: Plan of Care Discussed with: patient Internal Medicine: Result - Labs CBC & Chem 7: 10/16/17 02:05 10/17/17 08:50 Labs: BMP 10/17/17 10/17/17 01:20 08:50 Sodium 117 L* 119 L* Potassium 4.8 4.9 Chloride 90 L 91 L Carbon Dioxide 22 L 23 BUN 21 20 Creatinine 0.95 0.93 Glucose 127 H 113 H Calcium 9.2 9.6 - ABG Interpretation ABG results: PT/INR, D-dimer PT 29.5 Seconds (9.4-12.1) H 10/17/17 01:20 - VTE Reasons for not Prescribing Prophylaxis: Not indicated-Anticoagulated or INR therapeutic Consult Discharge Plan - Plan Referrals: Jose Jones, [Primary Care Provider] - (3) A-fib Qualifiers: Atrial fibrillation type: chronic Qualified Code(s): I48.91 - Unspecified atrial fibrillation (4) UTI (urinary tract infection) Qualifiers: Urinary tract infection type: acute cystitis Hematuria presence: without hematuria Qualified Code(s): N30.00 - Acute cystitis without hematuria (6) COPD (chronic obstructive pulmonary disease) Qualifiers: COPD type: unspecified COPD Qualified Code(s): J44.9 - Chronic obstructive pulmonary disease, unspecified (7) CAD (coronary artery disease) Qualifiers: Coronary Disease-Associated Artery/Lesion type: unspecified vessel or lesion type [place] vs. transplanted heart: [place] heart Associated angina: without angina Qualified Code(s): I25.10 - Atherosclerotic heart disease of [place] coronary artery without angina pectoris (11) Cirrhosis Qualifiers: Hepatic cirrhosis type: alcoholic cirrhosis Ascites presence: with ascites Qualified Code(s): K70.31 - Alcoholic cirrhosis of liver with ascites (12) Congestive heart failure Qualifiers: Heart failure type: diastolic Heart failure chronicity: acute on chronic Qualified Code(s): I50.33 - Acute on chronic diastolic (congestive) heart failure
--- NOTE | 2017-10-17 17:23 | Electrocardiograph Report ---
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
[2017-10-17] MEDS ORDERED: *HR* Warfarin 1 MG TABLET PO ONE ×2 (18:00→18:30)
[2017-10-17] MEDS: Melatonin 3 MG TABLET PO SCH (20:06)
[2017-10-18 04:36] LABS: BUN/Creatinine Ratio 22 (6-26); Blood Urea Nitrogen 16 mg/dL (8-23); Calcium 9.3 mg/dL (8.6-10.3); Carbon Dioxide 22 mEq/L (23-29); Chloride 91 mEq/L (98-107); Glucose 134 mg/dL (70-105); Magnesium 1.7 mg/dL (1.6-2.6); Osmolality,Calculated 249 (280-300); Potassium 4.9 mEq/L (3.5-5.1); Sodium 118 mEq/L (136-145); eGFR For Non-African Americans > 60 (> 60)
[2017-10-18 05:21] LABS: INR 2.7
[2017-10-18 05:22] LABS: Prothrombin Time 30.9 Seconds (9.4-12.1)
[2017-10-18] MEDS: Sennosides 8.6 MG TABLET PO SCH (09:22)
[2017-10-18] MEDS: Ascorbic Acid 500 MG TABLET PO SCH (09:22)
[2017-10-18] MEDS: Gabapentin 300 MG CAPSULE PO SCH ×3 (09:23→20:31)
[2017-10-18] MEDS: cefTRIAXone 1,000 MG in Water for inj. (sterile) 20 ML 10 ML IVP SCH (09:23)
--- NOTE | 2017-10-18 10:34 | Nephrology Progress Note ---
Date of Encounter: 10/18/17 Time of Encounter: 10:30 - Assessment and Plan (1) Hyponatremia Current Visit: Yes Status: Acute Patient with acute on chronic hyponatremia. Sodium is 118, despite Tolvaptan. Demeclocycline 300 mg PO BID ordered for today. Noted to be on Bumex and Spironolactone at home. Continue salt tablets. Cardiac diet changed to regular diet with salt packets. I recommend changing the carrier fluids for any IV medications to 0.9. (2) CKD (chronic kidney disease), stage III Current Visit: Yes Status: Chronic eGFR is greater than 60. (3) Non-small cell carcinoma of left lung Current Visit: Yes Status: Chronic Is currently getting tx outpatient with oncology. Subjective Principal diagnosis: hyponatremia Interval history: Pt seen and examined, doing well. No CP or SOB. Objective - Vital Signs Vital signs: Vital Signs Temp Pulse Resp BP Pulse Ox 10/18/17 06:47 97.8 F 60 17 115/64 100 10/18/17 03:50 98.7 F 60 15 105/62 100 10/17/17 23:35 97.7 F 61 17 112/52 100 10/17/17 20:30 18 99 10/17/17 19:22 98.4 F 60 17 114/66 97 10/17/17 15:46 97.5 F L 60 16 108/55 99 10/17/17 10:51 97.6 F 61 16 102/48 99 Intake and Output 10/17/17 10/18/17 10/18/17 23:59 07:59 15:59 Intake Total 120 / 120 360 / 360 Balance 120 / 120 360 / 360 Intake: Oral 120 / 120 360 / 360 Other: Meal Dinner Breakfast Percent of Meal Consumed 50% 0% Stool Size Small Moderate Stool Consistency formed soft formed Stool Color Brown Brown # Voids 1 1 1 # Bowel Movements 1 Weight 61.1 kg - General Appearance General appearance: Present: well-developed, well-nourished EENT: Present: ATNC, hearing intact, vision intact Neck: Present: supple Cardiology: Present: no edema, normal S1, normal S2 Gastrointestinal: Present: normoactive bowel sounds, no tenderness, no guarding Integumentary: Present: no rash, warm and dry Neurologic: Present: alert and oriented x3 Psychiatric: Present: mood/affect appropriate, cooperative - Lab 10/16/17 02:05 10/18/17 04:00 Most recent lab results Calcium 9.3 mg/dL (8.6-10.3) 10/18/17 04:00 Phosphorus 3.2 mg/dL (2.7-4.5) 10/14/17 17:03 Magnesium 1.7 mg/dL (1.6-2.6) 10/18/17 04:00 Urine Creatinine 32 mg/dL 10/14/17 14:59 Urine Sodium 60.7 mEq/L 10/14/17 14:59 - VTE Reasons for not Prescribing Prophylaxis: Not indicated-Anticoagulated or INR therapeutic Consult Discharge Plan - Plan Referrals: Jose Jones DO [Primary Care Provider] -
[2017-10-18] MEDS ORDERED: *HR* Warfarin 3 MG TABLET PO ONE (18:00)
--- NOTE | 2017-10-18 18:48 | Internal Med Progress Note ---
Hospitalist Progress Note - Encounter Date of Encounter: 10/18/17 Time of Encounter: 11:00 - Subjective Interval History: Patient's hyponatremia without much improvement - Exam Vitals: Temp Pulse Resp BP Pulse Ox 98.5 F 60 16 105/56 100 10/18/17 15:05 10/18/17 15:05 10/18/17 15:05 10/18/17 15:05 10/18/17 15:05 Exam: Gen.: Nonacute distress, alert and oriented 3 ENT: Mucosal membranes moist Respiratory: Lungs are clear to auscultation bilaterally without any wheezing rhonchi or rales Cardiovascular: Normal S1 and S2 regular rate rhythm no murmurs rubs or gallops Abdomen: Soft, nontender and nondistended with positive bowel sounds Extremities: No lower extremity edema Skin: Normal color - Assessment and Plan (1) Hyponatremia Current Visit: Yes Status: Acute Assessment and Plan: Hypoosmolar hyponatremia; SIADH along with dehydration with underlying lung cancer/CHF/cirrhosis. Interim sodium without much improvement as sodium 118 this morning and was 117 on admission Nephrology following with recommendations to start Demeclocycline in addition to continue salt tablets (2) Non-small cell carcinoma of left lung Current Visit: Yes Status: Chronic Assessment and Plan: Follows with oncology as outpatient. Per oncology- Pembrolizumab initiated 07/07/16; currently on hold, to be resumed in 2-3 weeks. (3) UTI (urinary tract infection) Current Visit: Yes Status: Suspected Assessment and Plan: Urinalysis shows positive nitrite, large leukocyte esterase, pyuria with many bacteria. Urine culture grows Escherichia coli, sensitive to cephalosporins, continue IV Rocephin- day 5. (4) Congestive heart failure Current Visit: Yes Status: Chronic (5) A-fib Current Visit: Yes Status: Chronic Assessment and Plan: Currently rate controlled. Continue long-term anticoagulation with Coumadin. Monitor INR, continue telemetry monitoring. (6) CKD (chronic kidney disease), stage III Current Visit: Yes Status: Chronic Assessment and Plan: stable creatinine; continue to monitor (7) CAD (coronary artery disease) Current Visit: Yes Status: Chronic (8) DVT prophylaxis Current Visit: Yes Status: Acute Assessment and Plan: On Coumadin. - Time Spent with Patient Total time spent is greater than 50% in coordination of care (as documented) at patient's floor/unit and/or counseling patient: Internal Medicine: Result - Labs CBC & Chem 7: 10/16/17 02:05 10/18/17 04:00 Labs: BMP 10/18/17 04:00 Sodium 118 L* Potassium 4.9 Chloride 91 L Carbon Dioxide 22 L BUN 16 Creatinine 0.72 Glucose 134 H Calcium 9.3 - ABG Interpretation ABG results: PT/INR, D-dimer PT 30.9 Seconds (9.4-12.1) H 10/18/17 04:00 - VTE Reasons for not Prescribing Prophylaxis: Not indicated-Anticoagulated or INR therapeutic Consult Discharge Plan - Plan Referrals: Jose Jones DO [Primary Care Provider] - (3) UTI (urinary tract infection) Qualifiers: Urinary tract infection type: acute cystitis Hematuria presence: without hematuria Qualified Code(s): N30.00 - Acute cystitis without hematuria (4) Congestive heart failure Qualifiers: Heart failure type: diastolic Heart failure chronicity: acute on chronic Qualified Code(s): I50.33 - Acute on chronic diastolic (congestive) heart failure (5) A-fib Qualifiers: Atrial fibrillation type: chronic Qualified Code(s): I48.91 - Unspecified atrial fibrillation (7) CAD (coronary artery disease) Qualifiers: Coronary Disease-Associated Artery/Lesion type: unspecified vessel or lesion type [place] vs. transplanted heart: [place] heart Associated angina: without angina Qualified Code(s): I25.10 - Atherosclerotic heart disease of [place] coronary artery without angina pectoris
[2017-10-18] MEDS: Melatonin 3 MG TABLET PO SCH (20:31)
[2017-10-19 06:22] LABS: Basophils % 0.3 %; Eosinophils # 0.1 K/mcL (0.0-0.6); Eosinophils % 0.8 %; Hematocrit 25.8 % (35.3-44.9); Hemoglobin 8.2 g/dL (11.5-15.4); Immature Granulocytes % 0.5 % (0-4); Lymphocytes # 0.6 K/mcL (0.6-4.6); Lymphocytes % 9.9 %; Mean Corpuscular HGB Conc 31.8 g/dL (31.6-35.5); Mean Corpuscular Hemoglobin 28.7 pg (28.0-33.3); Mean Corpuscular Volume 90.2 fL (83.0-100.0); Mean Platelet Volume 8.6 fL (9.4-12.4); Monocytes # 0.5 K/mcL (0.0-1.3); Monocytes % 8.6 %; Neutrophils # 4.9 K/mcL (1.6-8.9); Platelet Count 119 K/mcL (140-400); Red Blood Count 2.86 M/mcL (3.82-4.97); Red Cell Distribution Width 22.6 % (11.5-14.5); Segmented Neutrophils % 79.9 %
[2017-10-19 06:33] LABS: INR 2.2; Prothrombin Time 24.8 Seconds (9.4-12.1)
[2017-10-19 06:43] LABS: BUN/Creatinine Ratio 25 (6-26); Blood Urea Nitrogen 18 mg/dL (8-23); Calcium 9.3 mg/dL (8.6-10.3); Carbon Dioxide 22 mEq/L (23-29); Chloride 91 mEq/L (98-107); Glucose 88 mg/dL (70-105); Osmolality,Calculated 245 (280-300); Potassium 5.1 mEq/L (3.5-5.1); Sodium 117 mEq/L (136-145); eGFR For Non-African Americans > 60 (> 60)
[2017-10-19] MEDS: cefTRIAXone 1,000 MG in Water for inj. (sterile) 20 ML 10 ML IVP SCH (08:56)
[2017-10-19] MEDS: Sennosides 8.6 MG TABLET PO SCH (08:56)
[2017-10-19] MEDS: Ascorbic Acid 500 MG TABLET PO SCH (08:56)
[2017-10-19] MEDS: Gabapentin 300 MG CAPSULE PO SCH ×3 (08:56→20:23)
--- NOTE | 2017-10-19 11:13 | Nephrology Progress Note ---
Date of Encounter: 10/19/17 Time of Encounter: 09:40 - Assessment and Plan (1) Hyponatremia Current Visit: Yes Status: Acute Inc demeclocylcine to 1200mg per day; F.R. of 1.2L per day; cont NaCl 1gm but will incr to TID. Though she wants to discharge to home, her hyponatremia is still too severe and refractory such that I do not recommend discharge; she should remain hospitalized for ongoing medically necessary treatment due to the refractory hyponatremia. (2) Non-small cell carcinoma of left lung Current Visit: Yes Status: Chronic Multifactorial hyponatremia and this may be contributing. (3) CKD (chronic kidney disease), stage III Current Visit: Yes Status: Chronic Hx of CKD stage III, though currently appears better than baseline. Subjective Principal diagnosis: hyponatremia Interval history: Pt was s/e earlier today. She did not affirm N/V/D but did report wheezing and fatigue. She also reported some LE swelling but no CP or fevers or dysuria. Objective - Vital Signs Vital signs: Vital Signs Temp Pulse Resp BP Pulse Ox 10/19/17 06:46 97.7 F 61 17 119/65 100 10/19/17 03:35 97.7 F 60 15 106/65 100 10/18/17 23:21 97.6 F 60 17 128/50 100 10/18/17 20:36 99 10/18/17 19:23 97.8 F 61 17 117/54 99 10/18/17 15:05 98.5 F 60 16 105/56 100 Intake and Output 10/18/17 10/19/17 10/19/17 23:59 07:59 15:59 Intake Total 240 / 240 Balance 240 / 240 Intake: Oral 240 / 240 Other: Meal Dinner Percent of Meal Consumed 70% Stool Size Moderate Small Stool Consistency soft soft formed Stool Color Green # Voids 1 1 1 # Bowel Movements 1 Weight 67 kg - General Appearance General appearance: Present: appears started age, chronically ill, fatigue, frail EENT: Present: ATNC, mucous membranes moist Neck: Present: supple Respiratory: Present: wheezing Cardiology: Present: holosystolic murmur, edema (trace to 1+ ankle edema b/l ), normal S1, normal S2 Gastrointestinal: Present: normoactive bowel sounds, no tenderness, no guarding Integumentary: Present: warm and dry, chronic venous stasis Neurologic: Present: no focal deficit, no asterixis, alert and oriented x3 Musculoskeletal: Present: no cyanosis, no clubbing Psychiatric: Present: mood/affect appropriate, cooperative - Lab 10/19/17 04:00 10/19/17 04:00 Most recent lab results Calcium 9.3 mg/dL (8.6-10.3) 10/19/17 04:00 Phosphorus 3.2 mg/dL (2.7-4.5) 10/14/17 17:03 Magnesium 1.7 mg/dL (1.6-2.6) 10/18/17 04:00 Urine Creatinine 32 mg/dL 10/14/17 14:59 Urine Sodium 60.7 mEq/L 10/14/17 14:59 - VTE Reasons for not Prescribing Prophylaxis: Not indicated-Anticoagulated or INR therapeutic Consult Discharge Plan - Plan Referrals: Jose Jones DO [Primary Care Provider] -
[2017-10-19] MEDS ORDERED: *HR* Warfarin 4 MG TABLET PO ONE (18:00)
--- NOTE | 2017-10-19 18:31 | Internal Med Progress Note ---
Hospitalist Progress Note - Encounter Date of Encounter: 10/19/17 Time of Encounter: 11:00 - Subjective Interval History: Patient still without any improvement in hyponatremia Patient was fluid restricted today and changes in medications made per nephrology recommendations - Exam Vitals: Temp Pulse Resp BP Pulse Ox 97.8 F 61 18 114/63 100 10/19/17 16:03 10/19/17 16:03 10/19/17 16:03 10/19/17 16:03 10/19/17 16:03 Exam: Gen.: Nonacute distress, alert and oriented 3 ENT: Mucosal membranes moist Respiratory: Lungs are clear to auscultation bilaterally without any wheezing rhonchi or rales Cardiovascular: Normal S1 and S2 regular rate rhythm no murmurs rubs or gallops Abdomen: Soft, nontender and nondistended with positive bowel sounds Extremities: No lower extremity edema Skin: Normal color - Assessment and Plan (1) Hyponatremia Current Visit: Yes Status: Acute Assessment and Plan: Hypoosmolar hyponatremia; SIADH along with dehydration with underlying lung cancer/CHF/cirrhosis. Interim sodium without much improvement as sodium 117 this morning and was 117 on admission Nephrology following with recommendations to start Demeclocycline in addition to continue salt tablets (2) Non-small cell carcinoma of left lung Current Visit: Yes Status: Chronic Assessment and Plan: Follows with oncology as outpatient. Per oncology- Pembrolizumab initiated 07/07/16; currently on hold, to be resumed in 2-3 weeks. (3) UTI (urinary tract infection) Current Visit: Yes Status: Suspected Assessment and Plan: Urinalysis shows positive nitrite, large leukocyte esterase, pyuria with many bacteria. Urine culture grows Escherichia coli, sensitive to cephalosporins, continue IV Rocephin- day 6. (4) Congestive heart failure Current Visit: Yes Status: Chronic Assessment and Plan: Echocardiogram from June 2017 shows preserved EF, severe biatrial dilation, severe prosthetic aortic stenosis, severe mitral stenosis/tricuspid regurgitation/pulmonary hypertension. Patient has declined TAVR in the past, despite multivalvular heart disease. Has been on 3 diuretics at home-Bumex, spironolactone, Zaroxolyn, all of which are currently on hold due to hyponatremia. Continue telemetry monitoring and supportive care. (5) A-fib Current Visit: Yes Status: Chronic Assessment and Plan: Currently rate controlled. Continue long-term anticoagulation with Coumadin. Monitor INR, continue telemetry monitoring. (6) CKD (chronic kidney disease), stage III Current Visit: Yes Status: Chronic Assessment and Plan: stable creatinine; continue to monitor (7) DVT prophylaxis Current Visit: Yes Status: Acute Assessment and Plan: On Coumadin. - Time Spent with Patient Total time spent is greater than 50% in coordination of care (as documented) at patient's floor/unit and/or counseling patient: Internal Medicine: Result - Labs CBC & Chem 7: 10/19/17 04:00 10/19/17 04:00 Labs: Short CBC 10/19/17 Range/Units 04:00 WBC 6.1 (4.3-11.1) K/mcL Hgb 8.2 L (11.5-15.4) g/dL Hct 25.8 L (35.3-44.9) % Plt Count 119 L (140-400) K/mcL Neutrophils # 4.9 (1.6-8.9) K/mcL BMP 10/19/17 04:00 Sodium 117 L* Potassium 5.1 Chloride 91 L Carbon Dioxide 22 L BUN 18 Creatinine 0.71 Glucose 88 Calcium 9.3 - ABG Interpretation ABG results: PT/INR, D-dimer PT 24.8 Seconds (9.4-12.1) H 10/19/17 04:00 - VTE Reasons for not Prescribing Prophylaxis: Not indicated-Anticoagulated or INR therapeutic Consult Discharge Plan - Plan Referrals: Jose Jones DO [Primary Care Provider] - (3) UTI (urinary tract infection) Qualifiers: Urinary tract infection type: acute cystitis Hematuria presence: without hematuria Qualified Code(s): N30.00 - Acute cystitis without hematuria (4) Congestive heart failure Qualifiers: Heart failure type: diastolic Heart failure chronicity: acute on chronic Qualified Code(s): I50.33 - Acute on chronic diastolic (congestive) heart failure (5) A-fib Qualifiers: Atrial fibrillation type: chronic Qualified Code(s): I48.91 - Unspecified atrial fibrillation
[2017-10-19] MEDS: Melatonin 3 MG TABLET PO SCH (20:23)
[2017-10-19 22:53] VITALS: BP 106/56
--- NOTE | 2017-10-20 01:57 | Event Note ---
Date of Encounter: 10/20/17 Time of Encounter: 01:45 I was paged when the patient threatened to leave [facility]. She wishes to leave for [facility] in [place] because it is closer to her home. I discussed the possibility of a transfer during the day shift but she wants to leave now. Ms. Brooks is 71 y/o female admitted for hyponatremia wth a PMhx of NSC lung cancer, CKD and CHF. Her hyponatremia is severe and refractory to treatment - it has been complicated by CHF - she is currently under fluid restriction with increased salt tabs. I explained to her the risk of hyponatremia including confusion, seizures and even . I voiced concern about her increased shortness of breath today and cautioned her. She voiced understanding of the risks involved and repeated it back to me. She is alert and orientated to time , place and person- with insight into the risks involved. We are currently awaiting her to arrive to take her home - it may be over an hour untill then
--- NOTE | 2017-10-20 05:05 | Discharge Summary ---
- NOTES TO OUTPATIENT PROVIDER Notes to Outpatient Provider: Patient left AMA with severe hyponatremia Orders not resulted at time of discharge: Pending orders 10/20/17 04:00 Osmolality,Urine [UCHEM] AM 0400 Sodium, Urine [UCHEM] AM 0400 Date of Encounter: 10/20/17 Time of Encounter: 03:01 - Discharge Diagnosis (1) Hyponatremia Priority: Primary Status: Acute Hospital course: Ms. Brooks is a 71 year old female with hx CHF and NSCC who left AMA early this morning . She has severe hyponatremia that has been resistant to treatment . Nephrology was consulted and she was on fluid restriction. Discharge discussed with: patient - Time Spent with Patient Total time spent providing and/or coordinating discharge services: Greater than 30 minutes - Discharge Medications Home Medications: Omeprazole [PriLOSEC] 20 mg PO DAILY PRN 06/03/16 [History] Sodium Chloride [Sodium Chloride Tab] 1 gm PO BID #30 tablet 03/20/17 [Rx] Pembrolizumab [Keytruda] 100 mg IV Q3W 04/22/17 [History] Spironolactone [Aldactone] 100 mg PO DAILY 04/22/17 [History] Warfarin [Coumadin] 3 mg PO SUMOWETHSA 04/22/17 [History] Warfarin [Coumadin] 6 mg PO TUFR 04/22/17 [History] Allopurinol [Zyloprim 100 MG] 100 mg PO DAILY 07/04/17 [History] Bumetanide 2 mg PO BID 07/04/17 [History] Potassium Chloride 20 meq PO BID 07/04/17 [History] Lidocaine/Prilocaine [Emla] 1 appl TP DAILY #30 gm 07/29/17 [Rx] Tramadol HCl [Ultram] 50 mg PO QID PRN 30 Days #120 tablet 07/29/17 [Rx] Albuterol Sulfate [Albuterol Inhaler] 2 puff IH Q4HR 09/09/17 [History] Ascorbic Acid [Vitamin C] 250 mg PO DAILY 09/09/17 [History] Ergocalciferol (VITAMIN D2) [Vitamin D2] 50,000 unit PO QWEEK 09/09/17 [History] Ferrous Sulfate [Iron] 325 mg PO DAILY 09/09/17 [History] Melatonin 5 mg PO HS 09/09/17 [History] Milk Thistle 150 mg PO DAILY 09/09/17 [History] Sennosides [Senokot] 8.6 mg PO DAILY 09/09/17 [History] Tamsulosin [Flomax] 0.4 mg PO DAILY 09/09/17 [History] Gabapentin [Neurontin] 300 mg PO TID 10/14/17 [History] Zolpidem [Ambien] 10 mg PO HS 10/14/17 [History] metOLazone [Zaroxolyn] 2.5 mg PO TUFR 10/14/17 [History] Allergies/Adverse Reactions: 3 Allergy/AdvReac Type Severity Reaction Status Date / Time morphine Allergy Hives Verified 07/11/17 18:35 Penicillins Allergy See Verified 07/11/17 18:35 Comments aspirin AdvReac Nausea Verified 07/11/17 18:35 ibuprofen [From Motrin] AdvReac Vomiting Verified 07/11/17 18:35 Date of admission: 10/14/17 23:45 Primary care physician: Jose Jones DO Consults: 10/15/17 12:08 Consult to Nephrology [CONS] Routine Consulting Provider: [facility] [place]/RUBIN/RAMYA/SHENG Reason for Consult: Acute on chronic hyponatremia, lung cancer Call Completed: Yes Discharging clinician: Sita Peralta Anticipated date of discharge: 10/20/17 - Constitutional Vitals: Temp Pulse Resp BP Pulse Ox 97.9 F 60 18 106/56 99 10/19/17 22:48 10/19/17 22:48 10/19/17 22:48 10/19/17 22:48 10/19/17 22:48 General appearance: Present: A&O X 3, no acute distress, answers questions appropriately. Absent: cooperative, pleasant Exam: she voices understanding of the risks - Respiratory Respiratory exam: Present: wheezes. Absent: accessory muscle use, respiratory distress - Cardiovascular Cardiovascular exam: Present: RRR. Absent: gallop, rubs - Psychiatric Psychiatric exam: Present: agitated, normal affect Additional comments: She is alert and orientated to time , place and person- with insight into the risks involved. - Expanded Psychiatric Exam Focused psych exam: Absent: delusional - Patient Status Disposition: Left Against Medical Advice Condition: Serious Functional capacity at discharge: wheelchair bound Overall status at discharge: patient is not back to baseline - Discharge Instructions Follow Up With: Jose Jones DO [Primary Care Provider] - - VTE Reasons for not Prescribing Prophylaxis: Not indicated-Anticoagulated or INR therapeutic
== END 2017-10-20 02:50 | disposition left against medical advice (07) | DRG 643 ==
LOC: EMEROOARM 12:28 → 2ANU 12:28 → SUATTDRO 23:45
PROVIDERS: ADMIT Internal Medicine; ATTEND Hospitalist